=== PATIENT | male | born 2000 | race Caucasian/White ===

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

== ENCOUNTER 2021-10-09 13:43 | Emergency (ER) | payer MEDICAID, SELFPAY ==
[2021-10-09 13:54] VITALS: BP 114/66; PULSE 65; RESP 16; TEMP 37; O2SAT 98; BMI 21.1
--- NOTE | 2021-10-09 14:01 | US_ITS ---
WS: [id number] SCROTAL ULTRASOUND EXAMINATION CLINICAL INFORMATION: possible inguinal hernia left testicle/abd pain. COMPARISON: None. FINDINGS: TESTES Normal in size and echotexture, without focal lesion. Color Doppler: Normal color Doppler flow pattern. Right testes size: 4.6 cm x 2.8 cm x 2.2 cm. Left testes size: 4.4 cm x 3.0 cm x 2.2 cm. EPIDIDYMIDES Normal in size and echotexture, without focal lesion. Color Doppler: Normal color Doppler flow pattern. Right epididymis size: 1.1 cm x cm x cm. Left epididymitis size: 0.7 cm x cm x cm. HYDROCELE Small right hydrocele VARICOCELE Right varicocele measures 1.3 x 0.8 cm. Small left varicocele measures 1.5 x 0.4 cm. OTHER FINDINGS None. US/US scrotum [id number] IMPRESSION: 1. Normal testicular echotexture bilaterally with normal vascularity. 2. Small right hydrocele. 3. Small bilateral varicoceles. 4. No visualized inguinal hernia.
[2021-10-09 16:07] LABS: Basophils # 0.1 10^3/uL (0.0-0.1); Basophils % 0.6 %; Eosinophils # 0.3 10^3/uL (0.0-0.8); Eosinophils % 3.7 %; Hematocrit 45.2 % (42.0-52.0); Hemoglobin 15.4 g/dL (11.7-16.6); Lymphocytes # 2.4 10^3/uL (1.5-6.5); Lymphocytes % 30.6 %; Mean Corpuscular HGB Conc 34.1 g/dL (30.0-36.0); Mean Corpuscular Hemoglobin 29.2 pg (28.0-34.0); Mean Corpuscular Volume 85.6 fl (80-94); Mean Platelet Volume 9.7 fL (7.4-10.4); Monocytes # 0.6 10^3/uL (0.2-0.9); Monocytes % 7.7 %; Neutrophils # 4.45 10^3/uL (1.8-8.0); Neutrophils % 57.3 %; Nucleated Red Blood Cells % 0 %; Platelet Count 268 10^3/cmm (130-400); Red Blood Count 5.28 10^6/uL (4.1-5.3); Red Cell Distribution Width 11.8 % (12.1-15.1); White Blood Count 7.8 10^3/uL (4.5-13.0)
[2021-10-09 16:24] LABS: Alanine Aminotransferase 12 U/L (0-41); Alkaline Phosphatase 76 IU/L (40-130); Anion Gap 18.2 (5-19); Aspartate Amino Transferase 17 U/L (0-40); Blood Urea Nitrogen 11 mg/dL (6-20); Calcium 9.6 mg/dL (8.5-10.5); Carbon Dioxide 24 mmol/L (22-29); Chloride 100 mmol/L (98-107); Globulin 3.1 g/dL (1.3-4.6); Glomerular Filtration Rate 107.6 mL/min (90-130); Glucose 87 mg/dL (65-115); Osmolality Calculated 285 mOsm/kg (285-295); Potassium 4.2 mmol/L (3.5-5.1); Sodium 138 mmol/L (136-145); Total Bilirubin 0.7 mg/dL (0.15-1.2); Total Protein 8.1 g/dL (6.6-8.7)
[2021-10-09 16:25] LABS: Lactic Sepsis W/Reflex 0.8 mmol/L (0.5-2.2)
[2021-10-09 16:51] VITALS: BP 115/80; PULSE 111; RESP 16; O2SAT 98
--- NOTE | 2021-10-09 17:53 | ED_ITS ---
HPI - Abdominal Pain General: Chief Complaint: Abdominal Pain Stated Complaint: poss hernia sent over by [facility] Time Seen by Provider: 10/09/21 17:45 History of Present Illness: HPI narrative: Patient is a 21-year-old male comes to the ED with abdominal pain. He saw his PCP today at [facility] and they referred him here to the ED to be evaluated for an inguinal hernia. Patient says for the past month he has noticed that when he is bending over or lifting things he will feel some pain in his lower abdomen. Last night he noticed there was a small bulging mass in his left groin. He says he pushed on it last night and it was very painful. He denies being in any current pain unless palpating inguinal mass. Denies any nausea/vomiting, fever, chills, bladder or bowel symptoms. Associated Symptoms: Denies chills, constipation, diarrhea, dysuria, fever(s), hematochezia, hematuria, nausea and vomiting Review of Systems Const: Denies: fever(s), chills or fatigue Eyes: Denies: change in vision or eye discomfort ENMT: Denies: throat pain, odynophagia, nasal discharge or nasal congestion Card: Denies: chest pain, palpitations, edema, swelling of feet/ankles, dyspnea on exertion or orthopnea Resp: Denies: dyspnea, productive cough or non-productive cough GI: Reports: abdominal pain; Denies: nausea, vomiting, diarrhea, constipation or hematochezia : Denies: flank pain, difficulty urinating, dysuria or hematuria Musc: Denies: neck pain, back pain or extremity swelling Skin/Breast: Denies: rash or new lesions Neuro: Denies: headache(s), numbness in extremities or weakness in extremities COUNT INCLUDES THE [facility] ED PFSH: Social History Smoking and tobacco status: never smoked Physical Exam Const: COMMON NORMALS: no acute distress, patient oriented x3, healthy appearing and alert GENERAL APPEARANCE: cooperative and comfortable HENMT: COMMON NORMALS: normocephalic HEAD & SCALP: normocephalic MOUTH: Normal oral and palatal mucosa present THROAT: posterior oropharynx normal and uvula midline Neck/C-Spine: COMMON NORMALS: supple GENERAL: Yes normal visual inspection Resp: COMMON NORMALS: normal respiratory effort, No retractions, No use of accessory muscles and clear to auscultation bilaterally AUSCULTATION: clear to auscultation bilaterally Cardio: COMMON NORMALS: regular rate, regular rhythm, S1 normal heart sound present, S2 normal heart sound present, No gallops present (Cardio), No clicks present (Cardio), No murmurs present (Cardio) and Peripheral pulses 2+ throughout RATE: regular rate RHYTHM: regular rhythm HEART SOUNDS: S1 normal heart sound present and S2 normal heart sound present PERIPHERAL PULSES: Peripheral pulses 2+ throughout GI: COMMON NORMALS: Normal to inspection, nondistended, normoactive bowel s ounds present, Soft to palpation, non-tender and no masses PALPATION: Yes Soft to palpation and Yes Hernia present direct inguinal Direct inguinal hernia laterality: left : COMMON NORMALS: Yes no CVA tenderness BLADDER/KIDNEY EXAM: Yes no CVA tenderness Back/Pelvis: COMMON NORMALS: no CVA tenderness Neuro: COMMON NORMALS: patient oriented x3 SENSORIUM/ORIENTATION: Yes alert GAIT: Yes Normal gait present Skin: GENERAL SKIN EXAM: dry skin Course Reevaluation(s): Reevaluation #1: After patient had CT of abdomen/pelvis, I went in and reevaluated his left inguinal hernia. Upon exam again patient's guaiacol hernia seem to be reduced and he had no palpable hernia or tenderness in the left inguinal region. Time: 20:02 Vital Signs: Vital signs: Vital Signs Temperature 98.6 F 10/09/21 13:54 Pulse Rate 72 10/09/21 20:31 Respiratory Rate 18 10/09/21 20:31 Blood Pressure 123/68 10/09/21 20:31 Pulse Oximetry 98 10/09/21 20:31 MDM - Abdominal Pain MDM Narrative: Medical decision making narrative: Patient is a 21-year-old male who comes to the ED with abdominal pain. He was seen at [facility] they were concerned for a left inguinal hernia and sent him here to the ED to be evaluated. Vital stable. Exam showed a nontoxic appearing patient that did have a palpable left inguinal hernia. Rest of exam was benign. Labs were unremarkabl e. Ultrasound of scrotum showed no acute findings. CT of abdomen pelvis showed no acute findings that did not notate any inguinal hernia seen. Once patient arrived back from CT, I performed another exam on left inguinal hernia and it appeared to have resolved. There is no palpable hernia and no tenderness present. Patient's inguinal hernia reduced on its own. Patient was diagnosed with an inguinal hernia that was reducible and sent home. He was told to follow- up with his PCP in the next 5 days for reevaluation. He was given strict return to ED precautions such as if he feels his hernia again and its painful and will not reduce. Lab Data: Attestation: I reviewed the patient's lab results. Labs: Lab Results 10/09/21 10/09/21 10/09/21 15:57 15:57 15:57 WBC 7.8 10^3/uL 10^3/ uL (4.5-13.0) RBC 5.28 10^6/uL 10^6 /uL (4.1-5.3) Hgb 15.4 g/dL g/dL (11.7-16.6) Hct 45.2 % % (42.0-52.0) MCV 85.6 fl fl (80-94) MCH 29.2 pg pg (28.0-34.0) MCHC 34.1 g/dL g/dL (30.0-36.0) RDW 11.8 % L % (12.1-15.1) Plt Count 268 10^3/cmm 10^3 /cmm (130-400) MPV 9.7 fL fL (7.4-10.4) Neut % (Auto) 57.3 % % Lymph % (Auto) 30.6 % % [place] % (Auto) 7.7 % % Eos % (Auto) 3.7 % % Baso % (Auto) 0.6 % % Neut # (Auto) 4.45 10^3/uL 10^3 /uL (1.8-8.0) Lymph # (Auto) 2.4 10^3/uL 10^3/ uL (1.5-6.5) [place] # (Auto) 0.6 10^3/uL 10^3/ uL (0.2-0.9) Eos # (Auto) 0.3 10^3/uL 10^3/ uL (0.0-0.8) Baso # (Auto) 0.1 10^3/uL 10^3/ uL (0.0-0.1) Nucleated RBC % (a uto) 0 % % Nucleated RBCs # 0.0 /100WBC /100W BC Sodium 138 mmol/L mmol/L (136-145) Potassium 4.2 mmol/L mmol/L (3.5-5.1) Chloride 100 mmol/L mmol/L (98-107) Carbon Dioxide 24 mmol/L mmol/L (22-29) Anion Gap 18.2 (5-19) BUN 11 mg/dL mg/dL (6-20) Creatinine 0.9 mg/dL mg/dL (0.7-1.2) GFR Calculation 107.6 mL/min mL/m in (90-130) Glucose 87 mg/dL mg/dL (65-115) Calculated Osmolal ity 285 mOsm/kg mOsm/ kg (285-295) Lactic Acid 0.8 mmol/L mmol/L (0.5-2.2) Calcium 9.6 mg/dL mg/dL (8.5-10.5) Total Bilirubin 0.7 mg/dL mg/dL (0.15-1.2) AST 17 U/L U/L (0-40) ALT 12 U/L U/L (0-41) Alkaline Phosphata se 76 IU/L IU/L (40-130) Total Protein 8.1 g/dL g/dL (6.6-8.7) Albumin 5.0 g/dL g/dL (3.5-5.2) Globulin 3.1 g/dL g/dL (1.3-4.6) Urine Color Urine Appearance Urine pH Ur Specific Gravit y Urine Protein Urine Glucose (UA) Urine Ketones Urine Blood Urine Nitrate Urine Bilirubin Urine Urobilinogen Ur Leukocyte Marychuy ase 10/09/21 18:49 WBC RBC Hgb Hct MCV MCH MCHC RDW Plt Count MPV Neut % (Auto) Lymph % (Auto) [place] % (Auto) Eos % (Auto) Baso % (Auto) Neut # (Auto) Lymph # (Auto) [place] # (Auto) Eos # (Auto) Baso # (Auto) Nucleated RBC % (a uto) Nucleated RBCs # Sodium Potassium Chloride Carbon Dioxide Anion Gap BUN Creatinine GFR Calculation Glucose Calculated Osmolal ity Lactic Acid Calcium Total Bilirubin AST ALT Alkaline Phosphata se Total Protein Albumin Globulin Urine Color Straw (Yellow) Urine Appearance Clear (CLEAR) Urine pH 7 (5-7) Ur Specific Gravit y 1.005 (1.005-1.030) Urine Protein Neg (Negative) Urine Glucose (UA) Norm (Normal) Urine Ketones Negative (Negative) Urine Blood Neg (Negative) Urine Nitrate Negative (Negative) Urine Bilirubin Neg (Negative) Urine Urobilinogen Norm mg/dL mg/dL (Negative) Ur Leukocyte Marychuy ase Negative (Negative) Imaging Data ^: CT Abd/Pel: Attestation: I personally reviewed and interpreted this imaging study as follows: Radiologist's impression: [employer] [address] [place] [id number] Scan Report Signed Patient: Jesus Mendoza Unit #: [id number] : 2000 Age/Sex: 21 / M ADM Date: 10/09/21 Loc: ER Room/Bed: Attending Dr: Ordering Provider/Ordering MD: Brayan Gutierrez Date of Service: 10/09/21 Procedure(s): CT abdomen pelvis w con* [id number] Accession Number(s): [id number] Report Number: [id number] PROCEDURE INFORMATION: Exam: CT Abdomen And Pelvis With Contrast Exam date and time: 10/09/2021 6:04 PM Age: 21 years old Clinical indication: Abdominal pain; Localized; Left lower quadrant (llq); Additional info: Left inguinal hernia TECHNIQUE: Imaging protocol: Computed tomography of the abdomen and pelvis with contrast. Radiation optimization: All CT scans at this facility use at least one of these dose optimization techniques: automated exposure control; mA and/or kV adjustment per patient size (includes targeted exams where dose is matched to clinical indication); or iterative reconstruction. Contrast material: OMNI 300; Contrast volume: 95 ml; Contrast route: INTRAVENOUS (IV); COMPARISON: CR XR acute abdomen series [id number] 05/20/2020 11:35 PM RADIATION DOSE METRICS: Total DLP (mGy-cm): 712.61 FINDINGS: Liver: Normal. No mass. Gallbladder and bile ducts: Normal. No calcified stones. No ductal dilation. Pancreas: Normal. No ductal dilation. Spleen: Normal. No splenomegaly. Adrenal glands: Normal. No mass. Kidneys and ureters: Normal. No hydronephrosis. Stomach and bowel: Unremarkable. No obstruction. No mucosal thickening. Appendix: No evidence of appendicitis. Intraperitoneal space: Unremarkable. No free air. No significant fluid collection. Vasculature: Unremarkable. No abdominal aortic aneurysm. Lymph nodes: Unremarkable. No enlarged lymph nodes. Urinary bladder: Unremarkable as visualized. Reproductive: Unremarkable as visualized. Bones/joints: Unremarkable. No acute fracture. Soft tissues: Unremarkable. CT/CT abdomen pelvis w con* [id number] IMPRESSION: No acute finding. Radiation Dose CTDIVOL = (mGy): DLP = 712.61 (mGy-cm) Dictated By: Ben Lopez MD Signed By: Ben Lopez MD Signed Date/Time: 10/09/211916 DD/ 03 US: Attestation: I personally reviewed and interpreted this imaging study as follows: Radiologist's impression: [facility] [place], [place] [address]Pettxrthoz ReportSigned Patient: Gee Mendoza #: [id number]: 2000Acct#:[id number]/Sex: 21 / MADM Date: 10/09/21Loc: ERRoom/Bed:Attending Dr: Ordering Provider/Ordering MD: Larry Sinha DO Date of Service: 10/09/21 Procedure(s): US scrotum [id number] Accession Number(s): [id number] Report Number: [id number] WS: [id number] SCROTAL ULTRASOUND EXAMINATION CLINICAL INFORMATION: possible inguinal hernia left testicle/abd pain. COMPARISON: None. FINDINGS: TESTES Normal in size and echotexture, without focal lesion. Color Doppler: Normal color Doppler flow pattern. Right testes size: 4.6 cm x 2.8 cm x 2.2 cm. Left testes size: 4.4 cm x 3.0 cm x 2.2 cm. EPIDIDYMIDES Normal in size and echotexture, without focal lesion. Color Doppler: Normal color Doppler flow pattern. Right epididymis size: 1.1 cm x cm x cm. Left epididymitis size: 0.7 cm x cm x cm. HYDROCELE Small right hydrocele VARICOCELE Right varicocele measures 1.3 x 0.8 cm. Small left varicocele measures 1.5 x 0.4 cm. OTHER FINDINGS None. US/US scrotum [id number] IMPRESSION: 1. Normal testicular echotexture bilaterally with normal vascularity. 2. Small right hydrocele. 3. Small bilateral varicoceles. 4. No visualized inguinal hernia. Dictated By:Pedro Mckeon MDSigned By:Pedro Mckeon MDSigned Date/Time:10/09/215DD/ 18 Discharge Plan Discharge Patient Disposition: Home Clinical Impression: Reducible left inguinal hernia Condition: Stable Prescriptions: No Action No Known Home Medications RF: 0 Discharge Orders: Discharge ED (Routine); Ordered 10/09/21 Ordered By: Brayan Gutierrez Discharge Diet: Regular Discharge Activity: Resume usual activity Patient Instructions: Inguinal Hernia (ED) Activity Restrictions/Additional Instructions: Follow-up with medical provider as directed and 5 to 7 days reevaluation. Take [id number] ibuprofen or Tylenol for pain. Return to the ER or your medical provider if condition worsens. Please read and understand discharge instructions. Thank you for choosing [facility] for your healthcare needs today. Please realize this is an emergency room and that we are providing you with a medical screening exam and this may not be complete and all inclusive of all the testing and or work up that you may need to determine your ailment or severity of your illness. It is very important that you follow up as instructed or that you return to the Emergency Department should you have concerns or if your condition changes or worsens in any way. Coding Level of Care Code ED Algebraist for Dee Dee Bennett Exam Comprehensive
--- NOTE | 2021-10-09 18:04 | CTR_ITS ---
PROCEDURE INFORMATION: Exam: CT Abdomen And Pelvis With Contrast Exam date and time: 10/09/2021 6:04 PM Age: 21 years old Clinical indication: Abdominal pain; Localized; Left lower quadrant (llq); Additional info: Left inguinal hernia TECHNIQUE: Imaging protocol: Computed tomography of the abdomen and pelvis with contrast. Radiation optimization: All CT scans at this facility use at least one of these dose optimization techniques: automated exposure control; mA and/or kV adjustment per patient size (includes targeted exams where dose is matched to clinical indication); or iterative reconstruction. Contrast material: OMNI 300; Contrast volume: 95 ml; Contrast route: INTRAVENOUS (IV); COMPARISON: CR XR acute abdomen series [id number] 05/20/2020 11:35 PM RADIATION DOSE METRICS: Total DLP (mGy-cm): 712.61 FINDINGS: Liver: Normal. No mass. Gallbladder and bile ducts: Normal. No calcified stones. No ductal dilation. Pancreas: Normal. No ductal dilation. Spleen: Normal. No splenomegaly. Adrenal glands: Normal. No mass. Kidneys and ureters: Normal. No hydronephrosis. Stomach and bowel: Unremarkable. No obstruction. No mucosal thickening. Appendix: No evidence of appendicitis. Intraperitoneal space: Unremarkable. No free air. No significant fluid collection. Vasculature: Unremarkable. No abdominal aortic aneurysm. Lymph nodes: Unremarkable. No enlarged lymph nodes. Urinary bladder: Unremarkable as visualized. Reproductive: Unremarkable as visualized. Bones/joints: Unremarkable. No acute fracture. Soft tissues: Unremarkable. CT/CT abdomen pelvis w con* [id number] IMPRESSION: No acute finding. Radiation Dose CTDIVOL = (mGy): DLP = 712.61 (mGy-cm)
[2021-10-09] MEDS: iohexol 300 mg/mL 100 mL Btl IV (18:27)
[2021-10-09] MEDS: sodium chloride 0.9% 500 ML 999 ML IV (18:45)
[2021-10-09 19:09] LABS: Add Urine Microscopic? NO; Charge for UA Resulting for Rev
[2021-10-09 19:13] LABS: Bilirubin Urine Neg (Negative); Blood Urine Neg (Negative); Glucose Urine UA Norm (Normal); Ketones Urine Negative (Negative); Leukocyte Esterase Urine Negative (Negative); Nitrate Urine Negative (Negative); Protein Urine Neg (Negative); Specific Gravity, Urine 1.005 (1.005-1.030); Urine Appearance Clear (CLEAR); Urine Color Straw (Yellow); Urobilinogen Urine Norm (Negative); pH Urine 7 (5-7)
[2021-10-09 20:31] VITALS: BP 123/68; PULSE 72; RESP 18; O2SAT 98
== END 2021-10-09 20:32 | disposition home or self-care (01) ==
PROVIDERS: Physician Assistant; Emergency Provider Physician Assistant
DX: K40.90 Unilateral inguinal hernia, without obstruction or gangrene, not specified as recurrent (principal)
CPT/HCPCS: 74177; 76870; 80053; 81003; 83605; 85025; 93976; 96360; 99283; J7040; Q9967

== ENCOUNTER 2022-03-20 11:21 | Emergency (ER) | payer MEDICAID, SELFPAY ==
[2022-03-20 11:29] VITALS: BP 132/75; PULSE 50; RESP 18; TEMP 36.9; O2SAT 98; BMI 20.1
[2022-03-20 12:22] LABS: Basophils % 0.2 %; Eosinophils % 0.3 %; Hemoglobin 16.9 g/dL (11.7-16.6); Lymphocytes # 2.1 10^3/uL (1.5-6.5); Lymphocytes % 17.2 %; Mean Corpuscular HGB Conc 34.5 g/dL (30.0-36.0); Mean Corpuscular Hemoglobin 28.5 pg (28.0-34.0); Mean Corpuscular Volume 82.8 fl (80-94); Mean Platelet Volume 10.1 fL (7.4-10.4); Monocytes # 0.9 10^3/uL (0.2-0.9); Monocytes % 7.6 %; Neutrophils # 9.14 10^3/uL (1.8-8.0); Neutrophils % 74.4 %; Nucleated Red Blood Cells % 0 %; Platelet Count 313 10^3/cmm (130-400); Red Blood Count 5.92 10^6/uL (4.1-5.3); Red Cell Distribution Width 12.3 % (12.1-15.1); White Blood Count 12.3 10^3/uL (4.5-13.0)
--- NOTE | 2022-03-20 12:32 | W.ED.GENADLT ---
HPI - General Adult General: Chief complaint: Abdominal Pain Stated complaint: vomiting, hasnt been able to eat Time Seen by Provider: 03/20/22 11:37 History of Present Illness: Patient is a 21-year-old male without any significant past medical history presenting to the emergency room for concerns of midepigastric abdominal pain, nausea and vomiting since Friday. Patient tells me that around 1 PM, shortly after eating [employer] chicken patient has had nausea and vomiting and midepigastric abdominal pain. Since, patient has not been able to hold anything down for significant pain upon eating. Patient denies any diarrhea, melena/hematochezia. Reports mild subjective fever and chills. Patient denies any cough, runny nose, sore throat, chest pain, shortness of breath. Patient denies any consistent sensation of esophageal impaction. No urinary complaints. Onset:3 days ago Duration:3 days Location:home Severity:mild/moderate Associated symptoms: Reports nausea and vomiting; Deny chest pain, dyspnea, rash or palpitations Review of Systems Const: Denies: fever(s) or chills Eyes: Denies: change in vision ENMT: Denies: mouth pain Card: Denies: chest pain or palpitations Resp: Denies: dyspnea or non-productive cough GI: Reports: abdominal pain, nausea and vomiting; Denies: diarrhea : Denies: dysuria Musc: Denies: extremity pain Skin/Breast: Denies: rash or new lesions Neuro: Denies: weakness in extremities Psych: Reports: other (Normal mood) Moncho/Lymph: Denies: easy bruising PFS ED PFSH: Medical History (Updated 03/20/22 @ 12:37 by Saturnino Velarde MD) No pertinent past medical history Social History (Updated 03/20/22 @ 12:34 by Saturnino Velarde MD) Smoking and tobacco status: never smoked Alcohol intake: never Substance/Drug Use: never Physical Exam Const: COMMON NORMALS: alert HENMT: COMMON NORMALS: atraumatic HEAD & SCALP: atraumatic MOUTH: moist mucous membranes not abnormal Eye: COMMON NORMALS: EOMs intact bilaterally and conjunctivae normal CONJUNCTIVA: Yes conjunctivae normal Neck/C-Spine: COMMON NORMALS: full ROM and supple Resp: COMMON NORMALS: normal respiratory effort and clear to auscultation bilaterally AUSCULTATION: clear to auscultation bilaterally Cardio: COMMON NORMALS: regular rate RATE: regular rate GI: COMMON NORMALS: Soft to palpation PALPATION: Yes Soft to palpation OTHER: No focal TTP. NO guarding rebound, guarding, rigidity. No CVA tenderness to percussion. Neg Reagan/Neg McBurney's point tenderness, no suprabupic tenderness to palpation. Extremity: COMMON NORMALS: full ROM Neuro: SENSORIUM/ORIENTATION: Yes alert MOTOR EXAM: No Abnormal motor strength present and Other motor observations present (no focal motor deficits) Psych: COMMON NORMALS: speech normal SPEECH: Yes normal speech MOOD & AFFECT: Yes euthymic mood Course Vital Signs: Vital signs: Vital Signs Temperature 98.4 F 03/20/22 11:29 Pulse Rate 63 03/20/22 14:33 Respiratory Rate 23 H 03/20/22 14:33 Blood Pressure 109/50 03/20/22 15:30 Pulse Oximetry 96 03/20/22 14:33 [facility] - General Adult Medical Decision Making 21-year-old male with any significant past medical history presenting to the emergency room with concerns of nausea/vomiting and abdominal pain x3 days. On exam, patient has no focal tenderness to palpation. No guarding or rebound tenderness. Vitals appear to be within normal limit. Patient is otherwise well-appearing. Laboratory work-up showed no leukocytosis. Abdominal lab within normal limit. No suspicion for other acute intra-abdominal pathology including SBO, biliary pathology, appendicitis, diverticulitis, or other emergent condition requiring surgery. Patient initially had vomiting after GI cocktail. Patient received 4 mg morphine with improvement abdominal pain. CT abdomen pelvis negative for any acute finding. Patient still able tolerate p.o. without difficulty. Patient denies any marijuana use or daily alcohol ingestion recently. Patient tells me that he will follow-up tomorrow morning at [facility] walk-in clinic for reassessment of symptoms to determine whether he has H. pylori infection. I have given patient follow up with our social work case manager to be seen by our outpatient PCP for evaluation of possible peptic ulcer vs gastritis. Patient aware of a call from our social work case manager to schedule for appointment(s) and verbalizes understanding of the importance of following up. Rx Protonix PRN peptic ulcers, maalox/pepcid PRN dyspepsia, and zofran PRN nausea/vomiting Disposition: Discharge. Patient counseled regarding diagnostic impression, treatment plan. Patient given ED strict return precautions to return for continuation, worsening, or development of new symptoms. Instructed to f/u w/ PCP regarding symptoms today. Patient verbalized understanding. Considered appendicitis however unlikely at this time given lack of signs and sx's to suggest appendicitis as etiology. Pt counseled that appendicitis may later develop and given appendicitis precautions and instructed to return if any development of RLQ tenderness, worsening or continued abdominal pain, or any fevers, chills, nausea, vomiting, or any other concerning signs or symptoms. Lab Data : 03/20/22 12:00 03/20/22 12:00 Radiology Impressions Chest X-Ray 03/20/22 13:16 Impression: Negative chest. Abdomen/Pelvis CT 03/20/22 14:23 IMPRESSION: No CT evidence of acute intra-abdominal or pelvic pathology. Laboratory Results WBC 12.3 10^3/uL (4.5-13.0) 03/20/22 12:00 RBC 5.92 10^6/uL (4.1-5.3) H 03/20/22 12:00 Hgb 16.9 g/dL (11.7-16.6) H 03/20/22 12:00 Hct 49.0 % (42.0-52.0) 03/20/22 12:00 MCV 82.8 fl (80-94) 03/20/22 12:00 MCH 28.5 pg (28.0-34.0) 03/20/22 12:00 MCHC 34.5 g/dL (30.0-36.0) 03/20/22 12:00 RDW 12.3 % (12.1-15.1) 03/20/22 12:00 Plt Count 313 10^3/cmm (130-400) 03/20/22 12:00 MPV 10.1 fL (7.4-10.4) 03/20/22 12:00 Neut % (Auto) 74.4 % 03/20/22 12:00 Lymph % (Auto) 17.2 % 03/20/22 12:00 Banks % (Auto) 7.6 % 03/20/22 12:00 Eos % (Auto) 0.3 % 03/20/22 12:00 Baso % (Auto) 0.2 % 03/20/22 12:00 Neut # (Auto) 9.14 10^3/uL (1.8-8.0) H 03/20/22 12:00 Lymph # (Auto) 2.1 10^3/uL (1.5-6.5) 03/20/22 12:00 Banks # (Auto) 0.9 10^3/uL (0.2-0.9) 03/20/22 12:00 Eos # (Auto) 0.0 10^3/uL (0.0-0.8) 03/20/22 12:00 Baso # (Auto) 0.0 10^3/uL (0.0-0.1) 03/20/22 12:00 Nucleated RBC % (auto) 0 % 03/20/22 12:00 Nucleated RBCs # 0.0 /100WBC 03/20/22 12:00 Sodium 138 mmol/L (136-145) 03/20/22 12:00 Potassium 3.9 mmol/L (3.5-5.1) 03/20/22 12:00 Chloride 96 mmol/L (98-107) L 03/20/22 12:00 Carbon Dioxide 25 mmol/L (22-29) 03/20/22 12:00 Anion Gap 20.9 (5-19) H 03/20/22 12:00 BUN 20 mg/dL (6-20) 03/20/22 12:00 Creatinine 0.8 mg/dL (0.7-1.2) 03/20/22 12:00 GFR Calculation 123.2 mL/min (90-130) 03/20/22 12:00 Glucose 93 mg/dL (65-115) 03/20/22 12:00 Calculated Osmolality 288 mOsm/kg (285-295) 03/20/22 12:00 Calcium 9.9 mg/dL (8.5-10.5) 03/20/22 12:00 Total Bilirubin 1.5 mg/dL (0.15-1.2) H 03/20/22 12:00 AST 36 U/L (0-40) 03/20/22 12:00 ALT 28 U/L (0-41) 03/20/22 12:00 Alkaline Phosphatase 90 IU/L (40-130) 03/20/22 12:00 Total Protein 8.7 g/dL (6.6-8.7) 03/20/22 12:00 Albumin 5.9 g/dL (3.5-5.2) H 03/20/22 12:00 Globulin 2.8 g/dL (1.3-4.6) 03/20/22 12:00 Lipase 16 U/L (13-60) 03/20/22 12:00 Urine Color Yellow (Yellow) 03/20/22 15:48 Urine Appearance Clear (CLEAR) 03/20/22 15:48 Urine pH 9 (5-7) H 03/20/22 15:48 Ur Specific [place] 1.015 (1.005-1.030) 03/20/22 15:48 Urine Protein Neg (Negative) 03/20/22 15:48 Urine Glucose (UA) Norm (Normal) 03/20/22 15:48 Urine Ketones 2+ (Negative) H 03/20/22 15:48 Urine Blood Neg (Negative) 03/20/22 15:48 Urine Nitrate Negative (Negative) 03/20/22 15:48 Urine Bilirubin Neg (Negative) 03/20/22 15:48 Urine Urobilinogen Neg mg/dL (Negative) 03/20/22 15:48 Ur Leukocyte Esterase Negative (Negative) 03/20/22 15:48 Imaging Data Other Imaging: Radiologist's impression: [address] [address] [address] Scan Report Signed Patient: Jesus Mendoza Unit #: [id number] : 2000 Age/Sex: 21 / M ADM Date: 03/20/22 Loc: ER Room/Bed: Attending Dr: Ordering Provider/Ordering MD: Saturnino Velarde MD Date of Service: 03/20/22 Procedure(s): CT abdomen pelvis w con* [id number] Accession Number(s): [id number] Report Number: [id number] PROCEDURE INFORMATION: Exam: CT Abdomen And Pelvis With Contrast Exam date and time: 03/20/2022 3:15 PM Age: 21 years old Clinical indication: Nausea and vomiting; Abdominal pain; Additional info: Vomiting and abd pain TECHNIQUE: Imaging protocol: Computed tomography of the abdomen and pelvis with contrast. Axial, coronal and sagittal reformatted images were created and reviewed. Radiation optimization: All CT scans at this facility use at least one of these dose optimization techniques: automated exposure control; mA and/or kV adjustment per patient size (includes targeted exams where dose is matched to clinical indication); or iterative reconstruction. Contrast material: OMNI 300; Contrast volume: 95 ml; Contrast route: INTRAVENOUS (IV);? COMPARISON: CT abdomen pelvis w con* [id number] 10/09/2021 6:24 PM RADIATION DOSE METRICS: Total DLP (mGy-cm): 733.98 FINDINGS: Liver: Unremarkable. Gallbladder and bile ducts: No radiodense gallstones. No biliary ductal dilatation. Pancreas: Unremarkable. Spleen: Unremarkable. Adrenal glands: Normal. No mass. Kidneys and ureters: No mass. No radiodense calculi. No hydronephrosis. Stomach and bowel: No bowel wall thickening. No obstruction. No pneumatosis. Appendix: Normal. Intraperitoneal space: No free fluid. No organized fluid collection. No free air. Arteries: Unremarkable. No abdominal aortic aneurysm. Lymph nodes: No pathologically enlarged lymph nodes. Urinary bladder: Unremarkable as visualized. Reproductive: Unremarkable. Bones/joints: No acute osseous abnormality. Soft tissues: Unremarkable. CT/CT abdomen pelvis w con* [id number] IMPRESSION: No CT evidence of acute intra-abdominal or pelvic pathology. ? Dictated By: Dong Daigle MD Signed By: Dong Daigle MD Signed Date/Time: 03/20/22 1628 DD/ [address] [address] XRay Report Signed Patient: Jesus Mendoza Unit #: [id number] : 2000 Age/Sex: 21 / M ADM Date: 03/20/22 Loc: ER Room/Bed: Attending Dr: Ordering Provider/Ordering MD: Saturnino Velarde MD Date of Service: 03/20/22 Procedure(s): XR chest 2V* [id number] Accession Number(s): [id number] Report Number: [id number] WS: [id number] Chest 2 views, 03/20/2022 Clinical Data: chest pain/ upper abd pain Comparison: Portable chest, 05/20/2020. Findings: No nodules, masses or effusions are seen. The heart is normal. The pulmonary vascularity is not increased. No pneumonia or pneumothorax is seen. Monitor leads are on the chest wall. XR/XR chest 2V* [id number] Impression: Negative chest. ? ? Dictated By: Jaclyn Martin MD Signed By: Jaclyn Martin MD Signed Date/Time: 03/20/221337 DD/ 36 Discharge Plan Discharge Patient Disposition: Home Clinical Impression: Abdominal pain, Nausea & vomiting Prescriptions: New acetaminophen 500 mg tablet 500 mg PO Q6H PRN (Reason: pain) 5 Days Qty: 20 0RF Pepcid 20 mg tablet 20 mg PO BID PRN (Reason: abdominal pain) 10 Days Qty: 20 0RF ondansetron 4 mg tablet,disintegrating 4 mg PO TID PRN (Reason: nausea and vomiting) 4 Days Qty: 12 0RF Maalox Advanced 1,000-60 mg tablet,chewable 1 tab PO TID PRN (Reason: abdominal pain) 7 Days Qty: 21 0RF Protonix 40 mg tablet,delayed release (DR/EC) 40 mg PO DAILY 42 Days Qty: 42 0RF No Action ibuprofen 200 mg Tablet 400 mg PO Q4H PRN (Reason: Pain) 0RF Discharge Orders: Discharge ED (Routine); Ordered 03/20/22 Ordered By: Saturnino Velarde Discharge Diet: Advance as tolerated Discharge Activity: Increase activity as tolerated Patient Instructions: Abdominal Pain (ED) Activity Restrictions/Additional Instructions: Please return if you develop continued nausea, vomiting, or develop fevers, chills, abdominal pain, abdominal pain that is in the lower right side of your abdomen, or any other concerning signs or symptoms. Please come back if you have any worsening abdominal pain, fever or chills, nausea or vomiting, diarrhea, blood in the stool, inability hold down liquid or solids, or any new concerning complaints. Our social work case manager will have you follow-up with a PCP in the next few days. You would be expected to have a phone call with our social work case manager who will put you on the schedule. You can expect a call from us in the next 2-3 days. If you don't hear from us, call us back in the emergency room at [phone]. Coding Level of Care Code ED Drawbench Operator Helper for Chg Fwd Exam Comprehensive
[2022-03-20] MEDS: lidocaine 2% viscous 15 ML, aluminum-mag hydrox-simethicon 30 ML, sucralfate oral liq 1 GM PO (12:37)
[2022-03-20] MEDS: ondansetron 2 mg/ML SDV 2 mL 4 MG IVP ×2 (12:37→14:33)
[2022-03-20] MEDS: sodium chloride 0.9% 1,000 ML 999 ML IV (12:37)
[2022-03-20 12:42] LABS: Alanine Aminotransferase 28 U/L (0-41); Albumin Level 5.9 g/dL (3.5-5.2); Alkaline Phosphatase 90 IU/L (40-130); Anion Gap 20.9 (5-19); Aspartate Amino Transferase 36 U/L (0-40); Blood Urea Nitrogen 20 mg/dL (6-20); Calcium 9.9 mg/dL (8.5-10.5); Carbon Dioxide 25 mmol/L (22-29); Chloride 96 mmol/L (98-107); Globulin 2.8 g/dL (1.3-4.6); Glomerular Filtration Rate 123.2 mL/min (90-130); Glucose 93 mg/dL (65-115); Lipase 16 U/L (13-60); Osmolality Calculated 288 mOsm/kg (285-295); Potassium 3.9 mmol/L (3.5-5.1); Sodium 138 mmol/L (136-145); Total Bilirubin 1.5 mg/dL (0.15-1.2); Total Protein 8.7 g/dL (6.6-8.7)
--- NOTE | 2022-03-20 13:16 | XR_ITS ---
WS: [email or web address] Chest 2 views, 03/20/2022 Clinical Data: chest pain/ upper abd pain Comparison: Portable chest, 05/20/2020. Findings: No nodules, masses or effusions are seen. The heart is normal. The pulmonary vascularity is not increased. No pneumonia or pneumothorax is seen. Monitor leads are on the chest wall. XR/XR chest 2V* [id number] Impression: Negative chest.
[2022-03-20 14:06] VITALS: BP 146/98; PULSE 62; RESP 16; O2SAT 97
--- NOTE | 2022-03-20 14:23 | CTR_ITS ---
PROCEDURE INFORMATION: Exam: CT Abdomen And Pelvis With Contrast Exam date and time: 03/20/2022 3:15 PM Age: 21 years old Clinical indication: Nausea and vomiting; Abdominal pain; Additional info: Vomiting and abd pain TECHNIQUE: Imaging protocol: Computed tomography of the abdomen and pelvis with contrast. Axial, coronal and sagittal reformatted images were created and reviewed. Radiation optimization: All CT scans at this facility use at least one of these dose optimization techniques: automated exposure control; mA and/or kV adjustment per patient size (includes targeted exams where dose is matched to clinical indication); or iterative reconstruction. Contrast material: OMNI 300; Contrast volume: 95 ml; Contrast route: INTRAVENOUS (IV); COMPARISON: CT abdomen pelvis w con* [id number] 10/09/2021 6:24 PM RADIATION DOSE METRICS: Total DLP (mGy-cm): 733.98 FINDINGS: Liver: Unremarkable. Gallbladder and bile ducts: No radiodense gallstones. No biliary ductal dilatation. Pancreas: Unremarkable. Spleen: Unremarkable. Adrenal glands: Normal. No mass. Kidneys and ureters: No mass. No radiodense calculi. No hydronephrosis. Stomach and bowel: No bowel wall thickening. No obstruction. No pneumatosis. Appendix: Normal. Intraperitoneal space: No free fluid. No organized fluid collection. No free air. Arteries: Unremarkable. No abdominal aortic aneurysm. Lymph nodes: No pathologically enlarged lymph nodes. Urinary bladder: Unremarkable as visualized. Reproductive: Unremarkable. Bones/joints: No acute osseous abnormality. Soft tissues: Unremarkable. CT/CT abdomen pelvis w con* [id number] IMPRESSION: No CT evidence of acute intra-abdominal or pelvic pathology.
[2022-03-20 14:33] VITALS: BP 141/91; PULSE 63; RESP 18; RESP 23; O2SAT 96; O2SAT 98
[2022-03-20] MEDS: morphine 4 mg/mL SDV 1 mL IVP (14:33)
[2022-03-20] MEDS: iohexol 300 mg/mL 100 mL Btl IV (15:13)
[2022-03-20 15:30] VITALS: BP 109/50
[2022-03-20 15:52] LABS: Add Urine Microscopic? NO; Charge for UA Resulting for Rev
[2022-03-20 16:26] LABS: Bilirubin Urine Neg (Negative); Blood Urine Neg (Negative); Glucose Urine UA Norm (Normal); Ketones Urine 2+ (Negative); Leukocyte Esterase Urine Negative (Negative); Nitrate Urine Negative (Negative); Protein Urine Neg (Negative); Specific Gravity, Urine 1.015 (1.005-1.030); Urine Appearance Clear (CLEAR); Urine Color Yellow (Yellow); Urobilinogen Urine Neg (Negative); pH Urine 9 (5-7)
--- NOTE | 2022-03-20 16:43 | PC.NURSE ---
Pt provided ned mist and óscar crackers for PO challenge at [id number]
--- NOTE | 2022-03-20 16:52 | PC.NURSE ---
Dr. Velarde in pt room at this time talking with pt.
[2022-03-20] MEDS: morphine 4 mg/mL SDV 1 mL IM (17:14)
[2022-03-20 17:27] VITALS: BP 173/86; PULSE 60; RESP 20; O2SAT 100
== END 2022-03-20 17:46 | disposition home or self-care (01) ==
PROVIDERS: Emergency Provider Emergency Medicine
DX: R10.9 Unspecified abdominal pain (principal); R11.2 Nausea with vomiting, unspecified
CPT/HCPCS: 71046; 74177; 80053; 81003; 83690; 85025; 96361; 96372; 96374; 96375; 96376; 99284; J2270; J2405; J7030; Q9967

== ENCOUNTER 2022-03-24 17:56 | Emergency (ER) | payer MEDICAID, SELFPAY ==
[2022-03-24 18:23] VITALS: BP 160/110; PULSE 64; RESP 18; TEMP 36.7; O2SAT 97; BMI 18.1
--- NOTE | 2022-03-24 18:38 | W.ED.ABDPA2 ---
HPI - Abdominal Pain General: Chief Complaint: Abdominal Pain Stated Complaint: Dehydration Time Seen by Provider: 03/24/22 18:25 History of Present Illness: Patient is a 21-year-old male who comes to the ED with nausea and vomiting and some abdominal pain. Patient was seen here in the ED on March 20 for same complaint. He was discharged home from the ED with a prescription for Pepcid, Zofran, Maalox and Protonix and he is still having trouble with acid reflux symptoms and vomiting. He has trouble keeping meds down. He states that he has been dealing with acid reflux symptoms that have been worsening over the past couple months. Approximately 6 days ago on March 18 he ate some [employer] chicken and immediately had epigastric burning pain nausea and emesis. Since then he has not been able to keep any food and fluids down. Epigastric pain radiates up into chest and he rates it an 8 out of 10. Endorses a lot of belching and eating any food or drinking fluids seems to worsen symptoms. Associated Symptoms: Reports belching, heartburn, nausea and vomiting; Denies chills, constipation, diarrhea, dysuria, fever(s), hematochezia and hematuria Review of Systems Const: Denies: fever(s), chills or fatigue Eyes: Denies: change in vision or eye discomfort ENMT: Denies: throat pain, odynophagia, nasal discharge or nasal congestion Card: Denies: chest pain, palpitations, edema, swelling of feet/ankles, dyspnea on exertion or orthopnea Resp: Denies: dyspnea, productive cough or non-productive cough GI: Reports: abdominal pain (Epigastric), nausea, vomiting, heartburn and belching; Denies: diarrhea, constipation or hematochezia : Denies: flank pain, difficulty urinating, dysuria or hematuria Musc: Denies: neck pain, back pain or extremity swelling Skin/Breast: Denies: rash or new lesions Neuro: Denies: headache(s), numbness in extremities or weakness in extremities PFS ED PFSH: Medical History No pertinent family history No pertinent past medical history Social History Smoking and tobacco status: never smoked Alcohol intake: never Physical Exam Const: COMMON NORMALS: patient oriented x3 and alert GENERAL APPEARANCE: cooperative HENMT: COMMON NORMALS: normocephalic HEAD & SCALP: normocephalic MOUTH: moist mucous membranes abnormal Details: parched THROAT: posterior oropharynx normal and uvula midline Eye: COMMON NORMALS: Equal, round and reactive pupils present and conjunctivae normal CONJUNCTIVA: Yes conjunctivae normal PUPIL: Yes Equal, round and reactive pupils present Neck/C-Spine: COMMON NORMALS: supple GENERAL: Yes normal visual inspection Resp: COMMON NORMALS: normal respiratory effort, No retractions, No use of accessory muscles and clear to auscultation bilaterally AUSCULTATION: clear to auscultation bilaterally Cardio: COMMON NORMALS: regular rate, regular rhythm, S1 normal heart sound present, S2 normal heart sound present, No gallops present (Cardio), No clicks present (Cardio), No murmurs present (Cardio) and Peripheral pulses 2+ throughout RATE: regular rate RHYTHM: regular rhythm HEART SOUNDS: S1 normal heart sound present and S2 normal heart sound present PERIPHERAL PULSES: Peripheral pulses 2+ throughout GI: COMMON NORMALS: Normal to inspection, nondistended, normoactive bowel sounds present, Soft to palpation and no masses PALPATION: Yes Soft to palpation and Yes Tenderness to palpation present (GI) Details: RUQ and other (Epigastric) : COMMON NORMALS: Yes no CVA tenderness BLADDER/KIDNEY EXAM: Yes no CVA tenderness Back/Pelvis: COMMON NORMALS: no CVA tenderness Extremity: COMMON NORMALS: normal to inspection Neuro: COMMON NORMALS: patient oriented x3 SENSORIUM/ORIENTATION: Yes alert GAIT: Yes Normal gait present Skin: GENERAL SKIN EXAM: dry skin Course Reevaluation(s): Reevaluation #1: Patient was able to tolerate p.o. fluids well and is not having any current abdominal pain or acid reflux symptoms. He has been able to keep fluids down and has had no episodes of emesis here in the ED. He is stable for discharge home. Time: 23:28 Vital Signs: Vital signs: Vital Signs Temperature 98.0 F 03/24/22 18:23 Pulse Rate 70 03/24/22 23:44 Respiratory Rate 16 03/24/22 23:44 Blood Pressure 123/85 03/24/22 23:44 Pulse Oximetry 98 03/24/22 23:44 MDM - Abdominal Pain Medical Decision Making Patient is a 21-year-old male comes to the ED with epigastric pain, nausea and vomiting. Patient also describes it as a burning chest pain. He was seen here in the ED couple days ago on March 20 for same complaint. Full work-up was done at that time including a CT of the abdomen and no acute findings were seen and patient was diagnosed with epigastric abdominal pain and sent home with a prescription for Protonix, Pepcid Maalox and nausea meds. He is continue to have some nausea and vomiting and worsening epigastric pain when he tries to eat something. He has not been able to keep all of his p.o. meds down. Vitals are stable. Patient appears nontoxic and in no acute distress. He does have some right upper quadrant and epigastric abdominal tenderness. He also has some signs of dehydration with dry oral mucous membranes. H. pylori negative. T bili 2.3 which is elevated from 1.5 back on March 20. Rest of labs were unremarkable. Ultrasound of the gallbladder showed no acute findings troponin is negative. EKG showed no acute findings. Patient was given 2 L of IV fluids, Pepcid and nausea meds and his symptoms improved. He had no episodes of emesis here in the ED and was able to tolerate p.o. fluids. Patient diagnosed with abdominal pain the epigastric region and acid reflux. He was stable for discharge home and I told him to do a clear liquid diet for the next 24 to 48 hours. Told to continue taking as previously prescribed meds to help with his acid reflux symptoms and nausea and I sent him home with the prescription for sucralfate and additional nausea meds. Follow-up with your PCP in the next 3 to 5 days for reevaluation. Return to ED precautions given. Patient understood and agreed with plan. Lab Data I reviewed the patient's lab results. : 03/24/22 18:48 03/24/22 18:48 Labs/Radiology: Radiology Impressions Gallbladder Ultrasound 03/24/22 19:36 IMPRESSION: No sonographic evidence of acute cholecystitis. Laboratory Results WBC 12.9 10^3/uL (4.5-13.0) 03/24/22 18:48 RBC 6.16 10^6/uL (4.1-5.3) H 03/24/22 18:48 Hgb 17.7 g/dL (11.7-16.6) H 03/24/22 18:48 Hct 49.9 % (42.0-52.0) 03/24/22 18:48 MCV 81.0 fl (80-94) 03/24/22 18:48 MCH 28.7 pg (28.0-34.0) 03/24/22 18:48 MCHC 35.5 g/dL (30.0-36.0) 03/24/22 18:48 RDW 12.0 % (12.1-15.1) L 03/24/22 18:48 Plt Count 330 10^3/cmm (130-400) 03/24/22 18:48 MPV 10.7 fL (7.4-10.4) H 03/24/22 18:48 Neut % (Auto) 88.2 % 03/24/22 18:48 Lymph % (Auto) 8.8 % 03/24/22 18:48 [place] % (Auto) 2.5 % 03/24/22 18:48 Eos % (Auto) 0.0 % 03/24/22 18:48 Baso % (Auto) 0.2 % 03/24/22 18:48 Neut # (Auto) 11.37 10^3/uL (1.8-8.0) H 03/24/22 18:48 Lymph # (Auto) 1.1 10^3/uL (1.5-6.5) L 03/24/22 18:48 [place] # (Auto) 0.3 10^3/uL (0.2-0.9) 03/24/22 18:48 Eos # (Auto) 0.0 10^3/uL (0.0-0.8) 03/24/22 18:48 Baso # (Auto) 0.0 10^3/uL (0.0-0.1) 03/24/22 18:48 Nucleated RBC % (auto) 0 % 03/24/22 18:48 Nucleated RBCs # 0.0 /100WBC 03/24/22 18:48 Sodium 132 mmol/L (136-145) L 03/24/22 18:48 Potassium 4.0 mmol/L (3.5-5.1) 03/24/22 18:48 Chloride 90 mmol/L (98-107) L 03/24/22 18:48 Carbon Dioxide 18 mmol/L (22-29) L 03/24/22 18:48 Anion Gap 28.0 (5-19) H 03/24/22 18:48 BUN 27 mg/dL (6-20) H 03/24/22 18:48 Creatinine 0.8 mg/dL (0.7-1.2) 03/24/22 18:48 GFR Calculation 123.2 mL/min (90-130) 03/24/22 18:48 Glucose 109 mg/dL (65-115) 03/24/22 18:48 Calculated Osmolality 280 mOsm/kg (285-295) L 03/24/22 18:48 Calcium 10.5 mg/dL (8.5-10.5) 03/24/22 18:48 Total Bilirubin 2.3 mg/dL (0.15-1.2) H 03/24/22 18:48 AST 20 U/L (0-40) 03/24/22 18:48 ALT 19 U/L (0-41) 03/24/22 18:48 Alkaline Phosphatase 85 IU/L (40-130) 03/24/22 18:48 Troponin T Baseline 8 ng/L (0-15) 03/24/22 18:48 Troponin T 120 Minute 7.78 ng/L (0-15) 03/24/22 20:07 Delta Troponin T Not Reportable 03/24/22 20:07 Total Protein 9.1 g/dL (6.6-8.7) H 03/24/22 18:48 Albumin 5.5 g/dL (3.5-5.2) H 03/24/22 18:48 Globulin 3.6 g/dL (1.3-4.6) 03/24/22 18:48 Lipase 31 U/L (13-60) 03/24/22 18:48 Urine Color Yellow (Yellow) 03/24/22 21:32 Urine Appearance Clear (CLEAR) 03/24/22 21:32 Urine pH 6 (5-7) 03/24/22 21:32 Ur Specific [place] 1.020 (1.005-1.030) 03/24/22 21:32 Urine Protein Neg (Negative) 03/24/22 21:32 Urine Glucose (UA) Norm (Normal) 03/24/22 21:32 Urine Ketones 2+ (Negative) H 03/24/22 21:32 Urine Blood Neg (Negative) 03/24/22 21:32 Urine Nitrate Negative (Negative) 03/24/22 21:32 Urine Bilirubin Neg (Negative) 03/24/22 21:32 Urine Urobilinogen Norm mg/dL (Negative) 03/24/22 21:32 Ur Leukocyte Esterase Negative (Negative) 03/24/22 21:32 H. pylori IgG Antibody Negative (Negative) 03/24/22 18:48 EKG Data EKG 1: EKG interpretation date: 03/24/22 Interpretation: Normal sinus rhythm, 72 bpm, no ST segment elevation or depression noted. EKG 2: EKG interpretation date: 03/24/22 Interpretation: 2-hour EKG-sinus bradycardia, 54 bpm, no ST segment elevation or depression noted no acute changes compared to prior EKG. Discharge Plan Discharge Patient Disposition: Home Clinical Impression: Abdominal pain Qualifiers: Abdominal location: epigastric Qualified Code(s): R10.13 - Epigastric pain Acid reflux Qualifiers: Esophagitis presence: esophagitis presence not specified Qualified Code(s): K21.9 - Gastro-esophageal reflux disease without esophagitis Condition: Stable Prescriptions: New sucralfate 1 gram tablet 1 g PO Q6H PRN (Reason: acid reflux) 14 Days Qty: 56 0RF Reglan 10 mg tablet 10 mg PO Q6H PRN (Reason: nausea and vomiting) Qty: 20 0RF No Action ibuprofen 200 mg Tablet 400 mg PO Q4H PRN (Reason: Pain) 0RF Pepcid 20 mg tablet 20 mg PO BID PRN (Reason: abdominal pain) 10 Days Qty: 20 0RF Maalox Advanced 1,000-60 mg tablet,chewable 1 tab PO TID PRN (Reason: abdominal pain) 7 Days Qty: 21 0RF Protonix 40 mg tablet,delayed release (DR/EC) 40 mg PO DAILY 42 Days Qty: 42 0RF Discharge Orders: Discharge ED (Routine); Ordered 03/24/22 Ordered By: Brayan Gutierrez Discharge Diet: Advance as tolerated and Clear Liquid Discharge Activity: Increase activity as tolerated Patient Instructions: Diet for Stomach Ulcers and Gastritis (ED), GERD (Gastroesophageal Reflux Disease) (DC), Abdominal Pain (ED) Activity Restrictions/Additional Instructions: Follow-up with medical provider as directed within the next 5 to 7 days reevaluation. Do a clear liquid diet for the next 48 hours then advance diet slowly as tolerated. Take medications as prescribed. Return to the ER or your medical provider if condition worsens. Please read and understand discharge instructions. Thank you for choosing [facility] for your healthcare needs today. Please realize this is an emergency room and that we are providing you with a medical screening exam and this may not be complete and all inclusive of all the testing and or work up that you may need to determine your ailment or severity of your illness. It is very important that you follow up as instructed or that you return to the Emergency Department should you have concerns or if your condition changes or worsens in any way. Coding Level of Care Code ED Automatic Pinsetter Adjuster for Dee Dee Bennett Exam Comprehensive
--- NOTE | 2022-03-24 18:48 | ECG_ITS ---
[facility] Test Date: 2022-03-24 Pat Name: Jesus Mendoza Department: Room: Gender: Male Cnc Operator: : 2000 Requested By: Brayan Gutierrez Order Number: [id number] Vlad MD: Kamlesh Thomas M.D. Measurements Intervals [place] Rate: 72 P: 77 [place]: 140 QRS: 106 QRSD: 94 T: 78 QT: 383 QTc: 420 Interpretive Statements SINUS RHYTHM WITH SINUS ARRHYTHMIA POSSIBLE RIGHT ATRIAL ENLARGEMENT [0.25mV P-WAVE] RIGHT AXIS DEVIATION [QRS AXIS > 100] POSSIBLE RIGHT VENTRICULAR CONDUCTION DELAY [RSR (QR) IN V1/V2] ST ELEVATION CONSISTENT WITH INJURY, PERICARDITIS, OR EARLY REPOLARIZATION [ST ELEVATION W/O NORMALLY INFLECTED T-WAVE] No previous ECG available for comparison Electronically Signed On 03-25-2022 16:29:02 CDT by Kamlesh Thomas M.D. [id number]
[2022-03-24] MEDS: morphine 4 mg/mL SDV 1 mL IVP ×2 (19:01→22:11)
[2022-03-24] MEDS: ondansetron 2 mg/ML SDV 2 mL 4 MG IVP (19:01)
[2022-03-24 19:02] LABS: Basophils % 0.2 %; Hematocrit 49.9 % (42.0-52.0); Hemoglobin 17.7 g/dL (11.7-16.6); Lymphocytes # 1.1 10^3/uL (1.5-6.5); Lymphocytes % 8.8 %; Mean Corpuscular HGB Conc 35.5 g/dL (30.0-36.0); Mean Corpuscular Hemoglobin 28.7 pg (28.0-34.0); Mean Platelet Volume 10.7 fL (7.4-10.4); Monocytes # 0.3 10^3/uL (0.2-0.9); Monocytes % 2.5 %; Neutrophils # 11.37 10^3/uL (1.8-8.0); Neutrophils % 88.2 %; Nucleated Red Blood Cells % 0 %; Platelet Count 330 10^3/cmm (130-400); Red Blood Count 6.16 10^6/uL (4.1-5.3); White Blood Count 12.9 10^3/uL (4.5-13.0)
[2022-03-24] MEDS: sodium chloride 0.9% 1,000 ML 999 ML IV ×2 (19:02→20:24)
[2022-03-24 19:21] LABS: Troponin(5th) Baseline 8 ng/L (0-15)
[2022-03-24 19:22] LABS: Alanine Aminotransferase 19 U/L (0-41); Albumin Level 5.5 g/dL (3.5-5.2); Alkaline Phosphatase 85 IU/L (40-130); Aspartate Amino Transferase 20 U/L (0-40); Blood Urea Nitrogen 27 mg/dL (6-20); Calcium 10.5 mg/dL (8.5-10.5); Carbon Dioxide 18 mmol/L (22-29); Chloride 90 mmol/L (98-107); Globulin 3.6 g/dL (1.3-4.6); Glomerular Filtration Rate 123.2 mL/min (90-130); Glucose 109 mg/dL (65-115); Lipase 31 U/L (13-60); Osmolality Calculated 280 mOsm/kg (285-295); Sodium 132 mmol/L (136-145); Total Bilirubin 2.3 mg/dL (0.15-1.2); Total Protein 9.1 g/dL (6.6-8.7)
--- NOTE | 2022-03-24 19:36 | USR_ITS ---
PROCEDURE INFORMATION: Exam: US Abdomen, Limited; Right Upper Quadrant Exam date and time: 03/24/2022 8:48 PM Age: 21 years old Clinical indication: Abdominal pain; Generalized; Additional info: Epigastric pain and ruq pain, n/v TECHNIQUE: Imaging protocol: US abdomen. Real time ultrasound with image documentation. Limited exam focused on the right upper quadrant. COMPARISON: CT abdomen pelvis w con* [id number] 03/20/2022 3:15 PM FINDINGS: Gallbladder: Mildly distended. No gallstones. No gallbladder wall thickening or pericholecystic fluid. Negative sonographic Reagan's sign, as per the performing network communications engineer. Biliary ducts: Normal. No stones. No dilation. US/US gall bladder [id number] IMPRESSION: No sonographic evidence of acute cholecystitis.
[2022-03-24 19:43] LABS: H. Pylori IgG Antibody Negative (Negative)
[2022-03-24 20:12] VITALS: BP 164/105; PULSE 60; RESP 18; O2SAT 100
[2022-03-24 20:33] LABS: Troponin 5 2HR 7.78 ng/L (0-15)
[2022-03-24] MEDS: famotidine 20 mg/2 mL INJ 40 MG IVP (20:48)
--- NOTE | 2022-03-24 20:48 | ECG_ITS ---
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 Measurements Intervals [place] Rate: 54 P: 65 [place]: 134 QRS: 108 QRSD: 99 T: 78 QT: 415 QTc: 396 Interpretive Statements SINUS BRADYCARDIA WITH SINUS ARRHYTHMIA RIGHT AXIS DEVIATION [QRS AXIS > 100] POSSIBLE RIGHT VENTRICULAR CONDUCTION DELAY [RSR (QR) IN V1/V2] EARLY REPOLARIZATION [ST ELEVATION WITH NORMALLY INFLECTED T-WAVE] Compared to ECG 03/24/2022 18:37:47 Sinus rhythm no longer present ST (T wave) deviation no longer present Electronically Signed On 03-25-2022 16:34:56 CDT by Kamlesh Thomas M.D. [id number]
--- NOTE | 2022-03-24 20:54 | PC.NURSE ---
Report given to ASHWIN Nuñez
[2022-03-24 21:40] LABS: Add Urine Microscopic? NO; Charge for UA Resulting for Rev
[2022-03-24 21:49] LABS: Urine Appearance Clear (CLEAR); Urine Color Yellow (Yellow)
[2022-03-24 21:50] LABS: Bilirubin Urine Neg (Negative); Blood Urine Neg (Negative); Glucose Urine UA Norm (Normal); Ketones Urine 2+ (Negative); Leukocyte Esterase Urine Negative (Negative); Nitrate Urine Negative (Negative); Protein Urine Neg (Negative); Urobilinogen Urine Norm (Negative); pH Urine 6 (5-7)
[2022-03-24 23:44] VITALS: BP 123/85; PULSE 70; RESP 16; O2SAT 98
== END 2022-03-24 23:45 | disposition home or self-care (01) ==
PROVIDERS: Emergency Provider Physician Assistant
DX: K21.9 Gastro-esophageal reflux disease without esophagitis (principal); R10.13 Epigastric pain
CPT/HCPCS: 36415; 76705; 80053; 81003; 83690; 84484; 85025; 86677; 93005; 96361; 96374; 96375; 96376; 99284; J2270; J2405; J3490; J7030

== ENCOUNTER → 2022-04-09 13:32 | Outpatient (BNVA) | payer MEDICAID, SELFPAY | PROVIDERS: PCP Family Medicine; Referring Provider Family Medicine; Visit Provider Surgery | DX: R07.9 Chest pain, unspecified (principal); R10.9 Unspecified abdominal pain | CPT/HCPCS: 99204 ==

== ENCOUNTER 2022-04-10 10:09 | Day surgery (SDC) | payer MEDICAID, SELFPAY ==
[2022-04-09 14:35] VITALS: BMI 19.3
[2022-04-10 10:47] VITALS: BP 116/65; PULSE 87; RESP 18; TEMP 36.7; O2SAT 98
[2022-04-10] MEDS: sodium chloride 0.9% 1,000 ML 30 ML IV (11:02)
--- NOTE | 2022-04-10 11:11 | ANES.PREANE2 ---
Pre-Anesthetic Assessment Height/Weight: Height 1.68 m Weight 54.431 kg Temp Pulse Resp BP Pulse Ox 98.1 F 87 18 116/65 98 04/10/22 10:47 04/10/22 10:47 04/10/22 10:47 04/10/22 10:47 04/10/22 10:47 Preop Diagnosis: upper gi symptoms Operation Date: 04/10/22 11:30 Proposed Procedures p EGD 63022/R10.9(Not Applicable) - Jesus Alberto Weber MD Familial anesthetic complications: None Was Beta Bryon taken within 24 hours: N/A Was Clonidine taken within 24 hours: N/A Last intake: Intake Last Liquid Date 04/10/22 Last Liquid Time 03:00 Last Solid Date 04/08/22 Social No alcohol and No tobacco Exam alert, oriented x 3, clear to auscultation bilaterally and regular rate & rhythm Airway Mallampati: Class I Dentition: chipped Pulmonary None reported CV/HEM None reported None reported Hepatic None reported GI None reported Metabolic None reported Musc/skel None reported Neuropsych None reported Anesthetic Plan ASA status: 1 Anesthesia: MAC Risk of > 500 ml blood loss (7ml/kg in children): No Medications/Allergies Home Medications Medication Instructions Recorded Confirmed Last Taken Type ibuprofen 200 mg tablet 400 mg PO Q4H PRN 03/20/22 04/09/22 04/09/22 History metoclopramide HCl 10 mg tablet 10 mg PO Q6H PRN #20 tab 03/24/22 04/09/22 04/09/22 Rx (Reglan) ondansetron HCl 4 mg tablet 4 mg PO Q8H 04/09/22 04/09/22 04/09/22 History pantoprazole 40 mg tablet,delayed 40 mg PO BID 30 Days #60 tab 04/09/22 04/09/22 04/09/22 Rx release sucralfate 1 gram tablet 1 g PO Q6H 30 Days #120 tab 04/09/22 04/09/22 04/09/22 Rx Allergies Allergy/AdvReac Type Severity Reaction Status Date / Time No Known Allergies Allergy Verified 04/10/22 10:40 Current Medications Generic Name Dose Route Start Last Admin Trade Name Freq PRN Reason Stop Dose Admin Sodium Chloride 1,000 mls @ 30 mls/hr 04/10/22 10:45 04/10/22 11:02 Sodium Chloride 0.9% IV 04/11/22 10:44 30 mls/hr .Q24H MATT Administration PFSH Anesthesia Medical History (Updated 04/09/22 @ 13:59 by Jesus Alberto Weber MD) No pertinent past medical history Surgical History (Updated 04/09/22 @ 13:59 by Jesus Alberto Weber MD) No pertinent past surgical history Family History Other Hypertension Social History Smoking and tobacco status: never smoked Alcohol intake: never Data Anesthesia Cardiac Studies: No Data to Display
--- NOTE | 2022-04-10 11:51 | P.HP_ITS ---
Same Day Surgery H&P Indication for Procedure/HPI DATE OF PROCEDURE: April 10, 2022 CHIEF COMPLAINT/INDICATIONFOR SURGICAL PROCEDURE: egd PREOP DIAGNOSIS: upper gi symptoms PLANNED PROCEDURE: Operation Date: 04/10/22 11:30 Proposed Procedures p EGD 51969/R10.9(Not Applicable) - Jesus Alberto Weber MD Medications/Allergies* Home Medications Medication Instructions Recorded Confirmed Type ibuprofen 200 mg tablet 400 mg PO Q4H PRN 03/20/22 04/09/22 History ondansetron HCl 4 mg tablet 4 mg PO Q8H 04/09/22 04/09/22 History Allergies/Adverse Reactions Allergy/AdvReac Type Severity Reaction Status Date / Time No Known Allergies Allergy Verified 04/10/22 10:40 Current Medications: Generic Name Dose Route Start Last Admin Trade Name Freq PRN Reason Stop Dose Admin Sodium Chloride 1,000 mls @ 30 mls/hr 04/10/22 10:45 04/10/22 11:02 Sodium Chloride 0.9% IV 04/11/22 10:44 30 mls/hr .Q24H MATT Administration Pertinent History/Comorbid Conditions* Medical History (Updated 04/09/22 @ 13:59 by Jesus Alberto Weber MD) No pertinent past medical history Surgical History (Updated 04/09/22 @ 13:59 by Jesus Alberto Weber MD) No pertinent past surgical history Family History (Updated 04/09/22 @ 13:42 by Alona Parekh MA) Hypertension Social History Smoking and tobacco status: never smoked Alcohol intake: never Pertinent Exam Findings alert, oriented x 3 and regular rate & rhythm Recommendations Surgery/Procedure today Coding Level of Care Code Acute Park Recreation Manager for Yojanag Donald
[2022-04-10 12:05] VITALS: BP 140/88; PULSE 87; RESP 16; TEMP 37.3; O2SAT 91
--- NOTE | 2022-04-10 12:11 | ANE.PACU2 ---
Inpatient post-anesthesia follow up: Airway intact: Yes Vital signs: Temperature 99.2 F Pulse Rate 87 Respiratory Rate 16 Blood Pressure 140/88 Pulse Oximetry 91 Oxygen Delivery Me thod Nasal Cannula Oxygen Flow Rate 3 Fraction of Inspir ed Oxygen Hydration adequate: Yes Nausea and vomiting: No Pain level: 1 Mental status: Baseline
[2022-04-10 12:20] VITALS: BP 133/81; PULSE 82; RESP 16; O2SAT 93
[2022-04-10 12:30] VITALS: BP 114/78; PULSE 87; RESP 16; O2SAT 95
== END 2022-04-10 12:36 | disposition home or self-care (01) ==
PROVIDERS: PCP Family Medicine; Visit Provider Surgery
PROC: 0DJ08ZZ Inspection of Upper Intestinal Tract, Via Natural or Artificial Opening Endoscopic (ICD-10-PCS; CPT 43235; principal; 2022-04-10 11:30)
DX: R10.9 Unspecified abdominal pain (principal); K29.50 Unspecified chronic gastritis without bleeding
CPT/HCPCS: 43239; 88305; J2704; J7030

== ENCOUNTER → 2022-04-23 11:14 | Outpatient (BNVA) | payer MEDICAID, SELFPAY | PROVIDERS: PCP Family Medicine; Visit Provider Surgery | DX: Z09 Encounter for follow-up examination after completed treatment for conditions other than malignant neoplasm (principal) | CPT/HCPCS: 99212 ==

== ENCOUNTER 2022-06-03 11:07 | Emergency (ER) | payer MEDICAID, SELFPAY ==
[2022-06-03 11:26] VITALS: BP 161/114; PULSE 52; RESP 19; TEMP 36.8; O2SAT 99; BMI 20.9
--- NOTE | 2022-06-03 13:17 | W.ED.GENADLT ---
HPI - General Adult General: Chief complaint: Nausea/Vomiting/Diarrhea Stated complaint: n/v x 4 days Time Seen by Provider: 06/03/22 13:09 History of Present Illness: Patient is a 22-year-old male with a history of unexplained abdominal pain presents emergency room with acutely worsening pain for the last 3 days. Patient tells me that shortly after eating [place] food 3 days ago, patient has been having significant nausea vomiting abdominal pain. Patient has not been to tolerate p.o. including liquids. Patient denies any fever or chills, diarrhea, melena hematochezia. No complaints, no prior history of renal colic or prior surgery. Patient denies any cough, runny nose, chest pain, shortness or palpitation or lightheadedness. Onset:3 days ago Duration:3 days Location:home Severity:mild/moderate Associated symptoms: Reports nausea and vomiting; Deny chest pain, dyspnea, rash or palpitations Review of Systems Const: Denies: fever(s) or chills Eyes: Denies: change in vision ENMT: Denies: mouth pain Card: Denies: chest pain or palpitations Resp: Denies: dyspnea or non-productive cough GI: Reports: abdominal pain, nausea, vomiting and diarrhea : Denies: dysuria Musc: Denies: extremity pain Skin/Breast: Denies: rash or new lesions Neuro: Denies: weakness in extremities Psych: Reports: other (Normal mood) Moncho/Lymph: Denies: easy bruising PFS ED PFSH: Medical History No pertinent past medical history Surgical History H/O esophagogastroduodenoscopy (04/10/22) Family History Other Hypertension Social History Smoking and tobacco status: never smoked Alcohol intake: never Physical Exam Const: COMMON NORMALS: alert HENMT: COMMON NORMALS: atraumatic HEAD & SCALP: atraumatic MOUTH: moist mucous membranes not abnormal Eye: COMMON NORMALS: EOMs intact bilaterally and conjunctivae normal CONJUNCTIVA: Yes conjunctivae normal Neck/C-Spine: COMMON NORMALS: full ROM and supple Resp: COMMON NORMALS: normal respiratory effort and clear to auscultation bilaterally AUSCULTATION: clear to auscultation bilaterally Cardio: COMMON NORMALS: regular rate RATE: regular rate GI: COMMON NORMALS: Soft to palpation PALPATION: Yes Soft to palpation OTHER: +moderate diffuse abd TTP worse in the lower quadrants. NO guarding rebound, guarding, rigidity. No CVA tenderness to percussion. Neg Reagan/Neg McBurney's point tenderness, no suprabupic tenderness to palpation. Extremity: COMMON NORMALS: full ROM Neuro: SENSORIUM/ORIENTATION: Yes alert MOTOR EXAM: No Abnormal motor strength present and Other motor observations present (no focal motor deficits) Psych: COMMON NORMALS: speech normal SPEECH: Yes normal speech MOOD & AFFECT: Yes euthymic mood Course Vital Signs: Vital signs: Vital Signs Temperature 98.2 F 06/03/22 11:26 Pulse Rate 66 06/03/22 17:00 Respiratory Rate 19 H 06/03/22 11:26 Blood Pressure 128/43 06/03/22 17:00 Pulse Oximetry 98 06/03/22 17:00 MDM - General Adult Medical Decision Making 22-year-old male with a history of chronic abdominal pain presents the emergency room acute exacerbation abdominal pain for the last 3 days after eating [place] food. Patient reports nausea vomiting. On exam, patient is afebrile, hemodynamically stable. Patient noted to have diffuse abdominal tenderness with worse in the lower quadrants. White count 10.7. Rest of labs largely within normal limit. Patient is noted to be hemoconcentrated 17.7. 3+ urine ketones. CT abdomen showed gastric ulcer. There is a questional area of air vs appendix in the right lower quadrant on the CT scan with recommendation of p.o. contrast study. Repeat CT scan after p.o. contrast study not show any signs of perforation in the RLQ. Patient received Protonix, GI cocktail reports symptomatic improvement. He is able to tolerate p.o. Patient received 3 L of fluids. At this time, the patient elects to go home. Rx tylenol PRN abd pain, maalox/pepcid PRN dyspepsia, and zofran PRN nausea/vomiting, protonix for peptic ulcer Disposition: Discharge. Patient counseled regarding diagnostic impression, treatment plan. Patient given ED strict return precautions to return for continuation, worsening, or development of new symptoms. Instructed to f/u w/ PCP regarding symptoms today. Patient verbalized understanding. Lab Data : 06/03/22 13:23 06/03/22 13:23 Radiology Impressions Abdomen/Pelvis CT 06/03/22 15:49 IMPRESSION: 1. The punctate focus of air in the right lower quadrant on the prior scan correlates with the appendix on this exam. The appendix is unremarkable. 2. The wall of the distal sigmoid colon and rectum is thickened but collapsed. The wall is thicker than the remaining colon and also prominent on the prior scan concerning for mild distal colitis. No fluid collection, abscess or free air. 3. The area previously noted to be concerning for gastric ulcer is not visualized on this exam since the pylorus is collapsed in there is only a trace amount of contrast in the lumen. Gastric fold thickening in the fundus is unchanged. Laboratory Results WBC 10.7 10^3/uL (4.0-10.0) H 06/03/22 13: RBC 6.10 10^6/uL (4.1-5.3) H 06/03/22 13:23 Hgb 17.7 g/dL (11.7-16.6) H 06/03/22 13:23 Hct 48.4 % (42.0-52.0) 06/03/22 13:23 MCV 79.3 fl (80-94) L 06/03/22 13:23 MCH 29.0 pg (28.0-34.0) 06/03/22 13: MCHC 36.6 g/dL (30.0-36.0) H 06/03/22 13:23 RDW 11.6 % (12.1-15.1) L 06/03/22 13:23 Plt Count 288 10^3/cmm (130-400) 06/03/22 13: MPV 11.2 fL (7.4-10.4) H 06/03/22 13: Neut % (Auto) 87.7 % 06/03/22 13:23 Lymph % (Auto) 7.9 % 06/03/22 13:23 Cherry % (Auto) 3.8 % 06/03/22 13: Eos % (Auto) 0.0 % 06/03/22 13: Baso % (Auto) 0.2 % 06/03/22 13:23 Neut # (Auto) 9.34 10^3/uL (1.8-7.7) H 06/03/22 13:23 Lymph # (Auto) 0.8 10^3/uL (0.8-4.8) 06/03/22 13:23 Cherry # (Auto) 0.4 10^3/uL (0.2-0.9) 06/03/22 13:23 Eos # (Auto) 0.0 10^3/uL (0.0-0.8) 06/03/22 13:23 Baso # (Auto) 0.0 10^3/uL (0.0-0.1) 06/03/22 13:23 Nucleated RBC % (auto) 0 % 06/03/22 13:23 Nucleated RBCs # 0.0 /100WBC 06/03/22 13:23 Sodium 133 mmol/L (136-145) L 06/03/22 13:23 Potassium 4.1 mmol/L (3.5-5.1) 06/03/22 13:23 Chloride 94 mmol/L (98-107) L 06/03/22 13:23 Carbon Dioxide 17 mmol/L (22-29) L 06/03/22 13:23 Anion Gap 26.1 (5-19) H 06/03/22 13:23 BUN 23 mg/dL (6-20) H 06/03/22 13:23 Creatinine 0.6 mg/dL (0.7-1.2) L 06/03/22 13:23 GFR Calculation 170.1 mL/min (90-130) H 06/03/22 13:23 Glucose 90 mg/dL (65-115) 06/03/22 13:23 Calculated Osmolality 279 mOsm/kg (285-295) L 06/03/22 13:23 Calcium 9.5 mg/dL (8.5-10.5) 06/03/22 13:23 Total Bilirubin 1.9 mg/dL (0.15-1.2) H 06/03/22 13:23 AST 21 U/L (0-40) 06/03/22 13:23 ALT 14 U/L (0-41) 06/03/22 13:23 Alkaline Phosphatase 94 IU/L (40-130) 06/03/22 13:23 Total Protein 8.6 g/dL (6.6-8.7) 06/03/22 13:23 Albumin 5.3 g/dL (3.5-5.2) H 06/03/22 13:23 Globulin 3.3 g/dL (1.3-4.6) 06/03/22 13:23 Lipase 18 U/L (13-60) 06/03/22 13:23 Urine Color Yellow (Yellow) 06/03/22 14:42 Urine Appearance Clear (CLEAR) 06/03/22 14:42 Urine pH 6 (5-7) 06/03/22 14:42 Ur Specific [place] 1.025 (1.005-1.030) 06/03/22 14:42 Urine Protein 1+ (Negative) H 06/03/22 14:42 Urine Glucose (UA) Norm (Normal) 06/03/22 14:42 Urine Ketones 3+ (Negative) H 06/03/22 14:42 Urine Blood Neg (Negative) 06/03/22 14:42 Urine Nitrate Negative (Negative) 06/03/22 14:42 Urine Bilirubin Neg (Negative) 06/03/22 14:42 Urine Urobilinogen Norm mg/dL (Negative) 06/03/22 14:42 Ur Leukocyte Esterase Negative (Negative) 06/03/22 14:42 Urine RBC None /hpf (0-2) 06/03/22 14:42 Urine WBC 0-4 /hpf (0-5) H 06/03/22 14:42 Ur Squamous Epith Cells None /hpf (0-5) 06/03/22 14:42 Amorphous Sediment Not Reportable 06/03/22 14:42 Urine Bacteria 1+ /hpf (NONE) H 06/03/22 14:42 Urine Mucus 2+ /hpf 06/03/22 14:42 Imaging Data Other Imaging: Radiologist's impression: [address] [place] [address] CT Scan Report Signed Patient: Jesus Mendoza Unit #: [id number] : 2000 Age/Sex: 22 / M ADM Date: 06/03/22 Loc: ER Room/Bed: Attending Dr: Ordering Provider/Ordering MD: Saturnino Velarde MD Date of Service: 06/03/22 Procedure(s): CT abdomen pelvis wo con [id number] Accession Number(s): [id number] Report Number: [id number] PROCEDURE INFORMATION: Exam: CT Abdomen And Pelvis Without Contrast Exam date and time: 06/03/2022 5:46 PM Age: 22 years old Clinical indication: Other: Rlq pain; Additional info: Possible air in the rlq vs appendix , please oral contrast TECHNIQUE: Imaging protocol: Computed tomography of the abdomen and pelvis without contrast. Radiation optimization: All CT scans at this facility use at least one of these dose optimization techniques: automated exposure control; mA and/or kV adjustment per patient size (includes targeted exams where dose is matched to clinical indication); or iterative reconstruction. Other contrast: Oral, omnipaque with water, 400ml; COMPARISON: CT abdomen pelvis w con* [id number] 06/03/2022 3:03 PM RADIATION DOSE METRICS: Total DLP (mGy-cm): 794.73 FINDINGS: Liver: Unremarkable.No mass. Gallbladder and bile ducts: Normal. No calcified stones. No ductal dilation. Pancreas: Normal. No ductal dilation. Spleen: Normal. No splenomegaly. Adrenal glands: Normal. No mass. Kidneys and ureters: There is no evidence of hydronephrosis. Stomach and bowel: There is no evidence of intestinal perforation or obstruction. There is moderately excessive colonic stool content. The wall of the distal sigmoid colon and rectum is thickened but collapsed. The wall is thicker than the remaining colon and also prominent on the prior scan concerning for mild distal colitis. The loops of small bowel have an appropriate appearance. The area previously noted to be concerning for gastric ulcer is not visualized on this exam since the pylorus is collapsed in there is only a trace amount of contrast in the lumen. Gastric fold thickening in the fundus is unchanged. Appendix: The punctate focus of air in the right lower quadrant on the prior scan correlates with the appendix on this exam. A normal appendix is identified. Intraperitoneal space: No free intraperitoneal air. Vasculature: Unremarkable.No abdominal aortic aneurysm. Lymph nodes: Unremarkable.No enlarged lymph nodes. Urinary bladder: The bladder is normal. Reproductive: Unremarkable as visualized. Bones/joints: Unremarkable. No acute fracture. Soft tissues: Unremarkable. Other findings: No fluid collection or abscess. CT/CT abdomen pelvis wo con [id number] IMPRESSION: 1. The punctate focus of air in the right lower quadrant on the prior scan correlates with the appendix on this exam. The appendix is unremarkable. 2. The wall of the distal sigmoid colon and rectum is thickened but collapsed. The wall is thicker than the remaining colon and also prominent on the prior scan concerning for mild distal colitis. No fluid collection, abscess or free air. 3. The area previously noted to be concerning for gastric ulcer is not visualized on this exam since the pylorus is collapsed in there is only a trace amount of contrast in the lumen. Gastric fold thickening in the fundus is unchanged. ? Dictated By: Stephanie Quijano Signed By: Stephanie Quijano Signed Date/Time: 06/03/22 1839 DD/ [address] [address] [address] Scan Report Signed Patient: Jesus Mendoza Unit #: [id number] : 2000 Age/Sex: 22 / M ADM Date: 06/03/22 Loc: ER Room/Bed: Attending Dr: Ordering Provider/Ordering MD: Saturnino Velarde MD Date of Service: 06/03/22 Procedure(s): CT abdomen pelvis w con* [id number] Accession Number(s): [id number] Report Number: [id number] WS: [id number] CT ABDOMEN AND PELVIS WITH CONTRAST HISTORY: lower abd pain TECHNIQUE: Imaging performed of the abdomen and pelvis with IV contrast.? Single phase imaging of the abdomen. Coronal and sagittal reformats are submitted.? All CT scans at [facility] use at least one of these dose optimization techniques: automated exposure control; mA and/or kV adjustment per patient size (includes targeted exams where dose is matched to clinical indication); or iterative reconstruction. IV CONTRAST: Omnipaque 350; 75 mL IV. Oral contrast: No DLP: 655.26 mGy.cm COMPARISON: 03/20/2022 Lower thorax: Lung bases are clear. Heart is normal size. No hiatal hernia. Liver/biliary system: Normal size with no intrahepatic dilatation. Gallbladder: Normal. No gallstones or wall thickening. No pericholecystic fluid.? Pancreas: Normal size pancreas and pancreatic duct. No adjacent inflammation. Spleen: Normal size spleen. No mass or infarct. Adrenal glands: Normal. Right kidney: Normal. Left kidney: Normal. Aorta: Normal. Lymphadenopathy: None. Free fluid: None. GI tract: Long segment area of submucosal thickening and luminal narrowing involving the antrum and pylorus of the stomach. This extends over a length of 6.5 cm. There is a focal area of mild enhancement and increased density and a foci of air extending into the submucosa. This is best seen on image 28 of series 4 suspicious for penetrating ulcer in the antrum. No perforation at this time. Very close to being perforated through the mucosa. There is an additional focus of air in the RIGHT lower quadrant, image 52 of series 4 which I cannot definitely placed within the GI tract. I favor this is probably within a small appendix. No adjacent associated findings of perforation or wall thickening. Abdominal wall: Unremarkable abdominal wall. No hernia. Pelvis: No free fluid or adenopathy within the pelvis. Bones: Unremarkable. CT/CT abdomen pelvis w con* [id number] IMPRESSION: ? 1.? Long segment area of submucosal edema and luminal narrowing involving the antrum and pylorus of the stomach. 2.? Focal gastric ulcer in the antrum of the stomach. Air is noted nearly completely penetrating through the submucosa. 3.? Tiny focus of air in the RIGHT lower quadrant cannot definitely be placed within the lumen of the GI tract. Favor this is probably with in the appendix but the appendix is very small and not definitely visualized. Clinically if there is a concern for perforation repeat examination with oral contrast is recommended to better delineate the bowel. ? Dictated By: Meghna Minor DO Signed By: Meghna Minor DO Signed Date/Time: 06/03/22 1536 DD/ 1512 Discharge Plan Discharge Patient Disposition: Home Clinical Impression: Nausea & vomiting, Abdominal pain, Peptic ulcer Condition: Stable Prescriptions: New Pepcid 20 mg tablet 20 mg PO BID PRN (Reason: abdominal pain) 10 Days Qty: 20 0RF ondansetron 4 mg tablet,disintegrating 4 mg PO TID PRN (Reason: nausea and vomiting) 4 Days Qty: 12 0RF Maalox Advanced 1,000-60 mg tablet,chewable 1 tab PO TID PRN (Reason: abdominal pain) 7 Days Qty: 21 0RF Protonix [address] for susp in packet 40 mg PO DAILY PRN (Reason: peptic ulcer) 56 Days Qty: 42 0RF No Action sucralfate 1 gram tablet 1 g PO Q6H 30 Days Qty: 120 0RF famotidine 20 mg tablet 20 mg PO BID PRN (Reason: Abdominal Pain) 0RF pantoprazole 40 mg tablet,delayed release (DR/EC) 40 mg PO QAM 0RF metoclopramide HCl [Reglan] 10 mg tablet 10 mg PO DAILY 0RF Tylenol Ex Str Rapid Release 500 mg Tablet 1,500 mg PO Q6H PRN (Reason: Pain) 0RF ondansetron 4 mg tablet,disintegrating 4 mg PO TID PRN (Reason: Nausea And Vomiting) 0RF Discharge Orders: Discharge ED (Routine); Ordered 06/03/22 Ordered By: Saturnino Velarde Referrals: Anali Puri MD [Primary Care Provider] - Discharge Diet: Advance as tolerated Discharge Activity: Increase activity as tolerated Patient Instructions: Peptic Ulcer (ED), Abdominal Pain (ED) Activity Restrictions/Additional Instructions: Please come back if you have any worsening abdominal pain, fever or chills, nausea or vomiting, diarrhea, blood in the stool, inability hold down liquid or solids, or any new concerning complaints. Coding Level of Care Code ED [employer] for Chg Fwd Exam Comprehensive
[2022-06-03] MEDS: sodium chloride 0.9% 1,000 ML 999 ML IV ×3 (13:29→16:58)
[2022-06-03 13:32] VITALS: BP 156/87; PULSE 62; O2SAT 96
[2022-06-03 13:38] LABS: Basophils % 0.2 %; Hematocrit 48.4 % (42.0-52.0); Hemoglobin 17.7 g/dL (11.7-16.6); Lymphocytes # 0.8 10^3/uL (0.8-4.8); Lymphocytes % 7.9 %; Mean Corpuscular HGB Conc 36.6 g/dL (30.0-36.0); Mean Corpuscular Volume 79.3 fl (80-94); Mean Platelet Volume 11.2 fL (7.4-10.4); Monocytes # 0.4 10^3/uL (0.2-0.9); Monocytes % 3.8 %; Neutrophils # 9.34 10^3/uL (1.8-7.7); Neutrophils % 87.7 %; Nucleated Red Blood Cells % 0 %; Platelet Count 288 10^3/cmm (130-400); Red Cell Distribution Width 11.6 % (12.1-15.1); White Blood Count 10.7 10^3/uL (4.0-10.0)
--- NOTE | 2022-06-03 13:43 | CT_ITS ---
WS: [id number] CT ABDOMEN AND PELVIS WITH CONTRAST HISTORY: lower abd pain TECHNIQUE: Imaging performed of the abdomen and pelvis with IV contrast. Single phase imaging of the abdomen. Coronal and sagittal reformats are submitted. All CT scans at [facility] use at [facility] [address] one of these dose optimization techniques: automated exposure control; mA and/or kV adjustment per patient size (includes targeted exams where dose is matched to clinical indication); or iterative re construction. IV CONTRAST: Omnipaque 350; 75 mL IV. Oral contrast: No DLP: 655.26 mGy.cm COMPARISON: 03/20/2022 Lower thorax: Lung bases are clear. Heart is normal size. No hiatal hernia. Liver/biliary system: Normal size with no intrahepatic dilatation. Gallbladder: Normal. No gallstones or wall thickening. No pericholecystic fluid. Pancreas: Normal size pancreas and pancreatic duct. No adjacent inflammation. Spleen: Normal size spleen. No mass or infarct. Adrenal glands: Normal. Right kidney: Normal. Left kidney: Normal. Aorta: Normal. Lymphadenopathy: None. Free fluid: None. GI tract: Long segment area of submucosal thickening and luminal narrowing involving the antrum and p ylorus of the stomach. This extends over a length of 6.5 cm. There is a focal area of mild enhancemen t and increased density and a foci of air extending into the submucosa. This is best seen on image 28 of series 4 suspicious for penetrating ulcer in the antrum. No perforation at this time. Very close to being perforated through the mucosa. There is an additional focus of air in the RIGHT lower quadra nt, image 52 of series 4 which I cannot definitely placed within the GI tract. I favor this is probab ly within a small appendix. No adjacent associated findings of perforation or wall thickening. Abdominal wall: Unremarkable abdominal wall. No hernia. Pelvis: No free fluid or adenopathy within the pelvis. Bones: Unremarkable. CT/CT abdomen pelvis w con* [id number] IMPRESSION: 1. Long segment area of submucosal edema and luminal narrowing involving the a ntrum and pylorus of the stomach. 2. Focal gastric ulcer in the antrum of the stomach. Air is noted nearly compl etely penetrating through the submucosa. 3. Tiny focus of air in the RIGHT lower quadrant cannot definitely be placed w ithin the lumen of the GI tract. Favor this is probably with in the appendix bu t the appendix is very small and not definitely visualized. Clinically if there is a concern for perforation repeat examination with oral contrast is recommen ded to better delineate the bowel.
[2022-06-03] MEDS: ondansetron 2 mg/ML SDV 2 mL 4 MG IVP (13:54)
[2022-06-03] MEDS: morphine 4 mg/mL SDV 1 mL IVP (13:54)
[2022-06-03 14:06] LABS: Alanine Aminotransferase 14 U/L (0-41); Albumin Level 5.3 g/dL (3.5-5.2); Alkaline Phosphatase 94 IU/L (40-130); Aspartate Amino Transferase 21 U/L (0-40); Blood Urea Nitrogen 23 mg/dL (6-20); Calcium 9.5 mg/dL (8.5-10.5); Carbon Dioxide 17 mmol/L (22-29); Chloride 94 mmol/L (98-107); Globulin 3.3 g/dL (1.3-4.6); Glomerular Filtration Rate 170.1 mL/min (90-130); Glucose 90 mg/dL (65-115); Lipase 18 U/L (13-60); Osmolality Calculated 279 mOsm/kg (285-295); Sodium 133 mmol/L (136-145); Total Bilirubin 1.9 mg/dL (0.15-1.2); Total Protein 8.6 g/dL (6.6-8.7)
[2022-06-03 14:14] LABS: Creatinine Clr Calc Pharmacy 170.4201
[2022-06-03 14:16] LABS: Anion Gap 26.1 (5-19); Potassium 4.1 mmol/L (3.5-5.1)
[2022-06-03] MEDS: HYDROmorphone 1 mg/mL INJ 1 mL 0.5 MG IVP (14:50)
[2022-06-03 15:02] LABS: Add Urine Microscopic? YES; Bilirubin Urine Neg (Negative); Blood Urine Neg (Negative); Glucose Urine UA Norm (Normal); Ketones Urine 3+ (Negative); Leukocyte Esterase Urine Negative (Negative); Nitrate Urine Negative (Negative); Protein Urine 1+ (Negative); Specific Gravity, Urine 1.025 (1.005-1.030); Urine Appearance Clear (CLEAR); Urine Color Yellow (Yellow); Urobilinogen Urine Norm (Negative); pH Urine 6 (5-7)
[2022-06-03 15:04] LABS: Add Urine Culture? No; Bacteria Urine 1+ /hpf; Mucus Urine 2+ /hpf; WBC Urine 0-4 /hpf (0-5)
[2022-06-03] MEDS: iohexol 350 mg/mL 100 mL Btl IV (15:09)
--- NOTE | 2022-06-03 15:49 | CTR_ITS ---
PROCEDURE INFORMATION: Exam: CT Abdomen And Pelvis Without Contrast Exam date and time: 06/03/2022 5:46 PM Age: 22 years old Clinical indication: Other: Rlq pain; Additional info: Possible air in the rlq vs appendix , please oral contrast TECHNIQUE: Imaging protocol: Computed tomography of the abdomen and pelvis without contrast. Radiation optimization: All CT scans at this facility use at least one of these dose optimization techniques: automated exposure control; mA and/or kV adjustment per patient size (includes targeted exams where dose is matched to clinical indication); or iterative reconstruction. Other contrast: Oral, omnipaque with water, 400ml; COMPARISON: CT abdomen pelvis w con* [id number] 06/03/2022 3:03 PM RADIATION DOSE METRICS: Total DLP (mGy-cm): 794.73 FINDINGS: Liver: Unremarkable.No mass. Gallbladder and bile ducts: Normal. No calcified stones. No ductal dilation. Pancreas: Normal. No ductal dilation. Spleen: Normal. No splenomegaly. Adrenal glands: Normal. No mass. Kidneys and ureters: There is no evidence of hydronephrosis. Stomach and bowel: There is no evidence of intestinal perforation or obstruction. There is moderately excessive colonic stool content. The wall of the distal sigmoid colon and rectum is thickened but collapsed. The wall is thicker than the remaining colon and also prominent on the prior scan concerning for mild distal colitis. The loops of small bowel have an appropriate appearance. The area previously noted to be concerning for gastric ulcer is not visualized on this exam since the pylorus is collapsed in there is only a trace amount of contrast in the lumen. Gastric fold thickening in the fundus is unchanged. Appendix: The punctate focus of air in the right lower quadrant on the prior scan correlates with the appendix on this exam. A normal appendix is identified. Intraperitoneal space: No free intraperitoneal air. Vasculature: Unremarkable.No abdominal aortic aneurysm. Lymph nodes: Unremarkable.No enlarged lymph nodes. Urinary bladder: The bladder is normal. Reproductive: Unremarkable as visualized. Bones/joints: Unremarkable. No acute fracture. Soft tissues: Unremarkable. Other findings: No fluid collection or abscess. CT/CT abdomen pelvis wo con [id number] IMPRESSION: 1. The punctate focus of air in the right lower quadrant on the prior scan correlates with the appendix on this exam. The appendix is unremarkable. 2. The wall of the distal sigmoid colon and rectum is thickened but collapsed. The wall is thicker than the remaining colon and also prominent on the prior scan concerning for mild distal colitis. No fluid collection, abscess or free air. 3. The area previously noted to be concerning for gastric ulcer is not visualized on this exam since the pylorus is collapsed in there is only a trace amount of contrast in the lumen. Gastric fold thickening in the fundus is unchanged.
[2022-06-03 17:00] VITALS: BP 128/43; PULSE 66; O2SAT 98
[2022-06-03] MEDS: pantoprazole 40 mg SDV 80 MG IVP (18:27)
[2022-06-03 19:40] VITALS: BP 123/53; PULSE 77; RESP 16; O2SAT 95
[2022-06-03] MEDS: lidocaine 2% viscous 15 ML, aluminum-mag hydrox-simethicon 30 ML, sucralfate oral liq 1 GM PO (19:40)
[2022-06-03] MEDS: pantoprazole DR 40 mg Tablet PO (19:40)
== END 2022-06-03 19:41 | disposition home or self-care (01) ==
PROVIDERS: Emergency Provider Emergency Medicine; PCP Family Medicine
DX: K27.9 Peptic ulcer, site unspecified, unspecified as acute or chronic, without hemorrhage or perforation (principal)
CPT/HCPCS: 74176; 74177; 80053; 81001; 83690; 85025; 96374; 96375; 99285; C9113; J1170; J2270; J2405; J7030; Q9967

== ENCOUNTER 2022-08-19 14:48 | Emergency (ER) | payer MEDICAID, SELFPAY ==
[2022-08-19 14:52] VITALS: BP 160/70; PULSE 55; RESP 18; TEMP 36.7; O2SAT 98; BMI 19.8
--- NOTE | 2022-08-19 15:52 | ED_ITS ---
HPI - General Adult General: Chief complaint: Shortness of Breath/Dyspnea Stated complaint: Stomach pain, vomitting, high BP Time Seen by Provider: 08/19/22 15:18 History of Present Illness: Patient is a 22-year-old male who comes to the ED with nausea vomiting and gastritis. Patient was seen at [facility] in [place] earlier today and full work-up was done. Patient was given IV fluids, Reglan and Protonix. they performed labs and CT of abdomen. patient was released from [place] emergency department diagnosed with gastritis. Patient was still having some nausea and vomiting and epigastric pain, so they came straight here to the emergency department here at [facility]. They brought all the paperwork from [facility] emergency department so I was able to review work-up done at [facility]. Associated symptoms: Reports nausea and vomiting; Deny chest pain, dyspnea, headache(s), rash or palpitations Review of Systems Const: Denies: fever(s), chills or fatigue Eyes: Denies: change in vision or eye discomfort ENMT: Denies: throat pain, odynophagia, nasal discharge or nasal congestion Card: Denies: chest pain, palpitations, edema, swelling of feet/ankles, dyspnea on exertion or orthopnea Resp: Denies: dyspnea, productive cough or non-productive cough GI: Reports: nausea, vomiting and heartburn; Denies: abdominal pain, diarrhea, constipation or hematochezia : Denies: flank pain, difficulty urinating, dysuria or hematuria Musc: Denies: neck pain, back pain or extremity swelling Skin/Breast: Denies: rash or new lesions Neuro: Denies: headache(s), numbness in extremities or weakness in extremities [facility] ED PFSH: Medical History No pertinent past medical history Surgical History H/O esophagogastroduodenoscopy (04/10/22) Family History Other Hypertension Social History Smoking and tobacco status: never smoked Alcohol intake: never Physical Exam Const: COMMON NORMALS: no acute distress, patient oriented x3 and alert GENERAL APPEARANCE: cooperative and comfortable HENMT: COMMON NORMALS: normocephalic HEAD & SCALP: normocephalic MOUTH: Normal oral and palatal mucosa present THROAT: posterior oropharynx normal and uvula midline Neck/C-Spine: COMMON NORMALS: supple GENERAL: Yes normal visual inspection Resp: COMMON NORMALS: normal respiratory effort, No retractions, No use of accessory muscles and clear to auscultation bilaterally AUSCULTATION: clear to auscultation bilaterally Cardio: COMMON NORMALS: regular rate, regular rhythm, S1 normal heart sound present, S2 normal heart sound present, No gallops present (Cardio), No clicks present (Cardio), No murmurs present (Cardio) and Peripheral pulses 2+ throughout RATE: regular rate RHYTHM: regular rhythm HEART SOUNDS: S1 normal heart sound present and S2 normal heart sound present PERIPHERAL PULSES: Peripheral pulses 2+ throughout GI: COMMON NORMALS: Normal to inspection, nondistended, normoactive bowel sounds present, Soft to palpation, non-tender and no masses PALPATION: Yes Soft to palpation : COMMON NORMALS: Yes no CVA tenderness BLADDER/KIDNEY EXAM: Yes no CVA tenderness Back/Pelvis: COMMON NORMALS: no CVA tenderness Extremity: COMMON NORMALS: normal to inspection Neuro: COMMON NORMALS: patient oriented x3 SENSORIUM/ORIENTATION: Yes alert GAIT: Yes Normal gait present Skin: GENERAL SKIN EXAM: dry skin Course Vital Signs: Vital signs: Vital Signs Temperature 98.1 F 08/19/22 14:52 Pulse Rate 55 L 08/19/22 14:52 Respiratory Rate 17 08/19/22 16:12 Blood Pressure 160/70 08/19/22 14:52 Pulse Oximetry 98 08/19/22 14:52 Oxygen Delivery Tn thod 08/19/22 14:52 [facility] - General Adult Medical Decision Making Patient is a 22-year-old male who comes to the ED with nausea vomiting and gas tritis. Patient was seen at [facility] in [place] earlier today and full work- up was done. Patient was given IV fluids, Reglan and Protonix. they performed labs and CT of abdomen. patient was released from [place] emergency department diagnosed with gastritis. Patient was still having some nausea and vomiting and epigastric pain, so they came straight here to the emergency department. Patient brought in all paperwork from [facility] and I was able to verify labs and imaging performed earlier today. Vitals are stable. Exam is benign. Patient was given a dose of GI cocktail and IM morphine and his symptoms improved. He was told that he needs to get his new prescriptions filled from his [facility] discharge earlier today and to follow-up with his PCP within the next couple days for reevaluation. He was diagnosed with gastritis and stable for discharge home. Patient sent home with a prescription for some Zofran and sucralfate. Return to ED precautions given. Patient understood and agreed with plan. Medical Records I reviewed the patient's medical records. They brought all the paperwork from [facility] emergency department so I was able to review work-up done at [facility] Discharge Plan Discharge Patient Disposition: Home Clinical Impression: Gastritis Qualifiers: Gastritis type: unspecified gastritis Chronicity: unspecified Gastritis bleeding: without bleeding Qualified Code(s): K29.70 - Gastritis, unspecified, without bleeding Condition: Stable Prescriptions: New ondansetron 4 mg tablet,disintegrating 4 mg PO Q8H PRN (Reason: nausea and vomiting) Qty: 20 0RF sucralfate 1 gram tablet 1 g PO TID 14 Days Qty: 42 0RF No Action sucralfate 1 gram tablet 1 g PO Q6H 30 Days Qty: 120 0RF famotidine 20 mg tablet 20 mg PO BID PRN (Reason: Abdominal Pain) pantoprazole 40 mg tablet,delayed release (DR/EC) 40 mg PO QAM metoclopramide HCl [Reglan] 10 mg tablet 10 mg PO DAILY Tylenol Ex Str Rapid Release 500 mg Tablet 1,500 mg PO Q6H PRN (Reason: Pain) ondansetron 4 mg tablet,disintegrating 4 mg PO TID PRN (Reason: Nausea And Vomiting) hydrocodone-acetaminophen 5-325 mg tablet 1 tab PO Q6H PRN (Reason: pain) Qty: 14 0RF Reglan 10 mg tablet 10 mg PO Q6H PRN (Reason: nausea and vomiting) Qty: 20 0RF Discharge Orders: Discharge ED (Routine); Ordered 08/19/22 Ordered By: Brayan Gutierrez Referrals: Anali Puri MD [Primary Care Provider] - Discharge Diet: Advance as tolerated and Clear Liquid Discharge Activity: Increase activity as tolerated Patient Instructions: Gastritis (DC) Activity Restrictions/Additional Instructions: Follow-up with medical provider as directed in the next 5 to 7 days for reevaluation. Take medications as prescribed. Return to the ER or your medical provider if condition worsens. Please read and understand discharge instructions. Thank you for choosing [facility] for your healthcare needs today. Please realize this is an emergency room and that we are providing you with a medical screening exam and this may not be complete and all inclusive of all the testing and or work up that you may need to determine your ailment or severity of your illness. It is very important that you follow up as instructed or that you return to the Emergency Department should you have concerns or if your condition changes or worsens in any way. Coding Level of Care Code ED Rf Test Technician for Dee Dee Bennett Exam Comprehensive
[2022-08-19] MEDS: lidocaine 2% viscous 15 ML, aluminum-mag hydrox-simethicon 30 ML, sucralfate oral liq 1 GM PO (16:11)
[2022-08-19 16:12] VITALS: RESP 17
[2022-08-19] MEDS: morphine 4 mg/mL SDV 1 mL IM (16:12)
== END 2022-08-19 16:44 | disposition home or self-care (01) ==
PROVIDERS: Emergency Provider Physician Assistant; PCP Family Medicine
DX: K29.70 Gastritis, unspecified, without bleeding (principal)
CPT/HCPCS: 96372; 99284; J2270

== ENCOUNTER 2022-08-20 20:06 | Emergency (ER) | payer MEDICAID, SELFPAY ==
[2022-08-20 20:14] VITALS: BP 159/96; PULSE 58; RESP 18; TEMP 37.1; O2SAT 97; BMI 20.1
--- NOTE | 2022-08-20 20:33 | ECG_ITS ---
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 Measurements Intervals [place] Rate: 53 P: 81 [place]: 142 QRS: 104 QRSD: 98 T: 73 QT: 407 QTc: 382 Interpretive Statements SINUS BRADYCARDIA POSSIBLE LEFT ATRIAL ENLARGEMENT [-0.1mV P-WAVE IN V1/V2] RIGHT AXIS DEVIATION [QRS AXIS > 100] POSSIBLE RIGHT VENTRICULAR CONDUCTION DELAY [RSR (QR) IN V1/V2] ST ELEVATION, PROBABLY EARLY REPOLARIZATION [ST ELEVATION WITH NORMALLY INFLECTED T-WAVE] MODERATE ST DEPRESSION [0.05+ mV ST DEPRESSION] Compared to ECG 03/24/2022 20:40:07 ST (T wave) deviation now present Sinus arrhythmia no longer present Electronically Signed On 08-21-2022 6:00:42 CDT by Chelsie Mcclellan M.D. [id number]
--- NOTE | 2022-08-20 20:33 | XRR_ITS ---
PROCEDURE INFORMATION: Exam: XR Chest Exam date and time: 08/20/2022 9:12 PM Age: 22 years old Clinical indication: Chest pressure and chest wall pain; Additional info: Cp TECHNIQUE: Imaging protocol: Radiologic exam of the chest. Views: 1 view. COMPARISON: CR XR chest 2V* [id number] 03/20/2022 1:19 PM FINDINGS: Lungs: Unremarkable. No consolidation. Pleural spaces: Unremarkable. No pleural effusion. No pneumothorax. Heart/Mediastinum: Unremarkable. No cardiomegaly. Bones/joints: Unremarkable. XR/XR chest 1V portable [id number] IMPRESSION: No acute findings.
--- NOTE | 2022-08-20 21:15 | W.ED.CHESTPA ---
HPI - Chest Pain General: Chief Complaint: Chest Pain Stated Complaint: Cp Time Seen by Provider: 08/20/22 21:08 Source: patient Mode of arrival: ambulatory Limitations: no limitations History of Present Illness: 21-year-old male states that over the last 2 days has been having vomiting multiple episodes of vomiting along with chest pains. He states he gets short pain in the center of his chest he denies any worsening improving factors. Denies any fever. He states he has passed out. He does smoke marijuana. Associated symptoms: Reports nausea and vomiting; Deny dyspnea or fever(s) Review of Systems Const: Denies: fever(s), chills, body aches or change in appetite Eyes: Denies: blurry vision or eye discomfort ENMT: Denies: throat pain or dental pain Card: Reports: chest pain Resp: Denies: dyspnea GI: Reports: nausea and vomiting : Denies: dysuria Musc: Denies: neck pain or back pain Skin/Breast: Denies: rash Neuro: Denies: headache(s) Psych: Denies: depression Moncho/Lymph: Denies: easy bruising All/Imm: Denies: urticaria PFSH ED PFSH: Medical History No pertinent past medical history Surgical History H/O esophagogastroduodenoscopy (04/10/22) Family History Other Hypertension Social History Smoking and tobacco status: never smoked Alcohol intake: never Physical Exam Const: COMMON NORMALS: no acute distress, patient oriented x3 and healthy appearing HENMT: COMMON NORMALS: normocephalic and atraumatic HEAD & SCALP: normocephalic and atraumatic Eye: COMMON NORMALS: Equal, round and reactive pupils present and EOMs intact bilaterally PUPIL: Yes Equal, round and reactive pupils present Neck/C-Spine: COMMON NORMALS: full ROM and supple Chest: COMMONS NORMALS: normal inspection of the chest and normal palpation of entire chest wall Resp: COMMON NORMALS: normal respiratory effort, No retractions, No use of accessory muscles and clear to auscultation bilaterally AUSCULTATION: clear to auscultation bilaterally Cardio: COMMON NORMALS: regular rate, regular rhythm and No murmurs present (Cardio) RATE: regular rate RHYTHM: regular rhythm GI: COMMON NORMALS: Normal to inspection, nondistended, normoactive bowel sounds present, Soft to palpation, non-tender and no masses PALPATION: Yes Soft to palpation Extremity: COMMON NORMALS: normal to inspection and full ROM Neuro: COMMON NORMALS: patient oriented x3, moves all extremities and no focal motor deficits Psych: COMMON NORMALS: mental status grossly normal, Normal thought process present and cooperative THOUGHT PROCESS: Normal thought process present Skin: COMMON NORMALS: no rashes or lesions noted and no wounds GENERAL SKIN EXAM: no rashes or lesions noted Course Vital Signs: Vital signs: Vital Signs Temperature 98.7 F 08/20/22 20:14 Pulse Rate 53 L 08/20/22 22:02 Respiratory Rate 18 08/20/22 22:02 Blood Pressure 163/94 08/20/22 22:02 Pulse Oximetry 100 08/20/22 22:02 Oxygen Delivery Me thod 08/20/22 22:02 MDM - Chest Pain Medical Decision Making Patient presents for chest and abdominal pain patient CT of his chest abdomen pelvis are both normal his blood work here is normal as well. Patient is feeling improved we will prescribe pain meds along with nausea medicine for home he is stable for discharge he is to follow-up with PCP and return if worsening he understands and agrees to plan. Lab Data : 08/20/22 21:21 08/20/22 21:21 Radiology Impressions Chest X-Ray 08/20/22 20:33 IMPRESSION: No acute findings. Chest/Abdomen/Pelvis CT 08/20/22 22:03 IMPRESSION: No acute findings. IMPRESSION: No acute findings. Laboratory Results WBC 15.7 10^3/uL (4.0-10.0) H 08/20/22 21:21 RBC 5.93 10^6/uL (4.1-5.3) H 08/20/22 21:21 Hgb 16.9 g/dL (11.7-16.6) H 08/20/22 21:21 Hct 50.3 % (42.0-52.0) 08/20/22 21:21 MCV 84.8 fl (80-94) 08/20/22 21:21 MCH 28.5 pg (28.0-34.0) 08/20/22 21:21 MCHC 33.6 g/dL (30.0-36.0) 08/20/22 21:21 RDW 12.2 % (12.1-15.1) 08/20/22 21:21 Plt Count 352 10^3/cmm (130-400) 08/20/22 21:21 MPV 9.8 fL (7.4-10.4) 08/20/22 21:21 Neut % (Auto) 85.7 % 08/20/22 21:21 Lymph % (Auto) 9.3 % 08/20/22 21:21 Becker % (Auto) 4.5 % 08/20/22 21:21 Eos % (Auto) 0.0 % 08/20/22 21: Baso % (Auto) 0.1 % 08/20/22 21: Neut # (Auto) 13.42 10^3/uL (1.8-7.7) H 08/20/22 21:21 Lymph # (Auto) 1.5 10^3/uL (0.8-4.8) 08/20/22 21:21 Becker # (Auto) 0.7 10^3/uL (0.2-0.9) 08/20/22 21:21 Eos # (Auto) 0.0 10^3/uL (0.0-0.8) 08/20/22 21:21 Baso # (Auto) 0.0 10^3/uL (0.0-0.1) 08/20/22 21:21 Nucleated RBC % (auto) 0 % 08/20/22 21: Nucleated RBCs # 0.0 /100WBC 08/20/22 21:21 Sodium 139 mmol/L (136-145) 08/20/22 21:21 Potassium 4.3 mmol/L (3.5-5.1) 08/20/22 21:21 Chloride 99 mmol/L (98-107) 08/20/22 21:21 Carbon Dioxide 22 mmol/L (22-29) 08/20/22 21:21 Anion Gap 22.3 (5-19) H 08/20/22 21:21 BUN 23 mg/dL (6-20) H 08/20/22 21:21 Creatinine 0.7 mg/dL (0.7-1.2) 08/20/22 21:21 GFR Calculation 142.4 mL/min (90-130) H 08/20/22 21:21 Glucose 106 mg/dL (65-115) 08/20/22 21:21 Calculated Osmolality 292 mOsm/kg (285-295) 08/20/22 21:21 Calcium 10.1 mg/dL (8.5-10.5) 08/20/22 21:21 Total Bilirubin 1.1 mg/dL (0.15-1.2) 08/20/22 21:21 AST 24 U/L (0-40) 08/20/22 21:21 ALT 16 U/L (0-41) 08/20/22 21:21 Alkaline Phosphatase 101 U/L (40-130) 08/20/22 21:21 Troponin T Baseline 6 ng/L (0-15) 08/20/22 21:21 Total Protein 8.4 g/dL (6.6-8.7) 08/20/22 21:21 Albumin 4.8 g/dL (3.5-5.2) 08/20/22 21:21 Globulin 3.6 g/dL (1.3-4.6) 08/20/22 21:21 Lipase 18 U/L (13-60) 08/20/22 21:21 EKG Data EKG 1: I personally reviewed and interpreted this EKG as follows: EKG interpretation date: 08/20/22 EKG interpretation time: 22:51 Interpretation: nsr hr [address] or t wave abnormalities qrs 101 qtc 433 Discharge Plan Discharge Patient Disposition: Home Clinical Impression: Chest pain, Abdominal pain Condition: Stable Prescriptions: New hydrocodone-acetaminophen 5-325 mg tablet 1 tab PO Q6H PRN (Reason: pain) Qty: 14 0RF Reglan 10 mg tablet 10 mg PO Q6H PRN (Reason: nausea and vomiting) Qty: 20 0RF No Action sucralfate 1 gram tablet 1 g PO Q6H 30 Days Qty: 120 0RF famotidine 20 mg tablet 20 mg PO BID PRN (Reason: Abdominal Pain) pantoprazole 40 mg tablet,delayed release (DR/EC) 40 mg PO QAM metoclopramide HCl [Reglan] 10 mg tablet 10 mg PO DAILY Tylenol Ex Str Rapid Release 500 mg Tablet 1,500 mg PO Q6H PRN (Reason: Pain) ondansetron 4 mg tablet,disintegrating 4 mg PO TID PRN (Reason: Nausea And Vomiting) ondansetron 4 mg tablet,disintegrating 4 mg PO Q8H PRN (Reason: nausea and vomiting) Qty: 20 0RF sucralfate 1 gram tablet 1 g PO TID 14 Days Qty: 42 0RF Discharge Orders: Discharge ED (Routine); Ordered 08/20/22 Ordered By: Yahir Rivera Referrals: Anali Puri MD [Primary Care Provider] - 1-3 days Discharge Diet: Advance as tolerated Discharge Activity: Resume usual activity Patient Instructions: Abdominal Pain (ED) Coding Level of Care Code ED Supervisor Production for Chg Fwd Exam Comprehensive
[2022-08-20] MEDS: lactated ringers 1,000 ML 999 ML IV (21:28)
[2022-08-20] MEDS: ondansetron 2 mg/ML SDV 2 mL 4 MG IVP (21:28)
[2022-08-20 21:33] LABS: Basophils % 0.1 %; Hematocrit 50.3 % (42.0-52.0); Hemoglobin 16.9 g/dL (11.7-16.6); Lymphocytes # 1.5 10^3/uL (0.8-4.8); Lymphocytes % 9.3 %; Mean Corpuscular HGB Conc 33.6 g/dL (30.0-36.0); Mean Corpuscular Hemoglobin 28.5 pg (28.0-34.0); Mean Corpuscular Volume 84.8 fl (80-94); Mean Platelet Volume 9.8 fL (7.4-10.4); Monocytes # 0.7 10^3/uL (0.2-0.9); Monocytes % 4.5 %; Neutrophils # 13.42 10^3/uL (1.8-7.7); Neutrophils % 85.7 %; Nucleated Red Blood Cells % 0 %; Platelet Count 352 10^3/cmm (130-400); Red Blood Count 5.93 10^6/uL (4.1-5.3); Red Cell Distribution Width 12.2 % (12.1-15.1); White Blood Count 15.7 10^3/uL (4.0-10.0)
[2022-08-20 21:41] LABS: Alanine Aminotransferase 16 U/L (0-41); Albumin Level 4.8 g/dL (3.5-5.2); Alkaline Phosphatase 101 U/L (40-130); Aspartate Amino Transferase 24 U/L (0-40); Blood Urea Nitrogen 23 mg/dL (6-20); Calcium 10.1 mg/dL (8.5-10.5); Carbon Dioxide 22 mmol/L (22-29); Chloride 99 mmol/L (98-107); Globulin 3.6 g/dL (1.3-4.6); Glomerular Filtration Rate 142.4 mL/min (90-130); Glucose 106 mg/dL (65-115); Lipase 18 U/L (13-60); Osmolality Calculated 292 mOsm/kg (285-295); Sodium 139 mmol/L (136-145); Total Bilirubin 1.1 mg/dL (0.15-1.2); Total Protein 8.4 g/dL (6.6-8.7)
[2022-08-20 21:43] LABS: Troponin(5th) Baseline 6 ng/L (0-15)
[2022-08-20 21:47] LABS: Anion Gap 22.3 (5-19); Potassium 4.3 mmol/L (3.5-5.1)
[2022-08-20 21:58] VITALS: RESP 16; O2SAT 100
[2022-08-20] MEDS: HYDROmorphone 1 mg/mL INJ 1 mL IVP (21:58)
[2022-08-20 22:02] VITALS: BP 163/94; PULSE 53; RESP 18; O2SAT 100
--- NOTE | 2022-08-20 22:03 | CTR_ITS ---
PROCEDURE INFORMATION: Exam: CTA Chest With Contrast Exam date and time: 08/20/2022 10:13 PM Age: 22 years old Clinical indication: Nausea and vomiting; Abdominal pain; Chest pressure; Patient HX: C/O central chest and epigastric pain with n/v. History of gastric ulcers. ; Additional info: Cp/abdpain TECHNIQUE: Imaging protocol: Computed tomographic angiography of the chest with contrast. 3D rendering (Not supervised by radiologist): MIP and/or 3D reconstructed images were created by the technologist. Radiation optimization: All CT scans at this facility use at least one of these dose optimization techniques: automated exposure control; mA and/or kV adjustment per patient size (includes targeted exams where dose is matched to clinical indication); or iterative reconstruction. Contrast material: OMNI 350; Contrast volume: 95 ml; Contrast route: INTRAVENOUS (IV); COMPARISON: CR (CHEST, ) 08/20/2022 9:12 PM RADIATION DOSE METRICS: Total DLP (mGy-cm): 519.93 FINDINGS: Pulmonary arteries: Normal. No pulmonary emboli. Aorta: Unremarkable. No aortic aneurysm. No aortic dissection. Lungs: Unremarkable. No consolidation. No masses. Pleural spaces: Unremarkable. No pneumothorax. No pleural effusion. Heart: Unremarkable. No cardiomegaly. No pericardial effusion. Lymph nodes: Unremarkable. No enlarged lymph nodes. Bones/joints: Unremarkable. No acute fracture. Soft tissues: Unremarkable. PROCEDURE INFORMATION: Exam: CT Abdomen And Pelvis With Contrast Exam date and time: 08/20/2022 10:13 PM Age: 22 years old Clinical indication: Nausea and vomiting; Abdominal pain; Chest pressure; Patient HX: C/O central chest and epigastric pain with n/v. History of gastric ulcers. ; Additional info: Cp/abdpain TECHNIQUE: Imaging protocol: Computed tomography of the abdomen and pelvis with contrast. Radiation optimization: All CT scans at this facility use at least one of these dose optimization techniques: automated exposure control; mA and/or kV adjustment per patient size (includes targeted exams where dose is matched to clinical indication); or iterative reconstruction. Contrast material: OMNI 350; Contrast volume: 95 ml; Contrast route: INTRAVENOUS (IV); COMPARISON: CT abdomen pelvis w con* [id number] 06/03/2022 5:46 PM RADIATION DOSE METRICS: Total DLP (mGy-cm): 519.93 FINDINGS: Liver: Normal. No mass. Gallbladder and bile ducts: Normal. No calcified stones. No ductal dilation. Pancreas: Normal. No ductal dilation. Spleen: Normal. No splenomegaly. Adrenal glands: Normal. No mass. Kidneys and ureters: Normal. No hydronephrosis. Stomach and bowel: Unremarkable. No obstruction. No mucosal thickening. Appendix: No evidence of appendicitis. Intraperitoneal space: Unremarkable. No free air. No significant fluid collection. Vasculature: Unremarkable. No abdominal aortic aneurysm. Lymph nodes: Unremarkable. No enlarged lymph nodes. Urinary bladder: Unremarkable as visualized. Reproductive: Unremarkable as visualized. Bones/joints: No acute fracture. Soft tissues: Unremarkable. CT/CT angio chest w abd pel w con IMPRESSION: No acute findings. IMPRESSION: No acute findings.
[2022-08-20] MEDS: iohexol 350 mg/mL 100 mL Btl IV (22:20)
--- NOTE | 2022-08-20 22:51 | ECG_ITS ---
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 Measurements Intervals [place] Rate: 65 P: 39 [place]: 150 QRS: 100 QRSD: 101 T: 63 QT: 421 QTc: 441 Interpretive Statements SINUS RHYTHM WITH MARKED SINUS ARRHYTHMIA BORDERLINE RIGHT AXIS DEVIATION [QRS AXIS > 90] POSSIBLE RIGHT VENTRICULAR CONDUCTION DELAY [RSR (QR) IN V1/V2] Compared to ECG 08/20/2022 21:02:54 Sinus bradycardia no longer present ST (T wave) deviation no longer present Early repolarization no longer present Electronically Signed On 08-21-2022 14:13:00 CDT by Kevin Singletary M.D. [id number]
[2022-08-20 23:24] VITALS: RESP 16
[2022-08-20] MEDS: HYDROmorphone 1 mg/mL INJ 1 mL 0.5 MG IVP (23:24)
[2022-08-20 23:29] VITALS: BP 113/59; PULSE 65; RESP 18; O2SAT 96
[2022-08-20 23:37] VITALS: BP 136/82; PULSE 62; RESP 16; TEMP 36.7; O2SAT 98
== END 2022-08-20 23:43 | disposition home or self-care (01) ==
PROVIDERS: Emergency Provider Emergency Medicine; PCP Family Medicine
DX: R07.9 Chest pain, unspecified (principal); R10.9 Unspecified abdominal pain
CPT/HCPCS: 71045; 71275; 74177; 80053; 83690; 84484; 85025; 93005; 96374; 96375; 96376; 99285; J1170; J2405; Q9967

== ENCOUNTER 2022-08-21 12:23 | Emergency (ER) | payer MEDICAID, SELFPAY ==
[2022-08-21 12:34] VITALS: BP 165/87; PULSE 72; RESP 14; TEMP 36.4; O2SAT 99; BMI 19.0
--- NOTE | 2022-08-21 12:51 | W.ED.GENADLT ---
HPI - General Adult General: Chief complaint: Chest Pain Stated complaint: chest pain Time Seen by Provider: 08/21/22 12:49 History of Present Illness: Patient is a 22-year-old male with history of peptic ulcer presenting to emergency with complaints of diffuse abdominal pain with radiation to the chest and nausea vomiting. Patient has been having symptoms for the last 4 days. Patient has known history of large peptic ulcer. Patient tells me that for the last few days, he has experienced significant abdominal pain with radiation to the chest. Patient denies any shortness of breath, cough, runny nose sore throat, report subjective fever at home. Patient denies any melena hematochezia. Patient has an EGD scheduled in the next few month. Patient has been taking his Protonix but occasionally has out breaks of abdominal pain. He was recently seen at 10 PM yesterday for similar complaints. Onset: 4 days ago Duration:4 days Location:home Severity:moderate Associated symptoms: Deny chest pain, dyspnea, nausea, rash, palpitations or vomiting Review of Systems Const: Denies: fever(s) or chills Eyes: Denies: change in vision ENMT: Denies: mouth pain Card: Denies: chest pain or palpitations Resp: Denies: dyspnea or non-productive cough GI: Denies: abdominal pain, nausea, vomiting or diarrhea : Denies: dysuria Musc: Denies: extremity pain Skin/Breast: Denies: rash or new lesions Neuro: Denies: weakness in extremities Psych: Reports: other (Normal mood) Moncho/Lymph: Denies: easy bruising PFS ED PFSH: Medical History No pertinent past medical history Surgical History H/O esophagogastroduodenoscopy (04/10/22) Family History Other Hypertension Social History Smoking and tobacco status: never smoked Alcohol intake: never Physical Exam Const: COMMON NORMALS: alert HENMT: COMMON NORMALS: atraumatic HEAD & SCALP: atraumatic MOUTH: moist mucous membranes not abnormal Eye: COMMON NORMALS: EOMs intact bilaterally and conjunctivae normal CONJUNCTIVA: Yes conjunctivae normal Neck/C-Spine: COMMON NORMALS: full ROM and supple Resp: COMMON NORMALS: normal respiratory effort and clear to auscultation bilaterally AUSCULTATION: clear to auscultation bilaterally Cardio: COMMON NORMALS: regular rate RATE: regular rate GI: COMMON NORMALS: Soft to palpation and non-tender PALPATION: Yes Soft to palpation Extremity: COMMON NORMALS: full ROM Neuro: SENSORIUM/ORIENTATION: Yes alert MOTOR EXAM: No Abnormal motor strength present and Other motor observations present (no focal motor deficits) Psych: COMMON NORMALS: speech normal SPEECH: Yes normal speech MOOD & AFFECT: Yes euthymic mood Course Vital Signs: Vital signs: Vital Signs Temperature 97.6 F 08/21/22 12:34 Pulse Rate 86 08/21/22 16:30 Respiratory Rate 14 08/21/22 16:30 Blood Pressure 142/67 08/21/22 16:30 Pulse Oximetry 97 08/21/22 16:30 Oxygen Delivery Me thod 08/21/22 15:09 [facility] - General Adult Medical Decision Making Patient is a 22-year-old male with history of peptic ulcer presenting to emergency with complaints of diffuse abdominal pain with radiation to the chest and nausea vomiting for 4 days. On exam, patient had mild epigastric tenderness palpation. No guarding or rebound tenderness. Patient is hemodynamically stable in moderate distress. Patient is to have noted to have white count 11.8. Patient has a hemoglobin of 15.7. Patient received Protonix, morphine, Dilaudid and GI cocktail in the emergency room reports feeling symptomatically improved. At present, do not suspect acute GI bleed. Patient has a history of known peptic ulcer I have instructed patient to take to pepto-bismal 3 times a day, Carafate 3 times a day and Protonix 80 mg twice daily. No suspicion for other acute intra-abdominal pathology including SBO, biliary pathology, appendicitis, diverticulitis, or other emergent condition requiring surgery. I have given patient follow up with our watch case polisher to be seen by our outpatient by Dr. Bauman per request of patient. Patient aware of a call from our watch case polisher to schedule for appointment(s) and verbalizes understanding of the importance of following up. Disposition: Discharge. Patient counseled regarding diagnostic impression, treatment plan. Patient given ED strict return precautions to return for continuation, worsening, or development of new symptoms. Instructed to f/u w/ PCP regarding symptoms today. Patient verbalized understanding. Lab Data : 08/21/22 13:25 08/21/22 13:25 Radiology Impressions Chest X-Ray 08/21/22 12:52 IMPRESSION: Unremarkable chest radiograph. Laboratory Results WBC 11.8 10^3/uL (4.0-10.0) H 08/21/22 13:25 RBC 5.50 10^6/uL (4.1-5.3) H 08/21/22 13:25 Hgb 15.7 g/dL (11.7-16.6) 08/21/22 13:25 Hct 46.4 % (42.0-52.0) 08/21/22 13:25 MCV 84.4 fl (80-94) 08/21/22 13:25 MCH 28.5 pg (28.0-34.0) 08/21/22 13:25 MCHC 33.8 g/dL (30.0-36.0) 08/21/22 13:25 RDW 12.1 % (12.1-15.1) 08/21/22 13:25 Plt Count 265 10^3/cmm (130-400) 08/21/22 13:25 MPV 11.0 fL (7.4-10.4) H 08/21/22 13:25 Neut % (Auto) 85.1 % 08/21/22 13:25 Lymph % (Auto) 9.2 % 08/21/22 13:25 [place] % (Auto) 4.1 % 08/21/22 13:25 Eos % (Auto) 1.0 % 08/21/22 13:25 Baso % (Auto) 0.3 % 08/21/22 13:25 Neut # (Auto) 10.07 10^3/uL (1.8-7.7) H 08/21/22 13:25 Lymph # (Auto) 1.1 10^3/uL (0.8-4.8) 08/21/22 13:25 [place] # (Auto) 0.5 10^3/uL (0.2-0.9) 08/21/22 13:25 Eos # (Auto) 0.1 10^3/uL (0.0-0.8) 08/21/22 13:25 Baso # (Auto) 0.0 10^3/uL (0.0-0.1) 08/21/22 13:25 Nucleated RBC % (auto) 0 % 08/21/22 13:25 Nucleated RBCs # 0.0 /100WBC 08/21/22 13:25 Sodium 136 mmol/L (136-145) 08/21/22 13:25 Potassium 3.9 mmol/L (3.5-5.1) 08/21/22 13:25 Chloride 96 mmol/L (98-107) L 08/21/22 13:25 Carbon Dioxide 24 mmol/L (22-29) 08/21/22 13:25 Anion Gap 19.9 (5-19) H 08/21/22 13:25 BUN 17 mg/dL (6-20) 08/21/22 13:25 Creatinine 0.8 mg/dL (0.7-1.2) 08/21/22 13:25 GFR Calculation 122.0 mL/min (90-130) 08/21/22 13:25 Glucose 88 mg/dL (65-115) 08/21/22 13:25 Calculated Osmolality 283 mOsm/kg (285-295) L 08/21/22 13:25 Calcium 9.6 mg/dL (8.5-10.5) 08/21/22 13:25 Total Bilirubin 1.8 mg/dL (0.15-1.2) H 08/21/22 13:25 AST 20 U/L (0-40) 08/21/22 13:25 ALT 16 U/L (0-41) 08/21/22 13:25 Alkaline Phosphatase 92 U/L (40-130) 08/21/22 13:25 Total Protein 8.3 g/dL (6.6-8.7) 08/21/22 13:25 Albumin 5.0 g/dL (3.5-5.2) 08/21/22 13:25 Globulin 3.3 g/dL (1.3-4.6) 08/21/22 13:25 Lipase 19 U/L (13-60) 08/21/22 13:25 Urine Color Yellow (Yellow) 08/21/22 15:30 Urine Appearance Clear (CLEAR) 08/21/22 15:30 Urine pH 7.0 (5-7) 08/21/22 15:30 Ur Specific Helper 1.020 (1.005-1.030) 08/21/22 15:30 Urine Protein Negative 08/21/22 15:30 Urine Glucose (UA) Negative (Normal) 08/21/22 15:30 Urine Ketones 2+ (Negative) A 08/21/22 15:30 Urine Blood Negative (Negative) 08/21/22 15:30 Urine Nitrate Negative 08/21/22 15:30 Urine Bilirubin Negative (Negative) 08/21/22 15:30 Urine Urobilinogen 0.2 mg/dL (Negative) 08/21/22 15:30 Ur Leukocyte Esterase Negative 08/21/22 15:30 Imaging Data Other Imaging: Radiologist's impression: [place] [address] XRay Report Signed Patient: Jesus Mendoza Unit #: [id number] : 2000 Age/Sex: 22 / M ADM Date: 08/21/22 Loc: ER Room/Bed: Attending Dr: Ordering Provider/Ordering MD: Saturnino Velarde MD Date of Service: 08/21/22 Procedure(s): XR chest 1V portable [id number] Accession Number(s): [id number] Report Number: [id number] WS: [id number] Exam: XR chest 1V portable [id number] Date/Time of Exam: 08/21/2022 12:52 PM Reason For Exam: chest pain Comparison 08/20/2022. Findings: The lungs are clear and fully expanded. Costophrenic angles are sharp. No infiltrates. Bronchovascular relief appears normal. Cardiac silhouette is unremarkable. Bony elements are intact. ? XR/XR chest 1V portable [id number] IMPRESSION: Unremarkable chest radiograph. ? ? Dictated By: Eben Powers DO Signed By: Eben Powers DO Signed Date/Time: 08/21/22 1308 DD/ 1307 Discharge Plan Discharge Patient Disposition: Home Clinical Impression: Chest pain, Abdominal pain, Nausea & vomiting Condition: Stable Prescriptions: New acetaminophen 500 mg tablet 500 mg PO Q6H PRN (Reason: pain) 5 Days Qty: 20 0RF Maalox Advanced 1,000-60 mg tablet,chewable 1 tab PO TID PRN (Reason: abdominal pain) 7 Days Qty: 21 0RF Pepcid 20 mg tablet 20 mg PO BID PRN (Reason: abdominal pain) 10 Days Qty: 20 0RF ondansetron 4 mg tablet,disintegrating 4 mg PO TID PRN (Reason: nausea and vomiting) 4 Days Qty: 12 0RF No Action famotidine 20 mg tablet 20 mg PO BID PRN (Reason: Abdominal Pain) pantoprazole 40 mg tablet,delayed release (DR/EC) 40 mg PO QAM acetaminophen [Tylenol Ex Str Rapid Release] 500 mg Tablet 500 - 1,500 mg PO Q6H PRN (Reason: Pain) amlodipine 5 mg Tablet 5 mg PO DAILY ondansetron 4 mg tablet,disintegrating 4 mg PO Q8H PRN (Reason: nausea and vomiting) Qty: 20 0RF sucralfate 1 gram tablet 1 g PO TID 14 Days Qty: 42 0RF hydrocodone-acetaminophen 5-325 mg tablet 1 tab PO Q6H PRN (Reason: pain) Qty: 14 0RF metoclopramide HCl [Reglan] 10 mg tablet 10 mg PO Q6H PRN (Reason: nausea and vomiting) Qty: 20 0RF Discharge Orders: Discharge ED (Routine); Ordered 08/21/22 Ordered By: Saturnino Velarde Referrals: Anali Puri MD [Primary Care Provider] - Discharge Diet: Advance as tolerated Discharge Activity: Increase activity as tolerated Patient Instructions: Abdominal Pain (ED), Pain Management Activity Restrictions/Additional Instructions: Please come back if you have any worsening abdominal pain, fever or chills, nausea or vomiting, diarrhea, blood in the stool, inability hold down liquid or solids, or any new concerning complaints. Coding Level of Care Code ED Printed Circuit Photographer for Chg Fwd Exam Comprehensive
--- NOTE | 2022-08-21 12:52 | ECG_ITS ---
[facility] Test Date: 2022-08-21 Pat Name: Jesus Mendoza Department: Room: Gender: Male Donor Services Specialist: : 2000 Requested By: Saturnino Velarde Order Number: [id number] Vlad MD: Kevin Singletary M.D. Measurements Intervals [place] Rate: 60 P: 78 VT: 148 QRS: 103 QRSD: 103 T: 68 QT: 419 QTc: 421 Interpretive Statements SINUS RHYTHM WITH MARKED SINUS ARRHYTHMIA POSSIBLE LEFT ATRIAL ENLARGEMENT [-0.1mV P-WAVE IN V1/V2] RIGHT AXIS DEVIATION [QRS AXIS > 100] INCOMPLETE RIGHT BUNDLE BRANCH BLOCK [90+ ms QRS DURATION, TERMINAL R IN V1/V2, 40+ ms S IN I/aVL/V4/V5/V6] ST ELEVATION, PROBABLY EARLY REPOLARIZATION [ST ELEVATION WITH NORMALLY INFLECTED T-WAVE] INTERPRETATION BASED ON A DEFAULT AGE OF 40 YEARS Compared to ECG 08/20/2022 22:51:54 Incomplete right bundle-branch block now present ST (T wave) deviation now present Early repolarization now present Electronically Signed On 08-21-2022 14:05:31 CDT by Kevin Singletary M.D. [email or web address]
--- NOTE | 2022-08-21 12:52 | XR_ITS ---
WS: [id number] Exam: XR chest 1V portable [id number] Date/Time of Exam: 08/21/2022 12:52 PM Reason For Exam: chest pain Comparison 08/20/2022. Findings: The lungs are clear and fully expanded. Costophrenic angles are sharp. No infiltrates. Bronchovascula r relief appears normal. Cardiac silhouette is unremarkable. Bony elements are intact. XR/XR chest 1V portable [id number] IMPRESSION: Unremarkable chest radiograph.
[2022-08-21] MEDS: sodium chloride 0.9% 1,000 ML 999 ML IV (13:32)
[2022-08-21] MEDS: lidocaine 2% viscous 15 ML, aluminum-mag hydrox-simethicon 30 ML, sucralfate oral liq 1 GM PO (13:44)
[2022-08-21 13:48] VITALS: RESP 14; O2SAT 98
[2022-08-21] MEDS: morphine 4 mg/mL SDV 1 mL IVP (13:48)
[2022-08-21 13:49] LABS: Basophils % 0.3 %; Eosinophils # 0.1 10^3/uL (0.0-0.8); Hematocrit 46.4 % (42.0-52.0); Hemoglobin 15.7 g/dL (11.7-16.6); Lymphocytes # 1.1 10^3/uL (0.8-4.8); Lymphocytes % 9.2 %; Mean Corpuscular HGB Conc 33.8 g/dL (30.0-36.0); Mean Corpuscular Hemoglobin 28.5 pg (28.0-34.0); Mean Corpuscular Volume 84.4 fl (80-94); Monocytes # 0.5 10^3/uL (0.2-0.9); Monocytes % 4.1 %; Neutrophils # 10.07 10^3/uL (1.8-7.7); Neutrophils % 85.1 %; Nucleated Red Blood Cells % 0 %; Platelet Count 265 10^3/cmm (130-400); Red Cell Distribution Width 12.1 % (12.1-15.1); White Blood Count 11.8 10^3/uL (4.0-10.0)
[2022-08-21] MEDS: lactated ringers 1,000 ML 999 ML IV (13:49)
[2022-08-21] MEDS: pantoprazole 40 mg SDV 80 MG IVP (13:55)
[2022-08-21] MEDS: ondansetron 2 mg/ML SDV 2 mL 4 MG IVP (13:55)
[2022-08-21 14:08] LABS: Alanine Aminotransferase 16 U/L (0-41); Alkaline Phosphatase 92 U/L (40-130); Anion Gap 19.9 (5-19); Aspartate Amino Transferase 20 U/L (0-40); Blood Urea Nitrogen 17 mg/dL (6-20); Calcium 9.6 mg/dL (8.5-10.5); Carbon Dioxide 24 mmol/L (22-29); Chloride 96 mmol/L (98-107); Globulin 3.3 g/dL (1.3-4.6); Glucose 88 mg/dL (65-115); Lipase 19 U/L (13-60); Osmolality Calculated 283 mOsm/kg (285-295); Potassium 3.9 mmol/L (3.5-5.1); Sodium 136 mmol/L (136-145); Total Bilirubin 1.8 mg/dL (0.15-1.2); Total Protein 8.3 g/dL (6.6-8.7)
[2022-08-21] MEDS: HYDROmorphone 1 mg/mL INJ 1 mL 0.5 MG IVP (15:05)
[2022-08-21 15:09] VITALS: BP 171/109; PULSE 69; RESP 14; O2SAT 99
[2022-08-21 15:34] LABS: Add Urine Microscopic? NO; Charge for UA Resulting for Rev
[2022-08-21 15:43] LABS: Bilirubin Urine Negative (Negative); Blood Urine Negative (Negative); Glucose Urine UA Negative (Normal); Ketones Urine 2+ (Negative); Leukocyte Esterase Urine Negative; Nitrate Urine Negative; Protein Urine Negative; Urine Appearance Clear (CLEAR); Urine Color Yellow (Yellow); Urobilinogen Urine 0.2 mg/dL (Negative)
[2022-08-21 16:00] VITALS: BP 159/106; PULSE 79; RESP 16; O2SAT 96
[2022-08-21] MEDS: morphine 4 mg/mL SDV 1 mL 2 MG IVP (16:26)
[2022-08-21 16:30] VITALS: BP 142/67; PULSE 86; RESP 14; O2SAT 97
[2022-08-21 17:17] VITALS: BP 129/62; PULSE 80; RESP 16; O2SAT 96
--- NOTE | 2022-08-22 09:46 | DCPLANNER ---
Addendum entered by Francisca Mehta 09/12/22 14:22: Patient had a follow up appointment with general surgery - patient did attend appointment. Addendum entered by Francisca Mehta 08/22/22 11:31: Patient has a follow up appointment scheduled for Friday, September 02, 2022 at 9:[address] Naik at general surgery. Clinic will call patient with appointment information. Original Note: manager mechanical maintenance had message to schedule a follow up appointment for patient with general surgery. manager mechanical maintenance sent patients information to the front office staff at general surgery. Patients information will be reviewed. Clinic will call patient with appointment information.
== END 2022-08-21 17:00 | disposition home or self-care (01) ==
PROVIDERS: Emergency Provider Emergency Medicine; PCP Family Medicine
DX: R07.9 Chest pain, unspecified (principal); R10.9 Unspecified abdominal pain; R11.2 Nausea with vomiting, unspecified
CPT/HCPCS: 71045; 80053; 81003; 83690; 85025; 93005; 96374; 96375; 96376; 99285; C9113; J1170; J2270; J2405; J7030

== ENCOUNTER 2022-08-24 05:39 | Emergency (ER) | payer MEDICAID, SELFPAY ==
[2022-08-24 05:52] VITALS: BP 157/115; PULSE 120; RESP 18; TEMP 37; O2SAT 97; BMI 19.3
--- NOTE | 2022-08-24 06:08 | ED_ITS ---
Documented by User: Jozef Lizarraga, 08/25/22 05:00 HPI - Nausea/Vomiting/Diarrhea General: Chief complaint: Nausea/Vomiting/Diarrhea Stated complaint: Vomiting\ Time Seen by Provider: 08/24/22 05:48 Source: patient and family History of Present Illness: 22-year-old male here for the fourth time in a week or so. He presents with ongoing vomiting with generalized abdominal pain and chest pain. He has been seen for this several times now. He had a CT chest abdomen pelvis on 08/20 that was negative. His work-up serum sargent has been negative as well. He says that this morning he has vomited around 15 times in the last 4 hours or so. He has not had a bowel movement in a week, which he relates to not eating solid food in around a week. He is vomiting liquids he says. He has been given medications to control his nausea and vomiting, but they do not seem to be working. He denies any fever. He has some blood in his vomitus here and there. No blood in the stool. Of note, he did have a gastric ulcer a couple of years ago treated medically. This is by history only. He had an EGD in March showing mild chronic gastritis. no prior abdominal surgeries. MD elicited complaint: nausea, vomiting and abdominal pain Pertinent past history: other Onset (ago): day(s) Description of vomiting: watery Associated nausea: Yes Associated abdominal pain: Yes Location of pain: Diffuse Radiation: diffuse Pain consistency: constant Severity: moderate Quality: cramping and stabbing Exacerbating factors: none Associated symtoms: Reports nausea; Denies change in vision, chest pain, dizziness, headache(s) or palpitations Review of Systems Const: Reports: chills; Denies: fever(s) or body aches Eyes: Denies: change in vision ENMT: Reports: throat pain Card: Denies: chest pain or palpitations Resp: Denies: dyspnea, productive cough, non-productive cough or wheezing GI: Reports: nausea : Denies: flank pain Musc: Denies: back pain Skin/Breast: Denies: rash Neuro: Denies: headache(s), weakness in extremities, dizziness or confusion PFS ED PFSH: Medical History (Updated 09/02/22 @ 14:51 by GRANT Dale) No pertinent past medical history Surgical History H/O esophagogastroduodenoscopy (04/10/22) Family History Other Hypertension Social History Smoking and tobacco status: current every day smoker Alcohol intake: never Physical Exam Const: COMMON NORMALS: no acute distress GENERAL APPEARANCE: cooperative NUTRITIONAL APPEARANCE: thin HENMT: COMMON NORMALS: normocephalic, atraumatic and Normal external nose present HEAD & SCALP: normocephalic and atraumatic NOSE: Normal external nose present Eye: COMMON NORMALS: Equal, round and reactive pupils present, EOMs intact bilaterally and no scleral icterus PUPIL: Yes Equal, round and reactive pupils present Neck/C-Spine: COMMON NORMALS: full ROM GENERAL: Yes trachea midline Chest: CHEST: Yes Symmetrical chest wall rise Resp: COMMON NORMALS: normal respiratory effort, No use of accessory muscles and clear to auscultation bilaterally AUSCULTATION: clear to auscultation bilaterally Cardio: COMMON NORMALS: regular rate and regular rhythm RATE: regular rate RHYTHM: regular rhythm GI: COMMON NORMALS: Soft to palpation INSPECTION: Yes normal to inspection PALPATION: Yes Soft to palpation and Yes Tenderness to palpation present (GI) (Diffuse) Extremity: COMMON NORMALS: normal to inspection Neuro: DELORIS COMA SCALE: document GCS findings [place] coma scale eye opening: Spontaneous Deloris coma scale verbal response: Orientated [place] coma scale motor response: Obey commands [place] coma scale total score: 15 Course Vital Signs: Vital signs: Vital Signs Temperature 98.6 F 08/24/22 05:52 Pulse Rate 120 H 08/24/22 05:52 Respiratory Rate 21 H 08/24/22 06:47 Blood Pressure 172/112 08/24/22 09:39 Pulse Oximetry 98 08/24/22 09:39 Oxygen Delivery Me thod 08/24/22 06:47 MDM - Nausea/Vomiting/Diarrhea Medical Decision Making Patient's heart rate is elevated on exam. 128. His blood pressure is 146/100. Saturations are normal. He does appear dry clinically. He has significant abdominal tenderness, but it is diffuse. No distention. Serum work-up is pending. He is given 2 L of IV fluid, antiemetic, and pain medication. He will be checked out at shift change. Lab Data : 08/24/22 05:51 08/24/22 05:51 Laboratory Results WBC 14.9 10^3/uL (4.0-10.0) H 08/24/22 05:51 RBC 7.01 10^6/uL (4.1-5.3) H 08/24/22 05:51 Hgb 20.2 g/dL (11.7-16.6) H 08/24/22 05:51 Hct 56.5 % (42.0-52.0) H 08/24/22 05:51 MCV 80.6 fl (80-94) 08/24/22 05:51 MCH 28.8 pg (28.0-34.0) 08/24/22 05:51 MCHC 35.8 g/dL (30.0-36.0) 08/24/22 05:51 RDW 11.6 % (12.1-15.1) L 08/24/22 05:51 Plt Count 474 10^3/cmm (130-400) H 08/24/22 05:51 MPV 10.0 fL (7.4-10.4) 08/24/22 05:51 Neut % (Auto) 67.7 % 08/24/22 05:51 Lymph % (Auto) 22.1 % 08/24/22 05:51 [place] % (Auto) 9.0 % 08/24/22 05:51 Eos % (Auto) 0.4 % 08/24/22 05:51 Baso % (Auto) 0.5 % 08/24/22 05:51 Neut # (Auto) 10.09 10^3/uL (1.8-7.7) H 08/24/22 05:51 Lymph # (Auto) 3.3 10^3/uL (0.8-4.8) 08/24/22 05:51 [place] # (Auto) 1.3 10^3/uL (0.2-0.9) H 08/24/22 05:51 Eos # (Auto) 0.1 10^3/uL (0.0-0.8) 08/24/22 05:51 Baso # (Auto) 0.1 10^3/uL (0.0-0.1) 08/24/22 05:51 Nucleated RBC % (auto) 0 % 08/24/22 05:51 Nucleated RBCs # 0.0 /100WBC 08/24/22 05:51 Sodium 131 mmol/L (136-145) L 08/24/22 05:51 Potassium 3.9 mmol/L (3.5-5.1) 08/24/22 05:51 Chloride 90 mmol/L (98-107) L 08/24/22 05:51 Carbon Dioxide 23 mmol/L (22-29) 08/24/22 05:51 Anion Gap 21.9 (5-19) H 08/24/22 05:51 BUN 21 mg/dL (6-20) H 08/24/22 05:51 Creatinine 0.8 mg/dL (0.7-1.2) 08/24/22 05:51 GFR Calculation 122.0 mL/min (90-130) 08/24/22 05:51 Glucose 115 mg/dL (65-115) 08/24/22 05:51 Calculated Osmolality 276 mOsm/kg (285-295) L 08/24/22 05:51 Lactate 1.9 mmol/L (0.5-2.2) 08/24/22 06:35 Calcium 10.2 mg/dL (8.5-10.5) 08/24/22 05:51 Phosphorus 3.3 mg/dL (2.5-4.5) 08/24/22 05:51 Magnesium 2.2 mg/dL (1.7-2.3) 08/24/22 05:51 Total Bilirubin 2.4 mg/dL (0.15-1.2) H 08/24/22 05:51 AST 13 U/L (0-40) 08/24/22 05:51 ALT 12 U/L (0-41) 08/24/22 05:51 Alkaline Phosphatase 109 U/L (40-130) 08/24/22 05:51 C-Reactive Protein 3.0 mg/L (0.0-4.9) 08/24/22 05:51 Total Protein 8.5 g/dL (6.6-8.7) 08/24/22 05:51 Albumin 5.3 g/dL (3.5-5.2) H 08/24/22 05:51 Globulin 3.2 g/dL (1.3-4.6) 08/24/22 05:51 Lipase 52 U/L (13-60) 08/24/22 05:51 Urine Color Yellow (Yellow) 08/24/22 06:35 Urine Appearance Clear (CLEAR) 08/24/22 06:35 Urine pH 6.0 (5-7) 08/24/22 06:35 Ur Specific [place] >= 1.030 (1.005-1.030) 08/24/22 06:35 Urine Protein 3+ 08/24/22 06:35 Urine Glucose (UA) Negative (Normal) 08/24/22 06:35 Urine Ketones =>160 (Negative) 08/24/22 06:35 Urine Blood Negative (Negative) 08/24/22 06:35 Urine Nitrate Negative 08/24/22 06:35 Urine Bilirubin Small (Negative) 08/24/22 06:35 Urine Urobilinogen 0.2 mg/dL (Negative) 08/24/22 06:35 Ur Leukocyte Esterase Negative (Negative) 08/24/22 06:35 Urine RBC None /hpf (0-2) 08/24/22 06:35 Urine WBC 5-10 /hpf (0-5) H 08/24/22 06:35 Ur Squamous Epith Cells None /hpf (0-5) 08/24/22 06:35 Amorphous Sediment Not Reportable 08/24/22 06:35 Urine Bacteria Trace /hpf (NONE) 08/24/22 06:35 Urine Mucus 1+ /hpf 08/24/22 06:35 Urine Opiates Screen Positive ng/mL (Negative) H 08/24/22 06:35 Ur Barbiturates Screen Negative ng/mL (Negative) 08/24/22 06:35 Ur Phencyclidine Scrn Negative ng/mL (Negative) 08/24/22 06:35 Ur Amphetamines Screen Negative ng/mL (Negative) 08/24/22 06:35 U Benzodiazepines Scrn Negative ng/mL (Negative) 08/24/22 06:35 Urine Cocaine Screen Negative ng/mL (Negative) 08/24/22 06:35 U Marijuana (THC) Screen Positive ng/mL (Negative) H 08/24/22 06:35 Discharge Plan Discharge Patient Disposition: Home Clinical Impression: Cannabinoid hyperemesis syndrome Condition: Stable Prescriptions: New Zyprexa Zydis 10 mg tablet,disintegrating 10 mg PO Q8H PRN (Reason: nausea and vomiting) Qty: 14 0RF Ativan 2 mg tablet 2 mg buccal Q6H PRN (Reason: nausea and vomiting) Qty: 14 0RF No Action pantoprazole 40 mg tablet,delayed release (DR/EC) 40 mg PO QAM Qty: 30 3RF famotidine 20 mg tablet 20 mg PO BID PRN (Reason: Abdominal Pain) acetaminophen [Tylenol Ex Str Rapid Release] 500 mg Tablet 500 - 1,500 mg PO Q6H PRN (Reason: Pain) amlodipine 5 mg Tablet 5 mg PO DAILY ondansetron 4 mg tablet,disintegrating 4 mg PO Q8H PRN (Reason: nausea and vomiting) Qty: 20 0RF hydrocodone-acetaminophen 5-325 mg tablet 1 tab PO Q6H PRN (Reason: pain) Qty: 14 0RF metoclopramide HCl [Reglan] 10 mg tablet 10 mg PO Q6H PRN (Reason: nausea and vomiting) Qty: 20 0RF Discharge Orders: Discharge ED (Routine); Ordered 08/24/22 Ordered By: Larry Sinha Referrals: Anali Puri MD [Primary Care Provider] - Discharge Diet: Clear Liquid Discharge Activity: Increase activity as tolerated Patient Instructions: Opioid Safety, Pain Management Activity Restrictions/Additional Instructions: Abstain from use of marijuana use medications above as needed for relief of nausea vomiting. Sign Out Sign Out Data: Patient Sign Out occurred on 08/24/22 at 06:37. Patient's care was discussed, and care was transferred from to Larry Sinha DO. Coding Level of Care Code ED Pocketbook Maker for Chg Fwd Exam Comprehensive Documented by User: Larry Sinha DO 09/03/22 09:05 HPI - Nausea/Vomiting/Diarrhea General: Chief complaint: Nausea/Vomiting/Diarrhea Stated complaint: Vomiting\ Time Seen by Provider: 08/24/22 05:48 [facility] ED PFSH: Medical History (Updated 09/02/22 @ 14:51 by GRANT Dale) No pertinent past medical history Surgical History H/O esophagogastroduodenoscopy (04/10/22) Family History Other Hypertension Social History Smoking and tobacco status: current every day smoker Alcohol intake: never Physical Exam Neuro: DELORIS COMA SCALE: document GCS findings [place] coma scale total score: 15 Course Vital Signs: Vital signs: Vital Signs Temperature 98.6 F 08/24/22 05:52 Pulse Rate 120 H 08/24/22 05:52 Respiratory Rate 21 H 08/24/22 06:47 Blood Pressure 172/112 08/24/22 09:39 Pulse Oximetry 98 08/24/22 09:39 Oxygen Delivery Me thod 08/24/22 06:47 MDM - Nausea/Vomiting/Diarrhea Medical Decision Making Patient's heart rate is elevated on exam. 128. His blood pressure is 146/100. Saturations are normal. He does appear dry clinically. He has significant abdominal tenderness, but it is diffuse. No distention. Serum work-up is pending. He is given 2 L of IV fluid, antiemetic, and pain medication. He will be checked out at shift change. Care assumed at change of shift labs imaging reviewed patient is feeling better. 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 Reviewed his old bilirubins have been elevated in the past and is similar settings. Discharge home follow-up with his primary care doctor return if has any worsening symptoms encourage cessation of use of marijuana. Medical Records I reviewed the patient's medical records. Lab Data I reviewed the patient's lab results. : 08/24/22 05:51 08/24/22 05:51 Laboratory Results WBC 14.9 10^3/uL (4.0-10.0) H 08/24/22 05:51 RBC 7.01 10^6/uL (4.1-5.3) H 08/24/22 05:51 Hgb 20.2 g/dL (11.7-16.6) H 08/24/22 05:51 Hct 56.5 % (42.0-52.0) H 08/24/22 05:51 MCV 80.6 fl (80-94) 08/24/22 05:51 MCH 28.8 pg (28.0-34.0) 08/24/22 05:51 MCHC 35.8 g/dL (30.0-36.0) 08/24/22 05:51 RDW 11.6 % (12.1-15.1) L 08/24/22 05:51 Plt Count 474 10^3/cmm (130-400) H 08/24/22 05:51 MPV 10.0 fL (7.4-10.4) 08/24/22 05:51 Neut % (Auto) 67.7 % 08/24/22 05:51 Lymph % (Auto) 22.1 % 08/24/22 05:51 [place] % (Auto) 9.0 % 08/24/22 05:51 Eos % (Auto) 0.4 % 08/24/22 05:51 Baso % (Auto) 0.5 % 08/24/22 05:51 Neut # (Auto) 10.09 10^3/uL (1.8-7.7) H 08/24/22 05:51 Lymph # (Auto) 3.3 10^3/uL (0.8-4.8) 08/24/22 05:51 [place] # (Auto) 1.3 10^3/uL (0.2-0.9) H 08/24/22 05:51 Eos # (Auto) 0.1 10^3/uL (0.0-0.8) 08/24/22 05:51 Baso # (Auto) 0.1 10^3/uL (0.0-0.1) 08/24/22 05:51 Nucleated RBC % (auto) 0 % 08/24/22 05:51 Nucleated RBCs # 0.0 /100WBC 08/24/22 05:51 Sodium 131 mmol/L (136-145) L 08/24/22 05:51 Potassium 3.9 mmol/L (3.5-5.1) 08/24/22 05:51 Chloride 90 mmol/L (98-107) L 08/24/22 05:51 Carbon Dioxide 23 mmol/L (22-29) 08/24/22 05:51 Anion Gap 21.9 (5-19) H 08/24/22 05:51 BUN 21 mg/dL (6-20) H 08/24/22 05:51 Creatinine 0.8 mg/dL (0.7-1.2) 08/24/22 05:51 GFR Calculation 122.0 mL/min (90-130) 08/24/22 05:51 Glucose 115 mg/dL (65-115) 08/24/22 05:51 Calculated Osmolality 276 mOsm/kg (285-295) L 08/24/22 05:51 Lactate 1.9 mmol/L (0.5-2.2) 08/24/22 06:35 Calcium 10.2 mg/dL (8.5-10.5) 08/24/22 05:51 Phosphorus 3.3 mg/dL (2.5-4.5) 08/24/22 05:51 Magnesium 2.2 mg/dL (1.7-2.3) 08/24/22 05:51 Total Bilirubin 2.4 mg/dL (0.15-1.2) H 08/24/22 05:51 AST 13 U/L (0-40) 08/24/22 05:51 ALT 12 U/L (0-41) 08/24/22 05:51 Alkaline Phosphatase 109 U/L (40-130) 08/24/22 05:51 C-Reactive Protein 3.0 mg/L (0.0-4.9) 08/24/22 05:51 Total Protein 8.5 g/dL (6.6-8.7) 08/24/22 05:51 Albumin 5.3 g/dL (3.5-5.2) H 08/24/22 05:51 Globulin 3.2 g/dL (1.3-4.6) 08/24/22 05:51 Lipase 52 U/L (13-60) 08/24/22 05:51 Urine Color Yellow (Yellow) 08/24/22 06:35 Urine Appearance Clear (CLEAR) 08/24/22 06:35 Urine pH 6.0 (5-7) 08/24/22 06:35 Ur Specific [place] >= 1.030 (1.005-1.030) 08/24/22 06:35 Urine Protein 3+ 08/24/22 06:35 Urine Glucose (UA) Negative (Normal) 08/24/22 06:35 Urine Ketones =>160 (Negative) 08/24/22 06:35 Urine Blood Negative (Negative) 08/24/22 06:35 Urine Nitrate Negative 08/24/22 06:35 Urine Bilirubin Small (Negative) 08/24/22 06:35 Urine Urobilinogen 0.2 mg/dL (Negative) 08/24/22 06:35 Ur Leukocyte Esterase Negative (Negative) 08/24/22 06:35 Urine RBC None /hpf (0-2) 08/24/22 06:35 Urine WBC 5-10 /hpf (0-5) H 08/24/22 06:35 Ur Squamous Epith Cells None /hpf (0-5) 08/24/22 06:35 Amorphous Sediment Not Reportable 08/24/22 06:35 Urine Bacteria Trace /hpf (NONE) 08/24/22 06:35 Urine Mucus 1+ /hpf 08/24/22 06:35 Urine Opiates Screen Positive ng/mL (Negative) H 08/24/22 06:35 Ur Barbiturates Screen Negative ng/mL (Negative) 08/24/22 06:35 Ur Phencyclidine Scrn Negative ng/mL (Negative) 08/24/22 06:35 Ur Amphetamines Screen Negative ng/mL (Negative) 08/24/22 06:35 U Benzodiazepines Scrn Negative ng/mL (Negative) 08/24/22 06:35 Urine Cocaine Screen Negative ng/mL (Negative) 08/24/22 06:35 U Marijuana (THC) Screen Positive ng/mL (Negative) H 08/24/22 06:35 Discharge Plan Discharge Patient Disposition: Home Clinical Impression: Cannabinoid hyperemesis syndrome Condition: Stable Prescriptions: New Zyprexa Zydis 10 mg tablet,disintegrating 10 mg PO Q8H PRN (Reason: nausea and vomiting) Qty: 14 0RF Ativan 2 mg tablet 2 mg buccal Q6H PRN (Reason: nausea and vomiting) Qty: 14 0RF No Action pantoprazole 40 mg tablet,delayed release (DR/EC) 40 mg PO QAM Qty: 30 3RF famotidine 20 mg tablet 20 mg PO BID PRN (Reason: Abdominal Pain) acetaminophen [Tylenol Ex Str Rapid Release] 500 mg Tablet 500 - 1,500 mg PO Q6H PRN (Reason: Pain) amlodipine 5 mg Tablet 5 mg PO DAILY ondansetron 4 mg tablet,disintegrating 4 mg PO Q8H PRN (Reason: nausea and vomiting) Qty: 20 0RF hydrocodone-acetaminophen 5-325 mg tablet 1 tab PO Q6H PRN (Reason: pain) Qty: 14 0RF metoclopramide HCl [Reglan] 10 mg tablet 10 mg PO Q6H PRN (Reason: nausea and vomiting) Qty: 20 0RF Discharge Orders: Discharge ED (Routine); Ordered 08/24/22 Ordered By: Larry Sinha Referrals: Anali Puri MD [Primary Care Provider] - Discharge Diet: Clear Liquid Discharge Activity: Increase activity as tolerated Patient Instructions: Opioid Safety, Pain Management Activity Restrictions/Additional Instructions: Abstain from use of marijuana use medications above as needed for relief of nausea vomiting. Sign Out Sign Out Data: Patient Sign Out occurred on 08/24/22 at 06:37. Patient's care was discussed, and care was transferred from to Larry Sinha DO. Coding Level of Care Code ED Pocketbook Maker for [place] Dee Fwd Exam Comprehensive
[2022-08-24 06:13] LABS: Basophils # 0.1 10^3/uL (0.0-0.1); Basophils % 0.5 %; Eosinophils # 0.1 10^3/uL (0.0-0.8); Eosinophils % 0.4 %; Hematocrit 56.5 % (42.0-52.0); Hemoglobin 20.2 g/dL (11.7-16.6); Lymphocytes # 3.3 10^3/uL (0.8-4.8); Lymphocytes % 22.1 %; Mean Corpuscular HGB Conc 35.8 g/dL (30.0-36.0); Mean Corpuscular Hemoglobin 28.8 pg (28.0-34.0); Mean Corpuscular Volume 80.6 fl (80-94); Monocytes # 1.3 10^3/uL (0.2-0.9); Neutrophils # 10.09 10^3/uL (1.8-7.7); Neutrophils % 67.7 %; Nucleated Red Blood Cells % 0 %; Platelet Count 474 10^3/cmm (130-400); Red Blood Count 7.01 10^6/uL (4.1-5.3); Red Cell Distribution Width 11.6 % (12.1-15.1); White Blood Count 14.9 10^3/uL (4.0-10.0)
[2022-08-24] MEDS: sodium chloride 0.9% 1,000 ML 999 ML IV ×2 (06:32→07:48)
[2022-08-24] MEDS: ondansetron 2 mg/ML SDV 2 mL 4 MG IVP (06:32)
[2022-08-24] MEDS: morphine 4 mg/mL SDV 1 mL IVP (06:32)
[2022-08-24] MEDS: haloperidol inj 5 mg/mL INJ 1 mL 3 MG IVP (06:32)
--- NOTE | 2022-08-24 06:38 | PC.NURSE ---
patient given warm blanket and assisted to position of comfort.
[2022-08-24 06:41] LABS: Alanine Aminotransferase 12 U/L (0-41); Albumin Level 5.3 g/dL (3.5-5.2); Alkaline Phosphatase 109 U/L (40-130); Anion Gap 21.9 (5-19); Aspartate Amino Transferase 13 U/L (0-40); Blood Urea Nitrogen 21 mg/dL (6-20); Calcium 10.2 mg/dL (8.5-10.5); Carbon Dioxide 23 mmol/L (22-29); Chloride 90 mmol/L (98-107); Globulin 3.2 g/dL (1.3-4.6); Glucose 115 mg/dL (65-115); Lipase 52 U/L (13-60); Magnesium 2.2 mg/dL (1.7-2.3); Osmolality Calculated 276 mOsm/kg (285-295); Phosphorus 3.3 mg/dL (2.5-4.5); Potassium 3.9 mmol/L (3.5-5.1); Sodium 131 mmol/L (136-145); Total Bilirubin 2.4 mg/dL (0.15-1.2); Total Protein 8.5 g/dL (6.6-8.7)
--- NOTE | 2022-08-24 06:46 | PC.NURSE ---
patient states that he has hx of anxiety and panic attacks, and has been having several in the last week. patient gf states that she has also been sick in the last week, concerned that its contagious illness.
[2022-08-24 06:47] VITALS: BP 172/112; RESP 21; O2SAT 98
--- NOTE | 2022-08-24 06:50 | PC.NURSE ---
report given to [facility] day nurse.
[2022-08-24 06:52] LABS: Bilirubin Urine Small (Negative); Blood Urine Negative (Negative); Glucose Urine UA Negative (Normal); Leukocyte Esterase Urine Negative (Negative); Nitrate Urine Negative; Protein Urine 3+; Specific Gravity, Urine >= 1.030 (1.005-1.030); Urine Appearance Clear (CLEAR); Urine Color Yellow (Yellow); Urobilinogen Urine 0.2 mg/dL (Negative)
[2022-08-24 06:59] LABS: Amphetamines Screen Urine Negative (Negative); Barbiturates Screen Urine Negative (Negative); Benzodiazepines Screen Urine Negative (Negative); Cocaine Screen Urine Negative (Negative); Opiate Screen Urine Positive (Negative); PCP Screen Urine Negative (Negative); THC Screen Urine Positive (Negative)
[2022-08-24 07:11] LABS: Add Urine Culture? No; Add Urine Microscopic? YES; Bacteria Urine TRACE /hpf; Mucus Urine 1+ /hpf
[2022-08-24 07:12] LABS: Lactate (Lactic Acid level) 1.9 mmol/L (0.5-2.2)
[2022-08-24] MEDS: lactated ringers 1,000 ML 999 ML IV (07:49)
[2022-08-24] MEDS: ketorolac 30 mg/mL INJ IVP (09:19)
[2022-08-24 09:39] VITALS: BP 172/112; O2SAT 98
== END 2022-08-24 09:44 | disposition home or self-care (01) ==
PROVIDERS: Emergency Medicine; Emergency Provider Family Medicine; PCP Family Medicine
DX: R11.2 Nausea with vomiting, unspecified (principal); F12.90 Cannabis use, unspecified, uncomplicated
CPT/HCPCS: 80053; 80306; 81001; 83605; 83690; 83735; 84100; 85025; 86140; 96361; 96374; 96375; 99284; J1630; J1885; J2270; J2405; J7030

== ENCOUNTER 2022-11-17 13:12 | Emergency (ER) | payer MEDICAID, SELFPAY ==
[2022-11-17] VITALS (34 sets, daily range): BP systolic 93–151; BP diastolic 55–114; PULSE 74–128; RESP 14; TEMP 36.9; O2SAT 91–99
[2022-11-17 15:43] LABS: Basophils # 0.1 10^3/uL (0.0-0.1); Basophils % 0.5 %; Eosinophils # 0.2 10^3/uL (0.0-0.8); Eosinophils % 1.3 %; Hematocrit 56.1 % (42.0-52.0); Lymphocytes # 1.9 10^3/uL (0.8-4.8); Lymphocytes % 13.6 %; Mean Corpuscular HGB Conc 35.7 g/dL (30.0-36.0); Mean Corpuscular Hemoglobin 29.1 pg (28.0-34.0); Mean Corpuscular Volume 81.7 fl (80-94); Mean Platelet Volume 9.3 fL (7.4-10.4); Monocytes # 1.1 10^3/uL (0.2-0.9); Monocytes % 8.2 %; Neutrophils # 10.51 10^3/uL (1.8-7.7); Neutrophils % 76.1 %; Nucleated Red Blood Cells % 0 %; Platelet Count 374 10^3/cmm (130-400); Red Blood Count 6.87 10^6/uL (4.1-5.3); Red Cell Distribution Width 11.9 % (12.1-15.1); White Blood Count 13.8 10^3/uL (4.0-10.0)
[2022-11-17 16:04] LABS: Alanine Aminotransferase 15 U/L (0-41); Albumin Level 5.5 g/dL (3.5-5.2); Alkaline Phosphatase 102 U/L (40-130); Anion Gap 23.8 (5-19); Aspartate Amino Transferase 20 U/L (0-40); Blood Urea Nitrogen 33 mg/dL (6-20); Calcium 10.7 mg/dL (8.5-10.5); Carbon Dioxide 24 mmol/L (22-29); Chloride 91 mmol/L (98-107); Globulin 3.7 g/dL (1.3-4.6); Glomerular Filtration Rate 106.5 mL/min (90-130); Glucose 91 mg/dL (65-115); Osmolality Calculated 287 mOsm/kg (285-295); Potassium 3.8 mmol/L (3.5-5.1); Sodium 135 mmol/L (136-145); Total Bilirubin 2.6 mg/dL (0.15-1.2); Total Protein 9.2 g/dL (6.6-8.7)
[2022-11-17 16:16] LABS: Slide Review Slide Review Perform
[2022-11-17] MEDS: ondansetron 2 mg/ML SDV 2 mL 4 MG IVP (18:44)
[2022-11-17] MEDS: dicyclomine 20 mg Tablet PO (18:44)
[2022-11-17] MEDS: sodium chloride 0.9% 1,000 ML 999 ML IV ×2 (18:44→20:26)
--- NOTE | 2022-11-17 18:55 | W.ED.NAVMDI ---
HPI - Nausea/Vomiting/Diarrhea General: Chief complaint: Nausea/Vomiting/Diarrhea Stated complaint: abd pain Time Seen by Provider: 11/17/22 18:08 Source: patient and other (girlfriend) Mode of arrival: ambulatory Limitations: no limitations History of Present Illness: Patient presents emergency department today accompanied by his girlfriend for evaluation treatment of reported 3 days of nausea, vomiting, and epigastric abdominal pain. Patient states/girlfriend states that he has upwards of 20 episodes of vomiting a day. He denies any others currently similarly ill and has not been around anyone ill to his knowledge. They said he was running a fever and stated it was around 100 degrees. Patient has no nasal congestion, sore throat, cough, or headache. Patient states that he has an ulcer but they state they never do anything about it. Patient is only been vomiting bile and does not indicate any blood. He asked for something for pain stating that morphine does not help but he has gotten relief before with Dilaudid. Extensive chart review done. Patient seen multiple times over the last several months for the same recurrent abdominal pain and vomiting complaints. Patient has had CT examinations without any acute findings. Patient has been diagnosed and treated for hyperemesis cannabis in the past. Patient has seen GI and his scope indicates gastritis without ulceration. However, patient's medication review indicates he has been put on a PPI and H2 scott in the past and GI evaluation indicated he was supposed to continue the PPI. Patient also has treatment for hyperemesis cannabis diagnoses from the past including as needed Ativan for nausea and vomiting. Associated nausea: Yes Associated symtoms: Reports nausea Review of Systems General: Reports: 10 or more systems reviewed and unremarkable except in HPI and below GI: Reports: abdominal pain, nausea and vomiting; Denies: hematemesis or hematochezia [facility] ED PFSH: Medical History No pertinent past medical history Surgical History H/O esophagogastroduodenoscopy (04/10/22) Family History Other Hypertension Social History Smoking and tobacco status: current every day smoker Alcohol intake: never Physical Exam Const: COMMON NORMALS: no acute distress, patient oriented x3 and alert HENMT: COMMON NORMALS: normocephalic, atraumatic, hearing grossly normal bilaterally and moist oral mucous membranes HEAD & SCALP: normocephalic and atraumatic Eye: COMMON NORMALS: Equal, round and reactive pupils present, EOMs intact bilaterally and conjunctivae normal CONJUNCTIVA: Yes conjunctivae normal PUPIL: Yes Equal, round and reactive pupils present Neck/C-Spine: COMMON NORMALS: full ROM and no JVD Lymph: LYMPHATIC: no lymphadenopathy noted Resp: COMMON NORMALS: normal respiratory effort, No retractions, No use of accessory muscles and clear to auscultation bilaterally AUSCULTATION: clear to auscultation bilaterally Cardio: COMMON NORMALS: no JVD, regular rate and regular rhythm RATE: regular rate RHYTHM: regular rhythm GI: OTHER: Patient has nonspecific tenderness with guarding throughout his entire abdominal examination-both to myself and the nurse. Difficult to hear bowel noises due to him tensing and pulling away from exam. Patient is very thin body habitus. : COMMON NORMALS: Yes no CVA tenderness BLADDER/KIDNEY EXAM: Yes no CVA tenderness Back/Pelvis: COMMON NORMALS: no CVA tenderness, no thoracic nor lumbar tenderness and thoraco-lumbar ROM normal Extremity: COMMON NORMALS: normal to inspection, full ROM and capillary refill normal Neuro: COMMON NORMALS: patient oriented x3 SENSORIUM/ORIENTATION: Yes alert Psych: COMMON NORMALS: mental status grossly normal, Normal thought process present, cooperative, normal affect and activity/motor behavior normal THOUGHT PROCESS: Normal thought process present Skin: COMMON NORMALS: no rashes or lesions noted and no wounds GENERAL SKIN EXAM: no rashes or lesions noted Course Vital Signs: Vital signs: Vital Signs Temperature 98.4 F 11/17/22 14:01 Pulse Rate 128 H 11/17/22 14:01 Respiratory Rate 14 11/17/22 14:01 Blood Pressure 100/61 11/17/22 21:35 Pulse Oximetry 97 11/17/22 21:35 Oxygen Delivery Me thod 11/17/22 14:01 MDM - Nausea/Vomiting/Diarrhea Medical Decision Making Patient presents to the emergency department for recurrent nausea, vomiting, generalized abdominal pain. Patient has no other upper respiratory symptoms and while they report fever at home, no fever noted today in the emergency department. Patient is tachycardic. Extensive chart review shows prior GI evaluations without any acute findings on CT examination or lab work as well as a GI evaluation with a scope indicating no significant findings. Given the patient's history, we will start with lab work and treatment for hyperemesis as well as confirming the presence of cannabis in his system with a UDS. I did speak with the emergency room physician here [place] regarding patient's presenting symptoms and history and he recommended treatment for vomiting and pain with a Haldol/Ativan combination. Patient received his medication and indicated significant improvement of his pain after a short time. He did not have any more vomiting but still has not had urinary output. Patient was given another bag of fluids as well as a prescription for Thorazine with instructions to take as prescribed for the next 48 hours without missing any doses. Differential Diagnosis Likely traveler's diarrhea, food poisoning, gastroenteritis, drug-induced nausea and vomiting and dehydration Lab Data 11/17/22 15:30 11/17/22 15: Laboratory Results WBC 13.8 10^3/uL (4.0-10.0) H 11/17/22 15: RBC 6.87 10^6/uL (4.1-5.3) H 11/17/22 15: Hgb 20.0 g/dL (11.7-16.6) H 11/17/22 15: Hct 56.1 % (42.0-52.0) H 11/17/22 15: MCV 81.7 fl (80-94) 11/17/22 15: MCH 29.1 pg (28.0-34.0) 11/17/22 15: MCHC 35.7 g/dL (30.0-36.0) 11/17/22 15: RDW 11.9 % (12.1-15.1) L 11/17/22 15: Plt Count 374 10^3/cmm (130-400) 11/17/22 15: MPV 9.3 fL (7.4-10.4) 11/17/22 15: Neut % (Auto) 76.1 % 11/17/22: Lymph % (Auto) 13.6 % 12/25/22 15:30 [place] % (Auto) 8.2 % 11/17/22 15:30 Eos % (Auto) 1.3 % 11/17/22 15:30 Baso % (Auto) 0.5 % 11/17/22 15:30 Neut # (Auto) 10.51 10^3/uL (1.8-7.7) H 11/17/22 15:30 Lymph # (Auto) 1.9 10^3/uL (0.8-4.8) 11/17/22 15:30 [place] # (Auto) 1.1 10^3/uL (0.2-0.9) H 11/17/22 15:30 Eos # (Auto) 0.2 10^3/uL (0.0-0.8) 11/17/22 15:30 Baso # (Auto) 0.1 10^3/uL (0.0-0.1) 11/17/22 15:30 Nucleated RBC % (auto) 0 % 11/17/22 15:30 Nucleated RBCs # 0.0 /100WBC 11/17/22 15:30 Sodium 135 mmol/L (136-145) L 11/17/22 15:30 Potassium 3.8 mmol/L (3.5-5.1) 11/17/22 15:30 Chloride 91 mmol/L (98-107) L 11/17/22 15:30 Carbon Dioxide 24 mmol/L (22-29) 11/17/22 15:30 Anion Gap 23.8 (5-19) H 11/17/22 15:30 BUN 33 mg/dL (6-20) H 11/17/22 15:30 Creatinine 0.9 mg/dL (0.7-1.2) 11/17/22 15:30 GFR Calculation 106.5 mL/min (90-130) 11/17/22 15:30 Glucose 91 mg/dL (65-115) 11/17/22 15:30 Calculated Osmolality 287 mOsm/kg (285-295) 11/17/22 15:30 Calcium 10.7 mg/dL (8.5-10.5) H 11/17/22 15:30 Total Bilirubin 2.6 mg/dL (0.15-1.2) H 11/17/22 15:30 AST 20 U/L (0-40) 11/17/22 15:30 ALT 15 U/L (0-41) 11/17/22 15:30 Alkaline Phosphatase 102 U/L (40-130) 11/17/22 15:30 Total Protein 9.2 g/dL (6.6-8.7) H 11/17/22 15:30 Albumin 5.5 g/dL (3.5-5.2) H 11/17/22 15:30 Globulin 3.7 g/dL (1.3-4.6) 11/17/22 15:30 Influenza Type A Ag Negative (Negative) 11/17/22 18:47 Influenza Type B Ag Negative (Negative) 11/17/22 18:47 Discharge Plan Discharge Patient Disposition: Home Clinical Impression: Abdominal pain, acute, epigastric, Vomiting Condition: Stable Prescriptions: New chlorpromazine 25 mg tablet 25 mg PO TID Qty: 6 0RF No Action pantoprazole 40 mg tablet,delayed release (DR/EC) 40 mg PO QAM Qty: 30 3RF famotidine 20 mg tablet 20 mg PO BID PRN (Reason: Abdominal Pain) acetaminophen [Tylenol Ex Str Rapid Release] 500 mg Tablet 500 - 1,500 mg PO Q6H PRN (Reason: Pain) amlodipine 5 mg Tablet 5 mg PO DAILY Zyprexa Zydis 10 mg tablet,disintegrating 10 mg PO Q8H PRN (Reason: nausea and vomiting) Qty: 14 0RF Ativan 2 mg tablet 2 mg buccal Q6H PRN (Reason: nausea and vomiting) Qty: 14 0RF ondansetron 4 mg tablet,disintegrating 4 mg PO Q8H PRN (Reason: nausea and vomiting) Qty: 20 0RF hydrocodone-acetaminophen 5-325 mg tablet 1 tab PO Q6H PRN (Reason: pain) Qty: 14 0RF metoclopramide HCl [Reglan] 10 mg tablet 10 mg PO Q6H PRN (Reason: nausea and vomiting) Qty: 20 0RF Discharge Orders: Discharge ED (Routine); Ordered 11/17/22 Ordered By: Fanny Gary Referrals: Anali Puri MD [Primary Care Provider] - Discharge Diet: Usual diet Discharge Activity: Resume usual activity Patient Instructions: Abdominal Pain (ED), Vomiting - Adult Activity Restrictions/Additional Instructions: Labs today look all right. We did provide you with some fluids, some antinausea medication, and some medicine to help with your abdominal pains. 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 You need to take these medications as prescribed for the next 48 hours without skipping any doses to help prevent return of the symptoms. I have looked over your labs, imaging, and previous evaluations over the last several months. I am suspicious that your symptoms are related to marijuana use and the condition called hyperemesis cannabis. This can cause severe abdominal pains and profuse vomiting. I recommend taking hot showers for your symptoms over the next couple of days. Capsaicin creams can also help. However, we also recommend taking the prescribed medications given to you at the pharmacy to help with your symptoms next couple of days. Continue to push fluids to stay hydrated. Coding Level of Care Code ED Drafter Chief Design for Dee Dee Fwd Exam Comprehensive
[2022-11-17] MEDS: LORazepam 2 mg/mL INJ 1 mL IVP (19:08)
[2022-11-17] MEDS: haloperidol inj 5 mg/mL INJ 1 mL 3 MG IVP (19:08)
[2022-11-17 19:51] LABS: Influenza A by IFA Negative (Negative); Influenza B by IFA Negative (Negative)
== END 2022-11-17 21:42 | disposition home or self-care (01) ==
PROVIDERS: Emergency Medicine; Emergency Provider Physician Assistant; PCP Family Medicine
DX: R10.13 Epigastric pain (principal); R11.11 Vomiting without nausea; F17.210 Nicotine dependence, cigarettes, uncomplicated
CPT/HCPCS: 36415; 80053; 85025; 87804; 96361; 96374; 96375; 99284; J1630; J2060; J2405; J7030

== ENCOUNTER 2023-01-05 20:01 | Emergency (ER) | payer MEDICAID, SELFPAY ==
[2023-01-05 20:07] VITALS: BP 127/83; PULSE 143; RESP 20; TEMP 36.7; O2SAT 99
--- NOTE | 2023-01-05 20:23 | W.ED.ABDPA2 ---
Documented by User: INNA Nj 01/05/23 21:31 HPI - Abdominal Pain General: Chief Complaint: Abdominal Pain Stated Complaint: V\Blood Clots\ABd Pain\Passed Out Time Seen by Provider: 01/05/23 20:18 History of Present Illness: 22-year-old male patient comes in today for complaints of nausea and vomiting for the last 3 days. Patient noticed some blood in his emesis tonight. Patient denies any bowel movements since the start of the emesis. Patient does have a history of gastritis, hyperemesis syndrome, and abdominal pain. Patient appears nontoxic. Patient appears in mild to no pain. Patient routinely takes famotidine and pantoprazole for his stomach. Patient does use marijuana occasionally, patient denies any alcohol use. Associated Symptoms: Reports hematemesis, nausea and vomiting; Denies fever(s) Review of Systems Const: Denies: fever(s) ENMT: Denies: throat pain Card: Denies: chest pain Resp: Denies: dyspnea GI: Reports: abdominal pain, nausea, vomiting and hematemesis Skin/Breast: Denies: rash PFSH ED PFSH: Medical History No pertinent past medical history Surgical History H/O esophagogastroduodenoscopy (04/10/22) Family History Other Hypertension Social History Smoking and tobacco status: current every day smoker Alcohol intake: never Physical Exam Const: COMMON NORMALS: alert HENMT: COMMON NORMALS: normocephalic HEAD & SCALP: normocephalic MOUTH: Normal oral and palatal mucosa present Neck/C-Spine: COMMON NORMALS: full ROM Resp: COMMON NORMALS: normal respiratory effort and clear to auscultation bilaterally AUSCULTATION: clear to auscultation bilaterally Cardio: COMMON NORMALS: regular rate and regular rhythm RATE: regular rate RHYTHM: regular rhythm GI: COMMON NORMALS: Soft to palpation AUSCULTATION: Yes Hyperactive bowel sounds present PALPATION: Yes Soft to palpation Extremity: COMMON NORMALS: normal to inspection and no calf tenderness Neuro: SENSORIUM/ORIENTATION: Yes alert Skin: COMMON NORMALS: turgor normal GENERAL SKIN EXAM: turgor normal Course Vital Signs: Vital signs: Vital Signs Temperature 98.0 F 01/05/23 20:07 Pulse Rate 143 H 01/05/23 20:07 Respiratory Rate 20 H 01/05/23 20:07 Blood Pressure 127/83 01/05/23 20:07 Pulse Oximetry 99 01/05/23 20:07 Oxygen Delivery Me thod 01/05/23 20:07 MDM - Abdominal Pain Medical Decision Making 22-year-old male patient comes in today with complaints of abdominal pain and persistent nausea and vomiting. Patient has had recurrent episodes of this. On exam patient has some epigastric tenderness. Bowel sounds are hyperactive. Skin is warm and dry. Vital signs are normal except for some elevation in heart rate. Differential diagnosis includes not limited to perforation of the stomach wall, gastritis, gastroenteritis, anemia. CBC showed no signs of anemia. Patient did have some mild elevation in white blood cells 18,000, RBCs were 6000. CMP noted sodium of 132, potassium 3.2, anion gap 26 suggestive of dehydration. Patient was infused with 1500 mL of fluid, given 2 mg of Haldol for nausea and vomiting, and 50 mics of fentanyl. Patient resolution of symptoms. CT of the abdomen pelvis noted no perforation and noticeable gastritis and possible colitis. Thinks patient probably had a bout of a viral syndrome that aggravated his gastritis. We will increase patient's pantoprazole to 40 mg twice a day, patient was given some Phenergan tablets and hydrocodone for nausea and pain. Patient was recommended to follow-up with primary care for further instruction. Case management was also requested for patient follow-up appointment with GI specialist. Lab Data 01/05/23 20:25 01/05/23 20:25 Labs/Radiology: Radiology Impressions Abdomen/Pelvis CT 01/05/23 20:31 IMPRESSION: 1. Nonspecific bladder distention. Correlate for outlet obstruction clinically. 2. The colon has scattered wall thickening. Correlate for possible colitis. 3. Suspected gastritis. Laboratory Results WBC 18.5 10^3/uL (4.0-10.0) H 01/05/23 20:25 RBC 6.35 10^6/uL (4.1-5.3) H 01/05/23 20:25 Hgb 18.4 g/dL (11.7-16.6) H 01/05/23 20: Hct 51.1 % (42.0-52.0) 01/05/23: MCV 80.5 fl (80-94) 01/05/23 20: MCH 29.0 pg (28.0-34.0) 01/05/23 20: MCHC 36.0 g/dL (30.0-36.0) 01/05/23: RDW 11.9 % (12.1-15.1) L 01/05/23: Plt Count 390 10^3/cmm (130-400) 01/05/23: MPV 9.8 fL (7.4-10.4) 01/05/23: Neut % (Auto) 70.4 % 01/05/23: Lymph % (Auto) 18.0 % 01/05/23: [place] % (Auto) 10.6 % 01/05/23: Eos % (Auto) 0.4 % 01/05/23: Baso % (Auto) 0.3 % 01/05/23: Neut # (Auto) 13.03 10^3/uL (1.8-7.7) H 01/05/23: Lymph # (Auto) 3.3 10^3/uL (0.8-4.8) 01/05/23 20: [place] # (Auto) 2.0 10^3/uL (0.2-0.9) H 01/05/23: Eos # (Auto) 0.1 10^3/uL (0.0-0.8) 01/05/23: Baso # (Auto) 0.1 10^3/uL (0.0-0.1) 01/05/23: Nucleated RBC % (auto) 0 % 01/05/23: Nucleated RBCs # 0.0 /100WBC 01/05/23 20:25 Sodium 132 mmol/L (136-145) L 01/05/23 20: Potassium 3.2 mmol/L (3.5-5.1) L 01/05/23: Chloride 86 mmol/L (98-107) L 01/05/23 20:25 Carbon Dioxide 23 mmol/L (22-29) 01/05/23 20:25 Anion Gap 26.2 (5-19) H 01/05/23 20:25 BUN 28 mg/dL (6-20) H 01/05/23 20:25 Creatinine 0.9 mg/dL (0.7-1.2) 01/05/23 20:25 GFR Calculation 106.5 mL/min (90-130) 01/05/23 20:25 Glucose 111 mg/dL (65-115) 01/05/23 20:25 Calculated Osmolality 280 mOsm/kg (285-295) L 01/05/23 20:25 Calcium 10.3 mg/dL (8.5-10.5) 01/05/23 20:25 Total Bilirubin 2.8 mg/dL (0.15-1.2) H 01/05/23 20:25 AST 33 U/L (0-40) 01/05/23 20:25 ALT 22 U/L (0-41) 01/05/23 20:25 Alkaline Phosphatase 94 U/L (40-130) 01/05/23 20:25 Total Protein 8.1 g/dL (6.6-8.7) 01/05/23 20:25 Albumin 5.1 g/dL (3.5-5.2) 01/05/23 20:25 Globulin 3.0 g/dL (1.3-4.6) 01/05/23 20:25 Lipase 20 U/L (13-60) 01/05/23 20:25 Discharge Plan Discharge Patient Disposition: Home Clinical Impression: Gastritis Qualifiers: Gastritis type: unspecified gastritis Chronicity: chronic Gastritis bleeding: presence of bleeding unspecified Qualified Code(s): K29.50 - Unspecified chronic gastritis without bleeding Condition: Stable Prescriptions: New promethazine 12.5 mg tablet 12.5 mg PO Q6H PRN (Reason: nausea and vomiting) Qty: 20 0RF Continued hydrocodone-acetaminophen 5-325 mg tablet 1 tab PO Q6H PRN (Reason: pain) Qty: 10 0RF Changed pantoprazole 40 mg tablet,delayed release (DR/EC) 40 mg PO BID Qty: 60 3RF No Action famotidine 20 mg tablet 20 mg PO BID PRN (Reason: Abdominal Pain) acetaminophen [Tylenol Ex Str Rapid Release] 500 mg Tablet 500 - 1,500 mg PO Q6H PRN (Reason: Pain) amlodipine 5 mg Tablet 5 mg PO DAILY Zyprexa Zydis 10 mg tablet,disintegrating 10 mg PO Q8H PRN (Reason: nausea and vomiting) Qty: 14 0RF Ativan 2 mg tablet 2 mg buccal Q6H PRN (Reason: nausea and vomiting) Qty: 14 0RF chlorpromazine 25 mg tablet 25 mg PO TID Qty: 6 0RF ondansetron 4 mg tablet,disintegrating 4 mg PO Q8H PRN (Reason: nausea and vomiting) Qty: 20 0RF metoclopramide HCl [Reglan] 10 mg tablet 10 mg PO Q6H PRN (Reason: nausea and vomiting) Qty: 20 0RF Discharge Orders: Discharge ED (Routine); Ordered 01/05/23 Ordered By: Hadley Hudson Referrals: Anali Puri MD [Primary Care Provider] - Discharge Diet: Advance as tolerated Discharge Activity: Increase activity as tolerated Patient Instructions: Gastritis (ED), Opioid Safety, Pain Management Activity Restrictions/Additional Instructions: Clear liquid diet until pain resolves. Increase diet slowly starting with bland foods such as boiled chicken, white rice, apples, bananas, toast. Avoid carbonated beverages. Avoid alcohol. Follow-up with primary care in 3 days for recheck. Return to ER for worsening pain, fever greater than 100.4, or new concerns. Coding Level of Care Code ED Transportation Program Director for Chg Fwd Documented by User: Jozef Lizarraga, 01/05/23 21:37 HPI - Abdominal Pain General: Chief Complaint: Abdominal Pain Stated Complaint: V\Blood Clots\ABd Pain\Passed Out Time Seen by Provider: 01/05/23 20:18 PFSH ED PFSH: Medical History No pertinent past medical history Surgical History H/O esophagogastroduodenoscopy (04/10/22) Family History Other Hypertension Social History Smoking and tobacco status: current every day smoker Alcohol intake: never Course Vital Signs: Vital signs: Vital Signs Temperature 98.0 F 01/05/23 20:07 Pulse Rate 143 H 01/05/23 20:07 Respiratory Rate 20 H 01/05/23 20:07 Blood Pressure 127/83 01/05/23 20:07 Pulse Oximetry 99 01/05/23 20:07 Oxygen Delivery Me thod 01/05/23 20:07 MDM - Abdominal Pain Medical Decision Making 22-year-old male patient comes in today with complaints of abdominal pain and persistent nausea and vomiting. Patient has had recurrent episodes of this. On exam patient has some epigastric tenderness. Bowel sounds are hyperactive. Skin is warm and dry. Vital signs are normal except for some elevation in heart rate. Differential diagnosis includes not limited to perforation of the stomach wall, gastritis, gastroenteritis, anemia. CBC showed no signs of anemia. Patient did have some mild elevation in white blood cells 18,000, RBCs were 6000. CMP noted sodium of 132, potassium 3.2, anion gap 26 suggestive of dehydration. Patient was infused with 1500 mL of fluid, given 2 mg of Haldol for nausea and vomiting, and 50 mics of fentanyl. Patient resolution of symptoms. CT of the abdomen pelvis noted no perforation and noticeable gastritis and possible colitis. Thinks patient probably had a bout of a viral syndrome that aggravated his gastritis. We will increase patient's pantoprazole to 40 mg twice a day, patient was given some Phenergan tablets and hydrocodone for nausea and pain. Patient was recommended to follow-up with primary care for further instruction. Case management was also requested for patient follow-up appointment with GI specialist. This patient was originally seen by INNA Groves.? I agree with his history, evaluation, and treatment. Lab Data 01/05/23 20:25 01/05/23 20:25 Labs/Radiology: Radiology Impressions Abdomen/Pelvis CT 01/05/23 20:31 IMPRESSION: 1. Nonspecific bladder distention. Correlate for outlet obstruction clinically. 2. The colon has scattered wall thickening. Correlate for possible colitis. 3. Suspected gastritis. Laboratory Results WBC 18.5 10^3/uL (4.0-10.0) H 01/05/23 20:25 RBC 6.35 10^6/uL (4.1-5.3) H 01/05/23 20:25 Hgb 18.4 g/dL (11.7-16.6) H 01/05/23 20:25 Hct 51.1 % (42.0-52.0) 01/05/23 20:25 MCV 80.5 fl (80-94) 01/05/23 20: MCH 29.0 pg (28.0-34.0) 01/05/23 20: MCHC 36.0 g/dL (30.0-36.0) 01/05/23 20:25 RDW 11.9 % (12.1-15.1) L 01/05/23 20:25 Plt Count 390 10^3/cmm (130-400) 01/05/23 20:25 MPV 9.8 fL (7.4-10.4) 01/05/23 20:25 Neut % (Auto) 70.4 % 01/05/23 20:25 Lymph % (Auto) 18.0 % 01/05/23 20:25 [place] % (Auto) 10.6 % 01/05/23 20:25 Eos % (Auto) 0.4 % 01/05/23 20:25 Baso % (Auto) 0.3 % 01/05/23 20:25 Neut # (Auto) 13.03 10^3/uL (1.8-7.7) H 01/05/23 20:25 Lymph # (Auto) 3.3 10^3/uL (0.8-4.8) 01/05/23 20:25 [place] # (Auto) 2.0 10^3/uL (0.2-0.9) H 01/05/23 20:25 Eos # (Auto) 0.1 10^3/uL (0.0-0.8) 01/05/23 20: Baso # (Auto) 0.1 10^3/uL (0.0-0.1) 01/05/23 20:25 Nucleated RBC % (auto) 0 % 01/05/23 20:25 Nucleated RBCs # 0.0 /100WBC 01/05/23 20:25 Sodium 132 mmol/L (136-145) L 01/05/23 20:25 Potassium 3.2 mmol/L (3.5-5.1) L 01/05/23 20:25 Chloride 86 mmol/L (98-107) L 01/05/23 20:25 Carbon Dioxide 23 mmol/L (22-29) 01/05/23 20:25 Anion Gap 26.2 (5-19) H 01/05/23 20:25 BUN 28 mg/dL (6-20) H 01/05/23 20:25 Creatinine 0.9 mg/dL (0.7-1.2) 01/05/23 20:25 GFR Calculation 106.5 mL/min (90-130) 01/05/23 20:25 Glucose 111 mg/dL (65-115) 01/05/23 20:25 Calculated Osmolality 280 mOsm/kg (285-295) L 01/05/23 20:25 Calcium 10.3 mg/dL (8.5-10.5) 01/05/23 20:25 Total Bilirubin 2.8 mg/dL (0.15-1.2) H 01/05/23 20:25 AST 33 U/L (0-40) 01/05/23 20:25 ALT 22 U/L (0-41) 01/05/23 20:25 Alkaline Phosphatase 94 U/L (40-130) 01/05/23 20:25 Total Protein 8.1 g/dL (6.6-8.7) 01/05/23 20:25 Albumin 5.1 g/dL (3.5-5.2) 01/05/23 20:25 Globulin 3.0 g/dL (1.3-4.6) 01/05/23 20:25 Lipase 20 U/L (13-60) 01/05/23 20:25 Discharge Plan Discharge Patient Disposition: Home Clinical Impression: Gastritis Qualifiers: Gastritis type: unspecified gastritis Chronicity: chronic Gastritis bleeding: presence of bleeding unspecified Qualified Code(s): K29.50 - Unspecified chronic gastritis without bleeding Condition: Stable Prescriptions: New promethazine 12.5 mg tablet 12.5 mg PO Q6H PRN (Reason: nausea and vomiting) Qty: 20 0RF Continued hydrocodone-acetaminophen 5-325 mg tablet 1 tab PO Q6H PRN (Reason: pain) Qty: 10 0RF Changed pantoprazole 40 mg tablet,delayed release (DR/EC) 40 mg PO BID Qty: 60 3RF No Action famotidine 20 mg tablet 20 mg PO BID PRN (Reason: Abdominal Pain) acetaminophen [Tylenol Ex Str Rapid Release] 500 mg Tablet 500 - 1,500 mg PO Q6H PRN (Reason: Pain) amlodipine 5 mg Tablet 5 mg PO DAILY Zyprexa Zydis 10 mg tablet,disintegrating 10 mg PO Q8H PRN (Reason: nausea and vomiting) Qty: 14 0RF Ativan 2 mg tablet 2 mg buccal Q6H PRN (Reason: nausea and vomiting) Qty: 14 0RF chlorpromazine 25 mg tablet 25 mg PO TID Qty: 6 0RF ondansetron 4 mg tablet,disintegrating 4 mg PO Q8H PRN (Reason: nausea and vomiting) Qty: 20 0RF metoclopramide HCl [Reglan] 10 mg tablet 10 mg PO Q6H PRN (Reason: nausea and vomiting) Qty: 20 0RF Discharge Orders: Discharge ED (Routine); Ordered 01/05/23 Ordered By: Hadley Hudson Referrals: Anali Puri MD [Primary Care Provider] - Discharge Diet: Advance as tolerated Discharge Activity: Increase activity as tolerated Patient Instructions: Gastritis (ED), Opioid Safety, Pain Management Activity Restrictions/Additional Instructions: Clear liquid diet until pain resolves. Increase diet slowly starting with bland foods such as boiled chicken, white rice, apples, bananas, toast. Avoid carbonated beverages. Avoid alcohol. Follow-up with primary care in 3 days for recheck. Return to ER for worsening pain, fever greater than 100.4, or new concerns. Coding Level of Care Code ED Transportation Program Director for Dee Dee Bennett
--- NOTE | 2023-01-05 20:31 | CTR_ITS ---
PROCEDURE INFORMATION: Exam: CT Abdomen And Pelvis With Contrast Exam date and time: 01/05/2023 8:57 PM Age: 22 years old Clinical indication: Vomiting and other: Unable to urinate x3 days; Abdominal pain; Generalized; Additional info: Blood in emesis, abd pain TECHNIQUE: Imaging protocol: Computed tomography of the abdomen and pelvis with contrast. Radiation optimization: All CT scans at this facility use at least one of these dose optimization techniques: automated exposure control; mA and/or kV adjustment per patient size (includes targeted exams where dose is matched to clinical indication); or iterative reconstruction. Contrast material: OMNI 350; Contrast volume: 100 ml; Contrast route: INTRAVENOUS (IV); Other protocol: This patient has received 4 known CTs and 0 known cardiac nuclear medicine studies in the 12 months prior to the current study. COMPARISON: CT abdomen pelvis w con* [id number] 06/03/2022 5:46 PM RADIATION DOSE METRICS: Total DLP (mGy-cm): 323.14 FINDINGS: Liver: Normal. No mass. Gallbladder and bile ducts: Normal. No calcified stones. No ductal dilation. Pancreas: Normal. No ductal dilation. Spleen: Normal. No splenomegaly. Adrenal glands: Normal. No mass. Kidneys and ureters: Normal. No hydronephrosis. Stomach and bowel: The colon has scattered wall thickening versus underdistention. No evidence of bowel obstruction. Thickened distal stomach suggests gastritis. Appendix: No evidence of appendicitis. Intraperitoneal space: Unremarkable. No free air. No significant fluid collection. Vasculature: Unremarkable. No abdominal aortic aneurysm. Lymph nodes: Unremarkable. No enlarged lymph nodes. Urinary bladder: The bladder is distended. Reproductive: Unremarkable as visualized. Bones/joints: Unremarkable. No acute fracture. Soft tissues: Unremarkable. CT/CT abdomen pelvis w con* [id number] IMPRESSION: 1. Nonspecific bladder distention. Correlate for outlet obstruction clinically. 2. The colon has scattered wall thickening. Correlate for possible colitis. 3. Suspected gastritis.
[2023-01-05 20:33] LABS: Basophils # 0.1 10^3/uL (0.0-0.1); Basophils % 0.3 %; Eosinophils # 0.1 10^3/uL (0.0-0.8); Eosinophils % 0.4 %; Hematocrit 51.1 % (42.0-52.0); Hemoglobin 18.4 g/dL (11.7-16.6); Lymphocytes # 3.3 10^3/uL (0.8-4.8); Mean Corpuscular Volume 80.5 fl (80-94); Mean Platelet Volume 9.8 fL (7.4-10.4); Monocytes % 10.6 %; Neutrophils # 13.03 10^3/uL (1.8-7.7); Neutrophils % 70.4 %; Nucleated Red Blood Cells % 0 %; Platelet Count 390 10^3/cmm (130-400); Red Blood Count 6.35 10^6/uL (4.1-5.3); Red Cell Distribution Width 11.9 % (12.1-15.1); White Blood Count 18.5 10^3/uL (4.0-10.0)
[2023-01-05] MEDS: sodium chloride 0.9% 1,000 ML 999 ML IV (20:37)
[2023-01-05] MEDS: pantoprazole 40 mg SDV 80 MG IVP (20:37)
[2023-01-05] MEDS: iohexol 350 mg/mL 500 mL Btl (per mL) IV (20:39)
[2023-01-05] MEDS: haloperidol inj 5 mg/mL INJ 1 mL 2 MG IVP (20:43)
[2023-01-05] MEDS: sodium chloride 0.9% 500 ML 999 ML IV (20:43)
[2023-01-05 20:49] LABS: Alanine Aminotransferase 22 U/L (0-41); Albumin Level 5.1 g/dL (3.5-5.2); Alkaline Phosphatase 94 U/L (40-130); Anion Gap 26.2 (5-19); Aspartate Amino Transferase 33 U/L (0-40); Blood Urea Nitrogen 28 mg/dL (6-20); Calcium 10.3 mg/dL (8.5-10.5); Carbon Dioxide 23 mmol/L (22-29); Chloride 86 mmol/L (98-107); Glomerular Filtration Rate 106.5 mL/min (90-130); Glucose 111 mg/dL (65-115); Lipase 20 U/L (13-60); Osmolality Calculated 280 mOsm/kg (285-295); Potassium 3.2 mmol/L (3.5-5.1); Sodium 132 mmol/L (136-145); Total Bilirubin 2.8 mg/dL (0.15-1.2); Total Protein 8.1 g/dL (6.6-8.7)
[2023-01-05] MEDS: fentaNYL 50 mcg/mL INJ 2mL IVP (21:11)
[2023-01-05 21:55] VITALS: BP 131/87; PULSE 97; RESP 19; O2SAT 98
--- NOTE | 2023-01-06 11:36 | DCPLANNER ---
Addendum entered by Francisca Mehta 01/08/23 11:03: purchasing manager/sales called [facility] General Surgery to confirm that clinic had received patients information. purchasing manager/sales was told that clinic had received patients information, it will be reviewed. Clinic will call patient with appointment information. Addendum entered by Francisca Mehta 01/07/23 14:53: purchasing manager/sales received the following message from the general surgery clinic regarding follow up appointment: Patient has [facility], please refer elsewhere. purchasing manager/sales spoke with patient and explained this to patient. He stated that he would like to be referred to [facility] General surgery. purchasing manager/sales faxed patients information to [facility], where it will be reviewed. Clinic will call patient with appointment information. Original Note: purchasing manager/sales had message to schedule a follow up appointment for patient with general surgery. purchasing manager/sales sent patients information to the front office staff at general surgery. Patients information will be printed and reviewed. Clinic will call patient with appointment information.
== END 2023-01-05 21:57 | disposition home or self-care (01) ==
PROVIDERS: Emergency Provider Nurse Practitioner Family; PCP Family Medicine
DX: K29.50 Unspecified chronic gastritis without bleeding (principal); F17.210 Nicotine dependence, cigarettes, uncomplicated
CPT/HCPCS: 74177; 80053; 83690; 85025; 96361; 96374; 96375; 99285; C9113; J1630; J3010; J7030; J7040; Q9967

== ENCOUNTER 2023-01-07 15:08 | Emergency (ER) | payer MEDICAID, SELFPAY ==
[2023-01-07 15:15] VITALS: BP 167/104; PULSE 97; TEMP 37; O2SAT 98; BMI 19.0
[2023-01-07 15:43] LABS: Basophils % 0.4 %; Eosinophils % 0.2 %; Hematocrit 45.3 % (42.0-52.0); Hemoglobin 16.2 g/dL (11.7-16.6); Lymphocytes # 2.4 10^3/uL (0.8-4.8); Lymphocytes % 23.1 %; Mean Corpuscular HGB Conc 35.8 g/dL (30.0-36.0); Mean Corpuscular Hemoglobin 28.7 pg (28.0-34.0); Mean Corpuscular Volume 80.2 fl (80-94); Mean Platelet Volume 9.4 fL (7.4-10.4); Monocytes # 1.1 10^3/uL (0.2-0.9); Monocytes % 11.2 %; Neutrophils # 6.62 10^3/uL (1.8-7.7); Neutrophils % 64.9 %; Nucleated Red Blood Cells % 0 %; Platelet Count 350 10^3/cmm (130-400); Red Blood Count 5.65 10^6/uL (4.1-5.3); Red Cell Distribution Width 11.7 % (12.1-15.1); White Blood Count 10.2 10^3/uL (4.0-10.0)
[2023-01-07 16:11] LABS: Alanine Aminotransferase 18 U/L (0-41); Alkaline Phosphatase 83 U/L (40-130); Anion Gap 21.7 (5-19); Aspartate Amino Transferase 29 U/L (0-40); Blood Urea Nitrogen 20 mg/dL (6-20); Carbon Dioxide 27 mmol/L (22-29); Chloride 89 mmol/L (98-107); Globulin 2.7 g/dL (1.3-4.6); Glucose 88 mg/dL (65-115); Lipase 26 U/L (13-60); Osmolality Calculated 280 mOsm/kg (285-295); Potassium 3.7 mmol/L (3.5-5.1); Sodium 134 mmol/L (136-145); Total Bilirubin 2.7 mg/dL (0.15-1.2); Total Protein 7.7 g/dL (6.6-8.7)
--- NOTE | 2023-01-07 17:02 | W.ED.ABDPA2 ---
Documented by User: [email or web address] Bolton 01/07/23 17:24 HPI - Abdominal Pain General: Chief Complaint: Abdominal Pain Stated Complaint: dehydration/n/v/wants bloodwork Time Seen by Provider: 01/07/23 16:05 History of Present Illness: Patient is in for abdominal pain, nausea, vomiting. Patient reports that he was seen here 2 days ago and given IV fluids and had testing. He reports that he was sent home with some nausea medication but he is continued to vomit since that time. He reports that he is unable to hold anything down and has only peed once in the past 2 days. He reports that he had to get into a shower and have warm water running over him before he is able to urinate. He does feel like he has an urge to go but is unable to actually urinate. Patient is concerned that he has diabetes. Associated Symptoms: Reports hematemesis, nausea and vomiting; Denies chills and fever(s) Review of Systems Const: Denies: fever(s) or chills Card: Denies: chest pain or palpitations Resp: Denies: dyspnea, productive cough or non-productive cough GI: Reports: abdominal pain, nausea, vomiting and hematemesis : Reports: difficulty urinating and urinary hesitancy PFSH ED PFSH: Medical History No pertinent past medical history Surgical History H/O esophagogastroduodenoscopy (04/10/22) Family History Other Hypertension Social History Smoking and tobacco status: current every day smoker Alcohol intake: never Physical Exam Const: COMMON NORMALS: no acute distress, patient oriented x3 and alert GENERAL APPEARANCE: cooperative ORIENTATION/CONSCIOUSNESS: Yes awake, Yes oriented to person, Yes oriented to place and Yes oriented to time Eye: COMMON NORMALS: Equal, round and reactive pupils present, EOMs intact bilaterally and conjunctivae normal GENERAL EYE: appearance normal, both eyes and all related structures ALIGNMENT: Yes alignment normal CONJUNCTIVA: Yes conjunctivae normal SCLERA: sclerae normal PUPIL: Yes Equal, round and reactive pupils present Neck/C-Spine: COMMON NORMALS: full ROM Resp: COMMON NORMALS: normal respiratory effort, No retractions, No use of accessory muscles and clear to auscultation bilaterally EFFORT & INSPECTION: Yes symmetric chest movement AUSCULTATION: clear to auscultation bilaterally Cardio: COMMON NORMALS: regular rate, regular rhythm, S1 normal heart sound present and S2 normal heart sound present RATE: regular rate RHYTHM: regular rhythm HEART SOUNDS: S1 normal heart sound present and S2 normal heart sound present GI: COMMON NORMALS: Normal to inspection, nondistended, normoactive bowel sounds present and Soft to palpation PALPATION: Yes Soft to palpation and Yes Tenderness to palpation present (GI) (Generalized abdominal tenderness no rebound tenderness) : COMMON NORMALS: Yes no CVA tenderness BLADDER/KIDNEY EXAM: Yes no CVA tenderness Back/Pelvis: COMMON NORMALS: no CVA tenderness Neuro: COMMON NORMALS: patient oriented x3 SENSORIUM/ORIENTATION: Yes alert, Yes oriented to person, Yes oriented to place and Yes oriented to time Psych: COMMON NORMALS: cooperative Course Vital Signs: Vital signs: Vital Signs Temperature 98.6 F 01/07/23 15:15 Pulse Rate 84 01/07/23 19:17 Respiratory Rate 16 01/07/23 19:17 Blood Pressure 148/98 01/07/23 19:17 Pulse Oximetry 99 01/07/23 19:17 Oxygen Delivery Me thod 01/07/23 15:15 MDM - Abdominal Pain Lab Data 01/07/23 15:25 01/07/23 15:25 Labs/Radiology: Laboratory Results WBC 10.2 10^3/uL (4.0-10.0) H 01/07/23 15:25 RBC 5.65 10^6/uL (4.1-5.3) H 01/07/23 15:25 Hgb 16.2 g/dL (11.7-16.6) 01/07/23 15:25 Hct 45.3 % (42.0-52.0) 01/07/23 15:25 MCV 80.2 fl (80-94) 01/07/23 15:25 MCH 28.7 pg (28.0-34.0) 01/07/23 15:25 MCHC 35.8 g/dL (30.0-36.0) 01/07/23 15:25 RDW 11.7 % (12.1-15.1) L 01/07/23 15:25 Plt Count 350 10^3/cmm (130-400) 01/07/23 15:25 MPV 9.4 fL (7.4-10.4) 01/07/23 15:25 Neut % (Auto) 64.9 % 01/07/23 15:25 Lymph % (Auto) 23.1 % 01/07/23 15:25 [place] % (Auto) 11.2 % 01/07/23 15:25 Eos % (Auto) 0.2 % 01/07/23 15:25 Baso % (Auto) 0.4 % 01/07/23 15:25 Neut # (Auto) 6.62 10^3/uL (1.8-7.7) 01/07/23 15:25 Lymph # (Auto) 2.4 10^3/uL (0.8-4.8) 01/07/23 15:25 [place] # (Auto) 1.1 10^3/uL (0.2-0.9) H 01/07/23 15:25 Eos # (Auto) 0.0 10^3/uL (0.0-0.8) 01/07/23 15:25 Baso # (Auto) 0.0 10^3/uL (0.0-0.1) 01/07/23 15:25 Nucleated RBC % (auto) 0 % 01/07/23 15:25 Nucleated RBCs # 0.0 /100WBC 01/07/23 15:25 Sodium 134 mmol/L (136-145) L 01/07/23 15:25 Potassium 3.7 mmol/L (3.5-5.1) 01/07/23 15:25 Chloride 89 mmol/L (98-107) L 01/07/23 15:25 Carbon Dioxide 27 mmol/L (22-29) 01/07/23 15:25 Anion Gap 21.7 (5-19) H 01/07/23 15:25 BUN 20 mg/dL (6-20) 01/07/23 15:25 Creatinine 0.8 mg/dL (0.7-1.2) 01/07/23 15:25 GFR Calculation 122.0 mL/min (90-130) 01/07/23 15:25 Glucose 88 mg/dL (65-115) 01/07/23 15:25 POC Glucose 81 mg/dL (70-110) 01/07/23 17:37 Estimat Average Glucose 91 01/07/23 15:25 Hemoglobin A1c 4.8 % (4.0-6.0) 01/07/23 15:25 Calculated Osmolality 280 mOsm/kg (285-295) L 01/07/23 15:25 Lactate 1.3 mmol/L (0.5-2.2) 01/07/23 17:32 Calcium 10.0 mg/dL (8.5-10.5) 01/07/23 15:25 Total Bilirubin 2.7 mg/dL (0.15-1.2) H 01/07/23 15:25 AST 29 U/L (0-40) 01/07/23 15:25 ALT 18 U/L (0-41) 01/07/23 15:25 Alkaline Phosphatase 83 U/L (40-130) 01/07/23 15:25 Total Protein 7.7 g/dL (6.6-8.7) 01/07/23 15:25 Albumin 5.0 g/dL (3.5-5.2) 01/07/23 15:25 Globulin 2.7 g/dL (1.3-4.6) 01/07/23 15:25 Lipase 26 U/L (13-60) 01/07/23 15:25 Urine Color Yellow (Yellow) 01/07/23 17:36 Urine Appearance Clear (CLEAR) 01/07/23 17:36 Urine pH 5 (5-7) 01/07/23 17:36 Ur Specific [place] 1.015 (1.005-1.030) 01/07/23 17:36 Urine Protein Neg (Negative) 01/07/23 17:36 Urine Glucose (UA) Norm (Normal) 01/07/23 17:36 Urine Ketones 2+ (Negative) H 01/07/23 17:36 Urine Blood Neg (Negative) 01/07/23 17:36 Urine Nitrate Negative (Negative) 01/07/23 17:36 Urine Bilirubin Neg (Negative) 01/07/23 17:36 Urine Urobilinogen Neg mg/dL (Negative) 01/07/23 17:36 Ur Leukocyte Esterase Negative (Negative) 01/07/23 17:36 Urine Opiates Screen Positive ng/mL (Negative) H 01/07/23 17:36 Ur Barbiturates Screen Negative ng/mL (Negative) 01/07/23 17:36 Ur Phencyclidine Scrn Negative ng/mL (Negative) 01/07/23 17:36 Ur Amphetamines Screen Negative ng/mL (Negative) 01/07/23 17:36 U Benzodiazepines Scrn Negative ng/mL (Negative) 01/07/23 17:36 Urine Cocaine Screen Negative ng/mL (Negative) 01/07/23 17:36 U Marijuana (THC) Screen Positive ng/mL (Negative) H 01/07/23 17:36 Discharge Plan Discharge Patient Disposition: Home Clinical Impression: Acute generalized abdominal pain, Vomiting, Decreased urine stream Condition: Stable Prescriptions: New ondansetron 4 mg tablet,disintegrating 4 mg PO Q8H 5 Days Qty: 15 0RF Flomax 0.4 mg capsule 0.4 mg PO DAILY Qty: 10 0RF No Action famotidine 20 mg tablet 20 mg PO BID PRN (Reason: Abdominal Pain) acetaminophen [Tylenol Ex Str Rapid Release] 500 mg Tablet 500 - 1,500 mg PO Q6H PRN (Reason: Pain) amlodipine 5 mg Tablet 5 mg PO DAILY Zyprexa Zydis 10 mg tablet,disintegrating 10 mg PO Q8H PRN (Reason: nausea and vomiting) Qty: 14 0RF Ativan 2 mg tablet 2 mg buccal Q6H PRN (Reason: nausea and vomiting) Qty: 14 0RF chlorpromazine 25 mg tablet 25 mg PO TID Qty: 6 0RF promethazine 12.5 mg tablet 12.5 mg PO Q6H PRN (Reason: nausea and vomiting) Qty: 20 0RF hydrocodone-acetaminophen 5-325 mg tablet 1 tab PO Q6H PRN (Reason: pain) Qty: 10 0RF pantoprazole 40 mg tablet,delayed release (DR/EC) 40 mg PO BID Qty: 60 3RF ondansetron 4 mg tablet,disintegrating 4 mg PO Q8H PRN (Reason: nausea and vomiting) Qty: 20 0RF metoclopramide HCl [Reglan] 10 mg tablet 10 mg PO Q6H PRN (Reason: nausea and vomiting) Qty: 20 0RF Discharge Orders: Discharge ED (Routine); Ordered 01/07/23 Ordered By: Fanny Gary Referrals: Anali Puri MD [Primary Care Provider] - Discharge Diet: Advance as tolerated Discharge Activity: Resume usual activity Patient Instructions: Tamsulosin (By mouth) (Flomax), Abdominal Pain (ED), Cyclic Vomiting Syndrome (ED) Activity Restrictions/Additional Instructions: All the tests involving your sugars are well within normal limits. You do not show any active concerns for diabetes. Your other lab work is stable from previous lab work over the last year but you do seem to come in when you are starting to become dehydrated. Have given you some antinausea medication for home in an effort to keep you tolerating p.o. fluids. I have also given you some Flomax to take to help you more fully empty your bladder but, I recommend you reach out to your primary care doctor to speak with them regarding the possibility of a cyclical vomiting syndrome or, you need to return here to the emergency department if you develop severe low abdominal pain, have no urinary output after 8 hours-due to inability to get it out, you develop any fevers or, you have return of worsening vomiting leading to dizziness upon standing, general lightheadedness, dry mouth, or cracked lips. Sign Out Sign Out Data: Patient Sign Out occurred on 01/07/23 at 17:42. Patient's care was discussed, and care was transferred from to KENNEDI Monaco. Coding Level of Care Code ED Deputy General Counsel for Chg Fwd Documented by User: KENNEDI Monaco 01/07/23 19:41 HPI - Abdominal Pain General: Chief Complaint: Abdominal Pain Stated Complaint: dehydration/n/v/wants bloodwork Time Seen by Provider: 01/07/23 16:05 PFSH ED PFSH: Medical History No pertinent past medical history Surgical History H/O esophagogastroduodenoscopy (04/10/22) Family History Other Hypertension Social History Smoking and tobacco status: current every day smoker Alcohol intake: never Course Vital Signs: Vital signs: Vital Signs Temperature 98.6 F 01/07/23 15:15 Pulse Rate 84 01/07/23 19:17 Respiratory Rate 16 01/07/23 19:17 Blood Pressure 148/98 01/07/23 19:17 Pulse Oximetry 99 01/07/23 19:17 Oxygen Delivery Me thod 01/07/23 15:15 MDM - Abdominal Pain Medical Decision Making Patient presented to the emergency department originally concerned about his return of vomiting, generalized abdominal pain, vomiting, urinary retention and concerns for diabetes. Patient had received partial work-up from Keyla Alvarado NP at the time of transfer to (myself) KENNEDI Reynolds. I have been informed that the patient had previously been here 2 days ago and was treated with antinausea medication. Patient was still receiving antinausea medication and had gotten some fluids and lab work was beginning to come in. Patient's lab work appears to be stable and is very similar to lab work as far back as 1 year ago. Patient has what appears to be chronically slightly elevated bilirubin levels but, given his concerns regarding his blood sugars, A1c was drawn. A1c is 4.8. POC glucose at time of discharge was 81. Patient had not had any vomiting during my time of evaluation. He was having concerns about urinary retention and bladder scan did show proximately 500 cc but, was able to void approximately 300 cc for his urinalysis. Since patient is still passing urine and, urinalysis shows no acute concerns for infection, we will treat with a short course of Flomax to see if increasing his fluids and easing his voiding resolves his symptoms. Patient does have primary care. I encouraged him to reach out to the primary care as patient may have a cyclical vomiting syndrome. Patient has tested positive on urine drug screen for marijuana in the past and is positive again today however, he states he has not used in 1 month and is continuing to have these types of symptoms. Patient appears stable at time of discharge. Prescription for Zofran and Flomax sent to the pharmacy. Instructions for follow-up with primary care given or, acute worsening to be seen and reevaluated back here in the ER. Differential Diagnosis Likely abdominal pain (cyclical vomiting, hyperemesis cannibis ), acute appendicitis, calculus of kidney, constipation, gastroenteritis and pancreatitis Lab Data 01/07/23 15:25 01/07/23 15:25 Labs/Radiology: Laboratory Results WBC 10.2 10^3/uL (4.0-10.0) H 01/07/23 15: RBC 5.65 10^6/uL (4.1-5.3) H 01/07/23 15: Hgb 16.2 g/dL (11.7-16.6) 01/07/23 15: Hct 45.3 % (42.0-52.0) 01/07/23 15: MCV 80.2 fl (80-94) 01/07/23 15: MCH 28.7 pg (28.0-34.0) 01/07/23 15: MCHC 35.8 g/dL (30.0-36.0) 01/07/23 15: RDW 11.7 % (12.1-15.1) L 01/07/23 15: Plt Count 350 10^3/cmm (130-400) 01/07/23 15: MPV 9.4 fL (7.4-10.4) 01/07/23 15: Neut % (Auto) 64.9 % 01/07/23 15:25 Lymph % (Auto) 23.1 % 01/07/23 15:25 [place] % (Auto) 11.2 % 01/07/23 15: Eos % (Auto) 0.2 % 01/07/23: Baso % (Auto) 0.4 % 01/07/23 15:25 Neut # (Auto) 6.62 10^3/uL (1.8-7.7) 01/07/23 15: Lymph # (Auto) 2.4 10^3/uL (0.8-4.8) 01/07/23 15:25 [place] # (Auto) 1.1 10^3/uL (0.2-0.9) H 01/07/23 15:25 Eos # (Auto) 0.0 10^3/uL (0.0-0.8) 01/07/23 15:25 Baso # (Auto) 0.0 10^3/uL (0.0-0.1) 01/07/23 15:25 Nucleated RBC % (auto) 0 % 01/07/23 15:25 Nucleated RBCs # 0.0 /100WBC 01/07/23 15:25 Sodium 134 mmol/L (136-145) L 01/07/23 15:25 Potassium 3.7 mmol/L (3.5-5.1) 01/07/23 15:25 Chloride 89 mmol/L (98-107) L 01/07/23 15:25 Carbon Dioxide 27 mmol/L (22-29) 01/07/23 15:25 Anion Gap 21.7 (5-19) H 01/07/23 15:25 BUN 20 mg/dL (6-20) 01/07/23 15:25 Creatinine 0.8 mg/dL (0.7-1.2) 01/07/23 15:25 GFR Calculation 122.0 mL/min (90-130) 01/07/23 15:25 Glucose 88 mg/dL (65-115) 01/07/23 15:25 POC Glucose 81 mg/dL (70-110) 01/07/23 17:37 Estimat Average Glucose 91 01/07/23 15:25 Hemoglobin A1c 4.8 % (4.0-6.0) 01/07/23 15:25 Calculated Osmolality 280 mOsm/kg (285-295) L 01/07/23 15:25 Lactate 1.3 mmol/L (0.5-2.2) 01/07/23 17:32 Calcium 10.0 mg/dL (8.5-10.5) 01/07/23 15:25 Total Bilirubin 2.7 mg/dL (0.15-1.2) H 01/07/23 15:25 AST 29 U/L (0-40) 01/07/23 15:25 ALT 18 U/L (0-41) 01/07/23 15:25 Alkaline Phosphatase 83 U/L (40-130) 01/07/23 15:25 Total Protein 7.7 g/dL (6.6-8.7) 01/07/23 15:25 Albumin 5.0 g/dL (3.5-5.2) 01/07/23 15:25 Globulin 2.7 g/dL (1.3-4.6) 01/07/23 15:25 Lipase 26 U/L (13-60) 01/07/23 15:25 Urine Color Yellow (Yellow) 01/07/23 17:36 Urine Appearance Clear (CLEAR) 01/07/23 17:36 Urine pH 5 (5-7) 01/07/23 17:36 Ur Specific [place] 1.015 (1.005-1.030) 01/07/23 17:36 Urine Protein Neg (Negative) 01/07/23 17:36 Urine Glucose (UA) Norm (Normal) 01/07/23 17:36 Urine Ketones 2+ (Negative) H 01/07/23 17:36 Urine Blood Neg (Negative) 01/07/23 17:36 Urine Nitrate Negative (Negative) 01/07/23 17:36 Urine Bilirubin Neg (Negative) 01/07/23 17:36 Urine Urobilinogen Neg mg/dL (Negative) 01/07/23 17:36 Ur Leukocyte Esterase Negative (Negative) 01/07/23 17:36 Urine Opiates Screen Positive ng/mL (Negative) H 01/07/23 17:36 Ur Barbiturates Screen Negative ng/mL (Negative) 01/07/23 17:36 Ur Phencyclidine Scrn Negative ng/mL (Negative) 01/07/23 17:36 Ur Amphetamines Screen Negative ng/mL (Negative) 01/07/23 17:36 U Benzodiazepines Scrn Negative ng/mL (Negative) 01/07/23 17:36 Urine Cocaine Screen Negative ng/mL (Negative) 01/07/23 17:36 U Marijuana (THC) Screen Positive ng/mL (Negative) H 01/07/23 17:36 Discharge Plan Discharge Patient Disposition: Home Clinical Impression: Acute generalized abdominal pain, Vomiting, Decreased urine stream Condition: Stable Prescriptions: New ondansetron 4 mg tablet,disintegrating 4 mg PO Q8H 5 Days Qty: 15 0RF Flomax 0.4 mg capsule 0.4 mg PO DAILY Qty: 10 0RF No Action famotidine 20 mg tablet 20 mg PO BID PRN (Reason: Abdominal Pain) acetaminophen [Tylenol Ex Str Rapid Release] 500 mg Tablet 500 - 1,500 mg PO Q6H PRN (Reason: Pain) amlodipine 5 mg Tablet 5 mg PO DAILY Zyprexa Zydis 10 mg tablet,disintegrating 10 mg PO Q8H PRN (Reason: nausea and vomiting) Qty: 14 0RF Ativan 2 mg tablet 2 mg buccal Q6H PRN (Reason: nausea and vomiting) Qty: 14 0RF chlorpromazine 25 mg tablet 25 mg PO TID Qty: 6 0RF promethazine 12.5 mg tablet 12.5 mg PO Q6H PRN (Reason: nausea and vomiting) Qty: 20 0RF hydrocodone-acetaminophen 5-325 mg tablet 1 tab PO Q6H PRN (Reason: pain) Qty: 10 0RF pantoprazole 40 mg tablet,delayed release (DR/EC) 40 mg PO BID Qty: 60 3RF ondansetron 4 mg tablet,disintegrating 4 mg PO Q8H PRN (Reason: nausea and vomiting) Qty: 20 0RF metoclopramide HCl [Reglan] 10 mg tablet 10 mg PO Q6H PRN (Reason: nausea and vomiting) Qty: 20 0RF Discharge Orders: Discharge ED (Routine); Ordered 01/07/23 Ordered By: Fanny Gary Referrals: Anali Puri MD [Primary Care Provider] - Discharge Diet: Advance as tolerated Discharge Activity: Resume usual activity Patient Instructions: Tamsulosin (By mouth) (Flomax), Abdominal Pain (ED), Cyclic Vomiting Syndrome (ED) Activity Restrictions/Additional Instructions: All the tests involving your sugars are well within normal limits. You do not show any active concerns for diabetes. Your other lab work is stable from previous lab work over the last year but you do seem to come in when you are starting to become dehydrated. Have given you some antinausea medication for home in an effort to keep you tolerating p.o. fluids. I have also given you some Flomax to take to help you more fully empty your bladder but, I recommend you reach out to your primary care doctor to speak with them regarding the possibility of a cyclical vomiting syndrome or, you need to return here to the emergency department if you develop severe low abdominal pain, have no urinary output after 8 hours-due to inability to get it out, you develop any fevers or, you have return of worsening vomiting leading to dizziness upon standing, general lightheadedness, dry mouth, or cracked lips. Sign Out Sign Out Data: Patient Sign Out occurred on 01/07/23 at 17:42. Patient's care was discussed, and care was transferred from to KENNEDI Monaco. Coding Level of Care Code ED Deputy General Counsel for Dee Dee Bennett
[2023-01-07] MEDS: sodium chloride 0.9% 1,000 ML 999 ML IV (17:19)
[2023-01-07] MEDS: ondansetron 2 mg/ML SDV 2 mL 4 MG IVP ×2 (17:19→19:12)
[2023-01-07 17:41] LABS: Estmated Average Glucose 91; Hemoglobin A1C 4.8 % (4.0-6.0)
[2023-01-07 17:42] LABS: Glucose Point of Care 81 mg/dL (70-110)
[2023-01-07 18:05] LABS: Add Urine Microscopic? NO; Charge for UA Resulting for Rev
[2023-01-07 18:13] LABS: Bilirubin Urine Neg (Negative); Blood Urine Neg (Negative); Glucose Urine UA Norm (Normal); Ketones Urine 2+ (Negative); Leukocyte Esterase Urine Negative (Negative); Nitrate Urine Negative (Negative); Protein Urine Neg (Negative); Specific Gravity, Urine 1.015 (1.005-1.030); Urine Appearance Clear (CLEAR); Urine Color Yellow (Yellow); Urobilinogen Urine Neg (Negative); pH Urine 5 (5-7)
[2023-01-07 18:19] LABS: Lactate (Lactic Acid level) 1.3 mmol/L (0.5-2.2)
[2023-01-07 18:23] LABS: Amphetamines Screen Urine Negative (Negative); Barbiturates Screen Urine Negative (Negative); Benzodiazepines Screen Urine Negative (Negative); Cocaine Screen Urine Negative (Negative); Opiate Screen Urine Positive (Negative); PCP Screen Urine Negative (Negative); THC Screen Urine Positive (Negative)
[2023-01-07 19:17] VITALS: BP 148/98; PULSE 84; RESP 16; O2SAT 99
== END 2023-01-07 19:18 | disposition home or self-care (01) ==
PROVIDERS: Nurse Practitioner Family; Emergency Provider Physician Assistant; PCP Family Medicine
DX: R10.84 Generalized abdominal pain (principal); R11.11 Vomiting without nausea; R39.12 Poor urinary stream; F17.210 Nicotine dependence, cigarettes, uncomplicated
CPT/HCPCS: 36415; 36416; 51798; 80053; 80306; 81003; 82962; 83036; 83605; 83690; 85025; 96361; 96374; 96375; 99284; J2405; J7030

== ENCOUNTER 2023-03-12 09:05 | Emergency (ER) | payer MEDICAID, SELFPAY ==
[2023-03-12 09:38] VITALS: BP 175/117; PULSE 44; O2SAT 99; BMI 20.1
[2023-03-12 10:11] VITALS: BP 158/100; PULSE 47; RESP 14; O2SAT 100
--- NOTE | 2023-03-12 10:22 | W.ED.NAVMDI ---
Documented by User: [email or web address] Arredondo 03/12/23 13:51 HPI - Nausea/Vomiting/Diarrhea General: Chief complaint: Nausea/Vomiting/Diarrhea Stated complaint: N/V/D Fever Time Seen by Provider: 03/12/23 10:17 History of Present Illness: Patient is a 22-year-old male comes to the ED with nausea vomiting and diarrhea. Patient has been having these symptoms now for approximately a week. He states that he vomits approximately 2-3 times a day and is having 5-6 episodes of diarrhea a day for the past week. This morning he has had 2 episodes of emesis and 2 episodes of diarrhea. He has been trying to drink plenty of fluids and for the most of the day he can keep fluids down. He endorses having some mild generalized abdominal pain. Endorses chills. Denies any fevers bladder symptoms. Denies any known sick contacts. Patient endorses being an occasional marijuana user. Associated nausea: Yes Associated symtoms: Reports nausea; Denies change in vision, chest pain, dysuria, fatigue, headache(s) or palpitations Review of Systems Const: Denies: fever(s), chills or fatigue Eyes: Denies: change in vision or eye discomfort ENMT: Denies: throat pain, odynophagia, nasal discharge or nasal congestion Card: Denies: chest pain, palpitations, edema, swelling of feet/ankles, dyspnea on exertion or orthopnea Resp: Denies: dyspnea, productive cough or non-productive cough GI: Reports: abdominal pain, nausea, vomiting and diarrhea; Denies: constipation or hematochezia : Denies: flank pain, difficulty urinating, dysuria or hematuria Musc: Denies: neck pain, back pain or extremity swelling Skin/Breast: Denies: rash or new lesions Neuro: Denies: headache(s), numbness in extremities or weakness in extremities PFSH ED PFSH: Medical History No pertinent past medical history Surgical History H/O esophagogastroduodenoscopy (04/10/22) Family History Other Hypertension Social History Smoking and tobacco status: current every day smoker Alcohol intake: never Physical Exam Const: COMMON NORMALS: patient oriented x3 HENMT: COMMON NORMALS: normocephalic HEAD & SCALP: normocephalic MOUTH: Normal oral and palatal mucosa present THROAT: posterior oropharynx normal and uvula midline Neck/C-Spine: COMMON NORMALS: supple GENERAL: Yes normal visual inspection Resp: COMMON NORMALS: normal respiratory effort, No retractions, No use of accessory muscles and clear to auscultation bilaterally AUSCULTATION: clear to auscultation bilaterally Cardio: COMMON NORMALS: regular rate, regular rhythm, S1 normal heart sound present, S2 normal heart sound present, No gallops present (Cardio), No clicks present (Cardio), No murmurs present (Cardio) and Peripheral pulses 2+ throughout RATE: regular rate RHYTHM: regular rhythm HEART SOUNDS: S1 normal heart sound present and S2 normal heart sound present PERIPHERAL PULSES: Peripheral pulses 2+ throughout GI: COMMON NORMALS: Normal to inspection, nondistended, normoactive bowel sounds present, Soft to palpation and no masses PALPATION: Yes Soft to palpation and Yes Tenderness to palpation present (GI) (Generalized bilateral upper abdominal tenderness) : COMMON NORMALS: Yes no CVA tenderness BLADDER/KIDNEY EXAM: Yes no CVA tenderness Back/Pelvis: COMMON NORMALS: no CVA tenderness Extremity: COMMON NORMALS: normal to inspection Neuro: COMMON NORMALS: patient oriented x3 GAIT: Yes Normal gait present Skin: GENERAL SKIN EXAM: dry skin Course Vital Signs: Vital signs: Vital Signs Pulse Rate 60 03/12/23 13:25 Respiratory Rate 16 03/12/23 13:25 Blood Pressure 149/98 03/12/23 13:25 Pulse Oximetry 99 03/12/23 13:25 Oxygen Delivery Me thod Room Air 03/12/23 12:00 MDM - Nausea/Vomiting/Diarrhea Medical Decision Making Patient is a 22-year-old male comes to the ED with nausea vomiting and diarrhea. Patient has been having these symptoms now for approximately a week. He states that he vomits approximately 2-3 times a day and is having 5-6 episodes of diarrhea a day for the past week. This morning he has had 2 episodes of emesis and 2 episodes of diarrhea. He has been trying to drink plenty of fluids and for the most of the day he can keep fluids down. He endorses having some mild generalized abdominal pain. Endorses chills. Denies any fevers bladder symptoms. Denies any known sick contacts. Patient endorses being an occasional marijuana user. Vitals are stable. Patient has some generalized bilateral upper abdominal tenderness but no localized abdominal tenderness. Rest of exam is benign. White blood cell count 19 and the rest of labs are unremarkable. CT of abdomen pelvis shows slightly thickened gallbladder wall and recommends ultrasound for further evaluation. Ultrasound gallbladder was done and it showed some diffuse gallbladder wall thickening and hyperemia with no Reagan sign and no stones or pericholecystic fluid. Findings suggestive of chronic cholecystitis and less likely any acute cholecystitis. Common bile duct normal. Patient was given 2 L of IV fluids, nausea and pain meds as symptoms are well controlled. He was able to tolerate p.o. fluids while here in the ED. I placed order with case management for patient be referred to general surgery for follow-up. He was stable for discharge home and diagnosed with chronic cholecystitis and biliary colic. He was sent home with a prescription for pain med and nausea med. Told to have a clear liquid diet for the next 24 hours and slowly advance diet as tolerated. Strict return to ED precautions given. Patient understood and agreed with plan. Dr. Sinha reviewed case and agreed with plan. Lab Data I reviewed the patient's lab results. 03/12/23 10:29 03/12/23 10:29 Radiology Impressions Abdomen/Pelvis CT 03/12/23 11:07 IMPRESSION: 1. Marked periportal edema throughout the liver. This can be seen with acute hepatitis or aggressive IV fluid hydration. 2. Slightly contracted gallbladder with diffuse gallbladder wall mild enhancement and pericholecystic fluid. Differential to consider is acute cholecystitis or acute hepatitis. Consider ultrasound evaluation of the gallbladder. 3. No bile duct dilatation. 4. No free fluid in the pelvis. Gallbladder Ultrasound 03/12/23 11:49 IMPRESSION: 1. Minimally contracted gallbladder with diffuse gallbladder wall thickening hyperemia. No Reagan's sign. No stones or pericholecystic fluid. Consider chronic cholecystitis or hepatocellular disease as etiologies. Less likely an acute cholecystitis. 2. No common bile duct dilatation. 3. Prominent portal triads throughout the liver. This can be seen with a very thin patient's or hepatitis. Laboratory Results WBC 19.0 10^3/uL (4.0-10.0) H 03/12/23 10: RBC 5.46 10^6/uL (4.1-5.3) H 03/12/23 10: Hgb 16.2 g/dL (11.7-16.6) 03/12/23 10: Hct 46.9 % (42.0-52.0) 03/12/23 10: MCV 85.9 fl (80-94) 03/12/23 10: MCH 29.7 pg (28.0-34.0) 03/12/23 10: MCHC 34.5 g/dL (30.0-36.0) 03/12/23 10: RDW 11.9 % (12.1-15.1) L 03/12/23 10: Plt Count 334 10^3/cmm (130-400) 03/12/23 10: MPV 9.6 fL (7.4-10.4) 03/12/23 10: Neut % (Auto) 86.5 % 03/12/23 10: Lymph % (Auto) 9.9 % 03/12/23 10: [place] % (Auto) 2.7 % 03/12/23 10: Eos % (Auto) 0.1 % 03/12/23 10: Baso % (Auto) 0.3 % 03/12/23 10: Neut # (Auto) 16.46 10^3/uL (1.8-7.7) H 03/12/23 10: Lymph # (Auto) 1.9 10^3/uL (0.8-4.8) 03/12/23 10:29 [place] # (Auto) 0.5 10^3/uL (0.2-0.9) 03/12/23 10: Eos # (Auto) 0.0 10^3/uL (0.0-0.8) 03/12/23 10: Baso # (Auto) 0.1 10^3/uL (0.0-0.1) 03/12/23 10: Nucleated RBC % (auto) 0 % 03/12/23 10: Nucleated RBCs # 0.0 /100WBC 03/12/23 10:29 Sodium 139 mmol/L (136-145) 03/12/23 10:29 Potassium 3.6 mmol/L (3.5-5.1) 03/12/23 10:29 Chloride 100 mmol/L (98-107) 03/12/23 10:29 Carbon Dioxide 24 mmol/L (22-29) 03/12/23 10:29 Anion Gap 18.6 (5-19) 03/12/23 10:29 BUN 10 mg/dL (6-20) 03/12/23 10:29 Creatinine 0.8 mg/dL (0.7-1.2) 03/12/23 10:29 GFR Calculation 122.0 mL/min (90-130) 03/12/23 10:29 Glucose 181 mg/dL (65-115) H 03/12/23 10:29 Calculated Osmolality 292 mOsm/kg (285-295) 03/12/23 10:29 Calcium 9.5 mg/dL (8.5-10.5) 03/12/23 10:29 Total Bilirubin 0.8 mg/dL (0.15-1.2) 03/12/23 10:29 AST 20 U/L (0-40) 03/12/23 10:29 ALT 12 U/L (0-41) 03/12/23 10:29 Alkaline Phosphatase 78 U/L (40-130) 03/12/23 10:29 Total Protein 8.0 g/dL (6.6-8.7) 03/12/23 10:29 Albumin 5.0 g/dL (3.5-5.2) 03/12/23 10:29 Globulin 3.0 g/dL (1.3-4.6) 03/12/23 10:29 Lipase 26 U/L (13-60) 03/12/23 10:29 Urine Color Light yellow (Yellow) 03/12/23 11:55 Urine Appearance Clear (CLEAR) 03/12/23 11:55 Urine pH 7 (5-7) 03/12/23 11:55 Ur Specific Dixon 1.010 (1.005-1.030) 03/12/23 11:55 Urine Protein Neg (Negative) 03/12/23 11:55 Urine Glucose (UA) 2+ (Normal) H 03/12/23 11:55 Urine Ketones 1+ (Negative) H 03/12/23 11:55 Urine Blood Neg (Negative) 03/12/23 11:55 Urine Nitrate Negative (Negative) 03/12/23 11:55 Urine Bilirubin Neg (Negative) 03/12/23 11:55 Urine Urobilinogen Norm mg/dL (Negative) 03/12/23 11:55 Ur Leukocyte Esterase Negative (Negative) 03/12/23 11:55 Discharge Plan Discharge Patient Disposition: Home Clinical Impression: Chronic cholecystitis, Biliary colic symptom Condition: Stable Prescriptions: New Reglan 10 mg tablet 10 mg PO Q6H PRN (Reason: nausea and vomiting) Qty: 30 0RF No Action famotidine 20 mg tablet 20 mg PO BID PRN (Reason: Abdominal Pain) acetaminophen [Tylenol Ex Str Rapid Release] 500 mg Tablet 500 - 1,500 mg PO Q6H PRN (Reason: Pain) amlodipine 5 mg Tablet 5 mg PO DAILY Zyprexa Zydis 10 mg tablet,disintegrating 10 mg PO Q8H PRN (Reason: nausea and vomiting) Qty: 14 0RF Ativan 2 mg tablet 2 mg buccal Q6H PRN (Reason: nausea and vomiting) Qty: 14 0RF chlorpromazine 25 mg tablet 25 mg PO TID Qty: 6 0RF promethazine 12.5 mg tablet 12.5 mg PO Q6H PRN (Reason: nausea and vomiting) Qty: 20 0RF hydrocodone-acetaminophen 5-325 mg tablet 1 tab PO Q6H PRN (Reason: pain) Qty: 10 0RF pantoprazole 40 mg tablet,delayed release (DR/EC) 40 mg PO BID Qty: 60 3RF ondansetron 4 mg tablet,disintegrating 4 mg PO Q8H PRN (Reason: nausea and vomiting) Qty: 20 0RF metoclopramide HCl [Reglan] 10 mg tablet 10 mg PO Q6H PRN (Reason: nausea and vomiting) Qty: 20 0RF Flomax 0.4 mg capsule 0.4 mg PO DAILY Qty: 10 0RF Discharge Orders: Discharge ED (Routine); Ordered 03/12/23 Ordered By: Brayan Gutierrez Referrals: Anali Puri MD [Primary Care Provider] - Discharge Diet: Advance as tolerated and Clear Liquid Discharge Activity: Increase activity as tolerated Patient Instructions: Biliary Colic (ED), Abdominal Pain (ED), Opioid Safety Activity Restrictions/Additional Instructions: Follow-up with medical provider as directed. Clear liquid diet for the next 24 hours then slowly advance diet as tolerated. Case management should be contacted in the next several days set up an appointment with general surgery for follow-up on gallbladder. Take medications as prescribed. Return to the ER or your medical provider if condition worsens. Please read and understand discharge instructions. Thank you for choosing [facility] for your healthcare needs today. Please realize this is an emergency room and that we are providing you with a medical screening exam and this may not be complete and all inclusive of all the testing and or work up that you may need to determine your ailment or severity of your illness. It is very important that you follow up as instructed or that you return to the Emergency Department should you have concerns or if your condition changes or worsens in any way. Coding Level of Care Code ED Precinct Captain for Chg Fwd Documented by User: Larry Sinha DO 03/12/23 14:51 HPI - Nausea/Vomiting/Diarrhea General: Chief complaint: Nausea/Vomiting/Diarrhea Stated complaint: N/V/D Fever Time Seen by Provider: 03/12/23 10:17 [facility] ED PFSH: Medical History No pertinent past medical history Surgical History H/O esophagogastroduodenoscopy (04/10/22) Family History Other Hypertension Social History Smoking and tobacco status: current every day smoker Alcohol intake: never Course Vital Signs: Vital signs: Vital Signs Pulse Rate 60 03/12/23 13:25 Respiratory Rate 16 03/12/23 13:25 Blood Pressure 149/98 03/12/23 13:25 Pulse Oximetry 99 04/19/23 13:25 Oxygen Delivery Me thod Room Air 03/12/23 12:00 MDM - Nausea/Vomiting/Diarrhea Medical Decision Making Patient is a 22-year-old male comes to the ED with nausea vomiting and diarrhea. Patient has been having these symptoms now for approximately a week. He states that he vomits approximately 2-3 times a day and is having 5-6 episodes of diarrhea a day for the past week. This morning he has had 2 episodes of emesis and 2 episodes of diarrhea. He has been trying to drink plenty of fluids and for the most of the day he can keep fluids down. He endorses having some mild generalized abdominal pain. Endorses chills. Denies any fevers bladder symptoms. Denies any known sick contacts. Patient endorses being an occasional marijuana user. Vitals are stable. Patient has some generalized bilateral upper abdominal tenderness but no localized abdominal tenderness. Rest of exam is benign. White blood cell count 19 and the rest of labs are unremarkable. CT of abdomen pelvis shows slightly thickened gallbladder wall and recommends ultrasound for further evaluation. Ultrasound gallbladder was done and it showed some diffuse gallbladder wall thickening and hyperemia with no Reagan sign and no stones or pericholecystic fluid. Findings suggestive of chronic cholecystitis and less likely any acute cholecystitis. Common bile duct normal. Patient was given 2 L of IV fluids, nausea and pain meds as symptoms are well controlled. He was able to tolerate p.o. fluids while here in the ED. I placed order with case management for patient be referred to general surgery for follow-up. He was stable for discharge home and diagnosed with chronic cholecystitis and biliary colic. He was sent home with a prescription for pain med and nausea med. Told to have a clear liquid diet for the next 24 hours and slowly advance diet as tolerated. Strict return to ED precautions given. Patient understood and agreed with plan. Dr. Sinha reviewed case and agreed with plan. Chart reviewed and patient discussed with midlevel. Agree with assessment and plan. Lab Data 03/12/23 10:29 03/12/23 10:29 Radiology Impressions Abdomen/Pelvis CT 03/12/23 11:07 IMPRESSION: 1. Marked periportal edema throughout the liver. This can be seen with acute hepatitis or aggressive IV fluid hydration. 2. Slightly contracted gallbladder with diffuse gallbladder wall mild enhancement and pericholecystic fluid. Differential to consider is acute cholecystitis or acute hepatitis. Consider ultrasound evaluation of the gallbladder. 3. No bile duct dilatation. 4. No free fluid in the pelvis. Gallbladder Ultrasound 03/12/23 11:49 IMPRESSION: 1. Minimally contracted gallbladder with diffuse gallbladder wall thickening hyperemia. No Reagan's sign. No stones or pericholecystic fluid. Consider chronic cholecystitis or hepatocellular disease as etiologies. Less likely an acute cholecystitis. 2. No common bile duct dilatation. 3. Prominent portal triads throughout the liver. This can be seen with a very thin patient's or hepatitis. Laboratory Results WBC 19.0 10^3/uL (4.0-10.0) H 03/12/23 10:29 RBC 5.46 10^6/uL (4.1-5.3) H 03/12/23 10:29 Hgb 16.2 g/dL (11.7-16.6) 03/12/23 10:29 Hct 46.9 % (42.0-52.0) 03/12/23 10:29 MCV 85.9 fl (80-94) 03/12/23 10:29 MCH 29.7 pg (28.0-34.0) 03/12/23 10:29 MCHC 34.5 g/dL (30.0-36.0) 03/12/23 10:29 RDW 11.9 % (12.1-15.1) L 03/12/23 10:29 Plt Count 334 10^3/cmm (130-400) 03/12/23 10:29 MPV 9.6 fL (7.4-10.4) 03/12/23 10:29 Neut % (Auto) 86.5 % 03/12/23 10:29 Lymph % (Auto) 9.9 % 03/12/23 10:29 [place] % (Auto) 2.7 % 03/12/23 10:29 Eos % (Auto) 0.1 % 03/12/23 10:29 Baso % (Auto) 0.3 % 03/12/23 10:29 Neut # (Auto) 16.46 10^3/uL (1.8-7.7) H 03/12/23 10:29 Lymph # (Auto) 1.9 10^3/uL (0.8-4.8) 03/12/23 10:29 [place] # (Auto) 0.5 10^3/uL (0.2-0.9) 03/12/23 10:29 Eos # (Auto) 0.0 10^3/uL (0.0-0.8) 03/12/23 10: Baso # (Auto) 0.1 10^3/uL (0.0-0.1) 03/12/23 10:29 Nucleated RBC % (auto) 0 % 03/12/23 10:29 Nucleated RBCs # 0.0 /100WBC 03/12/23 10:29 Sodium 139 mmol/L (136-145) 03/12/23 10:29 Potassium 3.6 mmol/L (3.5-5.1) 03/12/23 10: Chloride 100 mmol/L (98-107) 03/12/23 10:29 Carbon Dioxide 24 mmol/L (22-29) 03/12/23 10:29 Anion Gap 18.6 (5-19) 03/12/23 10:29 BUN 10 mg/dL (6-20) 03/12/23 10:29 Creatinine 0.8 mg/dL (0.7-1.2) 03/12/23 10:29 GFR Calculation 122.0 mL/min (90-130) 03/12/23 10: Glucose 181 mg/dL (65-115) H 03/12/23 10:29 Calculated Osmolality 292 mOsm/kg (285-295) 03/12/23 10:29 Calcium 9.5 mg/dL (8.5-10.5) 03/12/23 10:29 Total Bilirubin 0.8 mg/dL (0.15-1.2) 03/12/23 10:29 AST 20 U/L (0-40) 03/12/23 10:29 ALT 12 U/L (0-41) 03/12/23 10:29 Alkaline Phosphatase 78 U/L (40-130) 03/12/23 10:29 Total Protein 8.0 g/dL (6.6-8.7) 03/12/23 10:29 Albumin 5.0 g/dL (3.5-5.2) 03/12/23 10:29 Globulin 3.0 g/dL (1.3-4.6) 03/12/23 10:29 Lipase 26 U/L (13-60) 03/12/23 10:29 Urine Color Light yellow (Yellow) 03/12/23 11:55 Urine Appearance Clear (CLEAR) 03/12/23 11:55 Urine pH 7 (5-7) 03/12/23 11:55 Ur Specific Dixon 1.010 (1.005-1.030) 03/12/23 11:55 Urine Protein Neg (Negative) 03/12/23 11:55 Urine Glucose (UA) 2+ (Normal) H 03/12/23 11:55 Urine Ketones 1+ (Negative) H 03/12/23 11:55 Urine Blood Neg (Negative) 03/12/23 11:55 Urine Nitrate Negative (Negative) 03/12/23 11:55 Urine Bilirubin Neg (Negative) 03/12/23 11:55 Urine Urobilinogen Norm mg/dL (Negative) 03/12/23 11:55 Ur Leukocyte Esterase Negative (Negative) 03/12/23 11:55 Discharge Plan Discharge Patient Disposition: Home Clinical Impression: Chronic cholecystitis, Biliary colic symptom Condition: Stable Prescriptions: New Reglan 10 mg tablet 10 mg PO Q6H PRN (Reason: nausea and vomiting) Qty: 30 0RF No Action famotidine 20 mg tablet 20 mg PO BID PRN (Reason: Abdominal Pain) acetaminophen [Tylenol Ex Str Rapid Release] 500 mg Tablet 500 - 1,500 mg PO Q6H PRN (Reason: Pain) amlodipine 5 mg Tablet 5 mg PO DAILY Zyprexa Zydis 10 mg tablet,disintegrating 10 mg PO Q8H PRN (Reason: nausea and vomiting) Qty: 14 0RF Ativan 2 mg tablet 2 mg buccal Q6H PRN (Reason: nausea and vomiting) Qty: 14 0RF chlorpromazine 25 mg tablet 25 mg PO TID Qty: 6 0RF promethazine 12.5 mg tablet 12.5 mg PO Q6H PRN (Reason: nausea and vomiting) Qty: 20 0RF hydrocodone-acetaminophen 5-325 mg tablet 1 tab PO Q6H PRN (Reason: pain) Qty: 10 0RF pantoprazole 40 mg tablet,delayed release (DR/EC) 40 mg PO BID Qty: 60 3RF ondansetron 4 mg tablet,disintegrating 4 mg PO Q8H PRN (Reason: nausea and vomiting) Qty: 20 0RF metoclopramide HCl [Reglan] 10 mg tablet 10 mg PO Q6H PRN (Reason: nausea and vomiting) Qty: 20 0RF Flomax 0.4 mg capsule 0.4 mg PO DAILY Qty: 10 0RF Discharge Orders: Discharge ED (Routine); Ordered 03/12/23 Ordered By: Brayan Gutierrez Referrals: Anali Puri MD [Primary Care Provider] - Discharge Diet: Advance as tolerated and Clear Liquid Discharge Activity: Increase activity as tolerated Patient Instructions: Biliary Colic (ED), Abdominal Pain (ED), Opioid Safety Activity Restrictions/Additional Instructions: Follow-up with medical provider as directed. Clear liquid diet for the next 24 hours then slowly advance diet as tolerated. Case management should be contacted in the next several days set up an appointment with general surgery for follow-up on gallbladder. Take medications as prescribed. Return to the ER or your medical provider if condition worsens. Please read and understand discharge instructions. Thank you for choosing [facility] for your healthcare needs today. Please realize this is an emergency room and that we are providing you with a medical screening exam and this may not be complete and all inclusive of all the testing and or work up that you may need to determine your ailment or severity of your illness. It is very important that you follow up as instructed or that you return to the Emergency Department should you have concerns or if your condition changes or worsens in any way. Coding Level of Care Code ED Precinct Captain for Dee Dee Bennett
[2023-03-12 10:30] VITALS: BP 158/100; PULSE 50; O2SAT 99
[2023-03-12] MEDS: metoclopramide 5 mg/mL SDV 2 mL 10 MG IVP (10:30)
[2023-03-12] MEDS: sodium chloride 0.9% 1,000 ML 999 ML IV ×2 (10:30→11:15)
[2023-03-12 10:34] LABS: Basophils # 0.1 10^3/uL (0.0-0.1); Basophils % 0.3 %; Eosinophils % 0.1 %; Hematocrit 46.9 % (42.0-52.0); Hemoglobin 16.2 g/dL (11.7-16.6); Lymphocytes # 1.9 10^3/uL (0.8-4.8); Lymphocytes % 9.9 %; Mean Corpuscular HGB Conc 34.5 g/dL (30.0-36.0); Mean Corpuscular Hemoglobin 29.7 pg (28.0-34.0); Mean Corpuscular Volume 85.9 fl (80-94); Mean Platelet Volume 9.6 fL (7.4-10.4); Monocytes # 0.5 10^3/uL (0.2-0.9); Monocytes % 2.7 %; Neutrophils # 16.46 10^3/uL (1.8-7.7); Neutrophils % 86.5 %; Nucleated Red Blood Cells % 0 %; Platelet Count 334 10^3/cmm (130-400); Red Blood Count 5.46 10^6/uL (4.1-5.3); Red Cell Distribution Width 11.9 % (12.1-15.1)
[2023-03-12 10:58] LABS: Alanine Aminotransferase 12 U/L (0-41); Alkaline Phosphatase 78 U/L (40-130); Anion Gap 18.6 (5-19); Aspartate Amino Transferase 20 U/L (0-40); Blood Urea Nitrogen 10 mg/dL (6-20); Calcium 9.5 mg/dL (8.5-10.5); Carbon Dioxide 24 mmol/L (22-29); Chloride 100 mmol/L (98-107); Glucose 181 mg/dL (65-115); Lipase 26 U/L (13-60); Osmolality Calculated 292 mOsm/kg (285-295); Potassium 3.6 mmol/L (3.5-5.1); Sodium 139 mmol/L (136-145); Total Bilirubin 0.8 mg/dL (0.15-1.2)
--- NOTE | 2023-03-12 11:07 | CT_ITS ---
WS: [id number] CT ABDOMEN AND PELVIS WITH CONTRAST HISTORY: Abdominal pain, nausea and vomiting TECHNIQUE: Imaging performed of the abdomen and pelvis with IV contrast. Single phase imaging of the abdomen. Coronal and sagittal reformats are submitted. All CT scans at [facility] use at [address] one of these dose optimization techniques: automated exposure control; mA and/or kV adjustment per patient size (includes targeted exams where dose is matched to clinical indication); or iterative re construction. IV CONTRAST: Omnipaque 350; 100 mL IV. Oral contrast: Yes. DLP: 338.16 mGy.cm COMPARISON: 01/05/2023 Lower thorax: Lung bases are clear. Heart is normal size. No hiatal hernia. Liver/biliary system: Marked periportal edema throughout the liver. No enlargement. No bile duct dila tation. No mass. Gallbladder: Abnormal gallbladder. Slightly contracted gallbladder wall with mild wall thickening and surrounding fluid. No bile duct dilatation. Pancreas: Normal size pancreas and pancreatic duct. No adjacent inflammation. Spleen: Normal size spleen. No mass or infarct. Adrenal glands: Normal. Right kidney: Normal. Left kidney: Normal. Aorta: Normal. Lymphadenopathy: None. Free fluid: No free fluid in the pelvis. There is a small amount of edema extending into the kirt he patis to surround the celiac axis. GI tract: Unremarkable. Normal appendix. No obstruction. Abdominal wall: Unremarkable abdominal wall. No hernia. Pelvis: No free fluid or adenopathy within the pelvis. Normally distended bladder. Bones: Unremarkable. CT/CT abdomen pelvis w con* [id number] IMPRESSION: 1. Marked periportal edema throughout the liver. This can be seen with acute h epatitis or aggressive IV fluid hydration. 2. Slightly contracted gallbladder with diffuse gallbladder wall mild enhancem ent and pericholecystic fluid. Differential to consider is acute cholecystitis or acute hepatitis. Consider ultrasound evaluation of the gallbladder. 3. No bile duct dilatation. 4. No free fluid in the pelvis.
[2023-03-12] MEDS: ondansetron 2 mg/ML SDV 2 mL 4 MG IVP (11:12)
[2023-03-12] MEDS: LORazepam 2 mg/mL INJ 1 mL 1 MG IVP (11:12)
[2023-03-12] MEDS: iohexol 350 mg/mL 500 mL Btl (per mL) IV (11:29)
--- NOTE | 2023-03-12 11:49 | US_ITS ---
WS: [id number] RIGHT UPPER QUADRANT ULTRASOUND HISTORY: upper abdominal pain, n/v COMPARISON: 03/24/[address] 03/12/2023 Liver: 17.3 cm in length. Normal size liver with very echogenic portal triads. No bile duct dilatatio n or mass. Portal Vein: Normal hepatopetal flow with monophasic waveform. Gallbladder: Mildly contracted gallbladder with diffuse wall thickening and hyperemia. No stones or s ludge. There is a small amount of edema between the gallbladder and the liver. Wall measures up to 4. 2 mm. CBD: 0.3 cm Pancreas: Normal size and echogenicity. Right kidney: 10.7 cm in length. Normal size and echogenicity. No hydronephrosis or mass. Aorta and IVC: Unremarkable abdominal aorta and IVC. No ascites. US/US gall bladder [id number] IMPRESSION: 1. Minimally contracted gallbladder with diffuse gallbladder wall thickening h yperemia. No Reagan's sign. No stones or pericholecystic fluid. Consider chroni c cholecystitis or hepatocellular disease as etiologies. Less likely an acute c holecystitis. 2. No common bile duct dilatation. 3. Prominent portal triads throughout the liver. This can be seen with a very thin patient's or hepatitis.
[2023-03-12 12:00] VITALS: BP 166/115; PULSE 50; RESP 14; O2SAT 100
[2023-03-12 12:08] LABS: Add Urine Microscopic? NO; Charge for UA Resulting for Rev
[2023-03-12 12:12] LABS: Bilirubin Urine Neg (Negative); Blood Urine Neg (Negative); Glucose Urine UA 2+ (Normal); Ketones Urine 1+ (Negative); Leukocyte Esterase Urine Negative (Negative); Nitrate Urine Negative (Negative); Protein Urine Neg (Negative); Urine Appearance Clear (CLEAR); Urine Color Light yellow (Yellow); Urobilinogen Urine Norm (Negative); pH Urine 7 (5-7)
[2023-03-12 13:09] VITALS: RESP 16; O2SAT 98
[2023-03-12] MEDS: morphine 4 mg/mL SDV 1 mL IVP (13:09)
[2023-03-12 13:25] VITALS: BP 149/98; PULSE 60; RESP 16; O2SAT 99
--- NOTE | 2023-03-12 13:40 | DCPLANNER ---
Addendum entered by Francisca Mehta 03/14/23 09:20: branch operations manager called [facility] to confirm that facility had received patients information. branch operations manager was told that the facility did receive patients information, it will be reviewed and clinic will call patient with appointment information. Addendum entered by Francisca Mehta 03/13/23 13:59: Patient called director of casework back and stated that he would like his referral sent to [facility] in [place]. Addendum entered by Francisca Mehta 03/13/23 08:51: branch operations manager received the following message from general surgery regarding follow up appointment: Patient has [facility], please refer elsewhere branch operations manager called patient to explain this to patient, to see where patient would like director of casework to send the referral. branch operations manager called phone number [phone] - no answer at this time, and unable to leave a voicemail. Original Note: branch operations manager had message to schedule a follow up appointment for patient with general surgery. branch operations manager sent patients information to the front office staff at general surgery. Patients information will be printed and reviewed. Clinic will call patient with appointment information.
== END 2023-03-12 13:28 | disposition home or self-care (01) ==
PROVIDERS: Family Medicine; Emergency Provider Physician Assistant; PCP Family Medicine
DX: K81.1 Chronic cholecystitis (principal); F17.210 Nicotine dependence, cigarettes, uncomplicated
CPT/HCPCS: 36415; 74177; 76705; 80053; 81003; 83690; 85025; 96361; 96374; 96375; 99285; J2060; J2270; J2405; J2765; J7030; Q9967

== ENCOUNTER 2023-03-22 13:59 | Emergency (ER) | payer MEDICAID, SELFPAY ==
[2023-03-22 14:01] VITALS: BP 147/102; PULSE 118; RESP 15; TEMP 36.7; O2SAT 97; BMI 23.5
--- NOTE | 2023-03-22 14:24 | W.ED.ANXIETY ---
HPI - Anxiety General: Chief Complaint: Anxiety Stated Complaint: PSYCH EVAL Time Seen by Provider: 03/22/23 14:02 Source: patient Mode of arrival: EMS History of Present Illness: 22-year-old male presents emergency room via EMS with complaints of anxiety regarding some relationship issues with his as well as some lost opportunities at work which are quite expensive for him. He denies suicidal homicidal ideation states he is very anxious. States the only thing he thinks will work his medical marijuana for his anxiety. MD complaint: anxiety Severity: moderate Quality: intermittent Place: home Provoking factors: emotional stress Relieving factors: nothing Exacerbating factors: nothing Associated symptoms: Deny anorexia, chest pain, chills, confusion, diaphoresis, fever(s), headache(s), malaise, nausea, palpitations, short of breath, syncope, vomiting or weakness Review of Systems Const: Denies: fever(s), chills, fatigue, malaise or diaphoresis ENMT: Denies: throat pain, ear or mastoid pain, nasal discharge or nasal congestion Card: Denies: chest pain, palpitations or syncope Resp: Denies: dyspnea, productive cough or non-productive cough GI: Denies: nausea or vomiting : Denies: flank pain, dysuria, urinary frequency or urinary urgency Skin/Breast: Denies: rash or pruritus Neuro: Denies: headache(s) or confusion PFSH ED PFSH: Medical History No pertinent past medical history Surgical History H/O esophagogastroduodenoscopy (04/10/22) Family History Other Hypertension Social History Smoking and tobacco status: current every day smoker Alcohol intake: never Substance/Drug Use: never Physical Exam Const: GENERAL APPEARANCE: cooperative and anxious ORIENTATION/CONSCIOUSNESS: Yes awake, Yes oriented to person, Yes oriented to place and Yes oriented to time HENMT: COMMON NORMALS: normocephalic, atraumatic and hearing grossly normal bilaterally HEAD & SCALP: normocephalic and atraumatic Resp: COMMON NORMALS: normal respiratory effort, No retractions, No use of accessory muscles and clear to auscultation bilaterally AUSCULTATION: clear to auscultation bilaterally Cardio: COMMON NORMALS: regular rate, regular rhythm and No murmurs present (Cardio) RATE: regular rate RHYTHM: regular rhythm GI: COMMON NORMALS: Soft to palpation and No hepatosplenomegaly present AUSCULTATION: Yes normoactive bowel sounds PALPATION: Yes Soft to palpation, No Tenderness to palpation present (GI), No Guarding due to palpation present (GI) and Yes No hepatosplenomegaly present Extremity: COMMON NORMALS: normal to inspection, capillary refill normal, no clubbing, cyanosis or edema, no calf tenderness and no pedal edema Neuro: SENSORIUM/ORIENTATION: Yes oriented to person, Yes oriented to place and Yes oriented to time Skin: COMMON NORMALS: no rashes or lesions noted GENERAL SKIN EXAM: no rashes or lesions noted Course Vital Signs: Vital signs: Vital Signs Temperature 98.0 F 03/22/23 14:01 Pulse Rate 118 H 03/22/23 14:01 Respiratory Rate 15 03/22/23 14:01 Blood Pressure 147/102 03/22/23 14:01 Pulse Oximetry 97 03/22/23 14:01 Oxygen Delivery Me thod Room Air 03/22/23 14:01 MDM - Anxiety Medical Decision Making Patient seen today for anxiety recommend hydroxyzine 25 p.o. every 6 hours as needed. Start sertraline 25 daily for 6 days then increase to a full tablet daily retail planning manager will make arrangements for follow-up with [facility] [place] to establish care for medication management. Patient had Denies suicidal homicidal ideation. Medical Records I reviewed the patient's medical records. Lab Data I reviewed the patient's lab results. Discharge Plan Discharge Patient Disposition: Home Clinical Impression: Acute anxiety Condition: Stable Prescriptions: New hydroxyzine HCl 25 mg tablet 25 mg PO Q6H PRN (Reason: anxiety) Qty: 14 0RF sertraline 50 mg tablet 50 mg PO DAILY Qty: 30 0RF Rx Instructions: Half tablet daily x6 days then 1 full tablet daily. No Action famotidine 20 mg tablet 20 mg PO BID PRN (Reason: Abdominal Pain) acetaminophen [Tylenol Ex Str Rapid Release] 500 mg Tablet 500 - 1,500 mg PO Q6H PRN (Reason: Pain) amlodipine 5 mg Tablet 5 mg PO DAILY Zyprexa Zydis 10 mg tablet,disintegrating 10 mg PO Q8H PRN (Reason: nausea and vomiting) Qty: 14 0RF Ativan 2 mg tablet 2 mg buccal Q6H PRN (Reason: nausea and vomiting) Qty: 14 0RF chlorpromazine 25 mg tablet 25 mg PO TID Qty: 6 0RF promethazine 12.5 mg tablet 12.5 mg PO Q6H PRN (Reason: nausea and vomiting) Qty: 20 0RF hydrocodone-acetaminophen 5-325 mg tablet 1 tab PO Q6H PRN (Reason: pain) Qty: 10 0RF pantoprazole 40 mg tablet,delayed release (DR/EC) 40 mg PO BID Qty: 60 3RF ondansetron 4 mg tablet,disintegrating 4 mg PO Q8H PRN (Reason: nausea and vomiting) Qty: 20 0RF metoclopramide HCl [Reglan] 10 mg tablet 10 mg PO Q6H PRN (Reason: nausea and vomiting) Qty: 20 0RF Flomax 0.4 mg capsule 0.4 mg PO DAILY Qty: 10 0RF Reglan 10 mg tablet 10 mg PO Q6H PRN (Reason: nausea and vomiting) Qty: 30 0RF Discharge Orders: Discharge ED (Routine); Ordered 03/22/23 Ordered By: Larry Sinha Referrals: Anali Puri MD [Primary Care Provider] - Discharge Diet: Usual diet Discharge Activity: Resume usual activity Patient Instructions: Opioid Safety, Pain Management Activity Restrictions/Additional Instructions: You were seen today for anxiety. Recommend that you use the hydroxyzine at 1 every 6 hours as needed. Start sertraline half tablet daily for 6 days then a full tablet daily. Case management make arrangements for you to have intake and follow-up through [facility] [place]. Coding Level of Care Code ED Datacap Developer for Dee Dee Bennett
[2023-03-22] MEDS: LORazepam 2 mg Tablet PO (14:29)
--- NOTE | 2023-03-24 14:34 | DCPLANNER ---
manager mobility had message to refer patient to [facility] for services. Patient came back to the ER the next day and was admitted to the hospital.
== END 2023-03-22 14:44 | disposition home or self-care (01) ==
PROVIDERS: Emergency Provider Family Medicine; PCP Family Medicine
DX: F41.9 Anxiety disorder, unspecified (principal); F17.210 Nicotine dependence, cigarettes, uncomplicated
CPT/HCPCS: 99283

== ENCOUNTER 2023-03-23 17:48 | Inpatient (IN) | payer MEDICAID, SELFPAY ==
[2023-03-23 17:50] VITALS: BP 145/79; PULSE 112; RESP 15; TEMP 37.3; O2SAT 95
[2023-03-23] MEDS: diphenhydrAMINE 50 mg/mL SDV 1mL IM (18:45)
[2023-03-23] MEDS: LORazepam 2 mg/mL INJ 1 mL IM (18:45)
[2023-03-23] MEDS: haloperidol inj 5 mg/mL INJ 1 mL IM (18:45)
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
[2023-03-23 20:16] LABS: Basophils % 0.3 %; Eosinophils % 0.4 %; Hematocrit 39.3 % (42.0-52.0); Hemoglobin 13.3 g/dL (11.7-16.6); Lymphocytes # 1.5 10^3/uL (0.8-4.8); Lymphocytes % 17.1 %; Mean Corpuscular HGB Conc 33.8 g/dL (30.0-36.0); Mean Corpuscular Hemoglobin 28.7 pg (28.0-34.0); Mean Corpuscular Volume 84.7 fl (80-94); Mean Platelet Volume 9.3 fL (7.4-10.4); Monocytes # 0.6 10^3/uL (0.2-0.9); Monocytes % 6.7 %; Neutrophils # 6.73 10^3/uL (1.8-7.7); Neutrophils % 75.4 %; Nucleated Red Blood Cells % 0 %; Platelet Count 278 10^3/cmm (130-400); Red Blood Count 4.64 10^6/uL (4.1-5.3); Red Cell Distribution Width 11.6 % (12.1-15.1); White Blood Count 8.9 10^3/uL (4.0-10.0)
[2023-03-23 20:22] LABS: Alanine Aminotransferase 18 U/L (0-41); Albumin Level 4.3 g/dL (3.5-5.2); Alkaline Phosphatase 55 U/L (40-130); Anion Gap 14.7 (5-19); Aspartate Amino Transferase 45 U/L (0-40); Blood Urea Nitrogen 8 mg/dL (6-20); Calcium 9.1 mg/dL (8.5-10.5); Carbon Dioxide 25 mmol/L (22-29); Chloride 100 mmol/L (98-107); Globulin 2.4 g/dL (1.3-4.6); Glomerular Filtration Rate 106.5 mL/min (90-130); Glucose 71 mg/dL (65-115); Osmolality Calculated 279 mOsm/kg (285-295); Potassium 3.7 mmol/L (3.5-5.1); Sodium 136 mmol/L (136-145); Total Bilirubin 0.7 mg/dL (0.15-1.2); Total Protein 6.7 g/dL (6.6-8.7)
[2023-03-23 20:28] LABS: Acetaminophen < 5.0 ug/mL (10-30); Alcohol Level < 10 mg/dL (0-10); Salicylate < 0.3 mg/dL (3-10)
--- NOTE | 2023-03-23 20:33 | PC.NURSE ---
pt sleeping at this time.
--- NOTE | 2023-03-23 23:24 | PC.NURSE ---
NPU physician notified of pt refusal of UA and EKG. Will admit pt.
--- NOTE | 2023-03-24 00:15 | PC.NURSE ---
pt arrived to unit at 0000 via gurney from ER. pt refused to allow RN to do a physical or admission assessment at this time.
[2023-03-24] MEDS: hyDROXYzine 25 mg Capsule 50 MG PO ×3 (04:31→20:51)
--- NOTE | 2023-03-24 04:35 | PC.NURSE ---
pt requested hydroxyzine by name for increase anxiety. hydroxyzine 50mg po given.
--- NOTE | 2023-03-24 06:08 | PC.NURSE ---
pt resting quietly in room at this time.
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
[2023-03-24] MEDS: nicotine 21 mg Patch 1 PATCH TRANSDERMA (08:59)
[2023-03-24] MEDS: diphenhydrAMINE 50 mg Capsule PO (10:31)
[2023-03-24] MEDS: LORazepam 2 mg Tablet PO (10:31)
[2023-03-24] MEDS: nicotine 2 mg Gum BUCCAL ×4 (10:47→23:21)
--- NOTE | 2023-03-24 11:59 | PC.NURSE ---
pt removed and handed this nurse his nicotine patch at 1200. pt has been informed that he will not be able to get nicotine gum for 2 hours after removing this patch. pt stated to this RN if you do not give me what i need i will have a freak out. pt was reeducated on the nicotine time line.
[2023-03-24 13:49] VITALS: BP 126/89; PULSE 121; RESP 18; TEMP 36.4; O2SAT 98
[2023-03-24] MEDS: OLANZapine 5 mg ODT PO ×2 (14:39→20:51)
--- NOTE | 2023-03-24 14:39 | PC.NURSE ---
PRN ZYPREXA ZYDIS 5 MG GIVEN PO SUBLINGUAL PER PT C/O FURTHER ANXIETY/AGITATION
[2023-03-24] MEDS: ziprasidone 20 mg/mL SDV IM ×2 (15:59→23:36)
--- NOTE | 2023-03-24 16:20 | W.PM.BREST ---
Face to Face: Restrn/Seclusion Events leading up to initiation: Verbalizing threat to self or others, Demonstrating self-destructive behavior (cutting, hitting anderson etc.) and Combative/Striking out at staff or others Evaluation of patient's immediate situation: Signs of physical distress and Signs of psychological distress Patient reaction since intervention applied: De-escalation/no displays of violent/destructive behavior (Patient sleeping peacefully) Recent labs reviewed: Yes Review of medications: Yes Patient's current medical/behavioral condition: No new concerns since last ROS Need for restraint or seclusion is: No longer present Attending notified: Attending completed assessment
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
[2023-03-24] MEDS: trazodone 50 mg Tablet PO (20:51)
[2023-03-24 21:37] VITALS: RESP 16
[2023-03-24] MEDS: LORazepam 2 mg/mL INJ 1 mL IM (22:02)
[2023-03-24] MEDS: diphenhydrAMINE 50 mg/mL SDV 1mL IM (22:02)
--- NOTE | 2023-03-24 22:04 | PC.NURSE ---
2139 Pt Pacing to and from phone, anxious and agitated, asking for phone, making statements Being here is what is going to make me kill myself . I am suing all of you, you will all lose your jobs . I tried to do this the easy way but something is about to happen . Pt cursing, yelling at nurses, making threats. Pt escorted to room with additional staff support, pt went willingly. Administered prn medication as ordered.
[2023-03-24 23:30] VITALS: BP 133/79; PULSE 81; O2SAT 94
[2023-03-25] VITALS: BP 134/85; PULSE 91; RESP 18; O2SAT 96
[2023-03-25] MEDS: hyDROXYzine 25 mg Capsule 50 MG PO ×4 (03:30→20:23)
[2023-03-25] MEDS: OLANZapine 5 mg ODT PO ×5 (03:56→23:57)
[2023-03-25] MEDS: nicotine 2 mg Gum BUCCAL ×7 (04:15→20:23)
[2023-03-25 05:46] VITALS: BP 131/63; PULSE 108; RESP 16; TEMP 37; O2SAT 97
[2023-03-25 14:00] VITALS: BP 134/89; PULSE 113; RESP 20; TEMP 36.8; O2SAT 99
--- NOTE | 2023-03-25 14:19 | PC.NURSE ---
pt refusing to eat, he states he is to upset an if he eats he would throw up.
--- NOTE | 2023-03-25 15:56 | PC.NURSE ---
pt continues to be argumentative with staff and patients. called security to come to unit to speak with patient to de esculate. pt in his room at this time.
--- NOTE | 2023-03-25 17:30 | P.NPUPN_ITS ---
Subjective NPU Subjective: Patient presents today continuing to struggle with his self-control. He continues to deny any need for any mood stabilizers or any other medication and continues to demonstrate a need for a mood stabilizer given his irritability and inability to control his impulses. We discussed him needing to manage his impulses if his desire is to be discharged and not a 21-day hold submission. He seemed to feel like he had a great day and we discussed that he did not require a seclusion or restraint today but continued to be very challenged in his behavior Mental Status Exam MSE Comments: This is a slender, diminutive white male in hospital scrubs with adequate grooming and eye contact.? No abnormal movements except for psychomotor agitation.? Mostly uncooperative with exam in mild to extreme distress.? Speech was increased rate and volume.? Mood described as I will be fine when I get out of here, affect hyperkinetic.? Thought process organized.? Thought content: Patient denied suicidal or homicidal ideation, there were no delusions reported but some grandiose thinking and paranoia and possible persecutory delusions noted.? He denied auditory visual hallucinations.? Attention and concentration appeared intact and memory was somewhat unreliable but none were formally tested.? He is alert and oriented x3.? Insight, judgment and impulse control limited, versus impaired. Vitals/I&O/Wt Last Vital Signs Temp 97.2 F L 03/25/23 20:21 Pulse 122 H 03/25/23 20:21 Resp 18 03/25/23 20:21 BP 135/97 03/25/23 20:21 Pulse Ox 95 03/25/23 20:21 O2 Del Method Room Air 03/25/23 20:21 03/25/23 03/25/23 03/26/23 14:59 22:59 06:59 Intake Total 400 / 400 Balance 400 / 400 Weight last 48 hrs Weight 57.153 kg Data NPU 03/23/23 19:54 03/23/23 19:54 A&P Assessment and plan (1) Suicidal ideation: (2) Acute anxiety: (3) Polysubstance use disorder: (4) Psychosis: (5) Aggression: Plan The patient is a 22-year-old white male with no clear history of mental health challenges reported in the system with some history of cannabis use with an emergency room visit for hyperemesis who presented to the unit and to the hospital with a 96-hour hold and multiple affidavits of suicidal threats as well as aggressive behavior and threats to harm others resistant to treatment at this time demanding to be discharged. 1.? Consider an antipsychotic/mood stabilizer like Invega or Abilify with patien t's permission. 2? Continue every 15 minute checks for safety. 3.? Encourage individual, group and milieu therapies. 4.? Encourage sober living treatment after discharge at the highest level of care to which he is willing to commit Involuntary Hold Information 96 Hour Hold: 96 Hour Involuntary Admission: Yes 96 Hour Hold Ending Date: 03/28/23 96 Hour Hold Ending Time: 00:01 Attestations NPU Medical Necessity Statement*: Inpatient hospitalization is medically necessary and deemed to be the clinically appropriate decision at this time.? We will monitor/initiate medications and make changes as indicated.? Likely length of stay of 3-5 days. Coding Level of Care Code Acute Code for [facility] Fwd Diagnoses Suicidal ideation R45.851 Acute anxiety F41.9 Polysubstance use disorder F19.90 Psychosis F29 Aggression R46.89
--- NOTE | 2023-03-25 17:35 | PC.NURSE ---
pt up at nurses station stating wanting to start clean slate. attempting to bargin with staff for early release with a change of behavior. states he is needing to go home tomorrow for his dog. informed pt for the 20th time today that he will need to talk with the doctor about his discharge. but that we do appreciate any change in behavior towards staff.
--- NOTE | 2023-03-25 18:50 | PC.NURSE ---
pt came to nurses station requesting to be discharged stating he recieved a call an that his sister was , then when asked for more information he stated she wasnt but almost and that they called for him to come anabel to be there. pt continued to asked to be let go an he would come back but he needed to be with his sister now. pt then went to phone to call family member so they could call nurses station. pt then started saying that phone was not working upon looking at the switch to phone at the nurses station staff noticed the phone was still off from group. charge attendant asked pt who called pt with the news of his sisters . pt the stated it was his mom when asked what time did she called pt stated around 4pm when asked why he waited to let staff know till 1844 pt stated well you all wouldnt care anyway so that is why i didnt tell you. pt crying asking to be released that he would come back. he states that his cousin will be calling to inform us that this is true.
[2023-03-25 20:21] VITALS: BP 135/97; PULSE 122; RESP 18; TEMP 36.2; O2SAT 95
[2023-03-25] MEDS: trazodone 50 mg Tablet PO (20:36)
[2023-03-25] MEDS: diphenhydrAMINE 50 mg/mL SDV 1mL IM (21:36)
[2023-03-25] MEDS: LORazepam 2 mg/mL INJ 1 mL IM (21:37)
--- NOTE | 2023-03-25 21:45 | PC.NURSE ---
Pt has been becoming increasingly agitated t/o the beginning hours of the shift, stating that he can't sleep because he has to many thoughts in his head . Pt states that this nurse needs to give him the Benadryl because he cant sleep and this he believes is the only thing that will help him at this time. D/t increased agitation and pacing pt was administered Benadryl and lorazepam per orders. Pt then stated thank you, I can already feel it working and I'm getting tired. One on one redirection and care provided.
--- NOTE | 2023-03-25 23:49 | PC.NURSE ---
Pt becoming more agitated, as several pts are up wondering the halls at this time. Pt attempted to reach through the glass for a sharpie to write on the wall. The pt was instructed that he could not have them, pt then stated I want a pen to shove a pen up those nurses assess . Another pt told the pt that he didn't need to say that to the nurses. Pt briefly went to his room then came back out in the hallway,. attempted to go into another pt's room. Pt redirected at this time.
[2023-03-26] MEDS: LORazepam 2 mg/mL INJ 1 mL IM ×2 (00:38→04:37)
[2023-03-26] MEDS: diphenhydrAMINE 50 mg/mL SDV 1mL IM ×2 (00:38→04:37)
--- NOTE | 2023-03-26 00:41 | PC.NURSE ---
Pt still awake and exhibiting increased anxiety and agitation, wondering the halls and attempting to go into pts rooms at this time. Pt has to be redirected several times. Pt encouraged to lie down in bed, however continues to ambulate in the hallway attempting to go into other pts rooms and locked doors. Pt administered lorazepam and Benadryl per orders. One on one care and redirection provided.
[2023-03-26] MEDS: hyDROXYzine 25 mg Capsule 50 MG PO ×3 (02:15→18:53)
--- NOTE | 2023-03-26 03:04 | PC.NURSE ---
Pt still requiring one on one care and redirection at this time. Security is present. Pt con't to hallucinate and hear voices that are not present. Pt con't to exit seek. PRN medications have been administered with minimal to no effect. Attempted to contact Dr. Barba, no answer. Will retry phone call.
--- NOTE | 2023-03-26 03:09 | PC.NURSE ---
Attempt to reach Dr. Barba again no answer at this time. Pt is currently in his room with a sitter and security present. One on one care and redirection continues.
--- NOTE | 2023-03-26 04:38 | PC.NURSE ---
Pt con't to be anxious and agitated at this time. Con't to pace in his room and in the halls. One on one care remains minimally effective w/redirection. PRN Benadryl and Lorazepam administered per orders. Pt con't to have visual and auditory hallucinations. One on one care and redirection con't.
[2023-03-26 06:00] VITALS: RESP 20
[2023-03-26] MEDS: water for injection-sterile 10 ML (06:59)
[2023-03-26] MEDS: ziprasidone 20 mg/mL SDV IM (06:59)
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
--- NOTE | 2023-03-26 07:04 | PC.NURSE ---
Code 10 Code 10 activated due to pt aggression toward staff member. Physical restraint not initiated. Dr Barba contacted, verbal order for 20 mg IM Geodon ordered and administered.
--- NOTE | 2023-03-26 07:50 | W.PM.BREST ---
Face to Face: Restrn/Seclusion Events leading up to initiation: Verbalizing threat to self or others, Demonstrating self-destructive behavior (cutting, hitting anderson etc.) and Combative/Striking out at staff or others Evaluation of patient's immediate situation: No signs of physical distress (Patient sleeping) and No signs of psychological distress (Patient sleeping) Recent labs reviewed: Yes Review of medications: Yes Patient's current medical/behavioral condition: No new concerns since last ROS Need for restraint or seclusion is: No longer present Attending notified: Attending completed assessment
[2023-03-26 10:45] LABS: Bilirubin Urine Neg (Negative); Blood Urine Neg (Negative); Glucose Urine UA Norm (Normal); Ketones Urine 1+ (Negative); Nitrate Urine Negative (Negative); Protein Urine Trace (Negative); Urine Appearance Clear (CLEAR); Urine Color Yellow (Yellow); pH Urine 5 (5-7)
[2023-03-26 10:46] LABS: Add Urine Microscopic? YES; Leukocyte Esterase Urine Negative (Negative); Urobilinogen Urine Neg (Negative); WBC Urine RARE /hpf (0-5)
[2023-03-26 10:47] LABS: Add Urine Culture? No; Mucus Urine 4+ /hpf; Squamous Epithelial Cell Urine 0-4 /hpf (0-5)
[2023-03-26 10:48] LABS: Amphetamines Screen Urine Negative (Negative); Barbiturates Screen Urine Negative (Negative); Benzodiazepines Screen Urine Positive (Negative); Cocaine Screen Urine Negative (Negative); Opiate Screen Urine Negative (Negative); PCP Screen Urine Negative (Negative); THC Screen Urine Positive (Negative)
[2023-03-26] MEDS: nicotine 2 mg Gum BUCCAL ×4 (10:52→19:47)
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
--- NOTE | 2023-03-26 13:34 | W.PM.NPUPNS ---
Subjective NPU Subjective: Patient presented today for the second time as he was at least observed during his issues this morning. This was the second restraint since his hospitalization. He was sleep after receiving as needed medications morning during 1 hour observation. He continues to spend most of his time giving all the reasons why he was okay that he acted erratically and aggressively. We discussed the fact that tomorrow we have a decision about extending his hold and at the current moment with his current behavior pattern the likelihood will be a 21-day hold application. Mental Status Exam MSE Comments: This is a slender, diminutive white male in hospital scrubs with adequate grooming and eye contact.? No abnormal movements except for psychomotor agitation.? Mostly cooperative with exam in mild distress.? Speech was decreased rate and volume.? Mood described as I will be fine when I get out of here, affect slightly subdued.? Thought process organized.? Thought content: Patient denied suicidal or homicidal ideation, there were no delusions reported but some grandiose thinking and paranoia and possible persecutory delusions noted.? He denied auditory visual hallucinations.? Attention and concentration appeared intact and memory was somewhat unreliable but none were formally tested.? He is alert and oriented x3.? Insight, judgment and impulse control impaired. Vitals/I&O/Wt Last Vital Signs Temp 97.2 F L 03/25/23 20:21 Pulse 122 H 03/25/23 20:21 Resp 20 H 03/26/23 06:00 BP 135/97 03/25/23 20:21 Pulse Ox 95 03/25/23 20:21 O2 Del Method Room Air 03/25/23 20:21 Weight last 48 hrs Weight 57.153 kg Data NPU 03/23/23 19:54 03/23/23 19:54 A&P Assessment and plan (1) Suicidal ideation: (2) Acute anxiety: (3) Polysubstance use disorder: (4) Psychosis: (5) Aggression: Plan The patient is a 22-year-old white male with no clear history of mental health challenges reported in the system with some history of cannabis use with an emergency room visit for hyperemesis who presented to the unit and to the hospital with a 96-hour hold and multiple affidavits of suicidal threats as well as aggressive behavior and threats to harm others resistant to treatment at this time demanding to be discharged. 1.? Consider an antipsychotic/mood stabilizer like Invega or Abilify with patient's permission. 2? Continue every 15 minute checks for safety. 3.? Encourage individual, group and milieu therapies. 4.? Encourage sober living treatment after discharge at the highest level of care to which he is willing to commit Involuntary Hold Information 96 Hour Hold: 96 Hour Involuntary Admission: Yes 96 Hour Hold Ending Date: 03/28/23 96 Hour Hold Ending Time: 00:01 Attestations NPU Medical Necessity Statement*: Inpatient hospitalization is medically necessary and deemed to be the clinically appropriate decision at this time.? We will monitor/initiate medications and make changes as indicated.? Likely length of stay of 3-5 days. Coding Level of Care Code Acute Code for [facility] Fwd Diagnoses Suicidal ideation R45.851 Acute anxiety F41.9 Polysubstance use disorder F19.90 Psychosis F29 Aggression R46.89
[2023-03-26 14:00] VITALS: BP 131/83; PULSE 93; RESP 18; TEMP 36.6; O2SAT 99
[2023-03-26] MEDS: OLANZapine 5 mg ODT PO ×2 (15:00→19:46)
--- NOTE | 2023-03-26 15:06 | PC.NURSE ---
Patient anxious and emotional. Administered 5mg Zyprexa to patient. Encouraged patient to return to his room to rest. Will continue to monitor.
--- NOTE | 2023-03-26 16:56 | PC.NURSE ---
pt came to nurses station asking to leave. This RN reeducated that he cannot be discharged until the doctor see that he is ready. pt was reeducated that he is on a 96 hour hold. Pt stated I haven't got to speak with the doctor. pt was reminded that the doctor was in his room not to long ago speaking with him. pt stated that he wants to talk to him again. pt then proceeded to say i need to get out of this fucking place. if i do not get out of this place today once i get out i will shoot myself. pt was educated that those thoughts are part of the reason we cannot safely send him home. pt then stated this place makes me want to fucking kill myself, I never wanted to kill myself before i came to this fucking building. pt was reeducated as to why he was here. will monitor pt closely.
--- NOTE | 2023-03-26 18:54 | PC.NURSE ---
Patient anxious, patient was sitting on floor in front of nurses' station. Patient given Vistaril 50mg PO. Will continue to monitor.
[2023-03-26] MEDS: CLONazepam 1 mg Tablet PO (19:29)
[2023-03-26] MEDS: trazodone 50 mg Tablet PO (19:46)
[2023-03-26 21:07] VITALS: BP 133/89; PULSE 111; RESP 18; O2SAT 96
[2023-03-27] MEDS: nicotine 2 mg Gum BUCCAL ×7 (03:58→19:59)
[2023-03-27] MEDS: hyDROXYzine 25 mg Capsule 50 MG PO ×3 (04:29→17:25)
[2023-03-27] MEDS: OLANZapine 5 mg ODT PO ×3 (05:13→16:22)
[2023-03-27 06:00] VITALS: BP 124/78; PULSE 116; RESP 18; O2SAT 96
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
[2023-03-27] MEDS: LORazepam 1 mg Tablet PO (12:11)
[2023-03-27 14:00] VITALS: BP 151/106; PULSE 82; RESP 18; TEMP 36.2; O2SAT 99
[2023-03-27] MEDS: ARIPiprazole 10 mg Tablet PO (14:56)
--- NOTE | 2023-03-27 15:02 | P.NPUPN_ITS ---
Subjective NPU Subjective: Patient presented today reporting that he wanted to be discharged. He acknowledges that his impulse control has been poor and we discussed the risks, benefits and alternatives of him starting a trial of medication specifically Abilify and he understood and agreed to proceed as is documented in this note. We discussed the fact that his need to be restrained was suggestive that he was not ready for discharge and that we did submit 21-day hold paperwork. Mental Status Exam MSE Comments: This is a slender, diminutive white male in hospital scrubs with adequate grooming and eye contact.? No abnormal movements except for psychomotor agitation.? Mostly cooperative with exam in mild distress.? Speech was decreased rate and volume.? Mood described as I will be fine when I get out of here, aff ect slightly subdued.? Thought process organized.? Thought content: Patient denied suicidal or homicidal ideation, there were no delusions reported but some grandiose thinking and paranoia and possible persecutory delusions noted.? He denied auditory visual hallucinations.? Attention and concentration appeared intact and memory was somewhat unreliable but none were formally tested.? He is alert and oriented x3.? Insight, judgment and impulse control impaired. Vitals/I&O/Wt Last Vital Signs Temp 97.2 F L 03/27/23 14:00 Pulse 82 03/27/23 14:00 Resp 18 03/27/23 14:00 BP 151/106 03/27/23 14:00 Pulse Ox 99 03/27/23 14:00 O2 Del Method Room Air 03/27/23 14:00 Data NPU 03/23/23 19:54 03/23/23 19:54 A&P Assessment and plan (1) Suicidal ideation: (2) Acute anxiety: (3) Polysubstance use disorder: (4) Psychosis: (5) Aggression: Plan The patient is a 22-year-old white male with no clear history of mental health challenges reported in the system with some history of cannabis use with an emergency room visit for hyperemesis who presented to the unit and to the hospital with a 96-hour hold and multiple affidavits of suicidal threats as well as aggressive behavior and threats to harm others resistant to treatment at this time demanding to be discharged. 1.? Consider an antipsychotic/mood stabilizer like Invega or Abilify with patient's permission. Start Abilify 10 mg p.o. every morning. 2? Continue every 15 minute checks for safety. 3.? Encourage individual, group and milieu therapies. 4.? Encourage sober living treatment after discharge at the highest level of care to which he is willing to commit Involuntary Hold Information 96 Hour Hold: 96 Hour Involuntary Admission: Yes 96 Hour Hold Ending Date: 03/28/23 96 Hour Hold Ending Time: 00:01 Attestations NPU Medical Necessity Statement*: Inpatient hospitalization is medically necessary and deemed to be the clinically appropriate decision at this time.? We will monitor/initiate medications and make changes as indicated.? Likely length of stay of 3-5 days. Coding Level of Care Code Acute Code for [facility] Fwd Diagnoses Suicidal ideation R45.851 Acute anxiety F41.9 Polysubstance use disorder F19.90 Psychosis F29 Aggression R46.89
--- NOTE | 2023-03-27 16:37 | PC.NURSE ---
Very intrusive at the nurses' station. Requesting his phone for different reasons consistently even though multiple staff members have told him he is not allowed to have his phone. Patient stated, I left my windows down on my car and I need one of my buddies to go roll them up or rain will get in my car. The only way I can get ahold of them is through Snapchat. This RN explained to the patient why we could not let him have his phone to which he replied, I understand you have protocol, but I don't have any of my friends' numbers. I always call them on [employer]. This RN suggested calling someone on the extensive list of phone numbers he does have, but he stated none of them will answer. Patient also asked if he would be leaving tonight and when this RN told him he wouldn't be he went to the phone, didn't appear to call anyone, and then said he made a phone call to a baseball player and made an appointment for in the morning so he needed to leave tonight or in the morning. This RN informed him that discharging tonight or this morning was not possible at this time. He then stated, I believe I will be released tonight or in the morning because I've prayed about it.
[2023-03-27] MEDS: trazodone 50 mg Tablet PO (19:49)
[2023-03-27] MEDS: CLONazepam 1 mg Tablet PO (19:49)
[2023-03-27 19:55] VITALS: BP 141/95; PULSE 116; RESP 18; O2SAT 97
[2023-03-28] MEDS: hyDROXYzine 25 mg Capsule 50 MG PO ×3 (00:25→18:14)
[2023-03-28] MEDS: trazodone 50 mg Tablet PO ×3 (00:25→21:35)
[2023-03-28] MEDS: nicotine 2 mg Gum BUCCAL ×10 (00:29→21:33)
[2023-03-28] MEDS: OLANZapine 5 mg ODT PO ×4 (02:40→19:46)
[2023-03-28 06:00] VITALS: BP 134/85; PULSE 119; RESP 18; TEMP 37; O2SAT 97
[2023-03-28] MEDS: ARIPiprazole 10 mg Tablet PO (08:07)
--- NOTE | 2023-03-28 09:30 | PC.NURSE ---
PRN Medication Admin Patient becoming visibly anxious, pacing his room. This RN asked if the patient was feeling anxious and he replied, yes, very. I'm really nervous about going in front of the telesales manager because I don't want to be here 21 days. This RN explained to patient that if his stay did get extended it did not necessarily mean he would have to stay here for the full amount of time and that the doctor could rescind it at any time when he felt the patient was well enough to leave. The patient expressed relief after hearing this information. Vistaril 50mg PO was administered.
--- NOTE | 2023-03-28 10:32 | PC.NURSE ---
Patient left unit at [address]
--- NOTE | 2023-03-28 13:47 | W.PM.NPUPNS ---
Subjective NPU Subjective: Patient presented today reporting that he is doing better. We had the court date this morning and he was placed on a 21-day hold. He continues to show limited insight into why the treatment team felt this was the best path forward, but did not cause any additional challenges. We discussed him continuing to take his medication and working with Dr. Palumbo moving forward on his discharge possibly next week. Mental Status Exam MSE Comments: This is a slender, diminutive white male in hospital scrubs with adequate grooming and eye contact.? No abnormal movements except for psychomotor agitation.? Mostly cooperative with exam in mild distress.? Speech was decreased rate and volume.? Mood described as okay I guess, affect slightly subdued.? Thought process organized.? Thought content: Patient denied suicidal or homicidal ideation, there were no delusions reported but some grandiose thinking and paranoia and possible persecutory delusions noted.? He denied auditory visual hallucinations.? Attention and concentration appeared intact and memory was somewhat unreliable but none were formally tested.? He is alert and oriented x3.? Insight, judgment and impulse control impaired. Vitals/I&O/Wt Last Vital Signs Temp 98.6 F 03/28/23 06:00 Pulse 119 H 03/28/23 06:00 Resp 18 03/28/23 06:00 BP 134/85 03/28/23 06:00 Pulse Ox 97 03/28/23 06:00 O2 Del Method Room Air 03/28/23 06:00 Data NPU 03/23/23 19:54 03/23/23 19:54 A&P Assessment and plan (1) Suicidal ideation: (2) Acute anxiety: (3) Polysubstance use disorder: (4) Psychosis: (5) Aggression: Plan The patient is a 22-year-old white male with no clear history of mental health challenges reported in the system with some history of cannabis use with an emergency room visit for hyperemesis who presented to the unit and to the hospital with a 96-hour hold and multiple affidavits of suicidal threats as well as aggressive behavior and threats to harm others resistant to treatment at this time demanding to be discharged. 1.? Consider an antipsychotic/mood stabilizer like Invega or Abilify with patient's permission. Started Abilify 10 mg p.o. every morning. We will consider the intermuscular preparation. 2? Continue every 15 minute checks for safety. 3.? Encourage individual, group and milieu therapies. 4.? Encourage sober living treatment after discharge at the highest level of care to which he is willing to commit 5. Patient had a court hearing and placed on a 21-day hold today 03/28/2023. Involuntary Hold Information 96 Hour Hold: 96 Hour Involuntary Admission: Yes 96 Hour Hold Ending Date: 03/28/23 96 Hour Hold Ending Time: 00:01 Attestations NPU Medical Necessity Statement*: Inpatient hospitalization is medically necessary and deemed to be the clinically appropriate decision at this time.? We will monitor/initiate medications and make changes as indicated.? Likely length of stay of 3-5 days. Coding Level of Care Code Acute Code for [facility] Fwd Diagnoses Suicidal ideation R45.851 Acute anxiety F41.9 Polysubstance use disorder F19.90 Psychosis F29 Aggression R46.89
[2023-03-28 14:00] VITALS: BP 138/100; PULSE 100; RESP 20; TEMP 36.4; O2SAT 100
[2023-03-28] MEDS: calcium carbonate 500 mg Chew Tablet 1000 MG PO (17:42)
--- NOTE | 2023-03-28 18:11 | PC.NURSE ---
Patient wandering into other patients' rooms. This RN asked him to stay in his own room, the hallway, or the dayroom. Patient stated he was just not sure which room was mine.
[2023-03-28] MEDS: propranolol 20 mg Tablet 10 MG PO (18:12)
[2023-03-28] MEDS: CLONazepam 1 mg Tablet PO (19:46)
[2023-03-28 21:54] VITALS: BP 137/93; PULSE 102; RESP 18; TEMP 36.6; O2SAT 96
[2023-03-29] MEDS: OLANZapine 5 mg ODT PO ×3 (01:10→11:27)
[2023-03-29] MEDS: hyDROXYzine 25 mg Capsule 50 MG PO ×3 (01:10→14:17)
[2023-03-29] MEDS: nicotine 2 mg Gum BUCCAL ×9 (01:10→20:12)
[2023-03-29] MEDS: calcium carbonate 500 mg Chew Tablet 1000 MG PO ×3 (02:27→18:16)
[2023-03-29 06:00] VITALS: RESP 18
--- NOTE | 2023-03-29 07:53 | P.NPUPN_ITS ---
Subjective NPU Subjective: Patient presented today reporting that he is feeling better and feeling desirous to do limited treatment team needs to feel more comfortable with him discharging. He has not needed any physical interventions and has been taking medication as prescribed. We continue to discuss him taking a long-acting Abilify Maintena and discussed it moving to every 2 months likely in the next month. We discussed Dr. Palumbo coming tomorrow and him being the ultimate arbiter of his discharge plan. Mental Status Exam MSE Comments: This is a slender, diminutive white male in hospital scrubs with adequate g rooming and eye contact.? No abnormal movements except for mild psychomotor retardation.? Mostly cooperative with exam in no acute distress.? Speech was normal rate and decreased volume.? Mood described as feeling better, affect slightly subdued.? Thought process organized.? Thought content: Patient denied suicidal or homicidal ideation, there were no delusions reported or noted.? He denied auditory visual hallucinations.? Attention and concentration appeared intact and memory was somewhat unreliable but none were formally tested.? He is alert and oriented x3.? Insight and judgment are improving and impulse control limited, but improving. Vitals/I&O/Wt Last Vital Signs Temp 98.1 F 03/29/23 21:22 Pulse 91 03/29/23 21:22 Resp 18 03/29/23 21:22 BP 116/85 03/29/23 21:22 Pulse Ox 96 03/29/23 21:22 O2 Del Method Room Air 03/29/23 14:00 Data NPU 03/23/23 19:54 03/23/23 19:54 A&P Assessment and plan (1) Suicidal ideation: (2) Acute anxiety: (3) Polysubstance use disorder: (4) Psychosis: (5) Aggression: Plan The patient is a 22-year-old white male with no clear history of mental health challenges reported in the system with some history of cannabis use with an emergency room visit for hyperemesis who presented to the unit and to the hospital with a 96-hour hold and multiple affidavits of suicidal threats as well as aggressive behavior and threats to harm others resistant to treatment at this time demanding to be discharged. 1.? Continue current medication. Started Abilify 10 mg p.o. every morning. Patient reported willingness to start the Abilify Maintena. 2? Continue every 15 minute checks for safety. 3.? Encourage individual, group and milieu therapies. 4.? Encourage sober living treatment after discharge at the highest level of care to which he is willing to commit 5. Patient had a court hearing and placed on a 21-day hold today 03/28/2023. Involuntary Hold Information 96 Hour Hold: 96 Hour Involuntary Admission: Yes 96 Hour Hold Ending Date: 03/28/23 96 Hour Hold Ending Time: 00:01 Attestations NPU Medical Necessity Statement*: Inpatient hospitalization is medically necessary and deemed to be the clinically appropriate decision at this time.? We will monitor/initiate medications and make changes as indicated.? Likely length of stay of 3-5 days. Coding Level of Care Code Acute Code for [facility] Fwd Diagnoses Suicidal ideation R45.851 Acute anxiety F41.9 Polysubstance use disorder F19.90 Psychosis F29 Aggression R46.89
[2023-03-29] MEDS: propranolol 20 mg Tablet 10 MG PO ×2 (08:12→17:16)
[2023-03-29] MEDS: ARIPiprazole 10 mg Tablet PO (08:13)
[2023-03-29] MEDS: ibuprofen 600 mg Tablet PO (08:58)
[2023-03-29 14:00] VITALS: BP 138/95; PULSE 86; RESP 20; TEMP 36.8; O2SAT 97
--- NOTE | 2023-03-29 18:17 | PC.NURSE ---
Administered nicotine gum early due to patient dropping his first piece in the floor.
[2023-03-29] MEDS: trazodone 50 mg Tablet PO (20:12)
[2023-03-29] MEDS: CLONazepam 1 mg Tablet PO (20:12)
[2023-03-29 21:22] VITALS: BP 116/85; PULSE 91; RESP 18; TEMP 36.7; O2SAT 96
[2023-03-30] MEDS: hyDROXYzine 25 mg Capsule 50 MG PO ×4 (02:16→21:17)
[2023-03-30] MEDS: nicotine 2 mg Gum BUCCAL ×8 (02:16→21:41)
[2023-03-30] MEDS: trazodone 50 mg Tablet PO ×3 (02:16→21:17)
[2023-03-30] MEDS: OLANZapine 5 mg ODT PO ×2 (05:33→14:52)
[2023-03-30 06:00] VITALS: BP 117/77; PULSE 110; RESP 18; TEMP 36.6; O2SAT 98
[2023-03-30] MEDS: propranolol 20 mg Tablet 10 MG PO ×2 (08:19→17:23)
[2023-03-30] MEDS: ARIPiprazole 10 mg Tablet PO (08:20)
[2023-03-30] MEDS: calcium carbonate 500 mg Chew Tablet 1000 MG PO ×3 (08:28→21:18)
--- NOTE | 2023-03-30 08:50 | PC.NURSE ---
Patient rating anxiety high. Patient got into a verbal altercation with another patient. This nurse encouraged patient to keep his distance. Educated patient about being in control of his own emotions. Vistaril 50mg administered. Will continue to monitor.
[2023-03-30 14:00] VITALS: BP 123/90; PULSE 84; RESP 18; TEMP 36.3; O2SAT 96
--- NOTE | 2023-03-30 14:54 | PC.NURSE ---
Administered Zyprexa to patient for anxiety. Patient stated that his anxiety is through the roof .Patient states that he is having difficulty because he thought he was going to be released today. This nurse talked with patient to try to decrease anxiety. Efforts were not successful.
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
[2023-03-30] MEDS: CLONazepam 1 mg Tablet PO (19:42)
[2023-03-30 20:11] VITALS: BP 126/74; PULSE 88; RESP 18; TEMP 36.3; O2SAT 97
[2023-03-31] MEDS: nicotine 2 mg Gum BUCCAL ×9 (00:06→23:08)
[2023-03-31] MEDS: OLANZapine 5 mg ODT PO ×3 (02:18→22:07)
[2023-03-31 06:00] VITALS: BP 127/77; PULSE 93; RESP 18; TEMP 36.3; O2SAT 98
[2023-03-31] MEDS: propranolol 20 mg Tablet 10 MG PO ×2 (08:03→19:05)
[2023-03-31] MEDS: ARIPiprazole 10 mg Tablet 15 MG PO (08:04)
[2023-03-31] MEDS: pantoprazole DR 40 mg Tablet PO ×2 (08:05→19:02)
[2023-03-31] MEDS: calcium carbonate 500 mg Chew Tablet 1000 MG PO ×2 (08:27→13:19)
--- NOTE | 2023-03-31 08:27 | PC.NURSE ---
PRN TUMS 1,000 MG GIVEN PO CHEWABLE TABLETS PER PT C/O HEARTBURN
--- NOTE | 2023-03-31 08:33 | PC.NURSE ---
pt recieved scheduled propanalol. pulse was 107. BP was 118/80
[2023-03-31 08:34] VITALS: BP 118/80; PULSE 107
[2023-03-31] MEDS: hyDROXYzine 25 mg Capsule 50 MG PO ×2 (09:53→21:00)
--- NOTE | 2023-03-31 09:54 | PC.NURSE ---
PRN VISTARIL 50 MG GIVEN PO PER PT C/O STATED ANXIETY
--- NOTE | 2023-03-31 10:20 | PC.NURSE ---
attended Goals group at 0930
[2023-03-31 14:00] VITALS: BP 136/86; PULSE 88; RESP 18; TEMP 36.6; O2SAT 92
--- NOTE | 2023-03-31 14:38 | PC.NURSE ---
PRN ZYPREXA ZYDIS 5 MG GIVEN PO PER PT C/O STATED ANXIETY
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
--- NOTE | 2023-03-31 17:59 | PC.NURSE ---
asleep in bed in room, resp even et unlabored, nursing staff in room 2 times to wake patient to take scheduled medications & eat dinner. patient responded but did not get out of bed, nursing staff asked if we could bring meds to bedside, patient didn't respond because he fell back asleep. no s/s of distress noted. will cont to monitor & offer medications when patient is awake
[2023-03-31] MEDS: sertraline 50 mg Tablet 25 MG PO (19:02)
[2023-03-31] MEDS: ARIPiprazole Maintena 400 MG IM (19:03)
[2023-03-31 20:43] VITALS: BP 123/84; PULSE 98; RESP 18; TEMP 36.6; O2SAT 97
[2023-03-31] MEDS: CLONazepam 0.5 mg Tablet 0.75 MG PO (20:59)
[2023-03-31] MEDS: trazodone 50 mg Tablet PO (21:01)
[2023-04-01 04:47] VITALS: BP 104/68; PULSE 45
[2023-04-01 04:49] VITALS: BP 104/63; PULSE 43; RESP 20; O2SAT 99
--- NOTE | 2023-04-01 05:00 | PC.NURSE ---
0440-pt had unwitnessed fall in room. after hearing a commotion in the room this staff responded and found pt on his side lying in his bathroom door. states he fell after passing out. no injuries noted or reported. A/O X 3. pt does complain of some pain in the left deltoid from an earlier given injection site. pt helped up and back to his bed. vitals taken and are as follows: HR 45 BP 108/64 R 16 O2 99%. notified. will continue to monitor.
[2023-04-01 06:06] VITALS: RESP 16
[2023-04-01 06:07] VITALS: BP 129/82; PULSE 43; RESP 18; O2SAT 100
[2023-04-01] MEDS: ARIPiprazole 10 mg Tablet 15 MG PO (09:28)
[2023-04-01] MEDS: hyDROXYzine 25 mg Capsule 50 MG PO ×2 (09:29→14:30)
[2023-04-01] MEDS: propranolol 20 mg Tablet 10 MG PO (09:29)
[2023-04-01] MEDS: pantoprazole DR 40 mg Tablet PO (09:29)
[2023-04-01] MEDS: sertraline 50 mg Tablet 25 MG PO (09:29)
[2023-04-01] MEDS: nicotine 2 mg Gum BUCCAL ×2 (09:35→12:07)
[2023-04-01] MEDS: acetaminophen 325 mg Tablet 650 MG PO (12:47)
[2023-04-01] MEDS: OLANZapine 5 mg ODT PO (13:11)
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
[2023-04-01 15:24] VITALS: BP 129/82; PULSE 43; RESP 18; O2SAT 100
== END 2023-04-01 15:55 | disposition home or self-care (01) | DRG 886 ==
LOC: ER 22:02 → NP 03-24 07:31
PROVIDERS: Admitting Provider Psychiatry & Neurology Psychiatry; Emergency Provider Emergency Medicine; PCP Family Medicine; Visit Provider Psychiatry & Neurology Psychiatry
DX: F91.1 Conduct disorder, childhood-onset type (principal); R45.851 Suicidal ideations; F32.A Depression, unspecified; R45.850 Homicidal ideations; Z63.0 Problems in relationship with spouse or partner; F17.200 Nicotine dependence, unspecified, uncomplicated; F41.9 Anxiety disorder, unspecified; F19.90 Other psychoactive substance use, unspecified, uncomplicated; F43.10 Post-traumatic stress disorder, unspecified
CPT/HCPCS: 36415; 80053; 80306; 80307; 81001; 85025; 96372; 97150; 97165; 99285; 99291; J1200; J1630; J2060; J3486; Q0163

== ENCOUNTER 2023-04-23 16:01 | Emergency (ER) | payer MEDICAID, SELFPAY ==
--- NOTE | 2023-04-23 16:37 | XRR_ITS ---
PROCEDURE INFORMATION: Exam: XR Chest Exam date and time: 04/23/2023 5:01 PM Age: 22 years old Clinical indication: Fever TECHNIQUE: Imaging protocol: Radiologic exam of the chest. Views: 1 view. COMPARISON: CR XR chest 1V portable [id number] 08/21/2022 12:57 PM FINDINGS: Lungs: Unremarkable. No consolidation. Pleural spaces: Unremarkable. No pleural effusion. No pneumothorax. Heart/Mediastinum: Unremarkable. No cardiomegaly. Bones/joints: Unremarkable for age. XR/XR chest 1V portable [id number] IMPRESSION: Negative chest
[2023-04-23 16:52] VITALS: BP 104/63; PULSE 60; RESP 18; TEMP 36.7; O2SAT 95; BMI 19.3
[2023-04-23 18:19] LABS: Basophils % 0.1 %; Hematocrit 51.7 % (42.0-52.0); Hemoglobin 17.5 g/dL (11.7-16.6); Lymphocytes % 9.7 %; Mean Corpuscular HGB Conc 33.8 g/dL (30.0-36.0); Mean Corpuscular Hemoglobin 29.1 pg (28.0-34.0); Mean Platelet Volume 11.6 fL (7.4-10.4); Monocytes # 1.3 10^3/uL (0.2-0.9); Monocytes % 6.3 %; Neutrophils # 16.98 10^3/uL (1.8-7.7); Neutrophils % 83.5 %; Nucleated Red Blood Cells % 0 %; Platelet Count 284 10^3/cmm (130-400); Red Blood Count 6.01 10^6/uL (4.1-5.3); Red Cell Distribution Width 13.2 % (12.1-15.1); White Blood Count 20.4 10^3/uL (4.0-10.0)
[2023-04-23] MEDS: ondansetron 2 mg/ML SDV 2 mL 4 MG IVP (18:28)
[2023-04-23] MEDS: lactated ringers 1,000 ML 999 ML IV (18:29)
[2023-04-23 18:41] LABS: Alanine Aminotransferase 25 U/L (0-41); Alkaline Phosphatase 85 U/L (40-130); Aspartate Amino Transferase 24 U/L (0-40); Blood Urea Nitrogen 17 mg/dL (6-20); Calcium 10.2 mg/dL (8.5-10.5); Carbon Dioxide 25 mmol/L (22-29); Glomerular Filtration Rate 106.5 mL/min (90-130); Glucose 109 mg/dL (65-115); Lipase 21 U/L (13-60); Osmolality Calculated 290 mOsm/kg (285-295); Sodium 139 mmol/L (136-145)
--- NOTE | 2023-04-23 18:44 | ED_ITS ---
HPI - Nausea/Vomiting/Diarrhea General: Chief complaint: Nausea/Vomiting/Diarrhea Stated complaint: N/V Fever Time Seen by Provider: 04/23/23 18:01 History of Present Illness: 22-year-old male patient admits to drinking heavily last night with frequent episodes of nausea and vomiting and epigastric pain. Patient reports a history of gallbladder disease but this does not remind him of that type of pain. Patient appears unwell but not toxic. Patient appears in mild to moderate pain. Associated nausea: Yes Associated symtoms: Reports nausea; Denies chest pain or headache(s) Review of Systems General: Reports: 10 or more systems reviewed and unremarkable except in HPI and below Const: Reports: chills ENMT: Denies: throat pain Card: Denies: chest pain Resp: Denies: dyspnea GI: Reports: abdominal pain, nausea and vomiting; Denies: diarrhea or constipation : Denies: difficulty urinating Musc: Denies: neck pain or back pain Skin/Breast: Denies: rash Neuro: Denies: headache(s) PFSH ED PFSH: Medical History No pertinent past medical history Surgical History H/O esophagogastroduodenoscopy (04/10/22) Family History Other Hypertension Social History Smoking and tobacco status: current every day smoker Alcohol intake: never Substance/Drug Use: never Physical Exam Const: COMMON NORMALS: alert HENMT: COMMON NORMALS: normocephalic HEAD & SCALP: normocephalic THROAT: posterior oropharynx abnormal erythema Neck/C-Spine: COMMON NORMALS: full ROM Resp: COMMON NORMALS: normal respiratory effort and clear to auscultation bilaterally AUSCULTATION: clear to auscultation bilaterally Cardio: COMMON NORMALS: regular rate and regular rhythm RATE: regular rate RHYTHM: regular rhythm GI: COMMON NORMALS: Soft to palpation AUSCULTATION: Yes normoactive bowel sounds PALPATION: Yes Soft to palpation and Yes Tenderness to palpation present (GI) (Epigastric) Extremity: COMMON NORMALS: no pedal edema Neuro: SENSORIUM/ORIENTATION: Yes alert Skin: COMMON NORMALS: no rashes or lesions noted GENERAL SKIN EXAM: no rashes or lesions noted Course Vital Signs: Vital signs: Vital Signs Temperature 98.1 F 04/23/23 16:52 Pulse Rate 60 04/23/23 16:52 Respiratory Rate 18 04/23/23 16:52 Blood Pressure 104/63 04/23/23 16:52 Pulse Oximetry 95 04/23/23 16:52 Oxygen Delivery Me thod Room Air 04/23/23 16:52 MDM - Nausea/Vomiting/Diarrhea Medical Decision Making 22-year-old male patient comes in today for complaints of nausea vomiting abdominal pain. On exam patient appears nontoxic and in mild pain. Bowel sounds are present. Patient has some epigastric tenderness. Skin is warm and dry. Vital signs are normal. Differential diagnosis includes but not limited to gastroenteritis, gastritis due to alcohol, cyclic vomiting syndrome, gallbladder disease. Patient's lab noted some mild leukocytosis of 20,000 white count, elevation in hemoglobin at 17.5, increasing anion gap, glucose 109, sodium 139, potassium 3.9. Patient has of dehydration most likely due to gastritis secondary to alcohol consumption. Patient was given 2 L of IV fluids and medications for gastritis, pain, and nausea. Patient was able to hold down fluids and felt much improved after treatment. Patient was released to home recommendations for further treatment and follow-up. Lab Data 04/23/23 18:00 04/23/23 18:00 Radiology Impressions Chest X-Ray 04/23/23 16:37 IMPRESSION: Negative chest Laboratory Results WBC 20.4 10^3/uL (4.0-10.0) H 04/23/23 18:00 RBC 6.01 10^6/uL (4.1-5.3) H 04/23/23 18:00 Hgb 17.5 g/dL (11.7-16.6) H 04/23/23 18:00 Hct 51.7 % (42.0-52.0) 04/23/23 18:00 MCV 86.0 fl (80-94) 04/23/23 18:00 MCH 29.1 pg (28.0-34.0) 04/23/23 18:00 MCHC 33.8 g/dL (30.0-36.0) 04/23/23 18:00 RDW 13.2 % (12.1-15.1) 04/23/23 18:00 Plt Count 284 10^3/cmm (130-400) 04/23/23 18:00 MPV 11.6 fL (7.4-10.4) H 04/23/23 18:00 Neut % (Auto) 83.5 % 04/23/23 18:00 Lymph % (Auto) 9.7 % 04/23/23 18:00 [place] % (Auto) 6.3 % 04/23/23 18:00 Eos % (Auto) 0.0 % 04/23/23 18:00 Baso % (Auto) 0.1 % 04/23/23 18:00 Neut # (Auto) 16.98 10^3/uL (1.8-7.7) H 04/23/23 18:00 Lymph # (Auto) 2.0 10^3/uL (0.8-4.8) 04/23/23 18:00 [place] # (Auto) 1.3 10^3/uL (0.2-0.9) H 04/23/23 18:00 Eos # (Auto) 0.0 10^3/uL (0.0-0.8) 04/23/23 18:00 Baso # (Auto) 0.0 10^3/uL (0.0-0.1) 04/23/23 18:00 Nucleated RBC % (auto) 0 % 04/23/23 18:00 Nucleated RBCs # 0.0 /100WBC 04/23/23 18:00 Sodium 139 mmol/L (136-145) 04/23/23 18:00 Potassium 3.9 mmol/L (3.5-5.1) 04/23/23 18:00 Chloride 97 mmol/L (98-107) L 04/23/23 18:00 Carbon Dioxide 25 mmol/L (22-29) 04/23/23 18:00 Anion Gap 20.9 (5-19) H 04/23/23 18:00 BUN 17 mg/dL (6-20) 04/23/23 18:00 Creatinine 0.9 mg/dL (0.7-1.2) 04/23/23 18:00 GFR Calculation 106.5 mL/min (90-130) 04/23/23 18:00 Glucose 109 mg/dL (65-115) 04/23/23 18:00 Calculated Osmolality 290 mOsm/kg (285-295) 04/23/23 18:00 Calcium 10.2 mg/dL (8.5-10.5) 04/23/23 18:00 Total Bilirubin 2.0 mg/dL (0.15-1.2) H 04/23/23 18:00 AST 24 U/L (0-40) 04/23/23 18:00 ALT 25 U/L (0-41) 04/23/23 18:00 Alkaline Phosphatase 85 U/L (40-130) 04/23/23 18:00 Total Protein 9.1 g/dL (6.6-8.7) H 04/23/23 18:00 Albumin 5.6 g/dL (3.5-5.2) H 04/23/23 18:00 Globulin 3.5 g/dL (1.3-4.6) 04/23/23 18:00 Lipase 21 U/L (13-60) 04/23/23 18:00 Discharge Plan Discharge Patient Disposition: Home Clinical Impression: Dehydration Gastritis Qualifiers: Gastritis type: superficial Chronicity: acute Gastritis bleeding: without bleeding Qualified Code(s): K29.00 - Acute gastritis without bleeding Condition: Stable Prescriptions: New ondansetron 4 mg tablet,disintegrating 4 mg PO Q8H PRN (Reason: nausea and vomiting) Qty: 10 0RF pantoprazole 20 mg tablet,delayed release (DR/EC) 20 mg PO DAILY Qty: 14 0RF No Action acetaminophen 500 mg Tablet 500 - 1,500 mg PO Q6H PRN (Reason: Pain) aripiprazole 15 mg tablet 15 mg PO DAILY 14 Days Qty: 14 1RF clonazepam 0.5 mg Tablet 0.5 mg PO BEDTIME 30 Days Qty: 30 0RF pantoprazole 40 mg Tablet,Delayed Release (Dr/Ec) 40 mg PO BID 30 Days Qty: 60 1RF sertraline 50 mg Tablet 25 mg PO DAILY 30 Days Qty: 30 1RF hydroxyzine pamoate 25 mg Capsule 25 mg PO TID 30 Days Qty: 90 1RF trazodone 50 mg Tablet 50 mg PO BEDTIME PRN (Reason: Sleep) 30 Days Qty: 30 1RF propranolol 10 mg tablet 10 mg PO BID 30 Days Qty: 60 1RF Abilify Maintena 400 mg suspension,extended rel recon 400 mg IM Q28D Qty: 1 1RF Rx Instructions: Patient due to receive this shot on [facility]. olanzapine 5 mg tablet,disintegrating 5 mg PO QPM Qty: 30 1RF Discharge Orders: Discharge ED (Routine); Ordered 04/23/23 Ordered By: Hadley Hudson Referrals: Anali Puri MD [Primary Care Provider] - Discharge Diet: Usual diet Discharge Activity: Increase activity as tolerated Patient Instructions: Dehydration (ED) Activity Restrictions/Additional Instructions: Drink plenty of water and fluids. Activity as tolerated. Take pantoprazole daily for the next 2 weeks. Avoid binge drinking and heavy alcohol consumption. Follow-up with primary care in 2 to 3 days. Return to ED for new concerns. Coding Level of Care Code ED Supervisor [employer] for Dee Dee Bennett
[2023-04-23 18:46] LABS: Anion Gap 20.9 (5-19); Chloride 97 mmol/L (98-107); Potassium 3.9 mmol/L (3.5-5.1)
[2023-04-23 18:49] LABS: Albumin Level 5.6 g/dL (3.5-5.2)
[2023-04-23 18:50] LABS: Globulin 3.5 g/dL (1.3-4.6); Total Protein 9.1 g/dL (6.6-8.7)
[2023-04-23] MEDS: morphine 4 mg/mL SDV 1 mL 2 MG IVP (19:10)
[2023-04-23] MEDS: sodium chloride 0.9% 1,000 ML 999 ML IV (19:11)
[2023-04-23] MEDS: pantoprazole 40 mg SDV IVP (19:11)
== END 2023-04-23 20:25 | disposition home or self-care (01) ==
PROVIDERS: Physician Assistant; Emergency Provider Nurse Practitioner Family; PCP Family Medicine
DX: K29.00 Acute gastritis without bleeding (principal)
CPT/HCPCS: 36415; 71045; 80053; 83690; 85025; 96374; 96375; 99284; C9113; J2270; J2405; J7030; J7120

== ENCOUNTER 2023-05-09 18:07 | Emergency (ER) | payer MEDICAID, SELFPAY ==
[2023-05-09 18:22] VITALS: BP 156/93; PULSE 51; RESP 14; TEMP 36.6; O2SAT 100
[2023-05-09 19:53] LABS: Basophils % 0.2 %; Eosinophils % 0.1 %; Hematocrit 44.2 % (42.0-52.0); Hemoglobin 15.1 g/dL (11.7-16.6); Lymphocytes # 0.8 10^3/uL (0.8-4.8); Lymphocytes % 4.5 %; Mean Corpuscular HGB Conc 34.2 g/dL (30.0-36.0); Mean Corpuscular Hemoglobin 28.9 pg (28.0-34.0); Mean Corpuscular Volume 84.5 fl (80-94); Mean Platelet Volume 9.3 fL (7.4-10.4); Monocytes # 0.6 10^3/uL (0.2-0.9); Monocytes % 3.5 %; Neutrophils # 16.65 10^3/uL (1.8-7.7); Neutrophils % 91.3 %; Nucleated Red Blood Cells % 0 %; Platelet Count 260 10^3/cmm (130-400); Red Blood Count 5.23 10^6/uL (4.1-5.3); Red Cell Distribution Width 12.6 % (12.1-15.1); White Blood Count 18.2 10^3/uL (4.0-10.0)
[2023-05-09] MEDS: sodium chloride 0.9% 1,000 ML 999 ML IV (19:56)
[2023-05-09] MEDS: ondansetron 2 mg/ML SDV 2 mL 4 MG IVP (19:57)
[2023-05-09 20:00] VITALS: BP 164/98; PULSE 52; RESP 16; O2SAT 100
--- NOTE | 2023-05-09 20:11 | CTR_ITS ---
PROCEDURE INFORMATION: Exam: CT Abdomen And Pelvis With Contrast Exam date and time: 05/09/2023 8:36 PM Age: 22 years old Clinical indication: Abdominal pain; Localized; Left lower quadrant (llq); Patient HX: Vomiting; Additional info: Llq pain TECHNIQUE: Imaging protocol: Computed tomography of the abdomen and pelvis with contrast. Radiation optimization: All CT scans at this facility use at least one of these dose optimization techniques: automated exposure control; mA and/or kV adjustment per patient size (includes targeted exams where dose is matched to clinical indication); or iterative reconstruction. Contrast material: OMNI 350; Contrast volume: 100 ml; Contrast route: INTRAVENOUS (IV); REPORTING DATA: Count of CT and Cardiac NM exams in prior 12 months: This patient has received 5 known CTs and 0 known cardiac nuclear medicine studies in the 12 months prior to the current study. COMPARISON: CT abdomen pelvis w con* [id number] 03/12/2023 11:19 AM RADIATION DOSE METRICS: Total DLP (mGy-cm): 324.71 FINDINGS: Liver: Periportal edema may be related to hydration status. Gallbladder and bile ducts: Normal. No calcified stones. No ductal dilation. Pancreas: Normal. No ductal dilation. Spleen: Normal. No splenomegaly. Adrenal glands: Normal. No mass. Kidneys and ureters: Normal. No hydronephrosis. Stomach and bowel: Mildly prominent fluid in the distal small bowel may reflect an enteritis. Constipation. Appendix: No evidence of appendicitis. Intraperitoneal space: Unremarkable. No free air. No significant fluid collection. Vasculature: Unremarkable. No abdominal aortic aneurysm. Lymph nodes: Unremarkable. No enlarged lymph nodes. Urinary bladder: Unremarkable as visualized. Reproductive: Unremarkable as visualized. Bones/joints: Unremarkable. No acute fracture. Soft tissues: Unremarkable. CT/CT abdomen pelvis w con* [id number] IMPRESSION: 1. Mildly prominent fluid in the distal small bowel may reflect an enteritis. 2. Periportal edema may be related to hydration status. 3. Constipation.
[2023-05-09 20:12] LABS: Alanine Aminotransferase 12 U/L (0-41); Albumin Level 4.9 g/dL (3.5-5.2); Alkaline Phosphatase 88 U/L (40-130); Anion Gap 20.8 (5-19); Aspartate Amino Transferase 19 U/L (0-40); Blood Urea Nitrogen 12 mg/dL (6-20); Calcium 9.2 mg/dL (8.5-10.5); Carbon Dioxide 24 mmol/L (22-29); Chloride 99 mmol/L (98-107); Globulin 2.9 g/dL (1.3-4.6); Glucose 145 mg/dL (65-115); Lipase 13 U/L (13-60); Osmolality Calculated 292 mOsm/kg (285-295); Potassium 3.8 mmol/L (3.5-5.1); Sodium 140 mmol/L (136-145); Total Bilirubin 0.4 mg/dL (0.15-1.2); Total Protein 7.8 g/dL (6.6-8.7)
[2023-05-09] MEDS: pantoprazole 40 mg SDV IVP (20:17)
[2023-05-09] MEDS: ketorolac 30 mg/mL INJ 15 MG IVP (20:18)
[2023-05-09] MEDS: morphine 4 mg/mL SDV 1 mL IVP (20:18)
--- NOTE | 2023-05-09 20:26 | PC.NURSE ---
pt. jumped up out of bed to go to restroom, pt. refuses to use urinal in room.I gave him a urinal for specimen sample before entering the restroom. pt. came out and back to room and states he couldn't go.
[2023-05-09 21:37] LABS: Add Urine Microscopic? YES; Bilirubin Urine Neg (Negative); Blood Urine Neg (Negative); Glucose Urine UA 2+ (Normal); Ketones Urine 1+ (Negative); Leukocyte Esterase Urine Negative (Negative); Nitrate Urine Negative (Negative); Protein Urine Trace (Negative); Specific Gravity, Urine 1.015 (1.005-1.030); Urine Appearance Clear (CLEAR); Urine Color Yellow (Yellow); Urobilinogen Urine Norm (Negative); pH Urine 6 (5-7)
[2023-05-09 21:39] LABS: Add Urine Culture? No; Mucus Urine 2+ /hpf; RBC Urine 0-4 /hpf (0-2); WBC Urine 0-4 /hpf (0-5)
[2023-05-09 22:07] LABS: Amphetamines Screen Urine Negative (Negative); Barbiturates Screen Urine Negative (Negative); Benzodiazepines Screen Urine Negative (Negative); Cocaine Screen Urine Negative (Negative); Opiate Screen Urine Positive (Negative); PCP Screen Urine Negative (Negative); THC Screen Urine Positive (Negative)
[2023-05-09 22:43] VITALS: BP 157/86; PULSE 55; RESP 18; O2SAT 100
--- NOTE | 2023-05-10 04:33 | W.ED.ABDPA2 ---
HPI - Abdominal Pain General: Chief Complaint: Abdominal Pain Stated Complaint: fever, vomiting Time Seen by Provider: 05/09/23 19:26 Source: patient History of Present Illness: 22-year-old male patient well-known to the emergency room service. He presents with vomiting and epigastric pain. He notes several episodes of vomiting today. Epigastric pain has been significant as well. He has felt feverish. No diarrhea. He has had similar presentations in the past. MD elicited complaint: abdominal pain Pertinent past history: other Onset (ago): hour(s) Pain Consistency: constant Location: Epigastric Severity: severe Quality: cramping and stabbing Radiation: none Migration to: no migration Exacerbating factors: nothing Associated Symptoms: Reports nausea, poor appetite and vomiting; Denies bloating, change in stool character, coffee ground emesis, constipation, diarrhea, fever(s), hematochezia, hematuria and hematemesis Review of Systems Const: Denies: fever(s) ENMT: Denies: throat pain Card: Denies: chest pain Resp: Denies: dyspnea GI: Reports: nausea and vomiting; Denies: hematemesis, coffee ground emesis, diarrhea, constipation, bloating, change in stool character or hematochezia : Denies: flank pain or hematuria Skin/Breast: Denies: rash Psych: Reports: anxiety PFSH ED PFSH: Medical History No pertinent past medical history Surgical History H/O esophagogastroduodenoscopy (04/10/22) Family History Other Hypertension Social History Smoking and tobacco status: current every day smoker Alcohol intake: never Substance/Drug Use: never Physical Exam Const: COMMON NORMALS: no acute distress GENERAL APPEARANCE: cooperative; not ill appearing and not frail appearing HENMT: COMMON NORMALS: normocephalic, atraumatic and Normal external nose present HEAD & SCALP: normocephalic and atraumatic FACE & SINUS: normal facial exam and face symmetric NOSE: Normal external nose present Eye: COMMON NORMALS: Equal, round and reactive pupils present and EOMs intact bilaterally PUPIL: Yes Equal, round and reactive pupils present Neck/C-Spine: GENERAL: Yes trachea midline Chest: CHEST: Yes Symmetrical chest wall rise Resp: COMMON NORMALS: normal respiratory effort, No retractions, No use of accessory muscles and clear to auscultation bilaterally AUSCULTATION: clear to auscultation bilaterally Cardio: COMMON NORMALS: regular rate and regular rhythm RATE: regular rate RHYTHM: regular rhythm GI: COMMON NORMALS: Normal to inspection, nondistended, normoactive bowel sounds present PALPATION: Yes Tenderness to palpation present (GI) (Epigastric) and Yes Guarding due to palpation present (GI) Extremity: COMMON NORMALS: no pedal edema Neuro: DELORIS COMA SCALE: document GCS findings Deloris coma scale eye opening: Spontaneous Deloris coma scale verbal response: Orientated [place] coma scale motor response: Obey commands [place] coma scale total score: 15 SENSORY EXAM: Yes extremities (intact) Psych: COMMON NORMALS: speech normal SPEECH: Yes normal speech Skin: COMMON NORMALS: no rashes or lesions noted GENERAL SKIN EXAM: no rashes or lesions noted Course Vital Signs: Vital signs: Vital Signs Temperature 97.9 F 05/09/23 18:22 Pulse Rate 55 L 05/09/23 22:43 Respiratory Rate 18 05/09/23 22:43 Blood Pressure 157/86 05/09/23 22:43 Pulse Oximetry 100 05/09/23 22:43 Oxygen Delivery Me thod Room Air 05/09/23 22:43 MDM - Abdominal Pain Medical Decision Making His vitals are stable. No further vomiting here. He has a white blood cell count of 18. Other laboratory parameters are normal. His CRP is 3. CT shows mildly prominent fluid in the distal small bowel, which is nonspecific. Urine drug screen is positive for marijuana. This is more likely a cyclic vomiting type scenario. With no more vomiting since he has been here, he will be discharged with a prescription of Zofran. Lab Data 05/09/23 19:45 05/09/23 19:45 Labs/Radiology: Radiology Impressions Abdomen/Pelvis CT 05/09/23 20:11 IMPRESSION: 1. Mildly prominent fluid in the distal small bowel may reflect an enteritis. 2. Periportal edema may be related to hydration status. 3. Constipation. Laboratory Results WBC 18.2 10^3/uL (4.0-10.0) H 05/09/23 19:45 RBC 5.23 10^6/uL (4.1-5.3) 05/09/23 19:45 Hgb 15.1 g/dL (11.7-16.6) 05/09/23 19:45 Hct 44.2 % (42.0-52.0) 05/09/23 19:45 MCV 84.5 fl (80-94) 05/09/23 19:45 MCH 28.9 pg (28.0-34.0) 05/09/23 19:45 MCHC 34.2 g/dL (30.0-36.0) 05/09/23 19:45 RDW 12.6 % (12.1-15.1) 05/09/23 19:45 Plt Count 260 10^3/cmm (130-400) 05/09/23 19:45 MPV 9.3 fL (7.4-10.4) 05/09/23 19:45 Neut % (Auto) 91.3 % 05/09/23 19:45 Lymph % (Auto) 4.5 % 05/09/23 19:45 [place] % (Auto) 3.5 % 05/09/23 19:45 Eos % (Auto) 0.1 % 05/09/23 19:45 Baso % (Auto) 0.2 % 05/09/23 19:45 Neut # (Auto) 16.65 10^3/uL (1.8-7.7) H 05/09/23 19:45 Lymph # (Auto) 0.8 10^3/uL (0.8-4.8) 05/09/23 19:45 [place] # (Auto) 0.6 10^3/uL (0.2-0.9) 05/09/23 19:45 Eos # (Auto) 0.0 10^3/uL (0.0-0.8) 05/09/23 19:45 Baso # (Auto) 0.0 10^3/uL (0.0-0.1) 05/09/23 19:45 Nucleated RBC % (auto) 0 % 05/09/23 19:45 Nucleated RBCs # 0.0 /100WBC 05/09/23 19:45 Sodium 140 mmol/L (136-145) 05/09/23 19:45 Potassium 3.8 mmol/L (3.5-5.1) 05/09/23 19:45 Chloride 99 mmol/L (98-107) 05/09/23 19:45 Carbon Dioxide 24 mmol/L (22-29) 05/09/23 19:45 Anion Gap 20.8 (5-19) H 05/09/23 19:45 BUN 12 mg/dL (6-20) 05/09/23 19:45 Creatinine 0.8 mg/dL (0.7-1.2) 05/09/23 19:45 GFR Calculation 122.0 mL/min (90-130) 05/09/23 19:45 Glucose 145 mg/dL (65-115) H 05/09/23 19:45 Calculated Osmolality 292 mOsm/kg (285-295) 05/09/23 19:45 Calcium 9.2 mg/dL (8.5-10.5) 05/09/23 19:45 Total Bilirubin 0.4 mg/dL (0.15-1.2) 05/09/23 19:45 AST 19 U/L (0-40) 05/09/23 19:45 ALT 12 U/L (0-41) 05/09/23 19:45 Alkaline Phosphatase 88 U/L (40-130) 05/09/23 19:45 C-Reactive Protein 3.0 mg/L (0.0-4.9) 05/09/23 19:45 Total Protein 7.8 g/dL (6.6-8.7) 05/09/23 19:45 Albumin 4.9 g/dL (3.5-5.2) 05/09/23 19:45 Globulin 2.9 g/dL (1.3-4.6) 05/09/23 19:45 Lipase 13 U/L (13-60) 05/09/23 19:45 Urine Color Yellow (Yellow) 05/09/23 21:18 Urine Appearance Clear (CLEAR) 05/09/23 21:18 Urine pH 6 (5-7) 05/09/23 21:18 Ur Specific [place] 1.015 (1.005-1.030) 05/09/23 21:18 Urine Protein Trace (Negative) 05/09/23 21:18 Urine Glucose (UA) 2+ (Normal) H 05/09/23 21:18 Urine Ketones 1+ (Negative) H 05/09/23 21:18 Urine Blood Neg (Negative) 05/09/23 21:18 Urine Nitrate Negative (Negative) 05/09/23 21:18 Urine Bilirubin Neg (Negative) 05/09/23 21:18 Urine Urobilinogen Norm mg/dL (Negative) 05/09/23 21:18 Ur Leukocyte Esterase Negative (Negative) 05/09/23 21:18 Urine RBC 0-4 /hpf (0-2) H 05/09/23 21:18 Urine WBC 0-4 /hpf (0-5) H 05/09/23 21:18 Ur Squamous Epith Cells None /hpf (0-5) 05/09/23 21:18 Amorphous Sediment Not Reportable 05/09/23 21:18 Urine Bacteria None /hpf (NONE) 05/09/23 21:18 Urine Mucus 2+ /hpf 05/09/23 21:18 Urine Opiates Screen Positive ng/mL (Negative) H 05/09/23 21:18 Ur Barbiturates Screen Negative ng/mL (Negative) 05/09/23 21:18 Ur Phencyclidine Scrn Negative ng/mL (Negative) 05/09/23 21:18 Ur Amphetamines Screen Negative ng/mL (Negative) 05/09/23 21:18 U Benzodiazepines Scrn Negative ng/mL (Negative) 05/09/23 21:18 Urine Cocaine Screen Negative ng/mL (Negative) 05/09/23 21:18 U Marijuana (THC) Screen Positive ng/mL (Negative) H 05/09/23 21:18 Discharge Plan Discharge Patient Disposition: Home Clinical Impression: Abdominal pain, Gastroenteritis Condition: Stable Prescriptions: Continued ondansetron 4 mg tablet,disintegrating 4 mg PO Q8H PRN (Reason: nausea and vomiting) Qty: 10 0RF No Action acetaminophen 500 mg Tablet 500 - 1,500 mg PO Q6H PRN (Reason: Pain) pantoprazole 20 mg tablet,delayed release (DR/EC) 20 mg PO DAILY Qty: 14 0RF aripiprazole 15 mg tablet 15 mg PO DAILY 14 Days Qty: 14 1RF pantoprazole 40 mg Tablet,Delayed Release (Dr/Ec) 40 mg PO BID 30 Days Qty: 60 1RF sertraline 50 mg Tablet 25 mg PO DAILY 30 Days Qty: 30 1RF hydroxyzine pamoate 25 mg Capsule 25 mg PO TID 30 Days Qty: 90 1RF trazodone 50 mg Tablet 50 mg PO BEDTIME PRN (Reason: Sleep) 30 Days Qty: 30 1RF propranolol 10 mg tablet 10 mg PO BID 30 Days Qty: 60 1RF Abilify Maintena 400 mg suspension,extended rel recon 400 mg IM Q28D Qty: 1 1RF Rx Instructions: Patient due to receive this shot on 04/28/[facility]23 at [facility]. olanzapine 5 mg tablet,disintegrating 5 mg PO QPM Qty: 30 1RF Discharge Orders: Discharge ED (Routine); Ordered 05/09/23 Ordered By: Jozef Lizarraga Referrals: Anali Puri MD [Primary Care Provider] - 1-3 days Patient Instructions: Abdominal Pain (ED), Opioid Safety, Pain Management Activity Restrictions/Additional Instructions: Return for worsening pain despite treatment, vomiting despite treatment, any other concerning symptoms. Follow-up with your doctor this week. Start with a liquid diet for the first 24 hours. Take the nausea medication scheduled for the first 24 hours, then as needed Coding Level of Care Code ED Set O Type Operator for Dee Dee Bennett
== END 2023-05-09 22:44 | disposition home or self-care (01) ==
PROVIDERS: Emergency Provider Emergency Medicine; PCP Family Medicine
DX: K52.9 Noninfective gastroenteritis and colitis, unspecified (principal); F17.210 Nicotine dependence, cigarettes, uncomplicated
CPT/HCPCS: 36415; 74177; 80053; 80306; 81001; 83690; 85025; 86140; 96361; 96374; 96375; 99285; C9113; J1885; J2270; J2405; J7030; Q9967

== ENCOUNTER 2023-05-10 04:31 | Emergency (ER) | payer MEDICAID, SELFPAY ==
[2023-05-10 04:41] VITALS: BP 175/101; PULSE 61; RESP 16; TEMP 36.6; O2SAT 96; BMI 20.9
[2023-05-10] MEDS: LORazepam 2 mg/mL INJ 1 mL IM (05:20)
[2023-05-10] MEDS: ziprasidone 20 mg/mL SDV IM (05:20)
[2023-05-10] MEDS: water for injection-sterile 10 ML 1.2 ML (05:21)
[2023-05-10] MEDS: sodium chloride 0.9% 1,000 ML 999 ML IV (05:27)
--- NOTE | 2023-05-10 05:41 | ED_ITS ---
HPI - Nausea/Vomiting/Diarrhea General: Chief complaint: Nausea/Vomiting/Diarrhea Stated complaint: Vomiting Time Seen by Provider: 05/10/23 04:43 Source: patient History of Present Illness: 22-year-old male seen earlier this morning for vomiting and epigastric/left- sided abdominal pain. He was treated. He had a white count of 18, CT was performed showing potentially an enteritis. His inflammatory markers were normal. He presents this morning saying that after going home, he has vomited approximately twice an hour, and has continued pain. No fever. No diarrhea. No blood in the vomit. He has been seen previously for similar symptoms. Urine drug screen was positive for marijuana. MD elicited complaint: nausea, vomiting and abdominal pain Pertinent past history: cyclical vomiting Onset (ago): hour(s) Description of vomiting: watery Associated nausea: Yes Associated abdominal pain: Yes Location of pain: Epigastric Radiation: diffuse Pain consistency: intermittent Severity: moderate Associated symtoms: Reports headache(s), nausea and weakness (Generalized); Denies chest pain, cough, fevers/chills, palpitations or short of breath Review of Systems Const: Denies: fever(s) Card: Denies: chest pain or palpitations GI: Reports: abdominal pain, nausea and vomiting : Denies: difficulty urinating Skin/Breast: Denies: rash Neuro: Reports: headache(s) [facility] ED PFSH: Medical History No pertinent past medical history Surgical History H/O esophagogastroduodenoscopy (04/10/22) Family History Other Hypertension Social History Smoking and tobacco status: current every day smoker Alcohol intake: never Substance/Drug Use: never Physical Exam Const: COMMON NORMALS: no acute distress GENERAL APPEARANCE: cooperative; not ill appearing and not frail appearing HENMT: COMMON NORMALS: normocephalic, atraumatic and Normal external nose present HEAD & SCALP: normocephalic and atraumatic FACE & SINUS: normal facial exam and face symmetric NOSE: Normal external nose present Eye: COMMON NORMALS: Equal, round and reactive pupils present and EOMs intact bilaterally PUPIL: Yes Equal, round and reactive pupils present Neck/C-Spine: GENERAL: Yes trachea midline Chest: CHEST: Yes Symmetrical chest wall rise Resp: COMMON NORMALS: normal respiratory effort, No retractions, No use of accessory muscles and clear to auscultation bilaterally AUSCULTATION: clear to auscultation bilaterally Cardio: COMMON NORMALS: regular rate and regular rhythm RATE: regular rate RHYTHM: regular rhythm GI: COMMON NORMALS: Normal to inspection, nondistended, normoactive bowel sounds present PALPATION: Yes Tenderness to palpation present (GI) (Ep igastric) Extremity: COMMON NORMALS: no pedal edema Neuro: DLEORIS COMA SCALE: document GCS findings Mchenry coma scale eye opening: Spontaneous Mchenry coma scale verbal response: Orientated Mchenry coma scale motor response: Obey commands Deloris coma scale total score: 15 S ENSORY EXAM: Yes extremities (intact) Psych: COMMON NORMALS: speech normal SPEECH: Yes normal speech Skin: COMMON NORMALS: no rashes or lesions noted GENERAL SKIN EXAM: no rashes or lesions noted Course Vital Signs: Vital signs: Vital Signs Temperature 97.9 F 05/10/23 04:41 Pulse Rate 94 05/10/23 05:48 Respiratory Rate 16 05/10/23 06:17 Blood Pressure 108/56 05/10/23 06:17 Pulse Oximetry 95 05/10/23 06:17 MDM - Nausea/Vomiting/Diarrhea Medical Decision Making This patient was seen by myself less than 12 hours ago. He had a leukocytosis, other laboratory was benign, including a CRP of 3. CT revealed a mild enteritis potentially. His urine drug screen was positive for marijuana. This is most likely case of cyclical vomiting, cannabinoid induced. No vomiting since administration of Geodon and Ativan here. He is getting a liter of fluid. He will be discharged with cyclical vomiting. He will get oral Thorazine scheduled for the next 48 hours, then as needed. Discharge Plan Discharge Patient Disposition: Home Clinical Impression: Cyclical vomiting syndrome Condition: Stable Prescriptions: New chlorpromazine 25 mg tablet 25 mg PO TID Qty: 14 0RF No Action acetaminophen 500 mg Tablet 500 - 1,500 mg PO Q6H PRN (Reason: Pain) pantoprazole 20 mg tablet,delayed release (DR/EC) 20 mg PO DAILY Qty: 14 0RF aripiprazole 15 mg tablet 15 mg PO DAILY 14 Days Qty: 14 1RF pantoprazole 40 mg Tablet,Delayed Release (Dr/Ec) 40 mg PO BID 30 Days Qty: 60 1RF sertraline 50 mg Tablet 25 mg PO DAILY 30 Days Qty: 30 1RF hydroxyzine pamoate 25 mg Capsule 25 mg PO TID 30 Days Qty: 90 1RF trazodone 50 mg Tablet 50 mg PO BEDTIME PRN (Reason: Sleep) 30 Days Qty: 30 1RF propranolol 10 mg tablet 10 mg PO BID 30 Days Qty: 60 1RF Abilify Maintena 400 mg suspension,extended rel recon 400 mg IM Q28D Qty: 1 1RF Rx Instructions: Patient due to receive this shot on 04/28[facility]. olanzapine 5 mg tablet,disintegrating 5 mg PO QPM Qty: 30 1RF ondansetron 4 mg tablet,disintegrating 4 mg PO Q8H PRN (Reason: nausea and vomiting) Qty: 10 0RF Discharge Orders: Discharge ED (Routine); Ordered 05/10/23 Ordered By: Jozef Lizarraga Referrals: Anali Puri MD [Primary Care Provider] - Patient Instructions: Cyclic Vomiting Syndrome (ED), Opioid Safety, Pain Management Activity Restrictions/Additional Instructions: Follow a liquid diet for the next 48 hours. Take Thorazine scheduled for the next 48 hours 3 times daily. This will make you tired, but will keep you from vomiting. Avoid cannabis use, as this can potentiate vomiting. Return for problems. 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
[2023-05-10 05:48] VITALS: BP 86/46; PULSE 94; RESP 16; O2SAT 93
[2023-05-10 06:17] VITALS: BP 108/56; RESP 16; O2SAT 95
[2023-05-10] MEDS: chlorPROMazine 25 mg Tablet PO (06:37)
[2023-05-10 06:47] VITALS: BP 108/56; PULSE 94; RESP 16; TEMP 36.6; O2SAT 95
== END 2023-05-10 06:48 | disposition home or self-care (01) ==
PROVIDERS: Emergency Provider Emergency Medicine; PCP Family Medicine
DX: R11.15 Cyclical vomiting syndrome unrelated to migraine (principal); F17.210 Nicotine dependence, cigarettes, uncomplicated
CPT/HCPCS: 96360; 96372; 99284; J2060; J3486; J7030; Q0161

== ENCOUNTER 2023-05-12 20:27 | Emergency (ER) | payer MEDICAID, SELFPAY ==
[2023-05-12 20:33] VITALS: BP 151/91; PULSE 59; RESP 16; O2SAT 100; BMI 18.6
--- NOTE | 2023-05-12 20:43 | ED_ITS ---
HPI - Nausea/Vomiting/Diarrhea General: Chief complaint: Nausea/Vomiting/Diarrhea Stated complaint: ABD Pain Time Seen by Provider: 05/12/23 20:40 Source: patient Mode of arrival: ambulatory Limitations: no limitations History of Present Illness: 22-year-old male history of cyclic vomiting has been seen here 3 times over the last 4 to 5 days for this. He states he has not been taking anything at home for the vomiting and states he is continue to vomit he does have some abdominal pain he has been on Protonix for that. He states he had diarrhea as well he denies any fever denies any worsening proving factors. Associated nausea: Yes Associated symtoms: Reports nausea; Denies chest pain, dysuria or headache(s) Review of Systems Const: Denies: fever(s), chills, body aches or change in appetite ENMT: Denies: throat pain or dental pain Card: Denies: chest pain Resp: Denies: dyspnea GI: Reports: abdominal pain, nausea, vomiting and diarrhea : Denies: dysuria Musc: Denies: neck pain or back pain Skin/Breast: Denies: rash Neuro: Denies: headache(s) Psych: Denies: depression Moncho/Lymph: Denies: easy bruising All/Imm: Denies: urticaria PFSH ED PFSH: Medical History No pertinent past medical history Surgical History H/O esophagogastroduodenoscopy (04/10/22) Family History Other Hypertension Social History Smoking and tobacco status: current every day smoker Alcohol intake: never Substance/Drug Use: never Physical Exam Const: COMMON NORMALS: no acute distress, patient oriented x3 and healthy appearing HENMT: COMMON NORMALS: normocephalic and atraumatic HEAD & SCALP: normocephalic and atraumatic Eye: COMMON NORMALS: Equal, round and reactive pupils present and EOMs intact bilaterally PUPIL: Yes Equal, round and reactive pupils present Neck/C-Spine: COMMON NORMALS: full ROM and supple Chest: COMMONS NORMALS: normal inspection of the chest and normal palpation of entire chest wall Resp: COMMON NORMALS: normal respiratory effort, No retractions, No use of accessory muscles and clear to auscultation bilaterally AUSCULTATION: clear to auscultation bilaterally Cardio: COMMON NORMALS: regular rate, regular rhythm and No murmurs present (Cardio) RATE: regular rate RHYTHM: regular rhythm GI: COMMON NORMALS: Normal to inspection, nondistended, normoactive bowel sounds present, Soft to palpation, non-tender and no masses PALPATION: Yes Soft to palpation Extremity: COMMON NORMALS: normal to inspection and full ROM Neuro: COMMON NORMALS: patient oriented x3, moves all extremities and no focal motor deficits Psych: COMMON NORMALS: mental status grossly normal, Normal thought process present and cooperative THOUGHT PROCESS: Normal thought process present Skin: COMMON NORMALS: no rashes or lesions noted and no wounds GENERAL SKIN EXAM: no rashes or lesions noted Course Vital Signs: Vital signs: Vital Signs Pulse Rate 84 05/12/23 23:28 Respiratory Rate 16 05/12/23 23:28 Blood Pressure 136/75 05/12/23 23:28 Pulse Oximetry 97 05/12/23 23:28 Oxygen Delivery Me thod Room Air 05/12/23 22:43 MDM - Nausea/Vomiting/Diarrhea Medical Decision Making Patient presents with vomiting he does have cyclical vomiting syndrome. CT of his chest shows no signs of esophageal rupture his troponin here is normal did have some slight elevation his EKG does not look like pericarditis to me this more likely repull we will place him on Reglan he is to follow-up with PCP and return if worsening. Medical Records I reviewed the patient's medical records. Lab Data I reviewed the patient's lab results. 05/12/23 21:10 05/12/23 20:49 Radiology Impressions Chest X-Ray 05/12/23 22:04 IMPRESSION: No acute findings. Chest CTA 05/12/23 22:50 IMPRESSION: 1. No evidence pulmonary embolism. 2. Subcentimeter nodular opacity at the right lung base which is likely infectious or inflammatory in etiology. Laboratory Results WBC 14.3 10^3/uL (4.0-10.0) H 05/12/23 21:10 Corrected WBC Cancelled 05/12/23 20:49 RBC 5.93 10^6/uL (4.1-5.3) H 05/12/23 21:10 Hgb 16.9 g/dL (11.7-16.6) H 05/12/23 21:10 Hct 48.2 % (42.0-52.0) 05/12/23 21:10 MCV 81.3 fl (80-94) 05/12/23 21:10 MCH 28.5 pg (28.0-34.0) 05/12/23 21:10 MCHC 35.1 g/dL (30.0-36.0) 05/12/23 21:10 RDW 12.1 % (12.1-15.1) 05/12/23 21:10 Plt Count 360 10^3/cmm (130-400) 05/12/23 21:10 MPV 9.3 fL (7.4-10.4) 05/12/23 21:10 Gran % Cancelled 05/12/23 20:49 Neut % (Auto) 87.2 % 05/12/23 21:10 Lymph % (Auto) 7.7 % 05/12/23 21:10 [place] % (Auto) 4.7 % 05/12/23 21:10 Eos % (Auto) 0.1 % 05/12/23 21:10 Baso % (Auto) 0.1 % 05/12/23 21:10 Neut # (Auto) 12.51 10^3/uL (1.8-7.7) H 05/12/23 21:10 Lymph # (Auto) 1.1 10^3/uL (0.8-4.8) 05/12/23 21:10 [place] # (Auto) 0.7 10^3/uL (0.2-0.9) 05/12/23 21:10 Eos # (Auto) 0.0 10^3/uL (0.0-0.8) 05/12/23 21:10 Baso # (Auto) 0.0 10^3/uL (0.0-0.1) 05/12/23 21:10 Absolute Gran (auto) Cancelled 05/12/23 20:49 Nucleated RBC % (auto) 0 % 05/12/23 21:10 Nucleated RBCs # 0.0 /100WBC 05/12/23 21:10 Sodium 133 mmol/L (136-145) L 05/12/23 20:49 Potassium 3.4 mmol/L (3.5-5.1) L 05/12/23 20:49 Chloride 94 mmol/L (98-107) L 05/12/23 20:49 Carbon Dioxide 23 mmol/L (22-29) 05/12/23 20:49 Anion Gap 19.4 (5-19) H 05/12/23 20:49 BUN 22 mg/dL (6-20) H 05/12/23 20:49 Creatinine 0.8 mg/dL (0.7-1.2) 05/12/23 20:49 GFR Calculation 122.0 mL/min (90-130) 05/12/23 20:49 Glucose 92 mg/dL (65-115) 05/12/23 20:49 Calculated Osmolality 279 mOsm/kg (285-295) L 05/12/23 20:49 Calcium 10.1 mg/dL (8.5-10.5) 05/12/23 20:49 Total Bilirubin 1.7 mg/dL (0.15-1.2) H 05/12/23 20:49 AST 19 U/L (0-40) 05/12/23 20:49 ALT 18 U/L (0-41) 05/12/23 20:49 Alkaline Phosphatase 106 U/L (40-130) 05/12/23 20:49 Troponin T Baseline 7 ng/L (0-15) 05/12/23 20:49 Total Protein 8.1 g/dL (6.6-8.7) 05/12/23 20:49 Albumin 4.9 g/dL (3.5-5.2) 05/12/23 20:49 Globulin 3.2 g/dL (1.3-4.6) 05/12/23 20:49 Lipase 15 U/L (13-60) 05/12/23 20:49 Discharge Plan Discharge Patient Disposition: Home Clinical Impression: Abdominal pain, Cyclical vomiting syndrome Condition: Stable Prescriptions: New Reglan 10 mg tablet 10 mg PO Q6H PRN (Reason: nausea and vomiting) Qty: 20 0RF No Action acetaminophen 500 mg Tablet 500 - 1,500 mg PO Q6H PRN (Reason: Pain) pantoprazole 20 mg tablet,delayed release (DR/EC) 20 mg PO DAILY Qty: 14 0RF aripiprazole 15 mg tablet 15 mg PO DAILY 14 Days Qty: 14 1RF pantoprazole 40 mg Tablet,Delayed Release (Dr/Ec) 40 mg PO BID 30 Days Qty: 60 1RF sertraline 50 mg Tablet 25 mg PO DAILY 30 Days Qty: 30 1RF hydroxyzine pamoate 25 mg Capsule 25 mg PO TID 30 Days Qty: 90 1RF trazodone 50 mg Tablet 50 mg PO BEDTIME PRN (Reason: Sleep) 30 Days Qty: 30 1RF propranolol 10 mg tablet 10 mg PO BID 30 Days Qty: 60 1RF Abilify Maintena 400 mg suspension,extended rel recon 400 mg IM Q28D Qty: 1 1RF Rx Instructions: Patient due to receive this shot on 04/28/2023 at [facility]. 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
[2023-05-12 21:17] LABS: Alanine Aminotransferase 18 U/L (0-41); Alkaline Phosphatase 106 U/L (40-130); Aspartate Amino Transferase 19 U/L (0-40); Calcium 10.1 mg/dL (8.5-10.5); Carbon Dioxide 23 mmol/L (22-29); Glucose 92 mg/dL (65-115); Lipase 15 U/L (13-60); Total Protein 8.1 g/dL (6.6-8.7)
[2023-05-12 21:18] LABS: Basophils % 0.1 %; Eosinophils % 0.1 %; Hematocrit 48.2 % (42.0-52.0); Hemoglobin 16.9 g/dL (11.7-16.6); Lymphocytes # 1.1 10^3/uL (0.8-4.8); Lymphocytes % 7.7 %; Mean Corpuscular HGB Conc 35.1 g/dL (30.0-36.0); Mean Corpuscular Hemoglobin 28.5 pg (28.0-34.0); Mean Corpuscular Volume 81.3 fl (80-94); Mean Platelet Volume 9.3 fL (7.4-10.4); Monocytes # 0.7 10^3/uL (0.2-0.9); Monocytes % 4.7 %; Neutrophils # 12.51 10^3/uL (1.8-7.7); Neutrophils % 87.2 %; Nucleated Red Blood Cells % 0 %; Platelet Count 360 10^3/cmm (130-400); Red Blood Count 5.93 10^6/uL (4.1-5.3); Red Cell Distribution Width 12.1 % (12.1-15.1); White Blood Count 14.3 10^3/uL (4.0-10.0)
[2023-05-12 21:45] LABS: Anion Gap 19.4 (5-19); Chloride 94 mmol/L (98-107); Potassium 3.4 mmol/L (3.5-5.1); Sodium 133 mmol/L (136-145)
[2023-05-12] MEDS: metoclopramide 5 mg/mL SDV 2 mL 10 MG IVP (21:51)
[2023-05-12] MEDS: diphenhydrAMINE 50 mg/mL SDV 1mL IVP (21:51)
[2023-05-12 21:53] VITALS: BP 169/97; PULSE 58; RESP 16; O2SAT 99
[2023-05-12] MEDS: sodium chloride 0.9% 1,000 ML 999 ML IV ×2 (21:56→22:43)
[2023-05-12 22:04] LABS: Albumin Level 4.9 g/dL (3.5-5.2); Blood Urea Nitrogen 22 mg/dL (6-20); Globulin 3.2 g/dL (1.3-4.6); Osmolality Calculated 279 mOsm/kg (285-295); Total Bilirubin 1.7 mg/dL (0.15-1.2)
--- NOTE | 2023-05-12 22:04 | XRR_ITS ---
PROCEDURE INFORMATION: Exam: XR Chest Exam date and time: 05/12/2023 10:18 PM Age: 22 years old Clinical indication: Pain; Chest pressure; Additional info: Cp TECHNIQUE: Imaging protocol: Radiologic exam of the chest. Views: 1 view. COMPARISON: CR XR chest 1V portable [id number] 04/23/2023 5:01 PM FINDINGS: Lungs: Unremarkable. No consolidation. Pleural spaces: Unremarkable. No pleural effusion. No pneumothorax. Heart/Mediastinum: Unremarkable. No cardiomegaly. Bones/joints: Unremarkable. XR/XR chest 1V portable [id number] IMPRESSION: No acute findings.
--- NOTE | 2023-05-12 22:28 | ECG_ITS ---
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 Measurements Intervals [place] Rate: 63 P: 71 ME: 138 QRS: 103 QRSD: 96 T: 79 QT: 415 QTc: 428 Interpretive Statements SINUS RHYTHM WITH MARKED SINUS ARRHYTHMIA RIGHT AXIS DEVIATION [QRS AXIS > 100] POSSIBLE RIGHT VENTRICULAR CONDUCTION DELAY [RSR (QR) IN V1/V2] ST ELEVATION CONSISTENT WITH INJURY, PERICARDITIS, OR EARLY REPOLARIZATION [ST ELEVATION W/O NORMALLY INFLECTED T-WAVE] Compared to ECG 08/21/2022 12:44:27 Incomplete right bundle-branch block no longer present ST (T wave) deviation still present Electronically Signed On 05-13-2023 16:25:43 CDT by Chelsie Mcclellan M.D. [id number]
[2023-05-12 22:39] VITALS: RESP 18
[2023-05-12] MEDS: morphine 4 mg/mL SDV 1 mL IVP (22:39)
[2023-05-12 22:43] VITALS: BP 173/103; PULSE 82; RESP 16; O2SAT 98
--- NOTE | 2023-05-12 22:50 | CTR_ITS ---
PROCEDURE INFORMATION: Exam: CTA Chest With Contrast Exam date and time: 05/12/2023 11:08 PM Age: 22 years old Clinical indication: Chest pressure and other: Epigastric pain; Patient HX: C/O chest and epigastric pain with n/v. Elevated wbc. ; Additional info: Cp TECHNIQUE: Imaging protocol: Computed tomographic angiography of the chest with contrast. Exam focused on the arteries. 3D rendering (Not supervised by radiologist): MIP and/or 3D reconstructed images were created by the technologist. Radiation optimization: All CT scans at this facility use at least one of these dose optimization techniques: automated exposure control; mA and/or kV adjustment per patient size (includes targeted exams where dose is matched to clinical indication); or iterative reconstruction. Contrast material: OMNI 350; Contrast volume: 100 ml; Contrast route: INTRAVENOUS (IV); Other contrast: Oral, READICAT, 25 ML; REPORTING DATA: Count of CT and Cardiac NM exams in prior 12 months: This patient has received 6 known CTs and 0 known cardiac nuclear medicine studies in the 12 months prior to the current study. COMPARISON: CT angio chest w abd pel w con 08/20/2022 10:13 PM RADIATION DOSE METRICS: Total DLP (mGy-cm): 396.37 FINDINGS: Pulmonary arteries: Normal. No pulmonary emboli. Aorta: Unremarkable. No aortic aneurysm. No aortic dissection. Lungs: There is a 7 mm nodular opacity at the right lung base which has increased in size when compared with 05/09/2023. No consolidation. No masses. Pleural spaces: Unremarkable. No pneumothorax. No pleural effusion. Heart: Unremarkable. No cardiomegaly. No pericardial effusion. Lymph nodes: Unremarkable. No enlarged lymph nodes. Bones/joints: Unremarkable. No acute fracture. Soft tissues: Unremarkable. CT/CT angio chest [id number] IMPRESSION: 1. No evidence pulmonary embolism. 2. Subcentimeter nodular opacity at the right lung base which is likely infectious or inflammatory in etiology.
[2023-05-12] MEDS: barium sulfate 450 mL Oral Susp PO (22:57)
[2023-05-12 22:59] LABS: Troponin(5th) Baseline 7 ng/L (0-15)
--- NOTE | 2023-05-12 22:59 | PC.NURSE ---
TURNED OVER CARE TO NED CHRISTOPHER AT 2300
[2023-05-12] MEDS: iohexol 350 mg/mL 500 mL Btl (per mL) IV (23:25)
--- NOTE | 2023-05-12 23:26 | ECG_ITS ---
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 Measurements Intervals [place] Rate: 68 P: 63 MT: 141 QRS: 103 QRSD: 97 T: 79 QT: 393 QTc: 419 Interpretive Statements SINUS RHYTHM WITH MARKED SINUS ARRHYTHMIA RIGHT AXIS DEVIATION [QRS AXIS > 100] POSSIBLE RIGHT VENTRICULAR CONDUCTION DELAY [RSR (QR) IN V1/V2] ST ELEVATION CONSISTENT WITH INJURY, PERICARDITIS, OR EARLY REPOLARIZATION [ST ELEVATION W/O NORMALLY INFLECTED T-WAVE] Compared to ECG 05/12/2023 22:28:46 No significant changes Electronically Signed On 05-13-2023 16:25:33 CDT by Chelsie Mcclellan M.D. [id number]
[2023-05-12 23:28] VITALS: BP 136/75; PULSE 84; RESP 16; O2SAT 97
[2023-05-12] MEDS: metoclopramide 10 mg Tablet PO (23:49)
== END 2023-05-12 23:54 | disposition home or self-care (01) ==
PROVIDERS: Emergency Provider Emergency Medicine; PCP Family Medicine
DX: R11.15 Cyclical vomiting syndrome unrelated to migraine (principal); F17.210 Nicotine dependence, cigarettes, uncomplicated; R10.9 Unspecified abdominal pain
CPT/HCPCS: 36415; 71045; 71275; 80053; 83690; 84484; 85025; 93005; 96361; 96374; 96375; 99285; J1200; J2270; J2765; J7030; J8597; Q9967

== ENCOUNTER 2023-05-14 11:42 | Emergency (ER) | payer MEDICAID, SELFPAY ==
[2023-05-14] VITALS (9 sets, daily range): BP systolic 130–198; BP diastolic 81–127; PULSE 57–92; RESP 16–18; TEMP 36.5; O2SAT 92–99
--- NOTE | 2023-05-14 12:07 | ED_ITS ---
HPI - Nausea/Vomiting/Diarrhea General: Chief complaint: Nausea/Vomiting/Diarrhea Stated complaint: abd pain, N/V Time Seen by Provider: 05/14/23 12:01 History of Present Illness: Patient is a 23-year-old male who comes to the ED with nausea and vomiting. Patient has been seen here in the ED back on May 09, May 10 and May 12 for same complaint. He states that over the past week he has been having episodes of nausea and vomiting and epigastric pain. He states that when he was discharged from the ED back on May 12 he was feeling good but then this morning he woke up and immediately started having nausea, vomiting and epigastric pain. He rates his epigastric pain a 8 out of 10 and describes it as a burning and tight pain in his stomach. He has had multiple episodes of emesis and he also endorses having couple episodes of diarrhea over the past couple days. Denies a ny fevers or bladder symptoms. Patient says his Reglan did not help him today. Patient says he has an appointment with his PCP later today. Associated nausea: Yes Associated symtoms: Reports nausea; Denies change in vision, chest pain, dysuria, fatigue, headache(s) or palpitations Review of Systems Const: Denies: fever(s), chills or fatigue Eyes: Denies: change in vision or eye discomfort ENMT: Denies: throat pain, odynophagia, nasal discharge or nasal congestion Card: Denies: chest pain, palpitations, edema, swelling of feet/ankles, dyspnea on exertion or orthopnea Resp: Denies: dyspnea, productive cough or non-productive cough GI: Reports: abdominal pain (Epigastric pain), nausea, vomiting, heartburn and diarrhea; Denies: constipation or hematochezia : Denies: flank pain, difficulty urinating, dysuria or hematuria Musc: Denies: neck pain, back pain or extremity swelling Skin/Breast: Denies: rash or new lesions Neuro: Denies: headache(s), numbness in extremities or weakness in extremities PFS ED PFSH: Medical History No pertinent past medical history Surgical History H/O esophagogastroduodenoscopy (04/10/22) Family History Other Hypertension Social History Smoking and tobacco status: current every day smoker Alcohol intake: never Substance/Drug Use: never Physical Exam Const: COMMON NORMALS: patient oriented x3 and alert GENERAL APPEARANCE: cooperative and comfortable HENMT: COMMON NORMALS: normocephalic HEAD & SCALP: normocephalic MOUTH: Normal oral and palatal mucosa present THROAT: posterior oropharynx normal and uvula midline Neck/C-Spine: COMMON NORMALS: supple GENERAL: Yes normal visual inspection Resp: COMMON NORMALS: normal respiratory effort, No retractions, No use of accessory muscles and clear to auscultation bilaterally AUSCULTATION: clear to auscultation bilaterally Cardio: COMMON NORMALS: regular rate, regular rhythm, S1 normal heart sound present, S2 normal heart sound present, No gallops present (Cardio), No clicks present (Cardio), No murmurs present (Cardio) and Peripheral pulses 2+ throughout RATE: regular rate RHYTHM: regular rhythm HEART SOUNDS: S1 normal heart sound present and S2 normal heart sound present PERIPHERAL PULSES: Peripheral pulses 2+ throughout GI: COMMON NORMALS: Normal to inspection, nondistended, normoactive bowel soun ds present, Soft to palpation and no masses PALPATION: Yes Soft to palpation and Yes Tenderness to palpation present (GI) (Epigastric tenderness) : COMMON NORMALS: Yes no CVA tenderness BLADDER/KIDNEY EXAM: Yes no CVA tenderness Back/Pelvis: COMMON NORMALS: no CVA tenderness Extremity: COMMON NORMALS: normal to inspection Neuro: COMMON NORMALS: patient oriented x3 SENSORIUM/ORIENTATION: Yes alert GAIT: Yes Normal gait present Skin: GENERAL SKIN EXAM: dry skin Course Vital Signs: Vital signs: Vital Signs Temperature 97.7 F 05/14/23 11:54 Pulse Rate 84 05/14/23 17:02 Respiratory Rate 16 05/14/23 17:02 Blood Pressure 130/85 05/14/23 17:02 Pulse Oximetry 94 05/14/23 17:02 Oxygen Delivery Me thod Room Air 05/14/23 12:01 MDM - Nausea/Vomiting/Diarrhea Medical Decision Making Patient is a 23-year-old male who comes to the ED with nausea and vomiting. Patient has been seen here in the ED back on May 09, May 10 and May 12 for same complaint. He states that over the past week he has been having episodes of nausea and vomiting and epigastric pain. He states that when he was discharged from the ED back on May 12 he was feeling good but then this morning he woke up and immediately started having nausea, vomiting and epigastric pain. He rates his epigastric pain a 8 out of 10 and describes it as a burning and tight pain in his stomach. He has had multiple episodes of emesis and he also endorses having couple episodes of diarrhea over the past couple days. Denies any fevers or bladder symptoms. Patient says his Reglan did not help him today. Patient says he has an appointment with his PCP later today. Vitals are stable. White blood cell count 12.2 which is down from 14.2 on May 12. Rest of CBC is unremarkable. potassium 3.1 and the rest of CMP is unremarkable. Lipase is 26. Troponins negative. EKG showed normal sinus rhythm with no ST segment elevation or depression seen. Patient was given 1.5 L of IV fluids, nausea and pain meds and symptoms were controlled. She he was also given a dose of p.o. potassium. He was able to tolerate p.o. fluids here in the ED. I reviewed his abdominal CT from May 09 and his chest CTA from May 12. He was stable for discharge home and diagnosed with abdominal pain, cyclic vomiting syndrome and hypokalemia. He was discharged home with a prescription for nausea med. Told to follow-up with his PCP in the next week for reevaluation. Return to ED precautions given. Patient understood and agreed with plan. Lab Data I reviewed the patient's lab results. 05/14/23 12:45 05/14/23 12:45 Laboratory Results WBC 12.2 10^3/uL (4.0-10.0) H 05/14/23 12:45 RBC 6.00 10^6/uL (4.1-5.3) H 05/14/23 12:45 Hgb 17.2 g/dL (11.7-16.6) H 05/14/23 12:45 Hct 49.3 % (42.0-52.0) 05/14/23 12:45 MCV 82.2 fl (80-94) 05/14/23 12:45 MCH 28.7 pg (28.0-34.0) 05/14/23 12:45 MCHC 34.9 g/dL (30.0-36.0) 05/14/23 12:45 RDW 12.2 % (12.1-15.1) 05/14/23 12:45 Plt Count 344 10^3/cmm (130-400) 05/14/23 12:45 MPV 9.3 fL (7.4-10.4) 05/14/23 12:45 Neut % (Auto) 81.9 % 05/14/23 12:45 Lymph % (Auto) 10.1 % 05/14/23 12:45 [place] % (Auto) 7.2 % 05/14/23 12:45 Eos % (Auto) 0.4 % 05/14/23 12:45 Baso % (Auto) 0.2 % 05/14/23 12:45 Neut # (Auto) 10.01 10^3/uL (1.8-7.7) H 05/14/23 12:45 Lymph # (Auto) 1.2 10^3/uL (0.8-4.8) 05/14/23 12:45 [place] # (Auto) 0.9 10^3/uL (0.2-0.9) 05/14/23 12:45 Eos # (Auto) 0.1 10^3/uL (0.0-0.8) 05/14/23 12:45 Baso # (Auto) 0.0 10^3/uL (0.0-0.1) 05/14/23 12:45 Nucleated RBC % (auto) 0 % 05/14/23 12:45 Nucleated RBCs # 0.0 /100WBC 05/14/23 12:45 Sodium 134 mmol/L (136-145) L 05/14/23 12:45 Potassium 3.1 mmol/L (3.5-5.1) L 05/14/23 12:45 Chloride 93 mmol/L (98-107) L 05/14/23 12:45 Carbon Dioxide 24 mmol/L (22-29) 05/14/23 12:45 Anion Gap 20.1 (5-19) H 05/14/23 12:45 BUN 13 mg/dL (6-20) 05/14/23 12:45 Creatinine 0.9 mg/dL (0.7-1.2) 05/14/23 12:45 GFR Calculation 105.5 mL/min (90-130) 05/14/23 12:45 Glucose 112 mg/dL (65-115) 05/14/23 12:45 Calculated Osmolality 279 mOsm/kg (285-295) L 05/14/23 12:45 Calcium 9.6 mg/dL (8.5-10.5) 05/14/23 12:45 Total Bilirubin 1.5 mg/dL (0.15-1.2) H 05/14/23 12:45 AST 16 U/L (0-40) 05/14/23 12:45 ALT 14 U/L (0-41) 05/14/23 12:45 Alkaline Phosphatase 97 U/L (40-130) 05/14/23 12:45 Troponin T Baseline 6 ng/L (0-15) 05/14/23 12:45 Troponin T 120 Minute 6.00 ng/L (0-15) 05/14/23 14:49 Delta Troponin T 0 ABS# (0-10) 05/14/23 14:49 Total Protein 8.1 g/dL (6.6-8.7) 05/14/23 12:45 Albumin 4.8 g/dL (3.5-5.2) 05/14/23 12:45 Globulin 3.3 g/dL (1.3-4.6) 05/14/23 12:45 Lipase 26 U/L (13-60) 05/14/23 12:45 Urine Color Yellow (Yellow) 05/14/23 11:50 Urine Appearance Clear (CLEAR) 05/14/23 11:50 Urine pH 6 (5-7) 05/14/23 11:50 Ur Specific [place] 1.015 (1.005-1.030) 05/14/23 11:50 Urine Protein Neg (Negative) 05/14/23 11:50 Urine Glucose (UA) Norm (Normal) 05/14/23 11:50 Urine Ketones Negative (Negative) 05/14/23 11:50 Urine Blood Neg (Negative) 05/14/23 11:50 Urine Nitrate Negative (Negative) 05/14/23 11:50 Urine Bilirubin Neg (Negative) 05/14/23 11:50 Urine Urobilinogen 4 mg/dL (Negative) H 05/14/23 11:50 Ur Leukocyte Esterase Negative (Negative) 05/14/23 11:50 EKG Data EKG 1: EKG interpretation date: 05/14/23 Interpretation: Normal sinus rhythm, no ST segment elevation or depression seen. 88 bpm. Discharge Plan Discharge Patient Disposition: Home Clinical Impression: Cyclic vomiting syndrome, Hypokalemia Abdominal pain Qualifiers: Abdominal location: epigastric Qualified Code(s): R10.13 - Epigastric pain Condition: Stable Prescriptions: New ondansetron 4 mg tablet,disintegrating 4 mg PO Q8H PRN (Reason: nausea and vomiting) Qty: 20 0RF No Action acetaminophen 500 mg Tablet 500 - 1,500 mg PO Q6H PRN (Reason: Pain) pantoprazole 20 mg tablet,delayed release (DR/EC) 20 mg PO DAILY Qty: 14 0RF aripiprazole 15 mg tablet 15 mg PO DAILY 14 Days Qty: 14 1RF pantoprazole 40 mg Tablet,Delayed Release (Dr/Ec) 40 mg PO BID 30 Days Qty: 60 1RF sertraline 50 mg Tablet 25 mg PO DAILY 30 Days Qty: 30 1RF hydroxyzine pamoate 25 mg Capsule 25 mg PO TID 30 Days Qty: 90 1RF trazodone 50 mg Tablet 50 mg PO BEDTIME PRN (Reason: Sleep) 30 Days Qty: 30 1RF propranolol 10 mg tablet 10 mg PO BID 30 Days Qty: 60 1RF Abilify Maintena 400 mg suspension,extended rel recon 400 mg IM Q28D Qty: 1 1RF Rx Instructions: Patient due to receive this shot on 04/28[facility]23 [facility]. olanzapine 5 mg tablet,disintegrating 5 mg PO QPM Qty: 30 1RF ondansetron 4 mg tablet,disintegrating 4 mg PO Q8H PRN (Reason: nausea and vomiting) Qty: 10 0RF chlorpromazine 25 mg tablet 25 mg PO TID Qty: 14 0RF Reglan 10 mg tablet 10 mg PO Q6H PRN (Reason: nausea and vomiting) Qty: 20 0RF Discharge Orders: Discharge ED (Routine); Ordered 05/14/23 Ordered By: Brayan Gutierrez Referrals: Anali Puri MD [Primary Care Provider] - Discharge Diet: Advance as tolerated and Clear Liquid Discharge Activity: Increase activity as tolerated Patient Instructions: Abdominal Pain (ED), Cyclic Vomiting Syndrome (ED) Activity Restrictions/Additional Instructions: Follow-up with medical provider as directed in the next 1 to 3 days for reevaluation. Clear liquid diet for the next 24 hours and slowly advance diet as tolerated. Take medications as prescribed. Return to the ER or your medical provider if condition worsens. Please read and understand discharge instructions. Thank you for choosing [facility] for your healthcare needs today. Please realize this is an emergency room and that we are providing you with a medical screening exam and this may not be complete and all inclusive of all the testing and or work up that you may need to determine your ailment or severity of your illness. It is very important that you follow up as instructed or that you return to the Emergency Department should you have concerns or if your condition changes or worsens in any way. Coding Level of Care Code ED Supervisor Welding Equipment Repairer for Dee Dee Bennett
[2023-05-14] MEDS: metoclopramide 5 mg/mL SDV 2 mL 10 MG IVP (12:54)
[2023-05-14] MEDS: famotidine 20 mg/2 mL INJ 40 MG IVP (12:54)
[2023-05-14] MEDS: sodium chloride 0.9% 1,000 ML 999 ML IV (12:54)
[2023-05-14] MEDS: diphenhydrAMINE 50 mg/mL SDV 1mL IVP (12:54)
[2023-05-14] MEDS: morphine 4 mg/mL SDV 1 mL IVP (12:54)
[2023-05-14 13:05] LABS: Basophils % 0.2 %; Eosinophils # 0.1 10^3/uL (0.0-0.8); Eosinophils % 0.4 %; Hematocrit 49.3 % (42.0-52.0); Hemoglobin 17.2 g/dL (11.7-16.6); Lymphocytes # 1.2 10^3/uL (0.8-4.8); Lymphocytes % 10.1 %; Mean Corpuscular HGB Conc 34.9 g/dL (30.0-36.0); Mean Corpuscular Hemoglobin 28.7 pg (28.0-34.0); Mean Corpuscular Volume 82.2 fl (80-94); Mean Platelet Volume 9.3 fL (7.4-10.4); Monocytes # 0.9 10^3/uL (0.2-0.9); Monocytes % 7.2 %; Neutrophils # 10.01 10^3/uL (1.8-7.7); Neutrophils % 81.9 %; Nucleated Red Blood Cells % 0 %; Platelet Count 344 10^3/cmm (130-400); Red Cell Distribution Width 12.2 % (12.1-15.1); White Blood Count 12.2 10^3/uL (4.0-10.0)
--- NOTE | 2023-05-14 13:07 | ECG_ITS ---
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 Measurements Intervals [place] Rate: 88 P: 60 MI: 140 QRS: 127 QRSD: 98 T: -1 QT: 367 QTc: 446 Interpretive Statements SINUS RHYTHM POSSIBLE RIGHT ATRIAL ENLARGEMENT [0.25mV P-WAVE] INCOMPLETE RIGHT BUNDLE BRANCH BLOCK [90+ ms QRS DURATION, TERMINAL R IN V1/V2, 40+ ms S IN I/aVL/V4/V5/V6] POSSIBLE RIGHT VENTRICULAR HYPERTROPHY [SOME/ALL OF: PROMINENT R IN V1, LATE TRANSITION, RAD, MAYCOL, SSS] NONSPECIFIC T-WAVE ABNORMALITY Compared to ECG 05/12/2023 23:26:31 Incomplete right bundle-branch block now present T-wave abnormality now present Sinus arrhythmia no longer present Right-axis deviation no longer present ST (T wave) deviation no longer present Early repolarization no longer present Electronically Signed On 05-14-2023 13:21:02 CDT by Kevin Singletary M.D. [id number]
[2023-05-14 13:24] LABS: Troponin(5th) Baseline 6 ng/L (0-15)
[2023-05-14 13:27] LABS: Alanine Aminotransferase 14 U/L (0-41); Albumin Level 4.8 g/dL (3.5-5.2); Alkaline Phosphatase 97 U/L (40-130); Anion Gap 20.1 (5-19); Aspartate Amino Transferase 16 U/L (0-40); Blood Urea Nitrogen 13 mg/dL (6-20); Calcium 9.6 mg/dL (8.5-10.5); Carbon Dioxide 24 mmol/L (22-29); Chloride 93 mmol/L (98-107); Globulin 3.3 g/dL (1.3-4.6); Glomerular Filtration Rate 105.5 mL/min (90-130); Glucose 112 mg/dL (65-115); Lipase 26 U/L (13-60); Osmolality Calculated 279 mOsm/kg (285-295); Potassium 3.1 mmol/L (3.5-5.1); Sodium 134 mmol/L (136-145); Total Bilirubin 1.5 mg/dL (0.15-1.2); Total Protein 8.1 g/dL (6.6-8.7)
--- NOTE | 2023-05-14 14:08 | ECG_ITS ---
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 Measurements Intervals [place] Rate: 56 P: 44 LA: 132 QRS: 128 QRSD: 97 T: 27 QT: 415 QTc: 404 Interpretive Statements SINUS BRADYCARDIA WITH MARKED SINUS ARRHYTHMIA INCOMPLETE RIGHT BUNDLE BRANCH BLOCK [90+ ms QRS DURATION, TERMINAL R IN V1/V2, 40+ ms S IN I/aVL/V4/V5/V6] LEFT POSTERIOR FASCICULAR BLOCK [QRS AXIS > 109, INFERIOR Q] NONSPECIFIC T-WAVE ABNORMALITY Compared to ECG 05/14/2023 13:07:04 Left posterior fascicular block now present Sinus rhythm no longer present Atrial abnormality no longer present T-wave abnormality still present Electronically Signed On 05-14-2023 15:01:16 CDT by Kevin Singletary M.D. [id number]
[2023-05-14] MEDS: HYDROmorphone 1 mg/mL INJ 1 mL IVP (14:14)
[2023-05-14] MEDS: sodium chloride 0.9% 500 ML 999 ML IV (14:14)
[2023-05-14] MEDS: ondansetron 2 mg/ML SDV 2 mL 4 MG IVP (14:14)
[2023-05-14 14:29] LABS: Add Urine Microscopic? NO; Charge for UA Resulting for Rev
[2023-05-14 14:35] LABS: Bilirubin Urine Neg (Negative); Blood Urine Neg (Negative); Glucose Urine UA Norm (Normal); Ketones Urine Negative (Negative); Leukocyte Esterase Urine Negative (Negative); Nitrate Urine Negative (Negative); Protein Urine Neg (Negative); Specific Gravity, Urine 1.015 (1.005-1.030); Urine Appearance Clear (CLEAR); Urine Color Yellow (Yellow); pH Urine 6 (5-7)
[2023-05-14 14:36] LABS: Urobilinogen Urine 4 mg/dL (Negative)
[2023-05-14] MEDS: LORazepam 2 mg/mL INJ 1 mL 1 MG IVP (15:06)
[2023-05-14] MEDS: potassium chloride ER 20 mEq Tablet PO (15:25)
[2023-05-14 15:38] LABS: Troponin 5 2HR Delta 0 ABS# (0-10)
== END 2023-05-14 17:03 | disposition home or self-care (01) ==
PROVIDERS: Emergency Provider Physician Assistant; PCP Family Medicine
DX: R11.15 Cyclical vomiting syndrome unrelated to migraine (principal); R10.13 Epigastric pain; E87.6 Hypokalemia
CPT/HCPCS: 80053; 81003; 83690; 84484; 85025; 93005; 96361; 96374; 96375; 99285; J1170; J1200; J2060; J2270; J2405; J2765; J3490; J7030; J7040

== ENCOUNTER 2023-10-08 16:15 | Emergency (ER) | payer MEDICAID, SELFPAY ==
[2023-10-08 16:23] VITALS: BP 171/97; PULSE 52; RESP 16; TEMP 36.6; O2SAT 98; BMI 20.1
--- NOTE | 2023-10-08 16:33 | W.ED.NAVMDI ---
HPI - Nausea/Vomiting/Diarrhea General: Chief complaint: Nausea/Vomiting/Diarrhea Stated complaint: abd pain, NV Time Seen by Provider: 10/08/23 16:29 History of Present Illness: 23-year-old male patient comes in today for complaints of nausea and vomiting starting 2 days ago. Patient has a history of cyclic vomiting syndrome. Patient usually has to come into the emergency room when it gets out of control. . Patient appears nontoxic. Patient appears in mild to moderate pain. Associated nausea: Yes Associated symtoms: Reports nausea; Denies chest pain Review of Systems General: Reports: 10 or more systems reviewed and unremarkable except in HPI and below Const: Denies: fever(s) ENMT: Denies: throat pain Card: Denies: chest pain Resp: Denies: dyspnea GI: Reports: nausea and vomiting; Denies: diarrhea or constipation : Denies: difficulty urinating Musc: Denies: neck pain or back pain PFS ED PFSH: Medical History No pertinent past medical history Surgical History H/O esophagogastroduodenoscopy (04/10/22) Family History Other Hypertension Social History Smoking and tobacco/nicotine status: current every day tobacco/nicotine user Alcohol intake: never Substance/Drug Use: never Physical Exam Const: COMMON NORMALS: alert HENMT: COMMON NORMALS: normocephalic HEAD & SCALP: normocephalic Neck/C-Spine: COMMON NORMALS: no lymphadenopathy Chest: COMMONS NORMALS: normal inspection of the chest and normal palpation of entire chest wall Resp: COMMON NORMALS: normal respiratory effort and clear to auscultation bilaterally AUSCULTATION: clear to auscultation bilaterally Cardio: COMMON NORMALS: regular rate and regular rhythm RATE: regular rate RHYTHM: regular rhythm GI: AUSCULTATION: Yes normoactive bowel sounds PALPATION: Yes Firmness to palpation present (GI), Yes Tenderness to palpation present (GI) (Generalized) and No Guarding due to palpation present (GI) : COMMON NORMALS: Yes no CVA tenderness BLADDER/KIDNEY EXAM: Yes no CVA tenderness Back/Pelvis: COMMON NORMALS: no CVA tenderness Extremity: COMMON NORMALS: full ROM Neuro: SENSORIUM/ORIENTATION: Yes alert Skin: COMMON NORMALS: turgor normal GENERAL SKIN EXAM: turgor normal Course Vital Signs: Vital signs: Vital Signs Temperature 97.9 F 10/08/23 16:23 Pulse Rate 82 10/08/23 20:46 Respiratory Rate 16 10/08/23 20:46 Blood Pressure 108/63 10/08/23 20:46 Pulse Oximetry 98 10/08/23 20:46 MDM - Nausea/Vomiting/Diarrhea Medical Decision Making 23-year-old male patient with a history of cyclic vomiting syndrome comes in today for 2 days episodes of nausea and vomiting. Patient appears nontoxic. Patient appears in mild to moderate pain. Abdomen is firm with normoactive bowel sounds. Vital signs are normal except for some elevated blood pressure. Differential diagnosis includes but not limited to cyclic vomiting syndrome, pancreatitis, dehydration, gastroenteritis, GERD. Patient had improvement after fluids and medication. Patient be continued on pantoprazole for gastritis, dicyclomine for abdominal pain, and metoclopramide for nausea and vomiting. Recommend follow-up with primary care for further instruction and evaluation. Recommend return to ER for worsening symptoms such as high fever, blood in vomit or stool, or new concerns. Patient was stable and discharged home. Lab Data 10/08/23 16:59 10/08/23 16:59 Radiology Impressions KUB X-Ray 10/08/23 16:37 IMPRESSION: No acute findings. Laboratory Results WBC 17.15 10^3/uL (3.29-11.43) H 10/08/23 16:59 RBC 6.01 10^6/uL (3.85-5.65) H 10/08/23 16:59 Hgb 17.10 g/dL (11.27-16.99) H 10/08/23 16:59 Hct 48.8 % (37-53) 10/08/23 16:59 MCV 81.2 fl (82-101) L 10/08/23 16:59 MCH 28.5 pg (27-33) 10/08/23 16:59 MCHC 35.0 g/dL (30-55) 10/08/23 16:59 RDW 12.5 % (12.1-15.1) 10/08/23 16:59 Plt Count 327 10^3/cmm (157-399) 10/08/23 16:59 MPV 9.6 fL (7.4-10.4) 10/08/23 16:59 Neut % (Auto) 79.0 % 10/08/23 16:59 Lymph % (Auto) 12.9 % 10/08/23 16:59 [place] % (Auto) 7.3 % 10/08/23 16:59 Eos % (Auto) 0.3 % 10/08/23 16:59 Baso % (Auto) 0.3 % 10/08/23 16:59 Neut # (Auto) 13.53 10^3/uL (1.8-7.7) H 10/08/23 16:59 Lymph # (Auto) 2.2 10^3/uL (0.8-4.8) 10/08/23 16:59 [place] # (Auto) 1.3 10^3/uL (0.2-0.9) H 10/08/23 16:59 Eos # (Auto) 0.1 10^3/uL (0.0-0.8) 10/08/23 16:59 Baso # (Auto) 0.1 10^3/uL (0.0-0.1) 10/08/23 16:59 Nucleated RBC % (auto) 0 % 10/08/23 16:59 Nucleated RBCs # 0.0 /100WBC 10/08/23 16:59 Sodium 136 mmol/L (136-145) 10/08/23 16:59 Potassium 3.6 mmol/L (3.5-5.1) 10/08/23 16:59 Chloride 97 mmol/L (98-107) L 10/08/23 16:59 Carbon Dioxide 22 mmol/L (22-29) 10/08/23 16:59 Anion Gap 20.6 (5-19) H 10/08/23 16:59 BUN 25 mg/dL (6-20) H 10/08/23 16:59 Creatinine 1.0 mg/dL (0.7-1.2) 10/08/23 16:59 GFR Calculation 93.4 mL/min (90-130) 10/08/23 16:59 Glucose 117 mg/dL (65-115) H 10/08/23 16:59 Calculated Osmolality 287 mOsm/kg (285-295) 10/08/23 16:59 Calcium 9.9 mg/dL (8.5-10.5) 10/08/23 16:59 Total Bilirubin 2.3 mg/dL (0.15-1.2) H 10/08/23 16:59 AST 29 U/L (0-40) 10/08/23 16:59 ALT 20 U/L (0-41) 10/08/23 16:59 Alkaline Phosphatase 109 U/L (40-130) 10/08/23 16:59 Total Protein 8.7 g/dL (6.6-8.7) 10/08/23 16:59 Albumin 5.3 g/dL (3.5-5.2) H 10/08/23 16:59 Globulin 3.4 g/dL (1.3-4.6) 10/08/23 16:59 Lipase 23 U/L (13-60) 10/08/23 16:59 No radiology studies performed this visit Discharge Plan Discharge Patient Disposition: Home Clinical Impression: Cyclical vomiting associated with migraine Qualifiers: Migraine intractability: unspecified whether intractable Qualified Code(s): G43.A0 - Cyclical vomiting, in migraine, not intractable Condition: Stable Prescriptions: New dicyclomine 10 mg capsule 10 mg PO QID PRN (Reason: abdominal pain) Qty: 20 0RF Continued pantoprazole 20 mg tablet,delayed release (DR/EC) 20 mg PO DAILY Qty: 14 0RF Reglan 10 mg tablet 10 mg PO Q6H PRN (Reason: nausea and vomiting) Qty: 20 0RF No Action acetaminophen 500 mg Tablet 500 - 1,500 mg PO Q6H PRN (Reason: Pain) ondansetron 4 mg tablet,disintegrating 4 mg PO Q8H PRN (Reason: nausea and vomiting) Qty: 20 0RF aripiprazole 15 mg tablet 15 mg PO DAILY 14 Days Qty: 14 1RF pantoprazole 40 mg Tablet,Delayed Release (Dr/Ec) 40 mg PO BID 30 Days Qty: 60 1RF sertraline 50 mg Tablet 25 mg PO DAILY 30 Days Qty: 30 1RF hydroxyzine pamoate 25 mg Capsule 25 mg PO TID 30 Days Qty: 90 1RF trazodone 50 mg Tablet 50 mg PO BEDTIME PRN (Reason: Sleep) 30 Days Qty: 30 1RF propranolol 10 mg tablet 10 mg PO BID 30 Days Qty: 60 1RF Abilify Maintena 400 mg suspension,extended rel recon 400 mg IM Q28D Qty: 1 1RF Rx Instructions: Patient due to receive this shot on 04/28/[facility]23 at [facility]. olanzapine 5 mg tablet,disintegrating 5 mg PO QPM Qty: 30 1RF ondansetron 4 mg tablet,disintegrating 4 mg PO Q8H PRN (Reason: nausea and vomiting) Qty: 10 0RF chlorpromazine 25 mg tablet 25 mg PO TID Qty: 14 0RF Discharge Orders: Discharge ED (Routine); Ordered 10/08/23 Ordered By: Hadley Hudson Referrals: Anali Puri MD [Primary Care Provider] - Patient Instructions: Cyclic Vomiting Syndrome (ED) Activity Restrictions/Additional Instructions: Avoid any activities that would aggravate your nausea and vomiting. Follow-up with primary care for further instructions and treatment for your recurrent nausea and vomiting. You may need to have further evaluation with endoscopy to rule out gastritis or reflux disease. Take medications as directed for nausea, abdominal pain, and gastritis. Return to ER for new concerns or worsening symptoms such as high fever greater than 100.4, blood in vomit or stool, uncontrolled pain or no urine output within 8 to 12 hours. Coding Level of Care Code ED Contract Lead for Dee Dee Bennett
--- NOTE | 2023-10-08 16:37 | XRR_ITS ---
PROCEDURE INFORMATION: Exam: XR Abdomen Exam date and time: 10/08/2023 4:42 PM Age: 23 years old Clinical indication: Abdominal pain; Additional info: Vomiting, R/O obstruction TECHNIQUE: Imaging protocol: Radiologic exam of the abdomen. Views: Frontal supine view of the abdomen. 1 View. COMPARISON: CT abdomen pelvis w con* [id number] 05/09/2023 8:36 PM FINDINGS: Nonobstructive bowel gas pattern with some mild gaseous distention of the transverse colon. XR/XR KUB [id number] IMPRESSION: No acute findings.
[2023-10-08 17:08] LABS: Basophils # 0.1 10^3/uL (0.0-0.1); Basophils % 0.3 %; Eosinophils # 0.1 10^3/uL (0.0-0.8); Eosinophils % 0.3 %; Hematocrit 48.8 % (37-53); Lymphocytes # 2.2 10^3/uL (0.8-4.8); Lymphocytes % 12.9 %; Mean Corpuscular Hemoglobin 28.5 pg (27-33); Mean Corpuscular Volume 81.2 fl (82-101); Mean Platelet Volume 9.6 fL (7.4-10.4); Monocytes # 1.3 10^3/uL (0.2-0.9); Monocytes % 7.3 %; Neutrophils # 13.53 10^3/uL (1.8-7.7); Nucleated Red Blood Cells % 0 %; Platelet Count 327 10^3/cmm (157-399); Red Blood Count 6.01 10^6/uL (3.85-5.65); Red Cell Distribution Width 12.5 % (12.1-15.1); White Blood Count 17.15 10^3/uL (3.29-11.43)
[2023-10-08] MEDS: ondansetron 2 mg/ML SDV 2 mL 8 MG IVP (17:08)
[2023-10-08 17:09] VITALS: RESP 17; O2SAT 98
[2023-10-08] MEDS: morphine 4 mg/mL SDV 1 mL IVP ×2 (17:09→18:24)
[2023-10-08] MEDS: diphenhydrAMINE 50 mg/mL SDV 1mL IVP (17:10)
[2023-10-08] MEDS: sodium chloride 0.9% 1,000 ML 999 ML IV ×2 (17:15→19:58)
[2023-10-08 17:35] LABS: Alanine Aminotransferase 20 U/L (0-41); Albumin Level 5.3 g/dL (3.5-5.2); Alkaline Phosphatase 109 U/L (40-130); Anion Gap 20.6 (5-19); Aspartate Amino Transferase 29 U/L (0-40); Blood Urea Nitrogen 25 mg/dL (6-20); Calcium 9.9 mg/dL (8.5-10.5); Carbon Dioxide 22 mmol/L (22-29); Chloride 97 mmol/L (98-107); Globulin 3.4 g/dL (1.3-4.6); Glomerular Filtration Rate 93.4 mL/min (90-130); Glucose 117 mg/dL (65-115); Lipase 23 U/L (13-60); Osmolality Calculated 287 mOsm/kg (285-295); Potassium 3.6 mmol/L (3.5-5.1); Sodium 136 mmol/L (136-145); Total Bilirubin 2.3 mg/dL (0.15-1.2); Total Protein 8.7 g/dL (6.6-8.7)
[2023-10-08 18:24] VITALS: RESP 17; O2SAT 96
[2023-10-08] MEDS: metoclopramide 5 mg/mL SDV 2 mL 10 MG IVP (18:24)
[2023-10-08] MEDS: SUMAtriptan 6 mg/0.5 mL SDV SUBCUT (18:48)
--- NOTE | 2023-10-08 18:57 | PC.NURSE ---
Report taken from ASHWIN Ness.
[2023-10-08] MEDS: famotidine 20 mg/2 mL INJ IVP (19:43)
[2023-10-08 20:46] VITALS: BP 108/63; PULSE 82; RESP 16; O2SAT 98
== END 2023-10-08 20:53 | disposition home or self-care (01) ==
PROVIDERS: Emergency Provider Nurse Practitioner Family; PCP Family Medicine
DX: G43.A0 Cyclical vomiting, in migraine, not intractable (principal); Z72.0 Tobacco use
CPT/HCPCS: 74018; 80053; 83690; 85025; 96361; 96372; 96374; 96375; 96376; 99284; J1200; J2270; J2405; J2765; J3030; J3490; J7030

== ENCOUNTER 2023-10-10 06:39 | Emergency (ER) | payer MEDICAID, SELFPAY ==
[2023-10-10] VITALS (7 sets, daily range): BP systolic 114–182; BP diastolic 65–128; PULSE 78–101; RESP 16–20; TEMP 37.4; O2SAT 96–100; BMI 20.1
--- NOTE | 2023-10-10 07:19 | CT_ITS ---
WS: [id number] CT ABDOMEN PELVIS TECHNIQUE: Contrast-enhanced CT of the abdomen and pelvis with coronal and sagittal reformatted image s. CLINICAL INFORMATION: Abdominal pain COMPARISON: CT 05/09/2023 DLP: 333.[address] scans at [facility] use at least one of these dose optimization techniques: automated e xposure control; mA and/or kV adjustment per patient size (includes targeted exams where dose is matc hed to clinical indication); or iterative reconstruction. FINDINGS: The lung bases are well aerated. Mild diffuse fatty infiltration of the liver. Normal portal vein and splenic vein. Normal spleen. Normal GE junction. Air-fluid level in the stomach. Normal caliber abdo rubin aorta. Celiac and SMA are patent. Adrenal glands are normal. Normal renal parenchymal enhancement. No hydronephrosis. Tiny fat-containi ng umbilical hernia. Few sigmoid diverticuli. Normal appendix in the RIGHT lower quadrant. No evidenc e of acute appendicitis. Fluid distended distal ileum with peripheral enhancement similar to previous suspicious for small bowel enteritis or ileitis. Recommend correlation for inflammatory bowel disease. Fluid filled small bowel loops in the pelvis wi th peripheral enhancement. No evidence of high-grade small or large bowel obstruction. No free fluid in the abdomen or pelvis. Normal lumbar spine. IMPRESSION: 1. Normal appendix in the RIGHT lower quadrant. No evidence of acute appendicitis. 2. Fluid distended distal ileum with peripheral enhancement suspicious for ileitis or small bowel en teritis. This is similar to previous. Additional fluid-filled loops of small bowel in the pelvis with peripheral enhancement. Recommend correlation with history of inflammatory bowel disease. 3. A few sigmoid diverticuli. No evidence of acute diverticulitis. 4. Mild RIGHT colonic constipation. Colon is otherwise relatively decompressed. 5. No other suspicious findings.
--- NOTE | 2023-10-10 07:29 | ECG_ITS ---
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 Measurements Intervals [place] Rate: 77 P: 63 [place]: 147 QRS: 112 QRSD: 96 T: 72 QT: 336 QTc: 381 Interpretive Statements SINUS RHYTHM WITH MARKED SINUS ARRHYTHMIA RIGHT AXIS DEVIATION [QRS AXIS > 100] EARLY REPOLARIZATION [ST ELEVATION WITH NORMALLY INFLECTED T-WAVE] Compared to ECG 05/14/2023 14:47:16 Right-axis deviation now present Early repolarization now present Sinus bradycardia no longer present Incomplete right bundle-branch block no longer present Left posterior fascicular block no longer present T-wave abnormality no longer present Electronically Signed On 10-10-2023 14:14:33 WELLNESS TRAINER by Kamlesh Thomas M.D. [id number]
[2023-10-10] MEDS: morphine 4 mg/mL SDV 1 mL IVP (07:32)
[2023-10-10] MEDS: cloNIDine 0.1 mg Tablet PO (07:32)
[2023-10-10] MEDS: ondansetron 2 mg/ML SDV 2 mL 4 MG IVP (07:32)
[2023-10-10 07:34] LABS: Basophils # 0.1 10^3/uL (0.0-0.1); Basophils % 0.6 %; Eosinophils % 0.2 %; Hematocrit 51.6 % (37-53); Lymphocytes # 2.5 10^3/uL (0.8-4.8); Lymphocytes % 25.7 %; Mean Corpuscular HGB Conc 35.9 g/dL (30-55); Mean Corpuscular Hemoglobin 28.7 pg (27-33); Mean Platelet Volume 9.6 fL (7.4-10.4); Monocytes # 0.9 10^3/uL (0.2-0.9); Monocytes % 8.8 %; Neutrophils # 6.27 10^3/uL (1.8-7.7); Neutrophils % 64.6 %; Nucleated Red Blood Cells % 0 %; Platelet Count 343 10^3/cmm (157-399); Red Blood Count 6.45 10^6/uL (3.85-5.65); Red Cell Distribution Width 12.1 % (12.1-15.1); White Blood Count 9.72 10^3/uL (3.29-11.43)
[2023-10-10] MEDS: sodium chloride 0.9% 1,000 ML 999 ML IV (07:37)
--- NOTE | 2023-10-10 07:39 | PC.NURSE ---
pt resting in room 14. c/o pain [address] Lutz aware, 4mg morphine administered. see vitals charted.
[2023-10-10 07:47] LABS: Troponin(5th) Baseline < 6 ng/L (0-15)
[2023-10-10 07:54] LABS: Alanine Aminotransferase 19 U/L (0-41); Albumin Level 5.6 g/dL (3.5-5.2); Alkaline Phosphatase 110 U/L (40-130); Anion Gap 25.8 (5-19); Aspartate Amino Transferase 25 U/L (0-40); Blood Urea Nitrogen 17 mg/dL (6-20); Calcium 10.8 mg/dL (8.5-10.5); Carbon Dioxide 22 mmol/L (22-29); Chloride 92 mmol/L (98-107); Globulin 2.9 g/dL (1.3-4.6); Glomerular Filtration Rate 105.5 mL/min (90-130); Glucose 96 mg/dL (65-115); Lipase 54 U/L (13-60); NT Pro B Type Natriuretic Pept 168 pg/mL (0-125); Osmolality Calculated 283 mOsm/kg (285-295); Potassium 3.8 mmol/L (3.5-5.1); Sodium 136 mmol/L (136-145); Total Bilirubin 2.9 mg/dL (0.15-1.2); Total Protein 8.5 g/dL (6.6-8.7)
[2023-10-10] MEDS: iohexol 350 mg/mL 500 mL Btl (per mL) IV (07:57)
[2023-10-10] MEDS: prochlorperazine 10 mg/2 mL Inj 5 MG IVP (08:23)
[2023-10-10 09:09] LABS: Amphetamines Screen Urine Negative (Negative); Barbiturates Screen Urine Negative (Negative); Benzodiazepines Screen Urine Negative (Negative); Cocaine Screen Urine Negative (Negative); Opiate Screen Urine Positive (Negative); PCP Screen Urine Negative (Negative); THC Screen Urine Positive (Negative)
[2023-10-10 09:14] LABS: Glucose Urine UA Norm (Normal); Protein Urine 1+ (Negative); Urine Appearance Clear (CLEAR); Urine Color Yellow (Yellow); pH Urine 6.5 (5-7)
[2023-10-10 09:15] LABS: Add Urine Microscopic? YES; Bilirubin Urine Neg (Negative); Blood Urine Neg (Negative); Ketones Urine 3+ (Negative); Leukocyte Esterase Urine Negative (Negative); Nitrate Urine Negative (Negative); Urobilinogen Urine Neg (Negative)
[2023-10-10 09:16] LABS: Add Urine Culture? No; Bacteria Urine TRACE /hpf; Hyaline Casts Urine 0-4 /lpf; Mucus Urine 1+ /hpf; RBC Urine RARE /hpf (0-2); Squamous Epithelial Cell Urine 0-4 /hpf (0-5); WBC Urine 0-4 /hpf (0-5)
[2023-10-10] MEDS: methylPREDNISolone sod succ 125 mg/2 mL INJ IVP (09:30)
--- NOTE | 2023-10-10 09:43 | ED_ITS ---
HPI - Abdominal Pain General: Chief Complaint: Abdominal Pain Stated Complaint: N/V Time Seen by Provider: 10/10/23 06:58 History of Present Illness: This patient is a 23-year-old white male who presents to the ER with nausea, vomiting and abdominal pain since Friday. He is also having some pain radiating up into his chest. He has not had any diarrhea. He has had low-grade fever. He states this pain came on after he was drinking shots of alcohol but he states he only had 4-5 shots. Patient has had similar symptoms in the past. He has no chronic medical problems. No past surgical history. He does smoke. Associated Symptoms: Reports fever(s), nausea and vomiting Review of Systems General: Reports: 10 or more systems reviewed and unremarkable except in HPI a nd below Const: Reports: fever(s) Card: Reports: chest pain GI: Reports: abdominal pain, nausea and vomiting [facility] ED PFSH: Medical History No pertinent past medical history Surgical History H/O esophagogastroduodenoscopy (04/10/22) Family History Other Hypertension Social History Smoking and tobacco/nicotine status: current every day tobacco/nicotine user Alcohol intake: never Substance/Drug Use: never Physical Exam Const: COMMON NORMALS: no acute distress, patient oriented x3 and no limitations GENERAL APPEARANCE: cooperative and comfortable HENMT: COMMON NORMALS: normocephalic, atraumatic, Normal nasal mucous membranes and turbinates present, moist oral mucous membranes and oropharynx normal HEAD & SCALP: normal to inspection, normocephalic and atraumatic FACE & SINUS: normal facial exam NOSE: Normal nasal mucous membranes and turbinates present Eye: COMMON NORMALS: Equal, round and reactive pupils present, EOMs intact bilaterally and conjunctivae normal GENERAL EYE: appearance normal, both eyes and all related structures CONJUNCTIVA: Yes conjunctivae normal PUPIL: Yes Equal, round and reactive pupils present Neck/C-Spine: COMMON NORMALS: supple and no JVD Chest: COMMONS NORMALS: normal inspection of the chest Resp: COMMON NORMALS: normal respiratory effort and clear to auscultation bilaterally AUSCULTATION: clear to auscultation bilaterally Cardio: COMMON NORMALS: no JVD, regular rate, regular rhythm, No gallops present (Cardio), No murmurs present (Cardio) and No rub (Cardio) RATE: regular rate RHYTHM: regular rhythm GI: COMMON NORMALS: Normal to inspection, nondistended, normoactive bowel sounds present and Soft to palpation AUSCULTATION: Yes normoactive bowel sounds PALPATION: Yes Soft to palpation OTHER: Diffuse abdominal pain with mild guarding. No rebound tenderness. : COMMON NORMALS: Yes no CVA tenderness BLADDER/KIDNEY EXAM: Yes no CVA tenderness Back/Pelvis: COMMON NORMALS: no CVA tenderness and thoracic and lumbar spine normal to inspection Extremity: COMMON NORMALS: normal to inspection Neuro: COMMON NORMALS: patient oriented x3 and CN's II-XII intact bilaterally Psych: COMMON NORMALS: mental status grossly normal, Normal thought process present and cooperative THOUGHT PROCESS: Normal thought process present Skin: COMMON NORMALS: no rashes or lesions noted, turgor normal and no jaundice GENERAL SKIN EXAM: no rashes or lesions noted and turgor normal Course Vital Signs: Vital signs: Vital Signs Temperature 99.3 F 10/10/23 06:46 Pulse Rate 94 10/10/23 09:31 Respiratory Rate 16 10/10/23 09:31 Blood Pressure 114/65 10/10/23 09:31 Pulse Oximetry 96 10/10/23 09:31 Oxygen Delivery Me thod Room Air 10/10/23 09:31 MDM - Abdominal Pain Medical Decision Making Patient's diastolic blood pressure was in the 120s. He was given IV fluids, Zofran, Compazine, morphine and 0.1 mg clonidine p.o. He states the Compazine helped significantly with the nausea and vomiting but the Zofran really did not help much. He is feeling significantly better now. His EKG revealed sinus rhythm with no ST segment abnormalities. CBC was normal. CMP normal except for total bilirubin of 2.9. BNP was 168. Lipase 54. Troponin less than 6. Urine drug screen was positive for THC. Urinalysis was normal. CT scan of the abdomen and pelvis was read by the radiologist. There is inflammation of the ileum concerning for inflammatory bowel disease. I discussed all of the results with the patient and his mother. I will go ahead and place him on a course of steroids. He was given 125 mg of Solu-Medrol IV in the emergency department. Recommended he follow-up with GI for further work-up of possible inflammatory bowel disease (Crohn's). I also prescribed Compazine for his nausea and vo miting. Recommended he push clear liquids until symptoms subside then advance diet slowly. He was discharged in stable condition. Lab Data 10/10/23 07:03 10/10/23 07:03 Labs/Radiology: Laboratory Results WBC 9.72 10^3/uL (3.29-11.43) 10/10/23 07:03 RBC 6.45 10^6/uL (3.85-5.65) H 10/10/23 07:03 Hgb 18.50 g/dL (11.27-16.99) H 10/10/23 07:03 Hct 51.6 % (37-53) 10/10/23 07:03 MCV 80.0 fl (82-101) L 10/10/23 07:03 MCH 28.7 pg (27-33) 10/10/23 07:03 MCHC 35.9 g/dL (30-55) 10/10/23 07:03 RDW 12.1 % (12.1-15.1) 10/10/23 07:03 Plt Count 343 10^3/cmm (157-399) 10/10/23 07:03 MPV 9.6 fL (7.4-10.4) 10/10/23 07:03 Neut % (Auto) 64.6 % 10/10/23 07:03 Lymph % (Auto) 25.7 % 10/10/23 07:03 Phillips % (Auto) 8.8 % 10/10/23 07:03 Eos % (Auto) 0.2 % 10/10/23 07:03 Baso % (Auto) 0.6 % 10/10/23 07:03 Neut # (Auto) 6.27 10^3/uL (1.8-7.7) 10/10/23 07:03 Lymph # (Auto) 2.5 10^3/uL (0.8-4.8) 10/10/23 07:03 Phillips # (Auto) 0.9 10^3/uL (0.2-0.9) 10/10/23 07:03 Eos # (Auto) 0.0 10^3/uL (0.0-0.8) 10/10/23 07:03 Baso # (Auto) 0.1 10^3/uL (0.0-0.1) 10/10/23 07:03 Nucleated RBC % (auto) 0 % 10/10/23 07:03 Nucleated RBCs # 0.0 /100WBC 10/10/23 07:03 Sodium 136 mmol/L (136-145) 10/10/23 07:03 Potassium 3.8 mmol/L (3.5-5.1) 10/10/23 07:03 Chloride 92 mmol/L (98-107) L 10/10/23 07:03 Carbon Dioxide 22 mmol/L (22-29) 10/10/23 07:03 Anion Gap 25.8 (5-19) H 10/10/23 07:03 BUN 17 mg/dL (6-20) 10/10/23 07:03 Creatinine 0.9 mg/dL (0.7-1.2) 10/10/23 07:03 GFR Calculation 105.5 mL/min (90-130) 10/10/23 07:03 Glucose 96 mg/dL (65-115) 10/10/23 07:03 Calculated Osmolality 283 mOsm/kg (285-295) L 10/10/23 07:03 Calcium 10.8 mg/dL (8.5-10.5) H 10/10/23 07:03 Total Bilirubin 2.9 mg/dL (0.15-1.2) H 10/10/23 07:03 AST 25 U/L (0-40) 10/10/23 07:03 ALT 19 U/L (0-41) 10/10/23 07:03 Alkaline Phosphatase 110 U/L (40-130) 10/10/23 07:03 Troponin T Baseline < 6 ng/L (0-15) 10/10/23 07:03 Troponin T 120 Minute 6.00 ng/L (0-15) 10/10/23 09:08 NT-Pro-B Natriuret Pep 168 pg/mL (0-125) H 10/10/23 07:03 Total Protein 8.5 g/dL (6.6-8.7) 10/10/23 07:03 Albumin 5.6 g/dL (3.5-5.2) H 10/10/23 07:03 Globulin 2.9 g/dL (1.3-4.6) 10/10/23 07:03 Lipase 54 U/L (13-60) 10/10/23 07:03 Urine Color Yellow (Yellow) 10/10/23 08:51 Urine Appearance Clear (CLEAR) 10/10/23 08:51 Urine pH 6.5 (5-7) 10/10/23 08:51 Ur Specific [place] 1.010 (1.005-1.030) 10/10/23 08:51 Urine Protein 1+ (Negative) H 10/10/23 08:51 Urine Glucose (UA) Norm (Normal) 10/10/23 08:51 Urine Ketones 3+ (Negative) H 10/10/23 08:51 Urine Blood Neg (Negative) 10/10/23 08:51 Urine Nitrate Negative (Negative) 10/10/23 08:51 Urine Bilirubin Neg (Negative) 10/10/23 08:51 Urine Urobilinogen Neg mg/dL (Negative) 10/10/23 08:51 Ur Leukocyte Esterase Negative (Negative) 10/10/23 08:51 Urine RBC Rare /hpf (0-2) 10/10/23 08:51 Urine WBC 0-4 /hpf (0-5) H 10/10/23 08:51 Ur Squamous Epith Cells 0-4 /hpf (0-5) H 10/10/23 08:51 Amorphous Sediment Not Reportable 10/10/23 08:51 Urine Bacteria Trace /hpf (NONE) 10/10/23 08:51 Hyaline Casts 0-4 /lpf H 10/10/23 08:51 Urine Mucus 1+ /hpf 10/10/23 08:51 Urine Opiates Screen Positive ng/mL (Negative) H 10/10/23 08:51 Ur Barbiturates Screen Negative ng/mL (Negative) 10/10/23 08:51 Ur Phencyclidine Scrn Negative ng/mL (Negative) 10/10/23 08:51 Ur Amphetamines Screen Negative ng/mL (Negative) 10/10/23 08:51 U Benzodiazepines Scrn Negative ng/mL (Negative) 10/10/23 08:51 Urine Cocaine Screen Negative ng/mL (Negative) 10/10/23 08:51 U Marijuana (THC) Screen Positive ng/mL (Negative) H 10/10/23 08:51 All radiology interpretation(s) finalized by discharge Discharge Plan Discharge Patient Disposition: Home Clinical Impression: Abdominal pain, Ileitis Condition: Stable Prescriptions: New prednisone 5 mg tablets,dose pack See Rx Instructions PO .COMPLEX Qty: 21 0RF Rx Instructions: prednisone 5 mg: take 8 tablets (40 mg) on Day 1; 7 tablets (35 mg) on Day 2; then decrease by 1 tablet every day until finished prochlorperazine maleate [Compazine] 10 mg tablet 10 mg PO Q8H PRN (Reason: nausea and vomiting) Qty: 20 0RF No Action acetaminophen 500 mg Tablet 500 - 1,500 mg PO Q6H PRN (Reason: Pain) ibuprofen 200 mg Tablet 400 mg PO Q6H PRN (Reason: Pain) dicyclomine 10 mg capsule 10 mg PO QID PRN (Reason: abdominal pain) Qty: 20 0RF pantoprazole 20 mg tablet,delayed release (DR/EC) 20 mg PO DAILY Qty: 14 0RF metoclopramide HCl [Reglan] 10 mg tablet 10 mg PO Q6H PRN (Reason: nausea and vomiting) Qty: 20 0RF Discharge Orders: Discharge ED (Routine); Ordered 10/10/23 Ordered By: Brandin Avina Referrals: Anali Puri MD [Primary Care Provider] - Patient Instructions: Abdominal Pain (ED), Crohn Disease (ED) Coding Level of Care Code ED [employer] Based [employer] Technician for [facility] Bennett
[2023-10-10 09:48] LABS: Troponin 5 2HR < 6.0 ng/L (0-15); Troponin 5 2HR Delta 0 ABS# (0-10)
== END 2023-10-10 10:10 | disposition home or self-care (01) ==
PROVIDERS: Emergency Provider Emergency Medicine; PCP Family Medicine
DX: K52.9 Noninfective gastroenteritis and colitis, unspecified (principal); Z72.0 Tobacco use
CPT/HCPCS: 36415; 74177; 80053; 80306; 81001; 83690; 83880; 84484; 85025; 93005; 96361; 96374; 96375; 99285; J0780; J2270; J2405; J2930; J7030; Q9967

== ENCOUNTER 2023-10-11 11:06 | Emergency (ER) | payer MEDICAID, SELFPAY ==
[2023-10-11 11:36] VITALS: BP 195/132; PULSE 58; RESP 16; TEMP 36.4; O2SAT 99; BMI 20.1
--- NOTE | 2023-10-11 13:12 | ED_ITS ---
Documented by User: [email or web address] Monaco 10/11/23 16:01 HPI - Nausea/Vomiting/Diarrhea General: Chief complaint: Nausea/Vomiting/Diarrhea Stated complaint: N/V Time Seen by Provider: 10/11/23 12:57 Source: patient Mode of arrival: ambulatory Limitations: no limitations History of Present Illness: Patient presents emergency department today for evaluation treatment of continued abdominal pains and vomiting. Patient has been seen in the emergency department multiple times each time diagnosed with cyclical vomiting . Patient was seen yesterday for similar symptoms and evaluation revealed positive THC in the urine drug screen but signs of inflammatory bowel on CT scan. Chart review indicates he was treated here in the emergency department with fluids and anti nausea medications as well as steroids. He was discharged home with Compazine as it seemed to work well for him here in the ER. He was encouraged to follow- up with GI to further investigate inflammatory bowel . However, patient states he has continued to have vomiting without any ability to tolerate fluids or medications since his discharge. He complains of upper abdominal pains. He denies bloody vomit and states he has not been having bowel movements concerning for diarrhea or blood. Chart review also indicates chronic elevated blood pressure readings-diastolic yesterday in the 120s. Review of Systems General: Reports: 10 or more systems reviewed and unremarkable except in HPI and below PFSH ED PFSH: Medical History No pertinent past medical history Surgical History H/O esophagogastroduodenoscopy (04/10/22) Family History Other Hypertension Social History Smoking and tobacco/nicotine status: current every day tobacco/nicotine user Alcohol intake: never Substance/Drug Use: never Physical Exam Const: COMMON NORMALS: patient oriented x3 and alert OTHER: Patient appears nontoxic but obviously uncomfortable HENMT: COMMON NORMALS: normocephalic, atraumatic, hearing grossly normal bilaterally and moist oral mucous membranes HEAD & SCALP: normocephalic and atraumatic Eye: COMMON NORMALS: Equal, round and reactive pupils present, EOMs intact bilaterally and conjunctivae normal CONJUNCTIVA: Yes conjunctivae normal PUPIL: Yes Equal, round and reactive pupils present Neck/C-Spine: COMMON NORMALS: full ROM and no JVD Lymph: LYMPHATIC: no lymphadenopathy noted Resp: COMMON NORMALS: normal respiratory effort, No retractions, No use of accessory muscles and clear to auscultation bilaterally AUSCULTATION: clear to auscultation bilaterally Cardio: COMMON NORMALS: no JVD, regular rate and regular rhythm RATE: regular rate RHYTHM: regular rhythm GI: OTHER: Auscultation difficult as patient is guarded against palpation. Patient with profuse tenderness, guarding on palpation of his abdomen. Active vomiting here in the department. : COMMON NORMALS: Yes no CVA tenderness BLADDER/KIDNEY EXAM: Yes no CVA tenderness Back/Pelvis: COMMON NORMALS: no CVA tenderness, no thoracic nor lumbar tenderness and thoraco-lumbar ROM normal Extremity: COMMON NORMALS: normal to inspection, full ROM and capillary refill normal Neuro: COMMON NORMALS: patient oriented x3 SENSORIUM/ORIENTATION: Yes alert Psych: COMMON NORMALS: mental status grossly normal, Normal thought process present, cooperative, normal affect and activity/motor behavior normal THOUGHT PROCESS: Normal thought process present Skin: COMMON NORMALS: no rashes or lesions noted and no wounds GENERAL SKIN EXAM: no rashes or lesions noted Course Vital Signs: Vital signs: Vital Signs Temperature 97.6 F 10/11/23 11:36 Pulse Rate 58 L 10/11/23 11:36 Respiratory Rate 18 10/11/23 17:00 Blood Pressure 195/132 10/11/23 11:36 Pulse Oximetry 99 10/11/23 11:36 MDM - Nausea/Vomiting/Diarrhea Medical Decision Making Patient presents today with unchanged symptoms of upper abdominal pains and vomiting. Patient had a full evaluation yesterday including imaging so repeat was not performed today as symptoms have not changed. Patient has a long history of hyperemesis cannabis for which I personally seen and evaluated the patient in the past. Given that this is the patient's third evaluation in 4 days I did discuss the possibility of admission based on results of evaluation today. However, labs are stable and after talking to Dr. Parkinson, he indicated that the only treatment for this patient would be to stop smoking marijuana and would have improved with Haldol though patient reports he is allergic. Discussed with patient that labs are stable from yesterday without signs of ELIZABETH. He received 2 L of fluid, a small course of pain medication and antinausea medication here in the emergency department. Discussed switching his Compazine over to rectal since he does not seem to be tolerating the p.o. I also prescribed him capsaicin cream to apply to his abdomen. While I was discussing this treatment course, patient began to get out of bed stating he needed to go the bathroom . At this point, we will discharge the patient home. I was able to inform him that the symptoms may occur with each use of THC and last anywhere from 7 to 10 days with each bout. Patient should be well versed in the side effects as documentation for at least 18 months show signs of recurrent and cyclical vomiting-most likely secondary to THC use. Informational handout regarding hyperemesis cannabis from up-to-date also provided to the patient at discharge. Return precautions discussed including bloody emesis or bloody stool. Differential Diagnosis Likely drug-induced nausea and vomiting; Unlikely traveler's diarrhea, food poisoning, gastroenteritis, clostridium difficile infection or dehydration Lab Data 10/11/23 13:31 10/11/23 13:31 Laboratory Results WBC 17.61 10^3/uL (3.29-11.43) H 10/11/23 13:31 RBC 5.45 10^6/uL (3.85-5.65) 10/11/23 13:31 Hgb 15.80 g/dL (11.27-16.99) 10/11/23 13:31 Hct 44.2 % (37-53) 10/11/23 13:31 MCV 81.1 fl (82-101) L 10/11/23 13:31 MCH 29.0 pg (27-33) 10/11/23 13:31 MCHC 35.7 g/dL (30-55) 10/11/23 13:31 RDW 12.1 % (12.1-15.1) 10/11/23 13:31 Plt Count 350 10^3/cmm (157-399) 10/11/23 13:31 MPV 9.5 fL (7.4-10.4) 10/11/23 13:31 Neut % (Auto) 81.0 % 10/11/23 13:31 Lymph % (Auto) 8.7 % 10/11/23 13:31 [place] % (Auto) 9.8 % 10/11/23 13:31 Eos % (Auto) 0.2 % 10/11/23 13:31 Baso % (Auto) 0.1 % 10/11/23 13:31 Neut # (Auto) 14.26 10^3/uL (1.8-7.7) H 10/11/23 13:31 Lymph # (Auto) 1.5 10^3/uL (0.8-4.8) 10/11/23 13:31 [place] # (Auto) 1.7 10^3/uL (0.2-0.9) H 10/11/23 13:31 Eos # (Auto) 0.0 10^3/uL (0.0-0.8) 10/11/23 13:31 Baso # (Auto) 0.0 10^3/uL (0.0-0.1) 10/11/23 13:31 Nucleated RBC % (auto) 0 % 10/11/23 13:31 Nucleated RBCs # 0.0 /100WBC 10/11/23 13:31 Sodium 136 mmol/L (136-145) 10/11/23 13:31 Potassium 3.5 mmol/L (3.5-5.1) 10/11/23 13:31 Chloride 98 mmol/L (98-107) 10/11/23 13:31 Carbon Dioxide 25 mmol/L (22-29) 10/11/23 13:31 Anion Gap 16.5 (5-19) 10/11/23 13:31 BUN 17 mg/dL (6-20) 10/11/23 13:31 Creatinine 0.7 mg/dL (0.7-1.2) 10/11/23 13:31 GFR Calculation 141.0 mL/min (90-130) H 10/11/23 13:31 Glucose 132 mg/dL (65-115) H 10/11/23 13:31 Calculated Osmolality 285 mOsm/kg (285-295) 10/11/23 13:31 Calcium 9.9 mg/dL (8.5-10.5) 10/11/23 13:31 Total Bilirubin 1.6 mg/dL (0.15-1.2) H 10/11/23 13:31 AST 18 U/L (0-40) 10/11/23 13:31 ALT 16 U/L (0-41) 10/11/23 13:31 Alkaline Phosphatase 94 U/L (40-130) 10/11/23 13:31 Total Protein 8.1 g/dL (6.6-8.7) 10/11/23 13:31 Albumin 5.0 g/dL (3.5-5.2) 10/11/23 13:31 Globulin 3.1 g/dL (1.3-4.6) 10/11/23 13:31 Lipase 26 U/L (13-60) 10/11/23 13:31 Urine Color Yellow (Yellow) 10/11/23 14:50 Urine Appearance Clear (CLEAR) 10/11/23 14:50 Urine pH 7 (5-7) 10/11/23 14:50 Ur Specific [place] 1.015 (1.005-1.030) 10/11/23 14:50 Urine Protein Neg (Negative) 10/11/23 14:50 Urine Glucose (UA) Norm (Normal) 10/11/23 14:50 Urine Ketones 1+ (Negative) H 10/11/23 14:50 Urine Blood Neg (Negative) 10/11/23 14:50 Urine Nitrate Negative (Negative) 10/11/23 14:50 Urine Bilirubin Neg (Negative) 10/11/23 14:50 Urine Urobilinogen 1 mg/dL (Negative) H 10/11/23 14:50 Ur Leukocyte Esterase Negative (Negative) 10/11/23 14:50 No radiology studies performed this visit Discharge Plan Discharge Patient Disposition: Home Clinical Impression: Cannabinoid hyperemesis syndrome Condition: Stable Prescriptions: New capsaicin 0.1 % cream 1 applic topical BID Qty: 56.6 0RF Rx Instructions: Apply to upper abdomen. do not wash area for at least 30 min after appli cation Compazine 25 mg suppository 25 mg OK BID PRN (Reason: nausea and vomiting) Qty: 12 0RF No Action acetaminophen 500 mg Tablet 500 - 1,500 mg PO Q6H PRN (Reason: Pain) ibuprofen 200 mg Tablet 400 mg PO Q6H PRN (Reason: Pain) prednisone 5 mg tablets,dose pack See Rx Instructions PO .COMPLEX Qty: 21 0RF Rx Instructions: prednisone 5 mg: take 8 tablets (40 mg) on Day 1; 7 tablets (35 mg) on Day 2; then decrease by 1 tablet every day until finished Compazine 10 mg tablet 10 mg PO Q8H PRN (Reason: nausea and vomiting) Qty: 20 0RF dicyclomine 10 mg capsule 10 mg PO QID PRN (Reason: abdominal pain) Qty: 20 0RF pantoprazole 20 mg tablet,delayed release (DR/EC) 20 mg PO DAILY Qty: 14 0RF metoclopramide HCl [Reglan] 10 mg tablet 10 mg PO Q6H PRN (Reason: nausea and vomiting) Qty: 20 0RF Discharge Orders: Discharge ED (Routine); Ordered 10/11/23 Ordered By: Fanny Gary Referrals: Anali Puri MD [Primary Care Provider] - Discharge Diet: Usual diet Discharge Activity: Increase activity as tolerated Activity Restrictions/Additional Instructions: I was not able to get approval for admission today and his lab work is stable. Vital signs are stable. The physician went through your previous evaluations and it appears you are having symptoms secondary to hyperemesis cannabis at this time. Unfortunately, you are allergic to Haldol-the medication which seems to help with the most with hyperemesis symptoms. Since you are still having vomiting I have switched your antinausea medication over to a rectal suppository to ensure you are able to receive this medication. I have also provided you a topical medication which you need to apply over your abdomen which can help with pain in addition to the Bentyl you have. You may also wish to take hot showers multiple times throughout the day as well. I was encouraged to let you know that until you have all signs of THC out of your system, you will most likely continue to have issues with recurrent abdominal pains and vomiting. Symptoms last for approximately 10 days after THC exposure. You most likely have the symptoms every time you use THC products in the future. As previously recommended by the providers you have seen over the last few days, it is recommended you see a GI doctor as recurrent THC use resulting in vomiting can cause issues with gastritis and bowel irritation. This can cause damage to your GI tract and digestive organs which would need to be evaluated by a counseling program leader. However, as they previously discussed with you, any vomiting with blood in it or bloody stools need to be seen back here in the emergency department. Coding Level of Care Code ED Publication Distributor for Chg Fwd Documented by User: Terry Parkinson MD 10/12/23 10:17 HPI - Nausea/Vomiting/Diarrhea General: Chief complaint: Nausea/Vomiting/Diarrhea Stated complaint: N/V Time Seen by Provider: 10/11/23 12:57 History of Present Illness: Associated nausea: Yes Associated symtoms: Reports nausea Review of Systems GI: Reports: abdominal pain, nausea and vomiting PFSH ED PFSH: Medical History No pertinent past medical history Surgical History H/O esophagogastroduodenoscopy (04/10/22) Family History Other Hypertension Social History Smoking and tobacco/nicotine status: current every day tobacco/nicotine user Alcohol intake: never Substance/Drug Use: never Course Vital Signs: Vital signs: Vital Signs Temperature 97.6 F 10/11/23 11:36 Pulse Rate 58 L 10/11/23 11:36 Respiratory Rate 18 10/11/23 17:00 Blood Pressure 195/132 10/11/23 11:36 Pulse Oximetry 99 10/11/23 11:36 MDM - Nausea/Vomiting/Diarrhea Medical Records I reviewed the patient's medical records. Lab Data I reviewed the patient's lab results. 10/11/23 13:31 10/11/23 13:31 Laboratory Results WBC 17.61 10^3/uL (3.29-11.43) H 10/11/23 13:31 RBC 5.45 10^6/uL (3.85-5.65) 10/11/23 13:31 Hgb 15.80 g/dL (11.27-16.99) 10/11/23 13:31 Hct 44.2 % (37-53) 10/11/23 13:31 MCV 81.1 fl (82-101) L 10/11/23 13:31 MCH 29.0 pg (27-33) 10/11/23 13:31 MCHC 35.7 g/dL (30-55) 10/11/23 13:31 RDW 12.1 % (12.1-15.1) 10/11/23 13:31 Plt Count 350 10^3/cmm (157-399) 10/11/23 13:31 MPV 9.5 fL (7.4-10.4) 10/11/23 13:31 Neut % (Auto) 81.0 % 10/11/23 13:31 Lymph % (Auto) 8.7 % 10/11/23 13:31 [place] % (Auto) 9.8 % 10/11/23 13:31 Eos % (Auto) 0.2 % 10/11/23 13:31 Baso % (Auto) 0.1 % 10/11/23 13:31 Neut # (Auto) 14.26 10^3/uL (1.8-7.7) H 10/11/23 13:31 Lymph # (Auto) 1.5 10^3/uL (0.8-4.8) 10/11/23 13:31 [place] # (Auto) 1.7 10^3/uL (0.2-0.9) H 10/11/23 13:31 Eos # (Auto) 0.0 10^3/uL (0.0-0.8) 10/11/23 13:31 Baso # (Auto) 0.0 10^3/uL (0.0-0.1) 10/11/23 13:31 Nucleated RBC % (auto) 0 % 10/11/23 13:31 Nucleated RBCs # 0.0 /100WBC 10/11/23 13:31 Sodium 136 mmol/L (136-145) 10/11/23 13:31 Potassium 3.5 mmol/L (3.5-5.1) 10/11/23 13:31 Chloride 98 mmol/L (98-107) 10/11/23 13:31 Carbon Dioxide 25 mmol/L (22-29) 10/11/23 13:31 Anion Gap 16.5 (5-19) 10/11/23 13:31 BUN 17 mg/dL (6-20) 10/11/23 13:31 Creatinine 0.7 mg/dL (0.7-1.2) 10/11/23 13:31 GFR Calculation 141.0 mL/min (90-130) H 10/11/23 13:31 Glucose 132 mg/dL (65-115) H 10/11/23 13:31 Calculated Osmolality 285 mOsm/kg (285-295) 10/11/23 13:31 Calcium 9.9 mg/dL (8.5-10.5) 10/11/23 13:31 Total Bilirubin 1.6 mg/dL (0.15-1.2) H 10/11/23 13:31 AST 18 U/L (0-40) 10/11/23 13:31 ALT 16 U/L (0-41) 10/11/23 13:31 Alkaline Phosphatase 94 U/L (40-130) 10/11/23 13:31 Total Protein 8.1 g/dL (6.6-8.7) 10/11/23 13:31 Albumin 5.0 g/dL (3.5-5.2) 10/11/23 13:31 Globulin 3.1 g/dL (1.3-4.6) 10/11/23 13:31 Lipase 26 U/L (13-60) 10/11/23 13:31 Urine Color Yellow (Yellow) 10/11/23 14:50 Urine Appearance Clear (CLEAR) 10/11/23 14:50 Urine pH 7 (5-7) 10/11/23 14:50 Ur Specific [place] 1.015 (1.005-1.030) 10/11/23 14:50 Urine Protein Neg (Negative) 10/11/23 14:50 Urine Glucose (UA) Norm (Normal) 10/11/23 14:50 Urine Ketones 1+ (Negative) H 10/11/23 14:50 Urine Blood Neg (Negative) 10/11/23 14:50 Urine Nitrate Negative (Negative) 10/11/23 14:50 Urine Bilirubin Neg (Negative) 10/11/23 14:50 Urine Urobilinogen 1 mg/dL (Negative) H 10/11/23 14:50 Ur Leukocyte Esterase Negative (Negative) 10/11/23 14:50 Discharge Plan Discharge Patient Disposition: Home Clinical Impression: Cannabinoid hyperemesis syndrome Condition: Stable Prescriptions: New capsaicin 0.1 % cream 1 applic topical BID Qty: 56.6 0RF Rx Instructions: Apply to upper abdomen. do not wash area for at least 30 min after application Compazine 25 mg suppository 25 mg OK BID PRN (Reason: nausea and vomiting) Qty: 12 0RF No Action acetaminophen 500 mg Tablet 500 - 1,500 mg PO Q6H PRN (Reason: Pain) ibuprofen 200 mg Tablet 400 mg PO Q6H PRN (Reason: Pain) prednisone 5 mg tablets,dose pack See Rx Instructions PO .COMPLEX Qty: 21 0RF Rx Instructions: prednisone 5 mg: take 8 tablets (40 mg) on Day 1; 7 tablets (35 mg) on Day 2; then decrease by 1 tablet every day until finished Compazine 10 mg tablet 10 mg PO Q8H PRN (Reason: nausea and vomiting) Qty: 20 0RF dicyclomine 10 mg capsule 10 mg PO QID PRN (Reason: abdominal pain) Qty: 20 0RF pantoprazole 20 mg tablet,delayed release (DR/EC) 20 mg PO DAILY Qty: 14 0RF metoclopramide HCl [Reglan] 10 mg tablet 10 mg PO Q6H PRN (Reason: nausea and vomiting) Qty: 20 0RF Discharge Orders: Discharge ED (Routine); Ordered 10/11/23 Ordered By: Fanny Gary Referrals: Anali Puri MD [Primary Care Provider] - Discharge Diet: Usual diet Discharge Activity: Increase activity as tolerated Activity Restrictions/Additional Instructions: I was not able to get approval for admission today and his lab work is stable. Vital signs are stable. The physician went through your previous evaluations and it appears you are having symptoms secondary to hyperemesis cannabis at this time. Unfortunately, you are allergic to Haldol-the medication which seems to help with the most with hyperemesis symptoms. Since you are still having vomiting I have switched your antinausea medication over to a rectal suppository to ensure you are able to receive this medication. I have also provided you a topical medication which you need to apply over your abdomen which can help with pain in addition to the Bentyl you have. You may also wish to take hot showers multiple times throughout the day as well. I was encouraged to let you know that until you have all signs of THC out of your system, you will most likely continue to have issues with recurrent abdominal pains and vomiting. Symptoms last for approximately 10 days after THC exposure. You most likely have the symptoms every time you use THC products in the future. As previously recommended by the providers you have seen over the last few days, it is recommended you see a GI doctor as recurrent THC use resulting in vomiting can cause issues with gastritis and bowel irritation. This can cause damage to your GI tract and digestive organs which would need to be evaluated by a counseling program leader. However, as they previously discussed with you, any vomiting with blood in it or bloody stools need to be seen back here in the emergency department. Coding Level of Care Code ED Publication Distributor for Chg Fwd Documented by User: Larry Sinha DO 10/12/23 12:37 HPI - Nausea/Vomiting/Diarrhea General: Chief complaint: Nausea/Vomiting/Diarrhea Stated complaint: N/V Time Seen by Provider: 10/11/23 12:57 PFS ED PFSH: Medical History No pertinent past medical history Surgical History H/O esophagogastroduodenoscopy (04/10/22) Family History Other Hypertension Social History Smoking and tobacco/nicotine status: current every day tobacco/nicotine user Alcohol intake: never Substance/Drug Use: never Course Vital Signs: Vital signs: Vital Signs Temperature 97.6 F 10/11/23 11:36 Pulse Rate 58 L 10/11/23 11:36 Respiratory Rate 18 10/11/23 17:00 Blood Pressure 195/132 11/18/23 11:36 Pulse Oximetry 99 10/11/23 11:36 MDM - Nausea/Vomiting/Diarrhea Medical Decision Making Patient presents today with unchanged symptoms of upper abdominal pains and vomiting. Patient had a full evaluation yesterday including imaging so repeat was not performed today as symptoms have not changed. Patient has a long history of hyperemesis cannabis for which I personally seen and evaluated the patient in the past. Given that this is the patient's third evaluation in 4 days I did discuss the possibility of admission based on results of evaluation today. However, labs are stable and after talking to Dr. Parkinson, he indicated that the only treatment for this patient would be to stop smoking marijuana and would have improved with Haldol though patient reports he is allergic. Discussed with patient that labs are stable from yesterday without signs of ELIZABETH. He received 2 L of fluid, a small course of pain medication and antinausea medication here in the emergency department. Discussed switching his Compazine over to rectal since he does not seem to be tolerating the p.o. I also prescri bed him capsaicin cream to apply to his abdomen. While I was discussing this treatment course, patient began to get out of bed stating he needed to go the bathroom . At this point, we will discharge the patient home. I was able to inform him that the symptoms may occur with each use of THC and last anywhere from 7 to 10 days with each bout. Patient should be well versed in the side effects as documentation for at least 18 months show signs of recurrent and cyclical vomiting-most likely secondary to THC use. Informational handout regarding hyperemesis cannabis from up-to-date also provided to the patient at discharge. Return precautions discussed including bloody emesis or bloody stool . Chart reviewed and patient discussed with midlevel. Agree with assessment and plan. Lab Data 10/11/23 13:31 10/11/23 13:31 Laboratory Results WBC 17.61 10^3/uL (3.29-11.43) H 10/11/23 13:31 RBC 5.45 10^6/uL (3.85-5.65) 10/11/23 13:31 Hgb 15.80 g/dL (11.27-16.99) 10/11/23 13:31 Hct 44.2 % (37-53) 10/11/23 13:31 MCV 81.1 fl (82-101) L 10/11/23 13:31 MCH 29.0 pg (27-33) 10/11/23 13:31 MCHC 35.7 g/dL (30-55) 10/11/23 13:31 RDW 12.1 % (12.1-15.1) 10/11/23 13:31 Plt Count 350 10^3/cmm (157-399) 10/11/23 13:31 MPV 9.5 fL (7.4-10.4) 10/11/23 13:31 Neut % (Auto) 81.0 % 10/11/23 13:31 Lymph % (Auto) 8.7 % 10/11/23 13:31 [place] % (Auto) 9.8 % 10/11/23 13:31 Eos % (Auto) 0.2 % 10/11/23 13:31 Baso % (Auto) 0.1 % 10/11/23 13:31 Neut # (Auto) 14.26 10^3/uL (1.8-7.7) H 10/11/23 13:31 Lymph # (Auto) 1.5 10^3/uL (0.8-4.8) 10/11/23 13:31 [place] # (Auto) 1.7 10^3/uL (0.2-0.9) H 10/11/23 13:31 Eos # (Auto) 0.0 10^3/uL (0.0-0.8) 10/11/23 13:31 Baso # (Auto) 0.0 10^3/uL (0.0-0.1) 10/11/23 13:31 Nucleated RBC % (auto) 0 % 10/11/23 13:31 Nucleated RBCs # 0.0 /100WBC 10/11/23 13:31 Sodium 136 mmol/L (136-145) 10/11/23 13:31 Potassium 3.5 mmol/L (3.5-5.1) 10/11/23 13:31 Chloride 98 mmol/L (98-107) 10/11/23 13:31 Carbon Dioxide 25 mmol/L (22-29) 10/11/23 13:31 Anion Gap 16.5 (5-19) 10/11/23 13:31 BUN 17 mg/dL (6-20) 10/11/23 13:31 Creatinine 0.7 mg/dL (0.7-1.2) 10/11/23 13:31 GFR Calculation 141.0 mL/min (90-130) H 10/11/23 13:31 Glucose 132 mg/dL (65-115) H 10/11/23 13:31 Calculated Osmolality 285 mOsm/kg (285-295) 10/11/23 13:31 Calcium 9.9 mg/dL (8.5-10.5) 10/11/23 13:31 Total Bilirubin 1.6 mg/dL (0.15-1.2) H 10/11/23 13:31 AST 18 U/L (0-40) 10/11/23 13:31 ALT 16 U/L (0-41) 10/11/23 13:31 Alkaline Phosphatase 94 U/L (40-130) 10/11/23 13:31 Total Protein 8.1 g/dL (6.6-8.7) 10/11/23 13:31 Albumin 5.0 g/dL (3.5-5.2) 10/11/23 13:31 Globulin 3.1 g/dL (1.3-4.6) 10/11/23 13:31 Lipase 26 U/L (13-60) 10/11/23 13:31 Urine Color Yellow (Yellow) 10/11/23 14:50 Urine Appearance Clear (CLEAR) 10/11/23 14:50 Urine pH 7 (5-7) 10/11/23 14:50 Ur Specific [place] 1.015 (1.005-1.030) 10/11/23 14:50 Urine Protein Neg (Negative) 10/11/23 14:50 Urine Glucose (UA) Norm (Normal) 10/11/23 14:50 Urine Ketones 1+ (Negative) H 10/11/23 14:50 Urine Blood Neg (Negative) 10/11/23 14:50 Urine Nitrate Negative (Negative) 10/11/23 14:50 Urine Bilirubin Neg (Negative) 10/11/23 14:50 Urine Urobilinogen 1 mg/dL (Negative) H 10/11/23 14:50 Ur Leukocyte Esterase Negative (Negative) 10/11/23 14:50 Discharge Plan Discharge Patient Disposition: Home Clinical Impression: Cannabinoid hyperemesis syndrome Condition: Stable Prescriptions: New capsaicin 0.1 % cream 1 applic topical BID Qty: 56.6 0RF Rx Instructions: Apply to upper abdomen. do not wash area for at least 30 min after applicat ion Compazine 25 mg suppository 25 mg OK BID PRN (Reason: nausea and vomiting) Qty: 12 0RF No Action acetaminophen 500 mg Tablet 500 - 1,500 mg PO Q6H PRN (Reason: Pain) ibuprofen 200 mg Tablet 400 mg PO Q6H PRN (Reason: Pain) prednisone 5 mg tablets,dose pack See Rx Instructions PO .COMPLEX Qty: 21 0RF Rx Instructions: prednisone 5 mg: take 8 tablets (40 mg) on Day 1; 7 tablets (35 mg) on Day 2; then decrease by 1 tablet every day until finished Compazine 10 mg tablet 10 mg PO Q8H PRN (Reason: nausea and vomiting) Qty: 20 0RF dicyclomine 10 mg capsule 10 mg PO QID PRN (Reason: abdominal pain) Qty: 20 0RF pantoprazole 20 mg tablet,delayed release (DR/EC) 20 mg PO DAILY Qty: 14 0RF metoclopramide HCl [Reglan] 10 mg tablet 10 mg PO Q6H PRN (Reason: nausea and vomiting) Qty: 20 0RF Discharge Orders: Discharge ED (Routine); Ordered 10/11/23 Ordered By: Fanny Gary Referrals: Anali Puri MD [Primary Care Provider] - Discharge Diet: Usual diet Discharge Activity: Increase activity as tolerated Activity Restrictions/Additional Instructions: I was not able to get approval for admission today and his lab work is stable. Vital signs are stable. The physician went through your previous evaluations and it appears you are having symptoms secondary to hyperemesis cannabis at this time. Unfortunately, you are allergic to Haldol-the medication which seems to help with the most with hyperemesis symptoms. Since you are still having vomiting I have switched your antinausea medication over to a rectal suppository to ensure you are able to receive this medication. I have also provided you a topical medication which you need to apply over your abdomen which can help with pain in addition to the Bentyl you have. You may also wish to take hot showers multiple times throughout the day as well. I was encouraged to let you know that until you have all signs of THC out of your system, you will most likely continue to have issues with recurrent abdominal pains and vomiting. Symptoms last for approximately 10 days after THC exposure. You most likely have the symptoms every time you use THC products in the future. As previously recommended by the providers you have seen over the last few days, it is recommended you see a GI doctor as recurrent THC use resulting in vomiting can cause issues with gastritis and bowel irritation. This can cause damage to your GI tract and digestive organs which would need to be evaluated by a counseling program leader. However, as they previously discussed with you, any vomiting with blood in it or bloody stools need to be seen back here in the emergency department. Coding Level of Care Code ED Publication Distributor for Dee Dee Bennett
[2023-10-11] MEDS: sodium chloride 0.9% 1,000 ML 999 ML IV ×2 (13:39→15:10)
[2023-10-11] MEDS: prochlorperazine 10 mg/2 mL Inj 5 MG IVP ×2 (13:39→16:35)
[2023-10-11 13:52] LABS: Basophils % 0.1 %; Eosinophils % 0.2 %; Hematocrit 44.2 % (37-53); Lymphocytes # 1.5 10^3/uL (0.8-4.8); Lymphocytes % 8.7 %; Mean Corpuscular HGB Conc 35.7 g/dL (30-55); Mean Corpuscular Volume 81.1 fl (82-101); Mean Platelet Volume 9.5 fL (7.4-10.4); Monocytes # 1.7 10^3/uL (0.2-0.9); Monocytes % 9.8 %; Neutrophils # 14.26 10^3/uL (1.8-7.7); Nucleated Red Blood Cells % 0 %; Platelet Count 350 10^3/cmm (157-399); Red Blood Count 5.45 10^6/uL (3.85-5.65); Red Cell Distribution Width 12.1 % (12.1-15.1); White Blood Count 17.61 10^3/uL (3.29-11.43)
[2023-10-11 14:10] LABS: Alanine Aminotransferase 16 U/L (0-41); Alkaline Phosphatase 94 U/L (40-130); Anion Gap 16.5 (5-19); Aspartate Amino Transferase 18 U/L (0-40); Blood Urea Nitrogen 17 mg/dL (6-20); Calcium 9.9 mg/dL (8.5-10.5); Carbon Dioxide 25 mmol/L (22-29); Chloride 98 mmol/L (98-107); Globulin 3.1 g/dL (1.3-4.6); Glucose 132 mg/dL (65-115); Lipase 26 U/L (13-60); Osmolality Calculated 285 mOsm/kg (285-295); Potassium 3.5 mmol/L (3.5-5.1); Sodium 136 mmol/L (136-145); Total Bilirubin 1.6 mg/dL (0.15-1.2); Total Protein 8.1 g/dL (6.6-8.7)
[2023-10-11] MEDS: acetaminophen 1,000 MG/100 ML PIGGYBACK 400 MG IV (14:12)
[2023-10-11 15:10] VITALS: RESP 18
[2023-10-11] MEDS: morphine 4 mg/mL SDV 1 mL IVP (15:10)
[2023-10-11 15:17] LABS: Add Urine Microscopic? NO; Charge for UA Resulting for Rev
[2023-10-11 15:21] LABS: Bilirubin Urine Neg (Negative); Blood Urine Neg (Negative); Glucose Urine UA Norm (Normal); Ketones Urine 1+ (Negative); Leukocyte Esterase Urine Negative (Negative); Nitrate Urine Negative (Negative); Protein Urine Neg (Negative); Specific Gravity, Urine 1.015 (1.005-1.030); Urine Appearance Clear (CLEAR); Urine Color Yellow (Yellow); Urobilinogen Urine 1 mg/dL (Negative); pH Urine 7 (5-7)
[2023-10-11 17:00] VITALS: RESP 18
== END 2023-10-11 17:03 | disposition home or self-care (01) ==
PROVIDERS: Emergency Provider Physician Assistant; PCP Family Medicine
DX: R11.2 Nausea with vomiting, unspecified (principal); F12.90 Cannabis use, unspecified, uncomplicated; Z72.0 Tobacco use
CPT/HCPCS: 80053; 81003; 83690; 85025; 96361; 96365; 96375; 96376; 99284; J0131; J0780; J2270; J7030

== ENCOUNTER 2023-10-12 20:54 | Emergency (ER) | payer MEDICAID, SELFPAY ==
[2023-10-12 21:12] VITALS: BP 172/113; PULSE 78; RESP 16; TEMP 37.1; O2SAT 97; BMI 20.9
--- NOTE | 2023-10-12 21:15 | ED_ITS ---
HPI - Nausea/Vomiting/Diarrhea General: Chief complaint: Nausea/Vomiting/Diarrhea Stated complaint: Vomiting\Fever Time Seen by Provider: 10/12/23 21:13 History of Present Illness: 23-year-old male presents to the emergency department with his mother. Patient states that he has had multiple episodes of severe cyclical nausea and vomiting. He states he is also having significant abdominal cramping he has been seen here in the emergency department on 10/11/2023, 10/10/2023, 10/08/2023, and was advised that the main inciting factor for his cyclical nausea and vomiting is his reoccurring marijuana use. He states that he has several reoccurring episodes and the only thing that seems to make it better is extremely hot showers or baths. He states that his current abdominal pain is a 5 out of 10. He does not appear to be in any acute distress at present. Associated nausea: Yes Associated symtoms: Reports nausea Review of Systems General: Reports: 10 or more systems reviewed and unremarkable except in HPI and below GI: Reports: abdominal pain, nausea and vomiting [facility] ED PFSH: Medical History No pertinent past medical history Surgical History H/O esophagogastroduodenoscopy (04/10/22) Family History Other Hypertension Social History Smoking and tobacco/nicotine status: current every day tobacco/nicotine user Alcohol intake: never Substance/Drug Use: never Physical Exam Narrative: EXAM NARRATIVE: Constitutional: the patient appears well nourished and of normal development. Vital signs as documented. No acute distress at present. Alert and oriented-to person, place, time and situation. Head, eyes, ears, nose, mouth, throat: Normocephalic, atraumatic. Pupils-equal, round, reactive to light. No scleral icterus. Normal-appearing external ears. Normal appearing nasal turbinates, no drainage. No obvious oral lesions, posterior oropharynx without erythema or exudates. Neck: Supple, trachea is midline, no lymphadenopathy, no jugular venous distension, thyromegaly, or carotid bruits. Carotid upstrokes are brisk bilaterally. Lungs: clear to auscultation to all lung uribe. Symmetrical rise and fall of chest, no obvious signs of increased work of breathing at present. Cardiac: Regular rate and rhythm, positive S1, S2. No murmurs, rubs or gallops that I can appreciate Abdomen: Soft, non-tender to palpation, normal active bowel sounds to all quadrants. No palpable masses, no organomegaly and abdominal bruits. Extremities: 2+ pulses in the upper extremities that are equal bilaterally, 2+ pulses in the lower extremities that are equal bilaterally. Non-edematous. M oves all extremities well, sensation to all extremities are noted. Skin: Warm, dry, intact. Course Vital Signs: Vital signs: Vital Signs Temperature 98.7 F 10/12/23 21:12 Pulse Rate 104 H 10/12/23 22:09 Respiratory Rate 16 10/12/23 22:09 Blood Pressure 124/88 10/12/23 22:09 Pulse Oximetry 96 10/12/23 22:09 Oxygen Delivery Me thod Room Air 10/12/23 21:12 MDM - Nausea/Vomiting/Diarrhea Medical Decision Making Physical exam completed and documented, reviewed the patient's previous medical records and treatment plans from the previous emergency department visits. I had an extensive discussion with the patient and at the patient's request with his mother regarding cannabinoid induced hyperemesis syndrome as well as the mainstay of treatment which includes abstinence and reemphasized the importance of discontinuation of use. The patient and his mother appear to be very appreciative of all information is provided I did spend approximately 35 minutes educating them regarding the pathophysiology of cannabinoid induced hyperemesis syndrome. Medical Records I reviewed the patient's medical records. No radiology studies performed this visit Discharge Plan Discharge Patient Disposition: Home Clinical Impression: Cannabinoid hyperemesis syndrome Condition: Stable Prescriptions: No Action acetaminophen 500 mg Tablet 500 - 1,500 mg PO Q6H PRN (Reason: Pain) ibuprofen 200 mg Tablet 400 mg PO Q6H PRN (Reason: Pain) prednisone 5 mg tablets,dose pack See Rx Instructions PO .COMPLEX Qty: 21 0RF Rx Instructions: prednisone 5 mg: take 8 tablets (40 mg) on Day 1; 7 tablets (35 mg) on Day 2; then decrease by 1 tablet every day until finished Compazine 10 mg tablet 10 mg PO Q8H PRN (Reason: nausea and vomiting) Qty: 20 0RF dicyclomine 10 mg capsule 10 mg PO QID PRN (Reason: abdominal pain) Qty: 20 0RF pantoprazole 20 mg tablet,delayed release (DR/EC) 20 mg PO DAILY Qty: 14 0RF metoclopramide HCl [Reglan] 10 mg tablet 10 mg PO Q6H PRN (Reason: nausea and vomiting) Qty: 20 0RF capsaicin 0.1 % cream 1 applic topical BID Qty: 56.6 0RF Rx Instructions: Apply to upper abdomen. do not wash area for at least 30 min after application Compazine 25 mg suppository 25 mg [place] BID PRN (Reason: nausea and vomiting) Qty: 12 0RF Discharge Orders: Discharge ED (Routine); Ordered 10/12/23 Ordered By: Terry Parkinson Referrals: Anali Puri MD [Primary Care Provider] - Discharge Diet: Advance as tolerated Discharge Activity: Resume usual activity Patient Instructions: Opioid Safety, Pain Management Activity Restrictions/Additional Instructions: It is extremely important that you stop smoking marijuana you have cannabinoid induced hyperemesis syndrome and your symptoms will continue to occur unless you completely abstain from all marijuana use. Coding Level of Care Code ED Confidential Investigator for Dee Dee Bennett
[2023-10-12 22:09] VITALS: BP 124/88; PULSE 104; RESP 16; O2SAT 96
== END 2023-10-12 22:11 | disposition home or self-care (01) ==
PROVIDERS: Emergency Provider Internal Medicine; PCP Family Medicine
DX: R11.2 Nausea with vomiting, unspecified (principal); F12.90 Cannabis use, unspecified, uncomplicated; Z72.0 Tobacco use
CPT/HCPCS: 99281

== ENCOUNTER 2024-07-27 07:38 | Emergency (ER) | payer MEDICAID, SELFPAY ==
[2024-07-27 07:41] VITALS: BP 156/118; PULSE 128; RESP 18; TEMP 36.5; O2SAT 96; BMI 20.9
--- NOTE | 2024-07-27 07:42 | XR_ITS ---
WS: [id number] Examination: XR chest 1V portable [id number] Reason for Exam: dyspnea/cough Date: July 27, 2024 Comparison: May 12, 2023 Findings: The heart is not enlarged. The mediastinum is not widened. There is no pleural effusion or congestion. There is no dense consolidation. XR/XR chest 1V portable [id number] Impression: No acute lung process is seen.
--- NOTE | 2024-07-27 07:42 | ECG_ITS ---
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 Measurements Intervals [place] Rate: 116 P: 70 UT: 148 QRS: 134 QRSD: 89 T: 58 QT: 332 QTc: 463 Interpretive Statements SINUS TACHYCARDIA POSSIBLE RIGHT ATRIAL ENLARGEMENT [0.25mV P-WAVE] POSSIBLE RIGHT VENTRICULAR CONDUCTION DELAY [RSR (QR) IN V1/V2] LEFT POSTERIOR FASCICULAR BLOCK [QRS AXIS > 109, INFERIOR Q] Compared to ECG 10/10/2023 07:29:00 Left posterior fascicular block now present Sinus rhythm no longer present Sinus arrhythmia no longer present Right-axis deviation no longer present Early repolarization no longer present Electronically Signed On 07-27-2024 16:41:33 CDT by Kevin Singletary M.D. [email or web address]
[2024-07-27 08:00] VITALS: BP 156/118; PULSE 128; RESP 18; TEMP 36.5; O2SAT 96
[2024-07-27 08:04] LABS: Basophils # 0.1 10^3/uL (0.0-0.1); Basophils % 0.5 %; Eosinophils # 0.1 10^3/uL (0.0-0.8); Eosinophils % 0.7 %; Hematocrit 54.4 % (37-53); Lymphocytes # 4.1 10^3/uL (0.8-4.8); Lymphocytes % 36.9 %; Mean Corpuscular HGB Conc 36.9 g/dL (30-55); Mean Corpuscular Volume 78.5 fl (82-101); Mean Platelet Volume 10.7 fL (7.4-10.4); Monocytes # 1.4 10^3/uL (0.2-0.9); Monocytes % 12.3 %; Neutrophils # 5.44 10^3/uL (1.8-7.7); Neutrophils % 49.2 %; Nucleated Red Blood Cells % 0 %; Platelet Count 342 10^3/cmm (157-399); Red Blood Count 6.93 10^6/uL (3.85-5.65); Red Cell Distribution Width 11.6 % (12.1-15.1); White Blood Count 11.07 10^3/uL (3.29-11.43)
[2024-07-27] MEDS: sodium chloride 0.9% 1,000 ML 999 ML IV ×2 (08:06→08:51)
--- NOTE | 2024-07-27 08:06 | ED_ITS ---
HPI - Nausea/Vomiting/Diarrhea 2 General: Chief complaint: Nausea/Vomiting/Diarrhea Stated complaint: Dehydrated, vomiting, withdrawals from cannibas Time Seen by Provider: 07/27/24 07:42 History of Present Illness: 24-year-old male presents emergency room complaining of nausea vomiting. He states last 5 to 6 days he has had significant epigastric discomfort difficulty with p.o. intake. He had stopped using a THC vape pen. I have some mild chest discomfort as well it has been persisting the last several days. He has metoclopramide at home as well as dicyclomine however he has not used these for his nausea or vomiting he also has Compazine he is not taking any of that. He has had problems with hyperemesis cannabinoid syndrome in the past. He denies any hematochezia melena hematemesis or coffee-ground emesis. No shortness of breath or cough. No fever sweats or chills. Associated nausea: Yes Associated symtoms: Reports nausea; Denies chest pain or dysuria Related Data Home Medications Medication Instructions Recorded Confirmed acetaminophen 500 mg tablet 500 - 1,500 mg PO Q6H PRN Pain 06/03/22 10/10/23 ibuprofen 200 mg tablet 400 mg PO Q6H PRN Pain 10/10/23 10/10/23 Previous Rx's Medication Instructions Recorded dicyclomine 10 mg capsule 10 mg PO QID PRN abdominal pain 10/08/23 #20 caps pantoprazole 20 mg tablet,delayed 20 mg PO DAILY #14 tabs 10/08/23 release prednisone 5 mg tablets in a dose See Rx Instructions PO .COMPLEX 10/10/23 pack #21 ea capsaicin 0.1 % topical cream 1 applic topical BID #56.6 grams 10/11/23 promethazine 25 mg tablet 25 mg PO Q6H PRN nausea and 07/27/24 vomiting #20 tabs Allergies Allergy/AdvReac Type Severity Reaction Status Date / Time haloperidol [From Haldol] Allergy Unknown Verified 10/11/23 11:36 Review of Systems 2 Const: Denies: fever(s) or chills Card: Denies: chest pain Resp: Denies: dyspnea GI: Reports: abdominal pain, nausea and vomiting; Denies: hematemesis or coffee ground emesis : Denies: dysuria, urinary frequency or urinary urgency Musc: Denies: neck pain or back pain Skin/Breast: Denies: rash PFSH ED 2 PFSH: Medical History No pertinent past medical history Surgical History H/O esophagogastroduodenoscopy (04/10/22) Family History Other Hypertension Social History Smoking and tobacco/nicotine status: current every day tobacco/nicotine user Alcohol intake: never Substance/Drug Use: never Physical Exam 2 Const: COMMON NORMALS: no acute distress GENERAL APPEARANCE: cooperative and comfortable ORIENTATION/CONSCIOUSNESS: Yes awake, Yes oriented to person, Yes oriented to place and Yes oriented to time HENMT: COMMON NORMALS: normocephalic, atraumatic and hearing grossly normal bilaterally HEAD & SCALP: normocephalic and atraumatic Resp: COMMON NORMALS: normal respiratory effort, No retractions, No use of accessory muscles and clear to auscultation bilaterally AUSCULTATION: clear to auscultation bilaterally Cardio: COMMON NORMALS: regular rate, regular rhythm and No murmurs present (Cardio) RATE: regular rate RHYTHM: regular rhythm GI: COMMON NORMALS: Soft to palpation and No hepatosplenomegaly present A USCULTATION: Yes normoactive bowel sounds PALPATION: Yes Soft to palpation, No Tenderness to palpation present (GI), No Guarding due to palpation present (GI) and Yes No hepatosplenomegaly present Extremity: COMMON NORMALS: normal to inspection, capillary refill normal, no clubbing, cyanosis or edema, no calf tenderness and no pedal edema Neuro: SENSORIUM/ORIENTATION: Yes oriented to person, Yes oriented to place and Yes oriented to time Skin: COMMON NORMALS: no rashes or lesions noted GENERAL SKIN EXAM: no rashes or lesions noted Course 2 Vital Signs: Vital signs: Vital Signs Temperature 97.7 F 07/27/24 08:00 Pulse Rate 120 H 07/27/24 12:45 Respiratory Rate 18 07/27/24 08:00 Blood Pressure 141/83 07/27/24 12:45 Pulse Oximetry 98 07/27/24 12:45 Oxygen Delivery Me thod Room Air 07/27/24 11:31 MDM - Nausea/Vomiting/Diarrhea Medical Decision Making I have evaluated the foot and medications he is feeling somewhat better repeated his anion gap that is closing. He is still nauseous. Discussed with him possibly putting him on observation continuing IV fluids. He would prefer to go home discharged home clear liquid diet. Discharge home with antiemetics if promethazine use as needed if symptoms worsen return Medical Records I reviewed the patient's medical records. Lab Data I reviewed the patient's lab results. 07/27/24 07:58 07/27/24 10:39 Radiology Impressions Chest X-Ray 07/27/24 07:42 Impression: No acute lung process is seen. Laboratory Results WBC 11.07 10^3/uL (3.29-11.43) 07/27/24 07:58 RBC 6.93 10^6/uL (3.85-5.65) H 07/27/24 07:58 Hgb 20.10 g/dL (11.27-16.99) H 07/27/24 07:58 Hct 54.4 % (37-53) H 07/27/24 07:58 MCV 78.5 fl (82-101) L 07/27/24 07:58 MCH 29.0 pg (27-33) 07/27/24 07:58 MCHC 36.9 g/dL (30-55) 07/27/24 07:58 RDW 11.6 % (12.1-15.1) L 07/27/24 07:58 Plt Count 342 10^3/cmm (157-399) 07/27/24 07:58 MPV 10.7 fL (7.4-10.4) H 07/27/24 07:58 Neut % (Auto) 49.2 % 07/27/24 07:58 Lymph % (Auto) 36.9 % 07/27/24 07:58 [place] % (Auto) 12.3 % 07/27/24 07:58 Eos % (Auto) 0.7 % 07/27/24 07:58 Baso % (Auto) 0.5 % 07/27/24 07:58 Neut # (Auto) 5.44 10^3/uL (1.8-7.7) 07/27/24 07:58 Lymph # (Auto) 4.1 10^3/uL (0.8-4.8) 07/27/24 07:58 [place] # (Auto) 1.4 10^3/uL (0.2-0.9) H 07/27/24 07:58 Eos # (Auto) 0.1 10^3/uL (0.0-0.8) 07/27/24 07:58 Baso # (Auto) 0.1 10^3/uL (0.0-0.1) 07/27/24 07:58 Nucleated RBC % (auto) 0 % 07/27/24 07:58 Nucleated RBCs # 0.0 /100WBC 07/27/24 07:58 Sodium 130 mmol/L (136-145) L 07/27/24 10:39 Potassium 3.8 mmol/L (3.5-5.1) 07/27/24 10:39 Chloride 91 mmol/L (98-107) L 07/27/24 10:39 Carbon Dioxide 20 mmol/L (22-29) L 07/27/24 10:39 Anion Gap 22.8 (5-19) H 07/27/24 10:39 BUN 20 mg/dL (6-20) 07/27/24 10:39 Creatinine 0.7 mg/dL (0.7-1.2) 07/27/24 10:39 GFR Calculation 139.8 mL/min (90-130) H 07/27/24 10:39 Glucose 88 mg/dL (65-115) 07/27/24 10:39 Calculated Osmolality 272 mOsm/kg (285-295) L 07/27/24 10:39 Calcium 8.1 mg/dL (8.5-10.5) L 07/27/24 10:39 Total Bilirubin 4.5 mg/dL (0.15-1.2) H 07/27/24 07:58 AST 29 U/L (0-40) 07/27/24 07:58 ALT 24 U/L (0-41) 07/27/24 07:58 Alkaline Phosphatase 127 U/L (40-130) 07/27/24 07:58 Total Protein 8.8 g/dL (6.6-8.7) H 07/27/24 07:58 Albumin 5.3 g/dL (3.5-5.2) H 07/27/24 07:58 Globulin 3.5 g/dL (1.3-4.6) 07/27/24 07:58 Urine Color [place] (Yellow) A 07/27/24 09:19 Urine Appearance Clear (CLEAR) 07/27/24 09:19 Urine pH 6.0 (5-7) 07/27/24 09:19 Ur Specific [place] 1.022 (1.005-1.030) 07/27/24 09:19 Urine Protein 1+ (Negative) A 07/27/24 09:19 Urine Glucose (UA) Negative (Normal) 07/27/24 09:19 Urine Ketones 3+ (Negative) H 07/27/24 09:19 Urine Blood Negative (Negative) 07/27/24 09:19 Urine Nitrate Negative (Negative) 07/27/24 09:19 Urine Bilirubin Negative (Negative) 07/27/24 09:19 Urine Urobilinogen 1.0 mg/dL (Negative) 07/27/24 09:19 Ur Leukocyte Esterase Negative (Negative) 07/27/24 09:19 Urine RBC None /hpf (0-2) 07/27/24 09:19 Urine WBC 0-4 /hpf (0-5) H 07/27/24 09:19 Ur Squamous Epith Cells None /hpf (0-5) 07/27/24 09:19 Amorphous Sediment Not Reportable 07/27/24 09:19 Urine Bacteria Trace /hpf (NONE) 07/27/24 09:19 Hyaline Casts 5-10 /lpf H 07/27/24 09:19 Urine Mucus 2+ /hpf 07/27/24 09:19 Salicylates < 0.3 mg/dL (3-10) L 07/27/24 07:58 Acetaminophen < 5.0 ug/mL (10-30) L 07/27/24 07:58 Ethyl Alcohol < 10 mg/dL (0-10) 07/27/24 07:58 All radiology interpretation(s) finalized by discharge EKG Data EKG 1: Interpretation: EKG 07/27/2024 0 747 Sinus tachycardia rate of 116 [place] interval [address] changes Discharge Plan Discharge Patient Disposition: Home Clinical Impression: Nausea & vomiting Condition: Stable Prescriptions: New promethazine 25 mg tablet 25 mg PO Q6H PRN (Reason: nausea and vomiting) Qty: 20 0RF Discontinued prochlorperazine maleate [Compazine] 10 mg tablet 10 mg PO Q8H PRN (Reason: nausea and vomiting) Qty: 20 0RF metoclopramide HCl [Reglan] 10 mg tablet 10 mg PO Q6H PRN (Reason: nausea and vomiting) Qty: 20 0RF prochlorperazine [Compazine] 25 mg suppository 25 mg [place] BID PRN (Reason: nausea and vomiting) Qty: 12 0RF No Action acetaminophen 500 mg Tablet 500 - 1,500 mg PO Q6H PRN (Reason: Pain) ibuprofen 200 mg Tablet 400 mg PO Q6H PRN (Reason: Pain) prednisone 5 mg tablets,dose pack See Rx Instructions PO .COMPLEX Qty: 21 0RF Rx Instructions: prednisone 5 mg: take 8 tablets (40 mg) on Day 1; 7 tablets (35 mg) on Day 2; then decrease by 1 tablet every day until finished dicyclomine 10 mg capsule 10 mg PO QID PRN (Reason: abdominal pain) Qty: 20 0RF pantoprazole 20 mg tablet,delayed release (DR/EC) 20 mg PO DAILY Qty: 14 0RF capsaicin 0.1 % cream 1 applic topical BID Qty: 56.6 0RF Rx Instructions: Apply to upper abdomen. do not wash area for at least 30 min after application Discharge Orders: Discharge ED (Routine); Ordered 07/27/24 Ordered By: Larry Sinha Referrals: Anali Puri MD [Primary Care Provider] - Patient Instructions: Opioid Safety, Pain Management Activity Restrictions/Additional Instructions: Thank you for choosing [facility] for your healthcare needs today. It is very important that you follow up as instructed or that you return to the Emergency Department should you have concerns or if your condition changes or worsens in any way. You are seen in the emergency room for persistent nausea and vomiting. You did have some lab abnormalities however after fluids those had improved significantly. At your request we will discharge home with medicines for nausea and vomiting. Continue to avoid THC products. If your symptoms recur or worsen you are welcome to return at any point. Follow-up with your primary care doctor as needed. Also recommend you take pantoprazole twice a day for 10 days then once daily after that as you are previously prescribed Coding Level of Care Code ED Tank Builder Supervisor for Dee Dee Bennett
[2024-07-27] MEDS: metoclopramide 5 mg/mL SDV 2 mL 10 MG IVP (08:07)
[2024-07-27] MEDS: LORazepam 2 mg/mL INJ 1 mL 1 MG IVP (08:08)
[2024-07-27 08:25] LABS: Alanine Aminotransferase 24 U/L (0-41); Albumin Level 5.3 g/dL (3.5-5.2); Alkaline Phosphatase 127 U/L (40-130); Blood Urea Nitrogen 24 mg/dL (6-20); Calcium 9.9 mg/dL (8.5-10.5); Carbon Dioxide 21 mmol/L (22-29); Chloride 80 mmol/L (98-107); Creatinine Clr Calc Pharmacy 125.6669; Globulin 3.5 g/dL (1.3-4.6); Glomerular Filtration Rate 119.8 mL/min (90-130); Glucose 97 mg/dL (65-115); Osmolality Calculated 270 mOsm/kg (285-295); Sodium 128 mmol/L (136-145); Total Bilirubin 4.5 mg/dL (0.15-1.2); Total Protein 8.8 g/dL (6.6-8.7)
[2024-07-27 08:26] LABS: Anion Gap 30.3 (5-19); Aspartate Amino Transferase 29 U/L (0-40); Potassium 3.3 mmol/L (3.5-5.1)
[2024-07-27 09:29] LABS: Charge for UA Resulting for Rev
[2024-07-27 09:32] LABS: Bilirubin Urine Negative (Negative); Blood Urine Negative (Negative); Glucose Urine UA Negative (Normal); Ketones Urine 3+ (Negative); Leukocyte Esterase Urine Negative (Negative); Nitrate Urine Negative (Negative); Protein Urine 1+ (Negative); Specific Gravity, Urine 1.022 (1.005-1.030); Urine Appearance Clear (CLEAR)
[2024-07-27 10:07] LABS: UA Manual Slide Review YES; UA Slide Review UA Slide Review Perf; Urine Color Orange (Yellow)
[2024-07-27 10:09] LABS: Add Urine Culture? No; Bacteria Urine TRACE /hpf; Mucus Urine 2+ /hpf; WBC Urine 0-4 /hpf (0-5)
[2024-07-27 10:25] LABS: Acetaminophen < 5.0 ug/mL (10-30); Alcohol Level < 10 mg/dL (0-10); Salicylate < 0.3 mg/dL (3-10)
[2024-07-27] MEDS: acetaminophen 500 mg Tablet 1000 MG PO (10:34)
[2024-07-27] MEDS: lidocaine 2% viscous 15 ML, aluminum-mag hydrox-simethicon 30 ML, sucralfate oral liq 1 GM PO (10:34)
[2024-07-27 11:00] LABS: Blood Urea Nitrogen 20 mg/dL (6-20); Calcium 8.1 mg/dL (8.5-10.5); Carbon Dioxide 20 mmol/L (22-29); Chloride 91 mmol/L (98-107); Creatinine Clr Calc Pharmacy 143.6194; Glomerular Filtration Rate 139.8 mL/min (90-130); Glucose 88 mg/dL (65-115); Osmolality Calculated 272 mOsm/kg (285-295); Sodium 130 mmol/L (136-145)
[2024-07-27 11:12] LABS: Anion Gap 22.8 (5-19); Potassium 3.8 mmol/L (3.5-5.1)
--- NOTE | 2024-07-27 11:24 | PC.NURSE ---
PER DR. PARRA, ADMIN ACETAMINOPHEN 1000MG IV ONCE.
[2024-07-27] MEDS: acetaminophen 1,000 MG/100 ML PIGGYBACK 400 MG IV (11:28)
[2024-07-27 11:31] VITALS: BP 158/106; PULSE 112; O2SAT 97
[2024-07-27 12:45] VITALS: BP 141/83; PULSE 120; O2SAT 98
== END 2024-07-27 12:46 | disposition home or self-care (01) ==
PROVIDERS: Emergency Provider Family Medicine; PCP Family Medicine
DX: R11.2 Nausea with vomiting, unspecified (principal); R00.0 Tachycardia, unspecified; Z72.0 Tobacco use
CPT/HCPCS: 36415; 71045; 80048; 80053; 80307; 81003; 81015; 85025; 93005; 96361; 96374; 96375; 99285; J0131; J2060; J2765; J7030

== ENCOUNTER 2024-12-21 19:30 | Emergency (ER) | payer MEDICAID, SELFPAY ==
[2024-12-21 19:49] VITALS: BP 126/85; PULSE 120; RESP 17; TEMP 36.8; O2SAT 100; BMI 21.7
[2024-12-21 20:54] LABS: Basophils % 0.2 %; Eosinophils # 0.1 10^3/uL (0.0-0.8); Eosinophils % 0.6 %; Lymphocytes # 3.4 10^3/uL (0.8-4.8); Lymphocytes % 27.3 %; Mean Corpuscular HGB Conc 33.9 g/dL (30-55); Mean Corpuscular Volume 85.4 fl (82-101); Mean Platelet Volume 10.6 fL (7.4-10.4); Monocytes % 7.8 %; Neutrophils # 7.97 10^3/uL (1.8-7.7); Neutrophils % 63.8 %; Nucleated Red Blood Cells % 0 %; Platelet Count 353 10^3/cmm (157-399); Red Blood Count 6.56 10^6/uL (3.85-5.65); Red Cell Distribution Width 11.6 % (12.1-15.1); White Blood Count 12.51 10^3/uL (3.29-11.43)
[2024-12-21 21:12] LABS: Alanine Aminotransferase 27 U/L (0-41); Albumin Level 5.1 g/dL (3.5-5.2); Alkaline Phosphatase 113 U/L (40-130); Anion Gap 17.1 (5-19); Aspartate Amino Transferase 28 U/L (0-40); Blood Urea Nitrogen 33 mg/dL (6-20); Calcium 10.4 mg/dL (8.5-10.5); Carbon Dioxide 31 mmol/L (22-29); Chloride 97 mmol/L (98-107); Creatinine Clr Calc Pharmacy 102.0078; Globulin 3.9 g/dL (1.3-4.6); Glomerular Filtration Rate 92.6 mL/min (90-130); Glucose 96 mg/dL (65-115); Lipase 38 U/L (13-60); Osmolality Calculated 299 mOsm/kg (285-295); Potassium 4.1 mmol/L (3.5-5.1); Sodium 141 mmol/L (136-145); Total Bilirubin 2.4 mg/dL (0.15-1.2)
--- NOTE | 2024-12-21 21:57 | ED_ITS ---
HPI - Abdominal Pain 2 General: Chief Complaint: Abdominal Pain Stated Complaint: v Time Seen by Provider: 12/21/24 20:34 Source: patient Mode of arrival: ambulatory Limitations: no limitations History of Present Illness: Patient is a 24-year-old male with history of cannabinoid hyperemesis syndrome who presents the emergency department complaining of severe nausea and vomiting for the past week. Patient states this feels exactly the same as his last bout with cannabinoid hyperemesis, just not as severe. He notes diffuse mild abdominal cramping, inability to keep any food or drink down. He states that he feels severely dehydrated, has skin dryness and cracking. He also notes that he is constipated, or feels that way however has reported essentially no food intake. He has not taken anything for his nausea or symptoms. Denies any coffee-ground emesis, hematemesis, melena or hematochezia, fevers, chest pain, or shortness of breath. Tachycardic at this time, tired appearing. No fever and SpO2 100% on room air. MD elicited complaint: abdominal pain Pertinent past history: other (Cannabinoid hyperemesis syndrome) Onset (ago): week(s) Pain Consistency: constant Location: Diffuse Severity: mild Quality: cramping Relieving factors: nothing Context: history of similar episodes Associated Symptoms: Reports constipation, GI cramping, nausea and vomiting; Denies bloating, change in stool character, chills, diarrhea, dysuria, fever(s) and hematochezia Related Data Home Medications Medication Instructions Recorded Confirmed acetaminophen 500 mg tablet 500 - 1,500 mg PO Q6H PRN Pain 06/03/22 10/10/23 ibuprofen 200 mg tablet 400 mg PO Q6H PRN Pain 10/10/23 10/10/23 Previous Rx's Medication Instructions Recorded dicyclomine 10 mg capsule 10 mg PO QID PRN abdominal pain 10/08/23 #20 caps pantoprazole 20 mg tablet,delayed 20 mg PO DAILY #14 tabs 10/08/23 release prednisone 5 mg tablets in a dose See Rx Instructions PO .COMPLEX 10/10/23 pack #21 ea capsaicin 0.1 % topical cream 1 applic topical BID #56.6 grams 10/11/23 promethazine 25 mg tablet 25 mg PO Q6H PRN nausea and 07/27/24 vomiting #20 tabs ondansetron HCl 4 mg tablet 4 mg PO Q8H #30 tabs 12/22/24 Allergies Allergy/AdvReac Type Severity Reaction Status Date / Time haloperidol [From Haldol] Allergy Unknown Verified 12/21/24 19:57 Review of Systems 2 General: Reports: 10 or more systems reviewed and unremarkable except in HPI and below Const: Reports: change in appetite and other (Weakness); Denies: fever(s), chills, change in weight or diaphoresis ENMT: Denies: throat pain or hoarseness Card: Denies: chest pain, palpitations or lightheadedness Resp: Denies: dyspnea, productive cough or wheezing GI: Reports: abdominal pain, nausea, vomiting, constipation and GI cramping; Denies: diarrhea, bloating, change in stool character or hematochezia : Denies: flank pain, difficulty urinating, dysuria, urinary frequency or urinary urgency Musc: Denies: neck pain or back pain Skin/Breast: Denies: rash or new lesions Neuro: Denies: headache(s) or dizziness PFSH ED 2 PFSH: Medical History No pertinent past medical history Surgical History H/O esophagogastroduodenoscopy (04/10/22) Family History Other Hypertension Social History Smoking and tobacco/nicotine status: current every day tobacco/nicotine user Alcohol intake: never Substance/Drug Use: never Physical Exam 2 Const: COMMON NORMALS: no acute distress, average body habitus, patient oriented x3, no limitations, alert and well nourished GENERAL APPEARANCE: c ooperative ORIENTATION/CONSCIOUSNESS: Yes awake OTHER: Tired appearing HENMT: COMMON NORMALS: normocephalic, atraumatic, hearing grossly normal bilaterally, external ears normal and Normal nasal mucous membranes and turbinates present HEAD & SCALP: normocephalic and atraumatic NOSE: Normal nasal mucous membranes and turbinates present and Other nasal findings present (Skin cracking to bridge of nose) EXTERNAL EAR: Yes external ears normal M OUTH: moist mucous membranes abnormal Details: cracked Eye: COMMON NORMALS: EOMs intact bilaterally, conjunctivae normal and no scleral icterus CONJUNCTIVA: Yes conjunctivae normal Neck/C-Spine: COMMON NORMALS: full ROM, supple, no meningeal signs and no JVD Resp: COMMON NORMALS: normal respiratory effort, No retractions, No use of accessory muscles and clear to auscultation bilaterally AUSCULTATION: clear to auscultation bilaterally, no crackles, no rales, no rhonchi and no wheezes Cardio: COMMON NORMALS: no JVD, regular rhythm, S1 normal heart sound present, S2 normal heart sound present, No gallops present (Cardio), No clicks present (Cardio), No murmurs present (Cardio), No rub (Cardio) and Peripheral pulses 2+ throughout RATE: tachycardic RHYTHM: regular rhythm HEART SOUNDS: S1 normal heart sound present and S2 normal heart sound present PERIPHERAL PULSES: Peripheral pulses 2+ throughout GI: COMMON NORMALS: Normal to inspection, nondistended, normoactive bowel sounds present, Soft to palpation, No hepatosplenomegaly present and no masses AUSCULTATION: Yes normoactive bowel sounds PALPATION: Yes Soft to palpation, Yes Tenderness to palpation present (GI) (Diffuse), No Guarding due to palpation present (GI), No Rigid due to palpation and Yes No hepatosplenomegaly present RECTAL EXAM: Yes deferred : COMMON NORMALS: Yes no CVA tenderness BLADDER/KIDNEY EXAM: Yes no CVA tenderness Back/Pelvis: COMMON NORMALS: no CVA tenderness Extremity: COMMON NORMALS: normal to inspection and full ROM Neuro: COMMON NORMALS: patient oriented x3, moves all extremities, no focal motor deficits and no sensory deficits noted SENSORIUM/ORIENTATION: Yes alert MENINGEAL SIGNS: Yes no meningeal signs Psych: COMMON NORMALS: mental status grossly normal, cooperative and speech normal SPEECH: Yes normal speech Skin: COMMON NORMALS: no rashes or lesions noted GENERAL SKIN EXAM: no rashes or lesions noted Course 2 Vital Signs: Vital signs: Vital Signs Temperature 98.2 F 12/21/24 19:49 Pulse Rate 87 12/21/24 23:35 Respiratory Rate 18 12/21/24 23:35 Blood Pressure 155/107 12/21/24 23:35 Pulse Oximetry 100 12/21/24 23:35 Oxygen Delivery Me thod Room Air 12/21/24 23:35 MDM - Abdominal Pain Medical Decision Making Patient presented with a week of severe vomiting, some abdominal pain. Tachycardic on exam, clinically appear dehydrated. Lab work showed mild increase in white count likely secondary to vomiting. Chronically has elevated hemoglobin as well. Initially we were going to treat with fluids, nausea medicine and pain medicine to see how he does. He noted increased pain despite these measures, so CT was ordered that did not demonstrate any acute process. He was rechecked again sometime later notes he does feel less nauseous still having some minor pain. Heart rate noted to normalize into the 80s, clinically he does appear better on recheck. Discussed plan for outpatient management with nausea medications, as he is urged to of his fluid intake and begin introducing soft small meals. He is comfortable with this plan, 1 more dose pain meds given prior to discharge and general return precautions are given. Being that he related this directly to previous hyperemesis cannabinoid syndrome, and his continued use of marijuana I do suspect that this is causing his symptoms. Lab Data 12/21/24 20:28 12/21/24 20:28 Labs/Radiology: Radiology Impressions Abdomen/Pelvis CT 12/21/24 23:07 IMPRESSION: 1. No bowel obstruction or inflammatory process associated with the bowel. 2. No free air or significant free fluid in the abdomen or pelvis. 3. No evidence of appendicitis. Laboratory Results WBC 12.51 10^3/uL (3.29-11.43) H 12/21/24 20: RBC 6.56 10^6/uL (3.85-5.65) H 12/21/24 20: Hgb 19.00 g/dL (11.27-16.99) H 12/21/24 20: Hct 56.0 % (37-53) H 12/21/24 20: MCV 85.4 fl (82-101) 12/21/24 20: MCH 29.0 pg (27-33) 12/21/24 20: MCHC 33.9 g/dL (30-55) 12/21/24 20: RDW 11.6 % (12.1-15.1) L 12/21/24 20: Plt Count 353 10^3/cmm (157-399) 12/21/24 20: MPV 10.6 fL (7.4-10.4) H 12/21/24 20: Neut % (Auto) 63.8 % 12/21/24 20: Lymph % (Auto) 27.3 % 12/21/24 20: Rains % (Auto) 7.8 % 12/21/24 20: Eos % (Auto) 0.6 % 12/21/24 20: Baso % (Auto) 0.2 % 12/21/24 20: Neut # (Auto) 7.97 10^3/uL (1.8-7.7) H 12/21/24 20: Lymph # (Auto) 3.4 10^3/uL (0.8-4.8) 12/21/24: Rains # (Auto) 1.0 10^3/uL (0.2-0.9) H 12/21/24 20: Eos # (Auto) 0.1 10^3/uL (0.0-0.8) 12/21/24: Baso # (Auto) 0.0 10^3/uL (0.0-0.1) 12/21/24 20: Nucleated RBC % (auto) 0 % 12/21/24: Nucleated RBCs # 0.0 /100WBC 12/21/24 20: Sodium 141 mmol/L (136-145) 12/21/24: Potassium 4.1 mmol/L (3.5-5.1) 12/21/24: Chloride 97 mmol/L (98-107) L 12/21/24: Carbon Dioxide 31 mmol/L (22-29) H 12/21/24 20: Anion Gap 17.1 (5-19) 12/21/24 20: BUN 33 mg/dL (6-20) H 12/21/24 20: Creatinine 1.0 mg/dL (0.7-1.2) 12/21/24 20: GFR Calculation 92.6 mL/min (90-130) 12/21/24 20: Glucose 96 mg/dL (65-115) 12/21/24 20: Calculated Osmolality 299 mOsm/kg (285-295) H 12/21/24 20:28 Calcium 10.4 mg/dL (8.5-10.5) 12/21/24 20:28 Total Bilirubin 2.4 mg/dL (0.15-1.2) H 12/21/24 20:28 AST 28 U/L (0-40) 12/21/24 20:28 ALT 27 U/L (0-41) 12/21/24 20:28 Alkaline Phosphatase 113 U/L (40-130) 12/21/24 20:28 Total Protein 9.0 g/dL (6.6-8.7) H 12/21/24 20:28 Albumin 5.1 g/dL (3.5-5.2) 12/21/24 20:28 Globulin 3.9 g/dL (1.3-4.6) 12/21/24 20:28 Lipase 38 U/L (13-60) 12/21/24 20:28 All radiology interpretation(s) finalized by discharge Discharge Plan Discharge Patient Disposition: Home Clinical Impression: Cannabinoid hyperemesis syndrome Condition: Stable Prescriptions: New ondansetron HCl 4 mg tablet 4 mg PO Q8H Qty: 30 0RF No Action acetaminophen 500 mg Tablet 500 - 1,500 mg PO Q6H PRN (Reason: Pain) ibuprofen 200 mg Tablet 400 mg PO Q6H PRN (Reason: Pain) prednisone 5 mg tablets,dose pack See Rx Instructions PO .COMPLEX Qty: 21 0RF Rx Instructions: prednisone 5 mg: take 8 tablets (40 mg) on Day 1; 7 tablets (35 mg) on Day 2; then decrease by 1 tablet every day until finished promethazine 25 mg tablet 25 mg PO Q6H PRN (Reason: nausea and vomiting) Qty: 20 0RF dicyclomine 10 mg capsule 10 mg PO QID PRN (Reason: abdominal pain) Qty: 20 0RF pantoprazole 20 mg tablet,delayed release (DR/EC) 20 mg PO DAILY Qty: 14 0RF capsaicin 0.1 % cream 1 applic topical BID Qty: 56.6 0RF Rx Instructions: Apply to upper abdomen. do not wash area for at least 30 min after application Discharge Orders: Discharge ED (Routine); Ordered 12/22/24 Ordered By: Morgan Quiñones Referrals: Anali Puri MD [Primary Care Provider] - Activity Restrictions/Additional Instructions: Zofran for nausea. Please increase your fluid intake and begin regulating your diet as your nausea improves. Ibuprofen/Tylenol for pain. Follow-up with primary care. Return with any new or concerning. Coding Level of Care Code ED [employer] for [facility]
[2024-12-21] MEDS: metoclopramide 5 mg/mL SDV 2 mL 10 MG IVP (22:10)
[2024-12-21] MEDS: sodium chloride 0.9% 1,000 ML 999 ML IV ×2 (22:10→22:26)
[2024-12-21 22:20] VITALS: BP 149/112; PULSE 61; RESP 18; O2SAT 100
[2024-12-21 22:27] VITALS: RESP 18; O2SAT 100
[2024-12-21] MEDS: morphine 4 mg/mL SDV 1 mL 2 MG IVP (22:27)
[2024-12-21 22:30] VITALS: BP 159/105; PULSE 88; O2SAT 97
[2024-12-21 23:00] VITALS: BP 155/102; PULSE 91; O2SAT 99
--- NOTE | 2024-12-21 23:07 | CTR_ITS ---
PROCEDURE INFORMATION: Exam: CT Abdomen And Pelvis With Contrast Exam date and time: 12/21/2024 11:50 PM Age: 24 years old Clinical indication: Abdominal tenderness and nausea and vomiting; Additional info: Diffuse abd pain, severe vomiting TECHNIQUE: Imaging protocol: Computed tomography of the abdomen and pelvis with contrast. Radiation optimization: All CT scans at this facility use at least one of these dose optimization techniques: automated exposure control; mA and/or kV adjustment per patient size (includes targeted exams where dose is matched to clinical indication); or iterative reconstruction. Contrast material: OMNI 350; Contrast volume: 80 ml; Contrast route: INTRAVENOUS (IV); COMPARISON: CT abdomen pelvis w con* [id number] 10/10/2023 7:55 AM RADIATION DOSE METRICS: Total DLP (mGy-cm): 351.58 FINDINGS: Liver: Normal. No mass. Gallbladder and biliary ducts: Normal. No calcified stones. No ductal dilation. Pancreas: Normal. No ductal dilation. Spleen: Normal. No splenomegaly. Adrenal glands: Normal. No mass. Kidneys and ureters: Normal. No hydronephrosis. Stomach and bowel: Unremarkable. No obstruction. No mucosal thickening. Appendix: No evidence of appendicitis. Intraperitoneal space: Unremarkable. No free air. No significant fluid collection. Vasculature: Unremarkable. No abdominal aortic aneurysm. Lymph nodes: Unremarkable. No enlarged lymph nodes. Urinary bladder: Unremarkable as visualized. Reproductive: Unremarkable as visualized. Bones/joints: Unremarkable. No acute fracture. Soft tissues: Unremarkable. CT/CT abdomen pelvis w con* [id number] IMPRESSION: 1. No bowel obstruction or inflammatory process associated with the bowel. 2. No free air or significant free fluid in the abdomen or pelvis. 3. No evidence of appendicitis.
[2024-12-21 23:35] VITALS: BP 155/107; PULSE 87; RESP 18; O2SAT 100
[2024-12-22] MEDS: iohexol 350 mg/mL 500 mL Btl (per mL) IV (00:01)
[2024-12-22 00:49] VITALS: BP 169/101; PULSE 94; RESP 16; O2SAT 100
[2024-12-22] MEDS: morphine 4 mg/mL SDV 1 mL 2 MG IVP (00:49)
== END 2024-12-22 00:50 | disposition home or self-care (01) ==
PROVIDERS: Emergency Medicine; Emergency Provider Physician Assistant; PCP Family Medicine
DX: R11.2 Nausea with vomiting, unspecified (principal)
CPT/HCPCS: 36415; 74177; 80053; 83690; 85025; 96361; 96374; 96375; 96376; 99285; J2270; J2765; J7030